=== PATIENT | male | born 1960 | race Caucasian/White ===

== ENCOUNTER 2022-10-30 18:15 | Emergency (ER) | payer OTHER, SELFPAY ==
[2022-10-30 18:37] VITALS: BP 157/84; PULSE 72; RESP 24; TEMP 37.4; BMI 32.5
--- NOTE | 2022-10-30 19:13 | ED_ITS ---
HPI - General Adult General Chief complaint: Back Pain/Injury Stated complaint: RIB PAIN AFTER FALL, HARD TO BREATH Time Seen by Provider: 10/30/22 19:12 History of Present Illness HPI narrative: Yesterday the patient tripped and fell at home, landing onto his left side with the torso striking the ground. he did not hit his head, denied any injury to the neck or back. he also denied any injury to the extremities. He complains of pain along the left rib cage both anteriorly and posteriorly as well as laterally on that left side. He took some motrin around 9am this morning but none since. He said that the pain is worse with mvoement of the left arm and certain movements of the torso. no fever or chills. No abdominal pain or vomiting. He said that it hurts to take a deep breath but he has no shortness of breath. Related Data Home Medications Medication Instructions Recorded Confirmed furosemide 40 mg tablet 40 mg PO DAILY 10/30/22 10/30/22 insulin detemir U-100 100 unit/mL 30 unit subcut DAILY 10/30/22 10/30/22 (3 mL) subcutaneous pen (Levemir FlexPen) pioglitazone 45 mg tablet 45 mg PO DAILY 10/30/22 10/30/22 pravastatin 40 mg tablet 40 mg PO DAILY 10/30/22 10/30/22 Allergies Allergy/AdvReac Type Severity Reaction Status Date / Time No Known Drug Allergies Allergy Verified 10/30/22 18:32 Exam Narrative Exam Narrative: Nurses note and vital signs reviewed and patient is not hypoxic. afebrile General: The patient appears well and in no apparent distress. Patient is resting comfortably on cart. GCS = 15. Skin: Warm, dry, no pallor noted. Head: Normocephalic, atraumatic Neck: Supple, trachea mid-line. Full ROM and no cervical spinal tenderness. Eyes: PERRLA, EOMI Cardiovascular: Regular Rate and Rhythm Respiratory: Patient is in no distress, no accessory muscle use, lungs are clear to auscultation, no wheezing, rales or rhonchi Chest Wall: Diffuse left anterolatral and posterolateral tenderness. No flail chest, contusion, abrasion, or visual signs of trauma. Back: No thoracic or lumbar tenderness to palpation. Musculoskeletal: no sign of long bone fracture, no tenderness, no swelling. Moves all four extremities in all modalities with 5/5 strength. GI: Normal bowel sounds, no tenderness to palpation, no masses appreciated. He has a stoma. No rebound, guarding, or rigidity noted. Neurological: A&O x4, normal equal turbine technician strength, normal finger to nose, normal speech, normal coordination, normal motor, normal sensory. Psychiatric: Cooperative Constitutional Vital Signs - 24 hr 10/30/22 18:37 Temperature 99.4 F Pulse Rate [Monitor] 72 Respiratory Rate 24 Blood Pressure [Right Arm] 157/84 H Course Vital Signs Vital signs: Vital Signs Temperature 99.4 F 10/30/22 18:37 Pulse Rate 72 10/30/22 18:37 Respiratory Rate 24 10/30/22 18:37 Blood Pressure 157/84 H 10/30/22 18:37 Temperature 99.4 F 10/30/22 18:37 Pulse Rate 72 10/30/22 18:37 Respiratory Rate 24 10/30/22 18:37 Blood Pressure 157/84 H 10/30/22 18:37 Medical Decision Making MDM Narrative Medical decision making narrative: patient sent for xrays of the left ribs and chest. he was given robaxin but wanted to take it at home. He took the Toradol we offered him. No rib fractures identified by radiologist. Patient informed of xray results and was discharged home with prescriptions for Robaxin and Relafen. Imaging Data xr ribs and chest: Radiologist's impression: Patient Name: LOBO DENSON MRN: [id number] date: 1960 Sex: M Assigned Patient Location: ER Current Patient Location: ER Accession/Order Number: [id number] Exam Date: 10/30/2022 20:15 Report Date: 10/30/2022 20:53 At the request of: KRIS LOPES Procedure: XR ribs RT min 3V w CXR1V EXAMINATION: XR ribs RT min 3V w CXR1V HISTORY: Fall COMPARISON: None. TECHNIQUE: AP and PA views of the chest along with 5 views of the ribs FINDINGS: The lung parenchyma is free of consolidation or infiltrate. No pneumothorax or pleural effusion. The cardiac, mediastinal and hilar contours are normal. The visualized osseous structures exhibit no gross abnormality. IMPRESSION: No visualized acute abnormalities Electronically authenticated by: JOYCE ANDERSON Date: 10/30/2022 20:53 Discharge Plan Discharge Chief Complaint: Back Pain/Injury Clinical Impression: Contusion of rib on left side Patient Disposition: Home, Self-Care Time of Disposition Decision: 21:08 Prescriptions / Home Meds: No Action Levemir FlexPen 100 unit/mL (3 mL) insulin pen 30 unit SUBCUT DAILY furosemide 40 mg tablet 40 mg PO DAILY pioglitazone 45 mg tablet 45 mg PO DAILY pravastatin 40 mg tablet 40 mg PO DAILY Instructions: Rib Contusion (ED) Stand Alone Forms: Portal Instructions Referrals: Jigar Olsen MD [Primary Care Provider] - 1 week
[2022-10-30] MEDS: KETOROLAC TROMETHAMINE 10 MG TABLET PO (20:06)
--- NOTE | 2022-10-30 20:09 | PC.NURSE ---
patient medicated for pain at this time
[2022-10-30 21:07] VITALS: BP 148/72; PULSE 67; RESP 16; O2SAT 97
[2022-10-30] MEDS: METHOCARBAMOL 500 MG TABLET PO (21:30)
== END 2022-10-30 21:30 | disposition home or self-care (01) ==
PROVIDERS: Emergency Provider Emergency Medicine; PCP Family Medicine
DX: S20.212A Contusion of left front wall of thorax, initial encounter (principal); W01.198A Fall on same level from slipping, tripping and stumbling with subsequent striking against other object, initial encounter; Z79.899 Other long term (current) drug therapy; Z79.4 Long term (current) use of insulin
CPT/HCPCS: 71101; 99283

== ENCOUNTER 2022-11-06 20:24 | Emergency (ER) | payer OTHER, SELFPAY ==
[2022-11-06] VITALS (7 sets, daily range): BP systolic 143–200; BP diastolic 76–109; PULSE 64–73; RESP 12–18; TEMP 37; O2SAT 95–98; BMI 32.6
--- NOTE | 2022-11-06 20:48 | PC.NURSE ---
pt reports bloody nose earlier but no problems related to this HTN. Nay LAWRENCE and no CP, nose bleed selected as a main complaint d/t no appropriate choices for pt complaint re: HTN
--- NOTE | 2022-11-06 20:52 | ECG_ITS ---
[facility] Test Date: 2022-11-06 Pat Name: LOBO DENSON Department: Room: - Gender: Male Transmission Technician: : 1960 Requested By: GALEN POWELL Order Number: [id number] Reading MD: ARIADNA ABREU Measurements Intervals [place] Rate: 66 P: 43 IN: 186 QRS: -30 QRSD: 98 T: 38 QT: 406 QTc: 420 Interpretive Statements 1100 Sinus rhythm 2440 Incomplete right bundle branch block 3114 Cannot rule out anterior myocardial infarction, age undetermined 9150 abnormal ECG No previous ECG available for comparison Electronically Signed On 11-07-2022 7:01:14 EDT by ARIADNA ABREU
--- NOTE | 2022-11-06 20:55 | ED_ITS ---
HPI - General Adult General Chief complaint: Shortness of Breath/Dyspnea Stated complaint: Hypertension Time Seen by Provider: 11/06/22 20:52 Source: patient Mode of arrival: walk-in Limitations: no limitations History of Present Illness HPI narrative: This 61-year-old male with a history of diabetes, hypertension who has a colostomy bag presents for evaluation of elevated blood pressure. The patient states he was at [facility] earlier today and had a nosebleed for approximately 5-10 minutes. 2 of the people that were there also have high blood pressure and he took his blood pressure and it was in the 200/100 range. He denies any chest pain. He does have some left-sided back pain and mild shortness of breath after having a fall while tripping in a hole when he was taking his garbage out a week ago. He denies any dizziness or syncope. He has no headache. He has no focal weakness numbness or tingling. He denies any abdominal pain or back pain. He was formally on blood pressure medication but he states he was sick approximately a year ago and he was taken off of his blood pressure medication. He states he was started on an insulin regimen at that time and still takes Lasix daily. After I ordered a chest x-ray for him he requested to know why I had ordered the chest x-ray. I explained that he complained of a follow week ago with left-sided back pain and mild shortness of breath. He informed me that he did have a chest x-ray week ago. The chest x-ray at that time was an x-ray of the ribs and chest x-ray and reviewed the report with no visualized acute abnormalities. Onset (ago): day(s) (1) Related Data Home Medications Medication Instructions Recorded Confirmed furosemide 40 mg tablet 40 mg PO DAILY 10/30/22 11/06/22 insulin detemir U-100 100 unit/mL 30 unit subcut DAILY 10/30/22 11/06/22 (3 mL) subcutaneous pen (Levemir FlexPen) pioglitazone 45 mg tablet 45 mg PO DAILY 10/30/22 11/06/22 pravastatin 40 mg tablet 40 mg PO DAILY 10/30/22 11/06/22 aspirin 81 mg capsule 81 mg PO DAILY 11/06/22 11/06/22 insulin lispro 100 unit/mL subcut TID 06/22/23 subcutaneous pen (Humalog KwikPen (U-100) Insulin) Allergies Allergy/AdvReac Type Severity Reaction Status Date / Time No Known Drug Allergies Allergy Verified 10/30/22 18:32 Review of Systems ROS Status of ROS 10 or more systems reviewed and unremarkable except as noted in history and below Exam Constitutional Vital Signs - 24 hr 11/06/22 20:31 11/06/22 20:46 11/06/22 21:17 Temperature 98.6 F Pulse Rate [Monitor] 73 73 67 Respiratory Rate 18 14 12 Blood Pressure [Right Arm] 200/109 H 150/78 H 145/81 H Pulse Oximetry 98 98 95 Oxygen Delivery Method Room Air Room Air Room Air 11/06/22 21:29 11/06/22 21:30 11/06/22 21:57 Temperature Pulse Rate [Monitor] 64 Respiratory Rate 14 Blood Pressure [Right Arm] 152/76 H Pulse Oximetry Oxygen Delivery Method Room Air Documenting provider has reviewed patient's vital signs: yes (Manual blood pressure noted to be at 150/78) Common normals: no apparent distress, oriented x3 and no limitations General appearance: cooperative and comfortable Nutritional appearance: obese Orientation/consciousness: Yes awake, Yes oriented to person, Yes oriented to place and Yes oriented to time HENMT Common normals: normocephalic, head/scalp atraumatic and hearing grossly normal bilaterally Head and scalp: normal to inspection Face and sinus: normal facial exam Mouth: oral and palatal mucosa normal Eye Common normals: PERRL, EOMs intact bilaterally and conjunctivae normal General eye: normal appearance of both eyes Pupil: PERRL Neck & C-Spine Common normals: full ROM, no lymphadenopathy and no JVD General: normal visual inspection and trachea midline Respiratory Common normals: normal respiratory effort, no retractions and no use of accessory muscles Effort & inspection: able to speak in complete sentences and symmetric chest movement Auscultation: clear to auscultation bilaterally Cardio Common normals: no JVD, regular rate, regular rhythm, S1 normal heart sound, S2 normal heart sound, no gallops, no clicks, no murmurs and no rub GI Common normals: Normal to inspection, nondistended, normoactive bowel sounds present Extremity Common normals: normal to inspection, full ROM and normal capillary refill General: normal exam except as noted Neuro Common normals: oriented x3, CN's II-XII intact bilaterally, moves all extremities, no focal motor deficits and no sensory deficits noted Sensorium/orientation: awake, alert, oriented to person, oriented to place and oriented to time Psych Common normals: mental status grossly normal, thought process normal, cooperative, affect normal, speech normal and activity/motor behavior normal Course Course Hospital Course: Patient was adamant that he needed blood pressure control and was given 5 mg of oral Norvasc. Blood pressure was monitored and was recorded on the monitor 152/76. Vital Signs Vital signs: Vital Signs Temperature 98.6 F 11/06/22 20:31 Pulse Rate 73 11/06/22 20:31 Respiratory Rate 18 11/06/22 20:31 Blood Pressure 200/109 H 11/06/22 20:31 Pulse Oximetry 98 11/06/22 20:31 Oxygen Delivery Method Room Air 11/06/22 20:31 Temperature 98.6 F 11/06/22 20:31 Pulse Rate 64 11/06/22 21:30 Respiratory Rate 14 11/06/22 21:30 Blood Pressure 152/76 H 11/06/22 21:57 Pulse Oximetry 95 11/06/22 21:17 Oxygen Delivery Method Room Air 11/06/22 21:29 Medical Decision Making MDM Narrative Medical decision making narrative: This 61-year-old male history of diabetes, hypertension and for evaluation of elevated blood pressure. The patient states he was at [facility] and had a nosebleed for 5-10 minutes which spontaneously resolved. Some of the his [facility] friends took his blood pressure and the readings were almost 200/100. He denied any chest pain but did complain of some mild shortness of breath that states that was because he had a fall a week ago. He was seen here after his fall and had x-rays done that were normal. EKG upon arrival was sinus rhythm with an incomplete right bundle-branch block. He had an elevated blood pressure on the monitor but a manual was in the 150s over 70s. He was adamant that he have something for blood pressure control because of the risks monitors that his friends had used and was medicated with 5 mg of oral Norvasc. His blood pressure on the monitor did come down to 152/76 which she was satisfied with. Routine labs including troponin were reviewed and are normal with the exception of a glucose of 196. The patient was concerned about his potassium as well because he takes Lasix but I signed to him that his potassium is normal at 3.6. He requested a prescription for the blood pressure medication. I did explain to him that are medicine colleagues typically do not like us to start patient on new blood pressure medications from the emergency department however in light of his persistence I agreed to give him a week's supply of Norvasc Lab Data Lab results reviewed: Yes I reviewed the patient's lab results (labs are normal with the exception of a glucose at 197) Labs: Lab Results 11/06/22 Range/Units 21:03 WBC 4.5 (4.0-11.0) 10^3/uL RBC 3.89 L (4.70-6.10) 10^6/uL Hgb 11.7 L (14.0-18.0) g/dL Hct 35.1 L (42.0-54.0) % MCV 90.2 (80.0-94.0) fL MCH 30.1 (25.9-34.0) pg MCHC 33.3 (29.9-35.2) g/dL RDW 13.8 (11.0-15.0) % Plt Count 138 L (150-450) 10^3/uL MPV 11.0 (9.5-13.5) fL Neut % (Auto) 61.4 (43.0-75.0) % Lymph % (Auto) 25.2 (20.5-60.0) % [place] % (Auto) 9.9 (1.7-12.0) % Eos % (Auto) 2.4 (0.9-7.0) % Baso % (Auto) 0.4 (0.2-2.0) % Neut # (Auto) 2.8 (1.4-6.5) 10^3/uL Lymph # (Auto) 1.1 L (1.2-3.8) 10^3/uL [place] # (Auto) 0.5 (0.3-0.8) 10^3/uL Eos # (Auto) 0.1 (0.0-0.7) 10^3/uL Baso # (Auto) 0.0 (0.0-0.1) 10^3/uL Abs Immat Gran (auto) 0.03 (0.00-0.03) 10^3/uL Imm/Tot Granulo (auto) 0.7 H (0.0-0.5) % Sodium 138 (136-145) mmol/L Potassium 3.6 (3.5-5.1) mmol/L Chloride 103 (98-107) mmol/L Carbon Dioxide 29.0 (21.0-32.0) mmol/L Anion Gap 9.6 BUN 36.0 H (7.0-18.0) mg/dL Creatinine 1.29 (0.70-1.30) mg/dL Est GFR ( Amer) >60 (>=60) Est GFR (Non-Af Amer) 57 L (>=60) BUN/Creatinine Ratio 27.9 Glucose 197 H (74-106) mg/dL Calcium 8.5 (8.5-10.1) mg/dL Magnesium 2.0 (1.8-2.4) mg/dL Total Bilirubin 0.3 (0.2-1.0) mg/dL AST 15 (15-37) U/L ALT 26 (16-63) U/L Alkaline Phosphatase 92 (46-116) U/L Troponin I High Sens <4.0 L (4.0-76.1) pg/mL Total Protein 7.0 (6.4-8.2) g/dL Albumin 3.5 (3.4-5.0) g/dL Globulin 3.5 g/dL Albumin/Globulin Ratio 1.0 ECG Data Attestation: I personally reviewed and interpreted this ECG as follows: (Sinus rhythm at 66 beats for minute, incomplete right bundle branch block, left axis deviation, no acute ST segment elevation or t wave inversion) Discharge Plan Discharge Chief Complaint: Shortness of Breath/Dyspnea Clinical Impression: Hyperglycemia due to diabetes mellitus, Elevated blood pressure reading Patient Disposition: Home, Self-Care Time of Disposition Decision: 22:17 Condition: Good Prescriptions / Home Meds: No Action Levemir FlexPen 100 unit/mL (3 mL) insulin pen 30 unit SUBCUT DAILY furosemide 40 mg tablet 40 mg PO DAILY pioglitazone 45 mg tablet 45 mg PO DAILY pravastatin 40 mg tablet 40 mg PO DAILY insulin lispro [Humalog KwikPen Insulin] 100 unit/mL insulin pen SUBCUT TID Patient Comments: sliding scale aspirin 81 mg capsule 81 mg PO DAILY Stand Alone Forms: Portal Instructions Referrals: Jigar Olsen MD [Primary Care Provider] - 1 week
--- NOTE | 2022-11-06 21:12 | NUTR.NU ---
called [facility] pharmacy to have med pushed over
[2022-11-06 21:16] LABS: Basophils Percent Auto 0.4 % (0.2-2.0); Eosinophils Absolute Auto 0.1 10^3/uL (0.0-0.7); Eosinophils Percent Auto 2.4 % (0.9-7.0); Hematocrit 35.1 % (42.0-54.0); Hemoglobin 11.7 g/dL (14.0-18.0); Immature Granulocytes Abs Auto 0.03 10^3/uL (0.00-0.03); Immature Granulocytes Pct Auto 0.7 % (0.0-0.5); Lymphocytes Absolute Auto 1.1 10^3/uL (1.2-3.8); Lymphocytes Percent Auto 25.2 % (20.5-60.0); Mean Corpuscular HGB Conc 33.3 g/dL (29.9-35.2); Mean Corpuscular Hemoglobin 30.1 pg (25.9-34.0); Mean Corpuscular Volume 90.2 fL (80.0-94.0); Monocytes Absolute Auto 0.5 10^3/uL (0.3-0.8); Monocytes Percent Auto 9.9 % (1.7-12.0); Neutrophils Absolute Auto 2.8 10^3/uL (1.4-6.5); Neutrophils Percent Auto 61.4 % (43.0-75.0); Platelet Count 138 10^3/uL (150-450); Red Blood Count 3.89 10^6/uL (4.70-6.10); Red Cell Distribution Width 13.8 % (11.0-15.0); White Blood Count 4.5 10^3/uL (4.0-11.0)
[2022-11-06 21:36] LABS: Alanine Aminotransferase 26 U/L (16-63); Albumin Level 3.5 g/dL (3.4-5.0); Alkaline Phosphatase 92 U/L (46-116); Anion Gap 9.6; Aspartate Amino Transferase 15 U/L (15-37); BUN Creatinine Ratio 27.9; Bilirubin Total 0.3 mg/dL (0.2-1.0); Calcium 8.5 mg/dL (8.5-10.1); Chloride 103 mmol/L (98-107); Estimated GFR (African America >60 (>=60); Estimated GFR (Non-African Ame 57 (>=60); Globulin 3.5 g/dL; Glucose 197 mg/dL (74-106); Potassium 3.6 mmol/L (3.5-5.1); Sodium 138 mmol/L (136-145); Troponin I High Sensitivity <4.0 pg/mL (4.0-76.1)
[2022-11-06] MEDS: AMLODIPINE BESYLATE 5 MG TABLET PO (21:37)
--- NOTE | 2022-11-06 22:41 | PC.NURSE ---
d/c instructions complete, pt verbalized understanding. prescription given to pt at d/c and gait steady to exit
== END 2022-11-06 22:41 | disposition home or self-care (01) ==
PROVIDERS: Emergency Provider Emergency Medicine; PCP Family Medicine
DX: I10 Essential (primary) hypertension (principal); E11.65 Type 2 diabetes mellitus with hyperglycemia; Z93.3 Colostomy status; Z79.899 Other long term (current) drug therapy; Z79.4 Long term (current) use of insulin; Z79.82 Long term (current) use of aspirin
CPT/HCPCS: 36415; 80053; 83735; 84484; 85025; 93005; 99284

== ENCOUNTER 2023-01-28 16:48 | Outpatient (OUT) | payer OTHER, SELFPAY ==
[2023-01-28 17:08] LABS: Basophils Percent Auto 0.4 % (0.2-2.0); Eosinophils Absolute Auto 0.1 10^3/uL (0.0-0.7); Eosinophils Percent Auto 2.1 % (0.9-7.0); Hematocrit 36.2 % (42.0-54.0); Immature Granulocytes Abs Auto 0.01 10^3/uL (0.00-0.03); Immature Granulocytes Pct Auto 0.2 % (0.0-0.5); Lymphocytes Absolute Auto 1.5 10^3/uL (1.2-3.8); Lymphocytes Percent Auto 31.8 % (20.5-60.0); Mean Corpuscular HGB Conc 33.1 g/dL (29.9-35.2); Mean Corpuscular Volume 93.5 fL (80.0-94.0); Mean Platelet Volume 11.1 fL (9.5-13.5); Monocytes Absolute Auto 0.4 10^3/uL (0.3-0.8); Monocytes Percent Auto 8.2 % (1.7-12.0); Neutrophils Absolute Auto 2.7 10^3/uL (1.4-6.5); Neutrophils Percent Auto 57.3 % (43.0-75.0); Platelet Count 158 10^3/uL (150-450); Red Blood Count 3.87 10^6/uL (4.70-6.10); Red Cell Distribution Width 13.8 % (11.0-15.0); White Blood Count 4.8 10^3/uL (4.0-11.0)
[2023-01-28 17:21] LABS: Microalbumin Urine Random 3.5 mg/dL (<=30.0)
[2023-01-28 17:22] LABS: Estimated Average Glucose 148 mg/dL; Glycohemoglobin A1C 6.8 % (4.5-6.2)
[2023-01-28 17:39] LABS: Alanine Aminotransferase 13 U/L (16-63); Albumin Level 3.8 g/dL (3.4-5.0); Alkaline Phosphatase 99 U/L (46-116); Anion Gap 11.7; Aspartate Amino Transferase 16 U/L (15-37); BUN Creatinine Ratio 24.6; Bilirubin Direct <0.1 mg/dL (0.0-0.2); Bilirubin Total 0.3 mg/dL (0.2-1.0); Calcium 8.6 mg/dL (8.5-10.1); Carbon Dioxide 28.4 mmol/L (21.0-32.0); Chloride 102 mmol/L (98-107); Chol HDL Ratio 3.8; Cholesterol 167 mg/dL (<=200); Estimated GFR (African America >60 (>=60); Estimated GFR (Non-African Ame 58 (>=60); Globulin 3.7 g/dL; Glucose 126 mg/dL (74-106); HDL Cholesterol 44 mg/dL (40-60); Potassium 4.1 mmol/L (3.5-5.1); Sodium 138 mmol/L (136-145); Thyroid Stimulating Hormone 1.341 uIU/mL (0.358-3.740); Total Protein 7.5 g/dL (6.4-8.2); Triglycerides 295 mg/dL (<=150)
[2023-01-28 17:47] LABS: Prostate Specific Antigen Scrn 0.96 ng/mL (<=4.00)
== END 2023-01-28 16:49 | disposition home or self-care (01) ==
PROVIDERS: PCP Family Medicine; Visit Provider Family Medicine
DX: E11.9 Type 2 diabetes mellitus without complications (principal); I10 Essential (primary) hypertension; Z12.5 Encounter for screening for malignant neoplasm of prostate; Z51.81 Encounter for therapeutic drug level monitoring; E66.9 Obesity, unspecified
CPT/HCPCS: 36415; 80048; 80061; 80076; 82043; 83036; 84443; 85025; G0103

== ENCOUNTER 2023-04-28 16:39 | Outpatient (OUT) | payer OTHER, SELFPAY ==
[2023-04-28 17:00] LABS: Basophils Percent Auto 0.6 % (0.2-2.0); Eosinophils Absolute Auto 0.1 10^3/uL (0.0-0.7); Eosinophils Percent Auto 1.1 % (0.9-7.0); Hematocrit 39.1 % (42.0-54.0); Hemoglobin 12.7 g/dL (14.0-18.0); Immature Granulocytes Abs Auto 0.01 10^3/uL (0.00-0.03); Immature Granulocytes Pct Auto 0.2 % (0.0-0.5); Lymphocytes Absolute Auto 1.8 10^3/uL (1.2-3.8); Lymphocytes Percent Auto 26.7 % (20.5-60.0); Mean Corpuscular HGB Conc 32.5 g/dL (29.9-35.2); Mean Corpuscular Hemoglobin 29.3 pg (25.9-34.0); Mean Corpuscular Volume 90.1 fL (80.0-94.0); Mean Platelet Volume 11.3 fL (9.5-13.5); Monocytes Absolute Auto 0.5 10^3/uL (0.3-0.8); Monocytes Percent Auto 7.8 % (1.7-12.0); Neutrophils Absolute Auto 4.2 10^3/uL (1.4-6.5); Neutrophils Percent Auto 63.6 % (43.0-75.0); Platelet Count 174 10^3/uL (150-450); Red Blood Count 4.34 10^6/uL (4.70-6.10); Red Cell Distribution Width 14.5 % (11.0-15.0); White Blood Count 6.6 10^3/uL (4.0-11.0)
[2023-04-28 17:14] LABS: Estimated Average Glucose 148 mg/dL; Glycohemoglobin A1C 6.8 % (4.5-6.2)
[2023-04-28 17:18] LABS: Alanine Aminotransferase 28 U/L (16-63); Albumin Level 3.9 g/dL (3.4-5.0); Alkaline Phosphatase 103 U/L (46-116); Anion Gap 12.8; Aspartate Amino Transferase 18 U/L (15-37); BUN Creatinine Ratio 20.6; Bilirubin Direct 0.1 mg/dL (0.0-0.2); Bilirubin Total 0.4 mg/dL (0.2-1.0); Calcium 8.6 mg/dL (8.5-10.1); Chloride 105 mmol/L (98-107); Chol HDL Ratio 3.4; Cholesterol 141 mg/dL (<=200); Estimated GFR (African America >60 (>=60); Estimated GFR (Non-African Ame 58 (>=60); Globulin 3.8 g/dL; Glucose 121 mg/dL (74-106); HDL Cholesterol 42 mg/dL (40-60); Potassium 3.8 mmol/L (3.5-5.1); Sodium 143 mmol/L (136-145); Total Protein 7.7 g/dL (6.4-8.2); Triglycerides 156 mg/dL (<=150); VLDL CHOLESTEROL 31.2 mg/dL
[2023-04-28 17:56] LABS: Prostate Specific Antigen Dx 1.09 ng/mL (<=4.00)
== END 2023-04-28 16:40 | disposition home or self-care (01) ==
PROVIDERS: PCP Family Medicine; Visit Provider Family Medicine
DX: E11.65 Type 2 diabetes mellitus with hyperglycemia (principal); Z79.4 Long term (current) use of insulin; I10 Essential (primary) hypertension; E78.5 Hyperlipidemia, unspecified; Z12.5 Encounter for screening for malignant neoplasm of prostate
CPT/HCPCS: 36415; 80048; 80061; 80076; 82043; 83036; 84153; 85025

== ENCOUNTER 2024-02-25 14:37 | Outpatient (OUT) | payer BC, SELFPAY ==
--- OUTSIDE RECORDS SUMMARY | 2024-02-25 14:58 | XMS_ITS | CCD ---
Author Organization [facility] Care Team Providers Care Line Cleaner Name Role Phone RAY DAVIS Attending Unavailable RAY DAVIS Admitting Unavailable JIGAR POWELL Primary Care Unavailable RIZWAN GARAY Referring Unavailable Kiah Gale Unavailable MD Jigar Powell Primary Care Provider MD Edith Og Admit Provider MD Addy Carlisle Other Provider MD Jihan Manuel Attending Provider [phone] ORIN Ugalde Other Provider UnavailORIN Azevedo Other Provider Unavailable MD Jose Guadalupe Andrews Other Provider CLAUDIA Acosta Other Provider MD Gaudencio Park Other Provider MD Mao Fernandez Other Provider MD Shea Pabon Other Provider Hernan MCCABE Attending Unavailable JIGAR MONTENEGRO Referring Unavailab Juan Jose Sarmiento Unavailable Jose Guadalupe Andrews Unavailable MD Jigar Powell Primary Care Provider MD Edith Og Admit Provider [phone] MD Addy Carlisle Other Provider MD Jihan Manuel Attending Provider ORIN Ugalde Other Provider UnavailORIN Azevedo Other Provider Unavailable MD Jose Guadalupe Andrews Other Provider [phone] CLAUDIA Acosta Other Provider MD Gaudencio Park Other Provider [phone] MD Mao Fernandez Other Provider [phone] MD Shea Pabon Other Provider MD Edith Og Attending Provider SHERRY, DR JIGAR Felipe Consulting Unavailable NADERER, DR JIGAR Felipe Attending Unavailable NADERER, DR JIGAR Felipe Admitting Unavailable NADERER, DR JIGAR Felipe Primary Care Unavailable ORESTES, ADDY Consulting Unavailable ORESTES, ADDY Attending Unavailable ORESTESADDY Admitting Unavailable NADERER, DR JIGAR Felipe Primary Care Unavailable NADERER, DR JIGAR Felipe Consulting Unavailable NADERER, DR JIGAR Felipe Attending Unavailable NADERER, DR JIGAR Felipe Admitting Unavailable NADERER, DR JIGAR Felipe Primary Care Unavailable RIZWAN GARAY Attending Unavailable RIZWAN GARAY Admitting Unavailable WANG, DR FRANDY Miranda Consulting Unavailable NADERER, DR JIGAR Felipe Primary Care Unavailable KATKORIZWAN Consulting Unavailable Policaro, Kumar Consulting Unavailable HAY ., DR PONCE Consulting Unavailable HAY ., DR PONCE Attending Unavailable HAY ., DR PONCE Admitting Unavailable NADERER, DR JIGAR Felipe Primary Care Unavailable KATKO, RIZWAN Ingram Consulting Unavailable KATKO, RIZWAN Ingram Attending Unavailable KATKO, RIZWAN D Admitting Unavailable NADERER, DR JIGAR Felipe Primary Care Unavailable JOYCE ANDERSON Consulting Unavailable NADERERuben, DR JIGAR Felipe Attending Unavailable NADERER, DR JIGAR Felipe Admitting Unavailable NADERER, DR JIGAR Felipe Primary Care Unavailable HOY ., DR CISSE Consulting Unavailable MATHIS ., DR SALOMON Christianson Consulting Unavailable ZIEBER, DR CAIT Miranda Consulting Unavailable NADERER, DR JIGAR Fleipe Consulting Unavailable NILL ., DR ESCUDERO Consulting Unavailable ELOISA MORENO Consulting Unavailable NICOLAS DAMON Consulting Unavailable SINGHANIA, MARIA LUISA Consulting Unavailable MAIN, CHINYERE Consulting Unavailable BI, DR DEL TORO Consulting Unavailable BI, DR DEL TORO Attending Unavailable BI, DR DEL TORO Admitting Unavailable NADERERuben, DR JIGAR Felipe Primary Care Unavailable NADERERuben, DR JIGAR Felipe Primary Care Unavailable ALEJA CURTIS Attending Unavailable ALEJA CURTIS Admitting Unavailable SURJIT, DR JOYCE Remy Consulting Unavailable ALEJA CURTIS Consulting Unavailable Nadjacki, MD Kimball Primary Care Provider MD Juan Jose Pat Attending Provider JIGAR POWELL Attending Unavailable Jigar Powell MD Primary Care Provider [phone] Jigar Powell Primary Care Unavailable Juan Jose Pat Attending Unavailable Juan Jose Pat Admitting Unavailable Juan Jose Pat Attending Unavailable Juan Jose Pat Admitting Unavailable Jigar Powell Primary Care Unavailable MD Jigar Powell Primary Care Provider [phone] MD Juan Jose Pat Attending Provider Allergies Allergy Classification Reported Allergen(s) Allergy Type Date of Onset Reaction(s) Facility (1 source) 24554,00 Drug allergy (disorder) 9 [facility] Repository (9 sources) Vancomycin Drug Allergy 3 Other (See Comments) [employer] Work Phone: (1 source) Vancomycin Drug Allergy 3 [facility] Repository Medications Current Medications Medication Drug Class(es) Dates Sig (Normalized) Sig (Original) 0.25 MG, 0.5 MG Dose 3 ML semaglutide 0.68 MG/ML Pen Injector [Ozempic] (1 source) Ozempic (0.25 or 0.5 MG/DOSE) 2 MG/3ML as directed Subcutaneous ONCE A WEEK Active AMBULATORY COMPOUNDED MEDICATION (3 sources) Start: 04-03-2021 AMBULATORY COMPOUNDED MEDICATION 0.1 mL by intracavernosal route as needed (no more than 3x weekly). 2.5 mL 3 04/03/2021 Active amLODIPine 10 mg oral tablet (4 sources) Dihydropyridine Calcium Channel [place] Start: 02-12-2022 take 10 mg by mouth once daily Amlodipine Active 10 MG PO Daily February 12, 2022 12:00am Ascorbic Acid (1 source) Vitamin C Start: 09-22-2023 take 1 g by mouth twice daily Ascorbic Acid (Vitamin C) Active 1 GM PO Twice daily September 22, 2023 12:00am aspirin 81 mg chewable tablet (8 sources) Platelet Aggregation Inhibitor, Nonsteroidal Anti-inflammatory Drug Start: 09-22-2023 take 81 mg by mouth once daily Aspirin Active 81 MG PO Daily September 22, 2023 12:00am take 1 tablet by mouth once patti y Aspirin 81 81 MG 1 tablet Orally Once a day Active Aspirin 81 Activ e atorvastatin 40 mg oral tablet (1 source) HMG-CoA Reductase Inhibitor Start: 09-22-2023 take 40 mg by mouth once daily Atorvastatin Active 40 MG PO Daily September 22, 2023 12:00am chromium picolinate 0.1 mg / cinnamon bark 500 mg oral capsule (3 sources) cinnamon bark-chromium picolin 500-100 mg-mcg capsule cinnamon bark 500 mg oral capsule (1 source) Start: 09-22-2023 take 1000 mg by mouth once daily Cinnamon Bark Active 1000 MG PO Daily September 22, 2023 12:00am cinnamon preparation 500 mg oral tablet (1 source) Non-Standardized Food Allergenic Extract take 2 capsules by mouth twice daily Cinnamon 500 MG 2 CAPSULES Orally TWICE A DAY Active ferrous sulfate 325 mg oral tablet (1 source) take 2 tablets by mouth every twelve hours Ferrous Sulfate 325 (65 Fe) MG 2 TABLETS Orally TWICE A DAY Active Fish Oils (1 source) take 2 capsules by mouth twice daily Fish Oil 1200 MG 2 capsule Orally Twice a day Active furosemide 40 mg oral tablet (11 sources) Loop Diuretic Start: 09-22-2023 take 40 mg by mouth once daily Furosemide Active 40 MG PO Daily September 22, 2023 12:00am Start: 02-12-2022 End: 09-22-2023 take 40 mg by mouth twice daily Furosemide Discontinued 40 MG PO BID@0800,1600 60 30 February 12, 2022 12:00am September 22, 2023 3:19pm take 1 tablet by clarice every twenty-four hours Furosemide 40 mg 1 tablet Orally Once a day Active glimepiride 1 mg oral tablet (7 sources) Sulfonylurea glimepiride (AMA RYL) 1 mg tablet Take by mouth daily. 0 Active Glimepiride Acti ve Insulin Aspart U-100 (Novolog Flexpen U-100 Insulin) 100 unit/mL (3 mL) Insulin Pen (4 sources) Start: 02-12-2022 inject 9 [IU] by subcutaneous injection once at mealtime Insulin Aspart U-100 (Novolog Flexpen U-100 Insulin) 100 unit/mL (3 mL) Insulin Pen Active 1 UNIT SUBCUT 3X/Day with meals and bedtime February 11, 2022 11:00pm Fingerstick Blood Glucose Insulin Units 150-199 mg/dl 2 unit 200-249 mg/dl 3 unit 250-299 mg/dl 5 unit 300-349 mg/dl 7 unit 350-399 mg/dl 8 unit greater than or = 400 mg/dl 9 unit Start: 02-12-2022 inject 9 [IU] by sub cutaneous injection once at mealtime Insulin Aspart U-100 (Novolog Flexpen U-100 Insulin) 100 unit/mL (3 mL) Insulin Pen Active 1 UNIT SUBCUT 3X/Day with meals and bedtime February 12, 2022 12:00am Fingerstick Blood Glucose Insulin Units 150-199 mg/dl 2 unit 200-249 mg/dl 3 unit 250-299 mg/dl 5 unit 300-349 mg/dl 7 unit 350-399 mg/dl 8 unit greater than or = 400 mg/dl 9 unit 3 ml insulin detemir 100 unt/ml pen injector (5 sources) Insulin Analog Levemir FlexTouc h 100 UNIT/ML 30 UNITS Subcutaneous ONCE A DAY Active 3 ml insulin glargine 100 unt/ml pen injector (1 source) Insulin Analog Start : 09-21 Insulin Glargine (Basaglar Kwikpen U-100 Insulin) 100 unit/mL (3 mL) insulin pen Active 30 UNIT SUBCUT Every evening September 22, 2023 12:00am 3 ml insulin lispro 100 unt/ml pen injector (6 sources) Insulin Analog HumaLOG KwikPen 100 UNIT/ML Check Fingerstick Blood Glucose with 3 (THREE) meals and AT BEDTIME, if reading is BETWEEN 150-199 INJECT 2 (TWO) UNITS, if BETWEEN 200-249 INJECT 3 (THREE) UNITS, if BETWEEN 250-299 INJECT 5 (FIVE) UNITS, if BETWEEN 300-349 INJECT 7 (SEVEN) UNITS, if BETWEEN 350-399 INJECT EIGHT UNITS, if greater than or equal to 400 INJECT 9 UNITS Subcutaneous Active Levemir FlexTouch 100 UNIT/ML (1 source) Levemir FlexTouc h 100 UNIT/ML 30 UNITS Subcutaneous ONCE A DAY Active Magnesium (1 source) take 1 tablet by mouth twice daily Magnesium 250 MG 1 tablet with a meal Orally Twice a day Active magnesium oxide 250 mg oral tablet (1 source) Start : 09-21 take 250 mg by mouth once daily Magnesium Oxide Active 250 MG PO Daily September 22, 2023 12:00am methylPREDNISolone 4 mg oral tablet (4 sources) Corticosteroid Start : 01-12 take 4 mg by mouth once daily Multivitamin preparation (1 source) take 1 tablet by mouth once daily Multi Vitamin - 1 tablet Orally Once a day Active [id number]-ga-GY-[id number]-dnk-nc rb#185 (DIABETIC SUPPORT FORMULA) 167-100-83 mcg tablet (3 sources) zy-xu-II-lycopen e -lut-herb#185 (DIABETIC SUPPORT FORMULA) 167-100-83 mcg tablet Jewell 7-Per-Bzz-Fish Oil (Fish Oil) 1,200 (144-216) mg capsule (1 source) Start : 09-21 Jewell 0-Llk-Lzq-Fish Oil (Fish Oil) 1,200 (144-216) mg capsule Active 1 CAP PO .qwkly September 22, 2023 12:00am OZEMPIC 1 mg/dose (4 mg/3 mL) pen injector (1 source) inject 1 mg by subcutaneous injection every week OZEMPIC 1 mg/dose (4 mg/3 mL) pen injector Inject 1 mg under the skin once a week. 0 Active pioglitazone 45 mg oral tablet (14 sources) Peroxisome Proliferator Receptor alpha Agonist, Peroxisome Proliferator Receptor gamma Agonist, Thiazolidinedione Start : 03-06 take 45 mg by mouth once daily Pioglitazone Active 45 MG PO Daily February 05, 2022 12:00am Pioglitazone HCl Active Semaglutide (1 source) Start: 09-22-2023 Semaglutide (O zempic) 1 mg/dose (4 mg/3 mL) pen injector Active MG SUBCUT September 22, 2023 12:00am Super B Complex (1 source) Super B Complex Active turmeric extract 500 mg oral capsule (1 source) take 500 mg by mouth twice daily Turmeric 500 MG as directed Orally TWICE A DAY Active Turmeric Root Extract (1 source) Start: 09-22-2023 take 1000 mg by mouth once daily Turmeric Root Extract Active 1000 MG PO Daily September 22, 2023 12:00am Vitamin B 12 500 MCG (1 source) take 1 tablet by mouth once daily Vitamin B 12 500 MCG 1 tablet Orally Once a day Active Vitamin B Complex (1 source) Start: 09-22-2023 take 1 tablet by mouth once daily Vitamin B Complex Active 1 TAB PO Daily September 22, 2023 12:00am Vitamin C 1000 MG (1 source) take 1 tablet by mouth twice daily Vitamin C 1000 MG 1 tablet Orally TWICE A DAY Active vitamin e 180 mg oral capsule (1 source) Start: 09-22-2023 Vitamin E Mixe d Active UNIT PO .qwkly September 22, 2023 12:00am Vitamin E 45 MG (100 UNIT) (1 source) take 1 capsule by mouth once daily Vitamin E 45 MG (100 UNIT) 1 capsule Orally Once a day Active Completed/Discontinued Medications Medication Drug Class(es) Dates Sig (Normalized) Sig (Original) acetaminophen 325 mg / oxyCODONE hydrochloride 5 mg oral tablet (8 sources) Opioid Agonist Start: 02-05-2022 End: 09-22-2023 take 1 tablet by mouth every six hours Oxycodone-Acetamin ophen Discontinued 1 TAB PO Q6H 20 4 February 12, 2022 September 22, 2023 3:13pm amoxicillin 500 mg / clavulanate 125 mg oral tablet (4 sources) Penicillin-class Antibacterial Start: 02-12-2022 End: 09-22-2023 take 1 tablet by mouth once daily Amoxicillin-Pot Clavulanate (Augmentin) 500-125 mg tablet Discontinued 1 TAB PO Daily February 12, 2022 12:00am September 22, 2023 3:12pm clindamycin 150 mg oral capsule (4 sources) Lincosamide Antibacterial Start: 02-05-2022 End: 02-12-2022 take 300 mg by mouth three times daily Clindamycin Hcl Discontinued 300 MG PO Three times daily February 05, 2022 12:00am February 12, 2022 1:14pm glipiZIDE 10 mg oral tablet (7 sources) Sulfonylurea Start: 02-05-2022 End: 09-22-2023 take 20 mg by mouth twice daily Glipizide Discontinued 20 MG PO Twice daily February 05, 2022 12:00am September 22, 2023 3:21pm Start: 01-25-2021 take 2 tablets by mo [facility] in the morning, then take 2 tablets by mouth at bedtime glipiZIDE (GLUCOTROL) 10 mg tablet Take 2 tablets (20 mg total) by mouth in the morning and 2 tablets (20 mg total) before bedtime. 0 01/25/2021 Active lisinopril 10 mg oral tablet (7 sources) Angiotensin Converting Enzyme Inhibitor Start: 01-25-2021 End: 09-22-2023 take 10 mg by mouth once daily Lisinopril Discontinued 10 MG PO Daily February 05, 2022 12:00am September 22, 2023 3:13pm 24 hr metFORMIN hydrochloride 500 mg extended release oral tablet (8 sources) Biguanide Start: 02-05-2022 End: 09-22-2023 take 1000 mg by mouth twice daily at mealtime Metformin Discontinued 1000 MG PO Twice daily with meals February 05, 2022 12:00am September 22, 2023 3:13pm metFORMIN (GLUCO PHAGE) 500 mg tablet Take by mouth daily. 0 Active metFORMIN HCl Ac tive pravastatin sodium 40 mg oral tablet (13 sources) HMG-CoA Reductase Inhibitor Start: 01-25-2021 End: 09-22-2023 take 40 mg by mouth once daily Pravastatin Discontinued 40 MG PO Daily February 05, 2022 12:00am September 22, 2023 3:13pm triamcinolone acetonide 40 mg/ml injectable suspension (7 sources) Corticosteroid Start: 01-12-2022 Kenalog-40 Dec, 40 mg Problems Active Problems Problem Classification Problem Date Documented Da te Episodic/Chronic Acute and unspecified renal failure (16 sources) Injury of kidney; Translations: [Acute kidney failure, unspecified] Onset: 02-11-2022 02-05-2022 Episodic Chronic kidney disease (5 sources) Chronic kidney disease stage 2; Translations: [Chronic kidney disease, stage 2 (mild)] Onset: 09-12-2023 Chronic Diabetes mellitus with complications (17 sources) Disorder of kidney due to diabetes mellitus; Translations: [Type 2 diabetes mellitus with diabetic nephropathy] Onset: 02-11-2022 Chronic Diabetes mellitus without complication (7 sources) Diabetes mellitus; Translations: [Type 2 diabetes mellitus without complications] Onset: 04-21-2022 02-06-2022 Chronic Disorders of lipid metabolism (6 sources) Hyperlipidemia; Translations: [Hyperlipidemia, unspecified] 02-06-2022 Chronic E Codes: Natural/environment (1 source) Overexertion from prolonged static or awkward postures, initial encounter; Translations: [OVEREXERT PROLNG STAT/AWK PST INIT] Onset: 08-21-2022 Episodic Essential hypertension (17 sources) Hypertensive disorder; Translations: [Essential (primary) hypertension] Onset: 04-21-2022 02-06-2022 Chronic Fluid and electrolyte disorders (7 sources) Metabolic acidosis; Translations: [Acidosis] Onset: 02-11-2022 02-06-2022 Episodic Genitourinary symptoms and ill-defined conditions (6 sources) Bence Small proteinuria; Translations: [Bence-Small proteinuria] Episodic Hyperplasia of prostate (4 sources) Benign prostatic hyperplasia; Translations: [Benign prostatic hyperplasia with lower urinary tract symptoms] Onset: 03-19-2021 07-10-2023 Chronic Hypertension with complications and secondary hypertension (2 sources) Chronic kidney disease due to hypertension; Translations: [Hypertensive chronic kidney disease with stage 1 through stage 4 chronic kidney disease, or unspecified chronic kidney disease] 09-21-2023 Chronic Immunizations and screening for infectious disease (7 sources) Other specified abnormal immunological findings in serum; Translations: [Elevated serum immunoglobulin free light chains] Onset: 07-11-2022 02-12-2022 Episodic Other connective tissue disease (3 sources) Pain in right foot; Translations: [PAIN IN RIGHT FOOT] Onset: 08-19-2022 Episodic Other gastrointestinal disorders (4 sources) Colostomy present; Translations: [Colostomy status] 02-06-2022 Chronic Other gastrointestinal disorders (2 sources) Colostomy status; Translations: [Colostomy status] 02-12-2022 Chronic Other male genital disorders (4 sources) Male erectile dysfunction, unspecified; Translations: [Impotence of organic origin] Onset: 03-19-2021 Resolved: 07-11-2022 07-11-2022 Chronic Skin and subcutaneous tissue infections (14 sources) Abscess of groin; Translations: [Cutaneous abscess of groin] Onset: 01-25-2022 02-06-2022 Episodic Sprains and strains (1 source) Unspecified sprain of right foot, initial encounter; Translations: [UNSPECIFIED SPRAIN RT FOOT INITIAL] Onset: 08-21-2022 Episodic Unclassified (1 source) CONTACT W/AND (SUSP) EXPOS COVID-19; Translations: [CONTACT W/AND (SUSP) EXPOS COVID-19] Onset: 02-11-2022 Past or Other Problems Problem Classification Problem Date Documented Date Episodic/Chronic Allergic reactions (1 source) Allergic contact dermatitis due to plants, except food Onset: 01-12-2022 Resolved: 01-12-2022 Episodic Bacterial infection; unspecified site (1 source) Methicillin susceptible Staphylococcus aureus infection as the cause of diseases classified elsewhere; Translations: [METHICILLIN LENA STAPH INFEC DX ELS] Onset: 02-11-2022 Episodic Biliary tract disease (3 sources) Cholelithiasis AND cholecystitis without obstruction; Translations: [Calculus of gallbladder with chronic cholecystitis without obstruction] Onset: 03-17-2021 03-17-2021 Episodic Inflammation; infection of eye (except that caused by tuberculosis or sexually transmitteddisease) (2 sources) Unspecified conjunctivitis; Translations: [Unspecified blepharitis left eye, upper and lower eyelids] Onset: 04-21-2022 Episodic Neoplasms of unspecified nature or uncertain behavior (7 sources) Monoclonal gammopathy; Translations: [Monoclonal gammopathy of uncertain significance] Onset: 05-30-2022 Resolved: 07-11-2022 Chronic Other aftercare (1 source) Other halfway (current) drug therapy; Translations: [OTH CARE HOME CURRENT DRUG THERAPY] Onset: 04-21-2022 Episodic Other aftercare (1 source) extermination supervisor (current) use of oral hypoglycemic drugs; Translations: [CARE HOME USE ORAL HYPOGLYCEMIC DX] Onset: 04-21-2022 Episodic Other eye disorders (3 sources) Ocular pain, left eye; Translations: [OCULAR PAIN LEFT EYE] Onset: 04-20-2022 Episodic Screening and history of mental health and substance abuse codes (1 source) Personal history of nicotine dependence; Translations: [PERSONAL HISTORY OF NICOTINE DEPEND] Onset: 04-21-2022 Episodic Results Test Name Value Interpretation Reference Range Facility Basic Metabolic PanelOrdered By: Juan Jose Pat on 09-12-2023 Anion gap [Moles/Vol] 12.0 mmol/L 6.0-15.0 [facility] Comment on above: Order Comment: Reaso n for Exam CKD (chronic kidney disease) stage 2, GFR 60-89 ml/min Performed By: #### B ZULEIKA VARGHESE #### [address] Calcium [Mass/Vol] 9.0 mg/dL 8.6-10.3 [facility] Comment on above: Order Comment: Reaso n for Exam CKD (chronic kidney disease) stage 2, GFR 60-89 ml/min Performed By: #### Sascha VARGHESE, PHOS #### [facility] [address] Chloride [Moles/Vol] 104 mmol/L 98-107 [facility] Comment on above: Order Comment: Reaso n for Exam CKD (chronic kidney disease) stage 2, GFR 60-89 ml/min Performed By: #### B HALIMA, PHOS #### [facility] [address] [place] [address] [place] CO2 [Moles/Vol] 26.2 mmol/L 21.0-31.0 [facility] Comment on above: Order Comment: Reaso n for Exam CKD (chronic kidney disease) stage 2, GFR 60-89 ml/min Performed By: #### Sascha VARGHESE, PHOS #### [facility] [address] Creatinine [Mass/Vol] 1.15 mg/dL 0.70-1.30 [facility] Comment on above: Order Comment: Reaso n for Exam CKD (chronic kidney disease) stage 2, GFR 60-89 ml/min Performed By: #### Sascha VARGHESE, PHOS #### [facility] [address] [place] [id number] [facility] Glucose [Mass/Vol] 165 mg/dL 70-100 [facility] Comment on above: Order Comment: Reaso n for Exam CKD (chronic kidney disease) stage 2, GFR 60-89 ml/min Result Comment: Eustace om Glucose Reference Range is dependent on time and content of last meal. Glucose of more than 200 mg/dL in a nonstressed, ambulatory subject supports the diagnosis of Diabetes Mellitus. ADA recommended reference range Performed By: #### B HALIMA, PHOS #### [facility] [address] ADA recommended refe rence rangeRandom Glucose Reference Range is dependent on time and content of last meal. Glucose of more than 200 mg/dL in a nonstressed, ambulatory subject supports the diagnosis of Diabetes Mellitus. Potassium [Moles/Vol] 4.2 mmol/L 3.5-5.1 [facility] Comment on above: Order Comment: Reaso n for Exam CKD (chronic kidney disease) stage 2, GFR 60-89 ml/min Performed By: #### B HALIMA, PHOS #### [facility] [address] Sodium [Moles/Vol] 138 mmol/L 136-145 [facility] Comment on above: Order Comment: Reaso n for Exam CKD (chronic kidney disease) stage 2, GFR 60-89 ml/min Performed By: #### B MP, PHOS #### [facility] [address] Urea nitrogen [Mass/Vol] 27 mg/dL 12-09 [facility] Comment on above: Order Comment: Reaso n for Exam CKD (chronic kidney disease) stage 2, GFR 60-89 ml/min Performed By: #### B HALIMA, PHOS #### [address] Basic Metabolic Panelon 08-17 GFR/1.73 sq M.predicted MDRD (S/P/Bld) [Vol rate/Area] mL/min/{1.73_m2} Normal [facility] Comment on above: Order Comment: Reaso n for Exam CKD (chronic kidney disease) stage 2, GFR 60-89 ml/min Performed By: #### B MP, PHOS #### [address] Creatinine [Mass/volume] in UrineOrdered By: Juan Jose Pat on 09-12-2023 Creatinine (U) [Mass/Vol] 104.0 mg/dL [facility] Comment on above: No reference range e stablished Hemogram CBC Without DiffOrd ered By: Juan Jose Pat on 09-12-2023 Erythrocyte distribution width (RBC) [Ratio] 14.7 % 12.0-14.8 [facility] Comment on above: Order Comment: Reaso n for Exam CKD (chronic kidney disease) stage 2, GFR 60-89 ml/min Performed By: #### C BCNO #### [facility] [address] Hematocrit (Bld) [Volume fraction] 38.7 % 38.8-50.0 [facility] Comment on above: Order Comment: Reaso n for Exam CKD (chronic kidney disease) stage 2, GFR 60-89 ml/min Performed By: #### C BCNO #### [facility] [address] Hemoglobin (Bld) [Mass/Vol] 13.0 g/dL 13.0-17.0 [facility] Comment on above: Order Comment: Reaso n for Exam CKD (chronic kidney disease) stage 2, GFR 60-89 ml/min Performed By: #### C BCNO #### [address] MCH (RBC) [Entitic mass] 30.0 pg 27.5-35.2 [facility] Comment on above: Order Comment: Reaso n for Exam CKD (chronic kidney disease) stage 2, GFR 60-89 ml/min Performed By: #### C BCNO #### [address] MCV (RBC) [Entitic vol] 89.1 fL 83.5-101 F [facility] Comment on above: Order Comment: Reaso n for Exam CKD (chronic kidney disease) stage 2, GFR 60-89 ml/min Performed By: #### C BCNO #### [address] Platelet mean volume (Bld) [Entitic vol] 9.3 fL 6.6-10.1 [facility] Comment on above: Order Comment: Reaso n for Exam CKD (chronic kidney disease) stage 2, GFR 60-89 ml/min Result Comment: PERF ORMED BY: [place] [address] PATHOLOGIST HYDRAULIC CONTROLS TECHNICIAN FELIBERTO GAGNON M.D. Performed By: #### C BCNO #### [address] Platelets (Bld) [#/Vol] 147 10*3/uL 150-450 [facility] Comment on above: Order Comment: Reaso n for Exam CKD (chronic kidney disease) stage 2, GFR 60-89 ml/min Performed By: #### C BCNO #### [facility] [address] RBC (Bld) [#/Vol] 4.35 10*6/uL 3.90-5.60 [facility] Comment on above: Order Comment: Reaso n for Exam CKD (chronic kidney disease) stage 2, GFR 60-89 ml/min Performed By: #### C BCNO #### [facility] [facility] [address] Hemogram CBC Without Diffon 09-12-2023 Mean Corpuscular HGB Conc 33.7 g/dL Normal 32.5-35.6 [facility] Comment on above: Order Comment: Reaso n for Exam CKD (chronic kidney disease) stage 2, GFR 60-89 ml/min Performed By: #### C BCNO #### [facility] [address] WBC (Bld) [#/Vol] 5.8 10*3/uL Normal 4.1-10.5 [facility] Comment on above: Order Comment: Reaso n for Exam CKD (chronic kidney disease) stage 2, GFR 60-89 ml/min Performed By: #### C BCNO #### [facility] [address] [place] [id number] [facility] Leukocytes [#/volume] correc alvin for nucleated erythrocytes in Blood by Automated counOrdered By: Juan Jose Pat on 09-12-2023 WBC corrected for nucl RBC Auto (Bld) [#/Vol] 5.8 10*3/uL 4.1-10.5 [facility] MCHC Auto (RBC) [Mass/Vol]Or dered By: Juan Jose Pat on 09-12-2023 MCHC (RBC) [Mass/Vol] 33.7 g/dL 32.5-35.6 [facility] No Panel InformationOrdered By: Juan Jose Pat on 09-12-2023 Estimated GFR (CKD-EPI) > 60.0 mL/Min [facility] Creatinine Clearance (Chem N/A [facility] Parathyrin.intact [Mass/volu me] in Serum or PlasmaOrdered By: Juan Jose Pat on 09-12-2023 Parathyrin.intact [Mass/Vol] 59.0 pg/mL [facility] Parathyroid Hormone Intacton 09-12-2023 Parathyroid Hormone Intact 59.0 pg/mL Normal [facility] Comment on above: Order Comment: Reaso n for Exam CKD (chronic kidney disease) stage 2, GFR 60-89 ml/min Result Comment: PERF ORMED BY: [place] [address] PATHOLOGIST HYDRAULIC CONTROLS TECHNICIAN FELIBERTO GAGNON M.D. Performed By: #### P TH #### [facility] [address] [place] [address] PhosphorusOrdered By: Juan Jose Pat on 09-12-2023 Phosphate [Mass/Vol] 2.9 mg/dL 2.5-4.5 [facility] Comment on above: Order Comment: Reaso n for Exam CKD (chronic kidney disease) stage 2, GFR 60-89 ml/min Result Comment: PERF ORMED BY: [place] [address] PATHOLOGIST HYDRAULIC CONTROLS TECHNICIAN FELIBERTO GAGNON M.D. Performed By: #### B MP, PHOS #### [facility] [address] [place] [address] Protein Creat Ratio Ur Rando mon 09-12-2023 Creatinine, Urine (Random) 104.0 mg/dL Normal [facility] Comment on above: Order Comment: Reaso n for Exam CKD (chronic kidney disease) stage 2, GFR 60-89 ml/min Result Comment: No r eference range established Performed By: #### P ROCRERAT #### [facility] [address] [place], [place] [id number] [facility] Urine Protein/Creatinine Ratio 163 mg/g{Cre} Normal 0-200 [facility] Comment on above: Order Comment: Reaso n for Exam CKD (chronic kidney disease) stage 2, GFR 60-89 ml/min Result Comment: PERF ORMED BY: [place] [address] PATHOLOGIST HYDRAULIC CONTROLS TECHNICIAN FELIBERTO GAGNON M.D. Performed By: #### P ROCRERAT #### [address] Protein Creat Ratio Ur Rando mOrdered By: Juan Jose Pat on 09-12-2023 Protein (U) [Mass/Vol] 17 mg/dL 0-9 [facility] Comment on above: Order Comment: Reaso n for Exam CKD (chronic kidney disease) stage 2, GFR 60-89 ml/min Performed By: #### P ROCRERAT #### [address] Urine protein/creatinine rat ioOrdered By: Juan Jose Pat on 09-12-2023 Protein/Creatinine (U) [Ratio] 163 mg/g{Cre} 0-200 [facility] Basic Metabolic Panelon 10-1 Anion gap [Moles/Vol] 12.0 mmol/L Normal 6.0-15.0 [facility] Comment on above: Performed By: #### P TH, PHOS, CBCNO, BMP #### [address] Calcium [Mass/Vol] 9.1 mg/dL Normal 8.6-10.3 [facility] Comment on above: Performed By: #### P TH, PHOS, CBCNO, BMP #### [place] [address] [place] Chloride [Moles/Vol] 103 mmol/L Normal 98-107 [facility] Comment on above: Performed By: #### P TH, PHOS, CBCNO, BMP #### [place] [address] [place] CO2 [Moles/Vol] 28.0 mmol/L Normal 21.0-31.0 [facility] Comment on above: Performed By: #### P TH, PHOS, CBCNO, BMP #### [address] [place] [address] [place] Creatinine [Mass/Vol] 1.22 mg/dL Normal 0.70-1.30 [facility] Comment on above: Performed By: #### P TH, GAURANG TO, BMP #### [facility] [address] [place] [address] [place] GFR/1.73 sq M.predicted MDRD (S/P/Bld) [Vol rate/Area] mL/min/{1.73_m2} Normal [facility] Comment on above: Performed By: #### P TH, PHOSGAURANG, BMP #### [address] Glucose [Mass/Vol] 112 mg/dL High 70-100 [facility] Comment on above: Result Comment: [place] Glucose Reference Range is dependent on time and content of last meal. Glucose of more than 200 mg/dL in a nonstressed, ambulatory subject supports the diagnosis of Diabetes Mellitus. ADA recommended reference range Performed By: #### P TH, PHOGAURANG Baum, BMP #### [address] Potassium [Moles/Vol] 4.0 mmol/L Normal 3.5-5.1 [facility] Comment on above: Performed By: #### P TH, PHOGAURANG Baum, BMP #### [place] [address] [place] Sodium [Moles/Vol] 139 mmol/L Normal 136-145 [facility] Comment on above: Performed By: #### P TH, PHOSGAURANG, BMP #### [place] [address] [place] Urea nitrogen [Mass/Vol] 27 mg/dL High 7-25 [facility] Comment on above: Performed By: #### P TH, PHOS CBCNO, BMP #### [place] [address] [place] Calcium [Mass/volume] in Ser um or PlasmaOrdered By: Juan Jose Pat on 03-04-2023 Calcium [Mass/Vol] 9.1 mg/dL 8.6-10.3 [facility] Carbon dioxide, total [Moles /volume] in Serum or PlasmaOrdered By: Juan Jose Pat on 03-04-2023 CO2 [Moles/Vol] 28.0 mmol/L 21.0-31.0 [facility] Chloride [Moles/volume] in S tawny or PlasmaOrdered By: Juan Jose Pat 03-04-2023 Chloride [Moles/Vol] 103 mmol/L 98-107 [facility] Creatinine [Mass/volume] in Serum or PlasmaOrdered By: [facility]ul on 03-04-2023 Creatinine [Mass/Vol] 1.22 mg/dL 0.70-1.30 [facility] Erythrocyte distribution wid th Auto (RBC) [Ratio]Ordered By: [facility] Hospital[facility]in Pat on 03-04-2023 Erythrocyte distribution width (RBC) [Ratio] 14.0 % 12.0-14.8 [facility] Glucose [Mass/volume] in Ser um or PlasmaOrdered By: Juan Jose Pat on 03-04-2023 Glucose [Mass/Vol] 112 mg/dL 70-100 [facility] Comment on above: ADA recommended refe rence rangeRandom Glucose Reference Range is dependent on time and content of last meal. Glucose of more than 200 mg/dL in a nonstressed, ambulatory subject supports the diagnosis of Diabetes Mellitus. Hematocrit Auto (Bld) [Volum e fraction]Ordered By: Juan Jose Pat on 03-04-2023 Hematocrit (Bld) [Volume fraction] 36.8 % 38.8-50.0 [facility] Hemoglobin [Mass/volume] in BloodOrdered By: Juan Jose Pat 03-04-2023 Hemoglobin (Bld) [Mass/Vol] 12.4 g/dL 13.0-17.0 [facility] Hemogram CBC Without Diffon 03-04-2023 Erythrocyte distribution width (RBC) [Ratio] 14.0 % Normal 12.0-14.8 [facility] Comment on above: Performed By: #### P TH, PHOS, CBCNO, BMP #### [address] Hematocrit (Bld) [Volume fraction] 36.8 % Low 38.8-50.0 [facility] Comment on above: Performed By: #### P TH, PHOS, CBCNO, BMP #### [address] Hemoglobin (Bld) [Mass/Vol] 12.4 g/dL Low 13.0-17.0 [facility] Comment on above: Performed By: #### P TH, PHOS, CBCNO, BMP #### [address] MCH (RBC) [Entitic mass] 30.0 pg Normal 27.5-35.2 [facility] Comment on above: Performed By: #### P TH, PHOS, CBCNO, BMP #### [address] MCV (RBC) [Entitic vol] 89.4 fL Normal 83.5-101 [facility] Comment on above: Performed By: #### P TH, PHOS, CBCNO, BMP #### [address] Mean Corpuscular HGB Conc 33.6 g/dL Normal 32.5-35.6 [facility] Comment on above: Performed By: #### P TH, PHOS, CBCNO, BMP #### [address] Platelet mean volume (Bld) [Entitic vol] 9.5 fL Normal 6.6-10.1 [facility] Comment on above: Result Comment: PERF ORMED BY: [place] [address] PATHOLOGIST HYDRAULIC CONTROLS TECHNICIAN FELIBERTO GAGNON M.D. Performed By: #### P TH, PHOS, CBCNO, BMP #### [address] Platelets (Bld) [#/Vol] 140 10*3/uL Low 150-450 [facility] Comment on above: Performed By: #### P TH, PHOS, CBCNO, BMP #### [facility] [address] RBC (Bld) [#/Vol] 4.12 10*6/uL Normal 3.90-5.60 [facility] Comment on above: Performed By: #### P TH, PHOS, CBCNO, BMP #### [facility] [address] WBC (Bld) [#/Vol] 5.1 10*3/uL Normal 4.1-10.5 [facility] Comment on above: Performed By: #### P TH, PHOS, CBCNO, BMP #### [facility] [address] Leukocytes [#/volume] correc alvin for nucleated erythrocytes in Blood by Automated counOrdered By: Juan Jose Pat on 03-04-2023 WBC corrected for nucl RBC Auto (Bld) [#/Vol] 5.1 10*3/uL 4.1-10.5 [facility] MCH Auto (RBC) [Entitic mass ]Ordered By: Juan Jose Pat on 03-04-2023 MCH (RBC) [Entitic mass] 30.0 pg 27.5-35.2 [facility] MCHC Auto (RBC) [Mass/Vol]Or dered By: Juan Jose Pat on 03-04-2023 MCHC (RBC) [Mass/Vol] 33.6 g/dL 32.5-35.6 [facility] MCV Auto (RBC) [Entitic vol] Ordered By: Juan Jose Pat on 03-04-2023 MCV (RBC) [Entitic vol] 89.4 fL 83.5-101 [facility] No Panel InformationOrdered By: Juan Jose Pat on 03-04-2023 Estimated GFR (CKD-EPI) > 60.0 mL/Min [facility] Creatinine Clearance (Chem N/A [facility] Parathyrin.intact [Mass/volu me] in Serum or PlasmaOrdered By: Juan Jose Pat on 03-04-2023 Parathyrin.intact [Mass/Vol] 62.2 pg/mL [facility] Parathyroid Hormone Intacton 03-04-2023 Parathyroid Hormone Intact 62.2 pg/mL Normal 12-88 [facility] Comment on above: Result Comment: PERF ORMED BY: [place] [address] PATHOLOGIST HYDRAULIC CONTROLS TECHNICIAN FELIBERTO GAGNON M.D. Performed By: #### P TH, PHOS, CBCNO, BMP #### [facility] [address] [place], [place] [id number] [facility] Phosphate [Mass/volume] in S tawny or PlasmaOrdered By: Juan Jose Pat on 03-04-2023 Phosphate [Mass/Vol] 3.8 mg/dL 3.7-7.2 [facility] Phosphoruson 03-04-2023 Phosphate [Mass/Vol] 3.8 mg/dL Normal 3.7-7.2 [facility] Comment on above: Result Comment: PERF ORMED BY: [place] [address] PATHOLOGIST HYDRAULIC CONTROLS TECHNICIAN FELIBERTO GAGNON M.D. Performed By: #### P TH, PHOS, CBCNO, BMP #### [facility] [address] [place] [id number] [facility] Platelet mean volume Auto (B ld) [Entitic vol]Ordered By: Juan Jose Pat on 03-04-2023 Platelet mean volume (Bld) [Entitic vol] 9.5 fL 6.6-10.1 [facility] Platelets Auto (Bld) [#/Vol] Ordered By: Juan Jose Pat on 03-04-2023 Platelets (Bld) [#/Vol] 140 10*3/uL 150-450 [facility] Potassium [Moles/volume] in Serum or PlasmaOrdered By: Juan Jose Pat on 03-04-2023 Potassium [Moles/Vol] 4.0 mmol/L 3.5-5.1 [facility] RBC Auto (Bld) [#/Vol]Ordere d By: Juan Jose Pat on 03-04-2023 RBC (Bld) [#/Vol] 4.12 10*6/uL 3.90-5.60 [facility] Serum or plasma anion gap de terminationOrdered By: Juan Jose Pat on 03-04-2023 Anion gap [Moles/Vol] 12.0 mmol/L 6.0-15.0 [facility] Sodium [Moles/volume] in Ser um or PlasmaOrdered By: Juan Jose Pat on 03-04-2023 Sodium [Moles/Vol] 139 mmol/L 136-145 [facility] Urea nitrogen [Mass/volume] in Serum or PlasmaOrdered By: Juan Jose Pat on 03-04-2023 Urea nitrogen [Mass/Vol] 27 mg/dL 7-25 [facility] XR FOOT RT MIN 3 VIEWSon XR FOOT RT MIN 3 VIEWS EXAM: XR FOOT RT MIN 3 VIEWS, XR ANKLE RT MIN 3 VIEWS HISTORY: Pain COMPARISON: None. TECHNIQUE: 3 views of the foot FINDINGS: Subcutaneous soft tissue edema of the lower leg that extends into the forefoot. No visualized fracture, dislocation, subluxation or osseous lesion. Os subfibular air is present. Joint spaces are unremarkable. IMPRESSION: Soft tissue edema with no visualized acute osseous abnormality Electronically authenticated by: JOYCE ANDERSON Date: 2022-08-19 17:43 Normal [facility] IMMUNOFIXATION(YEIMI),PROTEIN ELEC(PE),FREon 06-03-2022 Albumin [Mass/Vol] 3.9 g/dL Normal 2.9-4.4 [facility] Comment on above: Performed By: #### P OCGLUC #### [facility] [address] [address] [address] Francisco Marie Albumin/Globulin [Mass ratio] 1.3 {ratio} Normal 0.7-1.7 [facility] Comment on above: Performed By: #### P OCGLUC #### [facility] [address] [address] [address] Francisco Marie Qamuk-0-Wtzckrrx 0.2 g/dL Normal 0.0-0.4 [facility] Comment on above: Performed By: #### P OCGLUC #### [facility] [address] [address] [address] Francisco Marie Gnndw-8-Hrhapvst 0.7 g/dL Normal 0.4-1.0 [facility] Comment on above: Performed By: #### P OCGLUC #### [facility] [address] [address] [address] Francisco Marie Beta Globulin 1.1 g/dL Normal 0.7-1.3 [facility] Comment on above: Performed By: #### P OCGLUC #### [facility] [address] [address] [address] Francisco Marie [place] Lt Chains,S 37.9 mg/L Critically high 3.3-19.4 [facility] Comment on above: Performed By: #### P OCGLUC #### [facility] [address] [address] [address] Francisco Marie Free Lambda Lt Chains,S 22.4 mg/L Normal 5.7-26.3 [facility] Comment on above: Performed By: #### P OCGLUC #### [facility] [address] [address] [address] Francisco Marie Gamma Globulin 1.1 g/dL Normal 0.4-1.8 [facility] Comment on above: Performed By: #### P OCGLUC #### [facility] [address] [address] [address] Francisco Marie Globulin (S) [Mass/Vol] 3.1 g/dL Normal 2.2-3.9 [facility] Comment on above: Performed By: #### P OCGLUC #### [facility] [address] [address] [address] Francisco Marie Immunofixation Result, Serum Comment Normal [facility] Comment on above: Result Comment: No m onoclonality detected. Performed By: #### P OCGLUC #### [facility] [address] [address] [address] Francisco Marie Immunoglobulin A, Qn, Serum 283 mg/dL Normal 90-386 [facility] Comment on above: Performed By: #### P OCGLUC #### [facility] [address] [address] [address] Francisco Marie Immunoglobulin G, Qn, Serum 1189 mg/dL Normal 603-1613 [facility] Comment on above: Performed By: #### P OCGLUC #### [facility] [address] [address] [address] Francisco Marie Immunoglobulin M, Qn, Serum 42 mg/dL Normal 20-172 [facility] Comment on above: Performed By: #### P OCGLUC #### [facility] [address] [place] [address] Dr. Francisco Marie [place]/Lambda Ratio, S 1.69 Critically high 0.26-1.65 [facility] Comment on above: Performed By: #### P OCGLUC #### [facility] [address] [place] [address] Dr. Francisco Marie M-Shawn Not Observed Normal Not Observed [facility] Comment on above: Performed By: #### P OCGLUC #### [facility] [address] [place] [address] Dr. Francisco Marie PDF . Normal [facility] Comment on above: Performed By: #### P OCGLUC #### [facility] [address] [place] [address] Dr. Francisco Marie Please note: Comment Normal [facility] Comment on above: Result Comment: Prot ein electrophoresis scan will follow via computer, mail, or hostess cashier delivery. Performed By: #### P OCGLUC #### [facility] [address] [place] [address] Dr. Francisco Marie Protein [Mass/Vol] 7.0 g/dL Normal 6.0-8.5 [facility] Comment on above: Performed By: #### P OCGLUC #### [facility] [address] [place] [address] Dr. Francisco Marie XR BONE SURVEYon 06-03-2022 XR BONE SURVEY EXAMINATION: XR BONE SURVEY HISTORY: Monoclonal gammopathy (clinical) COMPARISON: No relevant comparison available. TECHNIQUE: Two lateral projections of the skull. A lateral projection of the C-spine, T-spine and L-spine. Single view of the chest and pelvis. Single view of each humerus, forearm, femur, and tibia-fibula. FINDINGS: SKULL: No lytic lesion, periosteal reaction/thickening, fracture, or dislocation. Single surgical clip projects over the right skull C-SPINE: No lytic lesion, periosteal reaction/thickening, fracture, or dislocation. Mild diffuse spondylosis. Moderate to severe facet osteoarthropathy. T-SPINE: No lytic lesion, periosteal reaction/thickening, fracture, or dislocation. Moderate diffuse spondylosis and facet osteoarthropathy L-SPINE: No lytic lesion, periosteal reaction/thickening, fracture, or dislocation. Mild to moderate spondylosis and facet osteoarthropathy most significant at L5-S1 CHEST: No expansile lesion, lytic lesion, or fracture. PELVIS: No lytic lesion, periosteal reaction/thickening, fracture, or dislocation. R HUMERUS: No lytic lesion, periosteal reaction/thickening, fracture, or dislocation. R FOREARM: No lytic lesion, periosteal reaction/thickening, fracture, or dislocation. L HUMERUS: No lytic lesion, periosteal reaction/thickening, fracture, or dislocation. L FOREARM: No lytic lesion, periosteal reaction/thickening, fracture, or dislocation. R FEMUR: No lytic lesion, periosteal reaction/thickening, fracture, or dislocation. R TIB/FIB: No lytic lesion, periosteal reaction/thickening, fracture, or dislocation. L FEMUR: No lytic lesion, periosteal reaction/thickening, fracture, or dislocation. L TIB/FIB: No lytic lesion, periosteal reaction/thickening, fracture, or dislocation. SOFT TISSUES: No swelling, nodules, visible mass, or radiopaque foreign body. IMPRESSION: Moderate degenerative changes of the spine No lytic lesions to suggest monoclonal gammopathy Electronically authenticated by: JOYCE EDDY Date: 2022-06-03 07:[address] [facility] CBC AUTO DIFFon 05-30-2022 BASO # 0.0 103/ul Normal 0.0-0.1 [facility] Comment on above: Performed By: #### D RUGRPD #### [facility] [address] [place] [address] Dr. Francisco Marie Basophils/100 WBC (Bld) 0.6 % Normal 0.2-2.0 [facility] Comment on above: Performed By: #### D RUGRPD #### [facility] [address] [place] [address] Dr. Francisco Marie EO # 0.1 103/ul Normal 0.0-0.7 [facility] Comment on above: Performed By: #### D RUGRPD #### [facility] [address] [place] [address] Dr. Francisco Marie Eosinophils/100 WBC (Bld) 1.5 % Normal 0.9-7.0 [facility] Comment on above: Performed By: #### D RUGRPD #### [facility] [address] [place] [address] Dr. Francisco Marie Erythrocyte distribution width (RBC) [Ratio] 14.4 % Normal 11.0-15.0 [facility] Comment on above: Performed By: #### D RUGRPD #### [facility] [address] [place] [address] Dr. Francisco Marie Hematocrit (Bld) [Volume fraction] 35.2 % Critically low 42.0-54.0 [facility] Comment on above: Performed By: #### D RUGRPD #### [facility] [address] [place] [address] Dr. Francisco Marie Hemoglobin (Bld) [Mass/Vol] 11.8 g/dL Critically low 14.0-18.0 [facility] Comment on above: Performed By: #### D RUGRPD #### [facility] [address] [place] [address] Dr. Francisco Marie IG # 0.02 10e3/ul Normal 0.00-0.03 [facility] Comment on above: Performed By: #### D RUGRPD #### [facility] [address] [place] [address] Dr. Francisco Marie IG % 0.4 % Normal 0.0-0.5 [facility] Comment on above: Performed By: #### D RUGRPD #### [facility] [address] [place] [address] Dr. Francisco Marie LYMPH # 1.3 103/ul Normal 1.2-3.8 [facility] Comment on above: Performed By: #### D RUGRPD #### [facility] [address] [place] [address] Dr. Francisco Marie Lymphocytes/100 WBC (Bld) 26.6 % Normal 20.5-60.0 [facility] Comment on above: Performed By: #### D RUGRPD #### [facility] [address] [place] [address] Dr. Francisco Marie MANUAL DIFF REQ NO Normal [facility] Comment on above: Performed By: #### D RUGRPD #### [facility] [address] [place] [address] Dr. Francisco Marie MCH (RBC) [Entitic mass] 29.1 pg Normal 25.9-34.0 [facility] Comment on above: Performed By: #### D RUGRPD #### [facility] [address] [place] [address] Dr. Francisco Marie MCHC (RBC) [Mass/Vol] 33.5 g/dL Normal 29.9-35.2 [facility] Comment on above: Performed By: #### D RUGRPD #### [facility] [address] [place] [address] Dr. Francisco Maire MCV (RBC) [Entitic vol] 86.7 fL Normal 80.0-94.0 [facility] Comment on above: Performed By: #### D RUGRPD #### [facility] [address] [place] [address] Dr. Francisco Marie MONO # 0.4 103/ul Normal 0.3-0.8 [facility] Comment on above: Performed By: #### D RUGRPD #### [facility] [address] [place] [address] Dr. Francisco Marie Monocytes/100 WBC (Bld) 7.4 % Normal 1.7-12.0 [facility] Comment on above: Performed By: #### D RUGRPD #### [facility] [address] [place] [address] Dr. Francisco Marie NEUT # 3.0 103/ul Normal 1.4-6.5 [facility] Comment on above: Performed By: #### D RUGRPD #### [facility] [address] [place] [address] Dr. Francisco Marie Neutrophils/100 WBC (Bld) 63.5 % Normal 43.0-75.0 [facility] Comment on above: Performed By: #### D RUGRPD #### [facility] [address] [place] [address] Dr. Francisco Marie Platelet mean volume (Bld) [Entitic vol] 10.0 fL Normal 9.5-13.5 [facility] Comment on above: Performed By: #### D RUGRPD #### [facility] [address] [place] [address] Dr. Francisco Marie PLT 154 103/ul Normal 150-450 [facility] Comment on above: Performed By: #### D RUGRPD #### [facility] [address] [place] [address] Dr. Francisco Marie RBC 4.06 106/ul Critically low 4.70-6.10 [facility] Comment on above: Performed By: #### D RUGRPD #### [facility] [address] [place] [address] Dr. Francisco Marie WBC 4.7 103/ul Normal 4.0-11.0 [facility] Comment on above: Performed By: #### D RUGRPD #### [facility] [address] [place] [address] Dr. Francisco Marie PROF 14(COMP METB)on 023 Albumin [Mass/Vol] 3.8 g/dL Normal 3.4-5.0 [facility] Comment on above: Performed By: #### D RUGRPD #### [facility] [address] [place] [address] Dr. Francisco Marei Albumin/Globulin [Mass ratio] 1.0 {ratio} Normal [facility] Comment on above: Performed By: #### D RUGRPD #### [facility] [address] [place] [address] Dr. Francisco Marie ALP [Catalytic activity/Vol] 115 U/L Normal 46-116 [facility] Comment on above: Performed By: #### D RUGRPD #### [facility] Laboratory [address] [place] [address] Dr. Francisco Marie ALT [Catalytic activity/Vol] 29 U/L Normal 16-63 [facility] Comment on above: Performed By: #### D RUGRPD #### [facility] [address] [place] [address] Dr. Francisco Marie Anion gap [Moles/Vol] 11.7 mmol/L Normal [facility] Comment on above: Performed By: #### D RUGRPD #### [facility] [address] [place] [address] Dr. Francisco Marie AST [Catalytic activity/Vol] 23 U/L Normal 15-37 [facility] Comment on above: Performed By: #### D RUGRPD #### [facility] [address] [place] [address] Dr. Francisco Marie Bilirubin [Mass/Vol] 0.3 mg/dL Normal 0.2-1.0 [facility] Comment on above: Performed By: #### D RUGRPD #### [facility] [address] [place] [address] Dr. Francisco Marie Calcium [Mass/Vol] 8.8 mg/dL Normal 8.5-10.1 [facility] Comment on above: Performed By: #### D RUGRPD #### [facility] [address] [place] [address] Dr. Francisco Marie Chloride [Moles/Vol] 98 mmol/L Normal 98-107 [facility] Comment on above: Performed By: #### D RUGRPD #### [facility] [address] [place] [address] Dr. Francisco Marie CO2 [Moles/Vol] 29.9 mmol/L Normal 21.0-32.0 [facility] Comment on above: Performed By: #### D RUGRPD #### [facility] [address] [place] [address] Dr. Francisco Marie Creatinine [Mass/Vol] 1.22 mg/dL Normal 0.70-1.30 [facility] Comment on above: Performed By: #### D RUGRPD #### [facility] [address] [place] [address] Dr. Francisco Marie EGFR-AF FILIPINO >60 Normal >=60 [facility] Comment on above: Performed By: #### D RUGRPD #### [facility] [address] [address] [address] Francisco Marie EGFR-NON AF FILIPINO >60 Normal >=60 [facility] Comment on above: Performed By: #### D RUGRPD #### [facility] [address] [address] [address] Francisco Marie Globulin (S) [Mass/Vol] 3.7 g/dL Normal [facility] Comment on above: Performed By: #### D RUGRPD #### [facility] [address] [address] [address] Francisco Marie Glucose [Mass/Vol] 270 mg/dL Critically high 74-106 [facility] Comment on above: Performed By: #### D RUGRPD #### [facility] [address] [address] [address] Francisco Marie Potassium [Moles/Vol] 3.6 mmol/L Normal 3.5-5.1 [facility] Comment on above: Performed By: #### D RUGRPD #### [facility] [address] [address] [address] Francisco Marie Protein [Mass/Vol] 7.5 g/dL Normal 6.4-8.2 [facility] Comment on above: Performed By: #### D RUGRPD #### [facility] [address] [address] [address] Francisco Marie Sodium [Moles/Vol] 136 mmol/L Normal 136-145 [facility] Comment on above: Performed By: #### D RUGRPD #### [facility] [address] [address] [address] Francisco Marie Urea nitrogen [Mass/Vol] 23.0 mg/dL Critically high 7.0-18.0 [facility] Comment on above: Performed By: #### D RUGRPD #### [facility] [address] [address] [address] Francisco Marie Urea nitrogen/Creatinine [Mass ratio] 18.9 mg/mg Normal [facility] Comment on above: Performed By: #### D RUGRPD #### [facility] [address] [place] [address] Dr. Francisco Marie IMMUNOFIXATION(YEIMI),PROTEIN ELEC(PE),[facility] 04-23-2022 Albumin [Mass/Vol] 3.8 g/dL Normal 2.9-4.4 [facility] Comment on above: Performed By: #### I FEPEFL #### [facility] [address] [place] [address] Dr. Francisco Marie Albumin/Globulin [Mass ratio] 1.2 {ratio} Normal 0.7-1.7 [facility] Comment on above: Performed By: #### I FEPEFL #### [facility] [address] [place] [address] Dr. Francisco Marie Qrqcm-8-Mybkkcri 0.3 g/dL Normal 0.0-0.4 [facility] Comment on above: Performed By: #### I FEPEFL #### [facility] [address] [place] [address] Dr. Francisco Marie Vpfzc-4-Yofvpfag 0.8 g/dL Normal 0.4-1.0 [facility] Comment on above: Performed By: #### I FEPEFL #### [facility] [address] [place] [address] Dr. Francisco Marie Beta Globulin 1.1 g/dL Normal 0.7-1.3 [facility] Comment on above: Performed By: #### I FEPEFL #### [facility] [address] [place] [address] Dr. Francisco Marie [place] Lt Chains,S 38.6 mg/L Critically high 3.3-19.4 [facility] Comment on above: Performed By: #### I FEPEFL #### [facility] [address] [place] [address] Dr. Francisco Marie Free [place] Lt Chains,S 22.6 mg/L Normal 5.7-26.3 [facility] Comment on above: Performed By: #### I FEPEFL #### [facility] [address] [address] [address] Francisco Marie Gamma Globulin 1.1 g/dL Normal 0.4-1.8 [facility] Comment on above: Performed By: #### I FEPEFL #### [facility] [address] [address] [address] Francisco Marie Globulin (S) [Mass/Vol] 3.3 g/dL Normal 2.2-3.9 [facility] Comment on above: Performed By: #### I FEPEFL #### [facility] [address] [address] [address] Francisco Marie Immunofixation Result, Serum Comment Normal [facility] Comment on above: Result Comment: No m onoclonality detected. Performed By: #### I FEPEFL #### [facility] [address] [place] [address] Dr. Francisco Marie Immunoglobulin A, Qn, Serum 270 mg/dL Normal 90-386 [facility] Comment on above: Performed By: #### I FEPEFL #### [facility] [address] [place] [address] Dr. Francisco Marie Immunoglobulin G, Qn, Serum 1093 mg/dL Normal 603-1613 [facility] Comment on above: Performed By: #### I FEPEFL #### [facility] [address] [place] [address] Dr. Francisco Marie Immunoglobulin M, Qn, Serum 47 mg/dL Normal 20-172 [facility] Comment on above: Performed By: #### I FEPEFL #### [facility] [address] [place] [address] Dr. Francisco Marie [place]/Lambda Ratio, S 1.71 Critically high 0.26-1.65 [facility] Comment on above: Performed By: #### I FEPEFL #### [facility] [address] [place] [address] Dr. Francisco Marie M-Shawn Not Observed Normal Not Observed [facility] Comment on above: Performed By: #### I FEPEFL #### [facility] [address] [place] [address] Dr. Francisco Marie PDF . Normal [facility] Comment on above: Performed By: #### I FEPEFL #### [facility] [address] [place] [address] Dr. Francisco Marie Please note: Comment Normal [facility] Comment on above: Result Comment: Prot ein electrophoresis scan will follow via computer, mail, or hostess cashier delivery. Performed By: #### I FEPEFL #### [facility] [address] [place] [address] Dr. Francisco Marie Protein [Mass/Vol] 7.1 g/dL Normal 6.0-8.5 [facility] Comment on above: Performed By: #### I FEPEFL #### [facility] [address] [place] [address] Dr. Francisco Marie PTH INTACTon 04-23-2022 PTH, Intact 16 pg/mL Normal 15-65 [facility] Comment on above: Performed By: #### D RUGRPD #### [facility] [address] [place] [address] Dr. Francisco Marie HEMOGRAM AND PLATELon 2021 Hematocrit (Bld) [Volume fraction] 33.4 % Critically low 42.0-54.0 [facility] Comment on above: Performed By: #### P OCGLUC #### [facility] [address] [place] [address] Dr. Francisco Marie Hemoglobin (Bld) [Mass/Vol] 11.1 g/dL Critically low 14.0-18.0 [facility] Comment on above: Performed By: #### P OCGLUC #### [facility] [address] [place] [address] Dr. Francisco Marie MCH (RBC) [Entitic mass] 29.1 pg Normal 25.9-34.0 [facility] Comment on above: Performed By: #### P OCGLUC #### [facility] [address] [place] [address] Dr. Francisco Marie MCHC (RBC) [Mass/Vol] 33.2 g/dL Normal 29.9-35.2 [facility] Comment on above: Performed By: #### P OCGLUC #### [facility] [address] [address] [address] Francisco Marie MCV (RBC) [Entitic vol] 87.7 fL Normal 80.0-94.0 [facility] Comment on above: Performed By: #### P OCGLUC #### [facility] [address] [address] [address] Francisco Marie PLT 151 103/ul Normal 150-450 [facility] Comment on above: Performed By: #### P OCGLUC #### [facility] [address] [address] [address] Francisco Marie RBC 3.81 106/ul Critically low 4.70-6.10 [facility] Comment on above: Performed By: #### P OCGLUC #### [facility] [address] [place] [address] Dr. Francisco Marie WBC 5.2 103/ul Normal 4.0-11.0 [facility] Comment on above: Performed By: #### P OCGLUC #### [facility] [address] [place] [address] Dr. Francisco Marie PHOSPHORUSon 04-21-2022 Phosphate [Mass/Vol] 3.8 mg/dL Normal 2.6-4.7 [facility] Comment on above: Performed By: #### P OCGLUC #### [facility] [address] [address] [address] Francisco Marie PROF 14(COMP METB)on 022 Albumin [Mass/Vol] 3.6 g/dL Normal 3.4-5.0 [facility] Comment on above: Performed By: #### P OCGLUC #### [facility] [address] [place] [address] Dr. Francisco Marie Albumin/Globulin [Mass ratio] 0.9 {ratio} Normal [facility] Comment on above: Performed By: #### P OCGLUC #### [facility] [address] [address] [address] Francisco Marie ALP [Catalytic activity/Vol] 123 U/L Critically high 46-116 [facility] Comment on above: Performed By: #### P OCGLUC #### [facility] [address] [address] [address] Francisco Marie ALT [Catalytic activity/Vol] 21 U/L Normal 16-63 [facility] Comment on above: Performed By: #### P OCGLUC #### [facility] [address] [address] [address] Francisco Marie Anion gap [Moles/Vol] 10.2 mmol/L Normal [facility] Comment on above: Performed By: #### P OCGLUC #### [facility] [address] [address] [address] Francisco Marie AST [Catalytic activity/Vol] 14 U/L Critically low 15-37 [facility] Comment on above: Performed By: #### P OCGLUC #### [facility] [address] [address] [address] Francisco Marie Bilirubin [Mass/Vol] 0.2 mg/dL Normal 0.2-1.0 [facility] Comment on above: Performed By: #### P OCGLUC #### [facility] [address] [address] [address] Francisco Marie Calcium [Mass/Vol] 8.5 mg/dL Normal 8.5-10.1 [facility] Comment on above: Performed By: #### P OCGLUC #### [facility] [address] [address] [address] Francisco Marie Chloride [Moles/Vol] 99 mmol/L Normal 98-107 [facility] Comment on above: Performed By: #### P OCGLUC #### [facility] [address] [address] [address] Francisco Marie CO2 [Moles/Vol] 28.3 mmol/L Normal 21.0-32.0 [facility] Comment on above: Performed By: #### P OCGLUC #### [facility] [address] [address] [address] Francisco Marie Creatinine [Mass/Vol] 1.31 mg/dL Critically high 0.70-1.30 [facility] Comment on above: Performed By: #### P OCGLUC #### [facility] [address] [address] [address] Francisco Marie EGFR-AF FILIPINO >60 Normal >=60 [facility] Comment on above: Performed By: #### P OCGLUC #### [facility] [address] [address] [address] Francisco Marie EGFR-NON AF FILIPINO 56 mL/min/1.73m2 Critically low >=60 [facility] Comment on above: Performed By: #### P OCGLUC #### [facility] [address] [address] [address] Francisco Marie Globulin (S) [Mass/Vol] 3.9 g/dL Normal [facility] Comment on above: Performed By: #### P OCGLUC #### [facility] [address] [address] [address] Francisco Marie Glucose [Mass/Vol] 297 mg/dL Critically high 74-106 [facility] Comment on above: Performed By: #### P OCGLUC #### [facility] [address] [address] [address] Francisco Marie Potassium [Moles/Vol] 3.5 mmol/L Normal 3.5-5.1 [facility] Comment on above: Performed By: #### P OCGLUC #### [facility] [address] [address] [address] Francisco Marie Protein [Mass/Vol] 7.5 g/dL Normal 6.4-8.2 [facility] Comment on above: Performed By: #### P OCGLUC #### [facility] [address] [address] [address] Francisco Marie Sodium [Moles/Vol] 134 mmol/L Critically low 136-145 [facility] Comment on above: Performed By: #### P OCGLUC #### [facility] [address] [address] [address] Francisco Marie Urea nitrogen [Mass/Vol] 32.0 mg/dL Critically high 7.0-18.0 [facility] Comment on above: Performed By: #### P OCGLUC #### [facility] [address] [place] [address] Dr. Francisco Marie Urea nitrogen/Creatinine [Mass ratio] 24.4 mg/mg Normal [facility] Comment on above: Performed By: #### P OCGLUC #### [facility] [address] [place] [address] Dr. Francisco Marie URINE T PROTEIN CREAT RATIOo n 04-21-2022 Protein (U) [Mass/Vol] 16.7 mg/dL Critically high <=12.0 [facility] Comment on above: Performed By: #### U RTPCR #### [facility] [address] [place] [address] Dr. Francisco Marie UR PROT CREAT RAT 0.[address] [facility] Comment on above: Performed By: #### U RTPCR #### [facility] [address] [place] [address] Dr. Francisco Marie URINE CREAT 98.68 mg/dL Normal 20.00-300.00 [facility] Comment on above: Performed By: #### U RTPCR #### [facility] [address] [place] [address] Dr. Francisco Marie GLYCOHEMOGLOBIN A1Con 2021 ADA RECOMMENDATION SEE BELOW Normal [facility] Comment on above: Result Comment: ADA RECOMMENDED LIMIT 4.0 - 6.0 ADA THERAPEUTIC TARGET < 7.0 ACTION SUGGESTED > 7.0 Performed By: #### I FEPEFL #### [facility] [address] [place] [address] Dr. Francisco Marie Glucose [Mass/Vol] 229 mg/dL Normal [facility] Comment on above: Performed By: #### I FEPEFL #### [facility] [address] [place] [address] Dr. Francisco Marie HbA1c (Bld) [Mass fraction] 9.6 % Critically high 4.5-6.2 [facility] Comment on above: Performed By: #### I FEPEFL #### [facility] [address] [place] [address] Dr. Francisco Marie RENAL FUNCTION PANELon 03-10 Albumin [Mass/Vol] 3.6 g/dL Normal 3.4-5.0 [facility] Comment on above: Performed By: #### P OCGLUC #### [facility] [address] [address] [address] Francisco Marie Calcium [Mass/Vol] 9.2 mg/dL Normal 8.5-10.1 [facility] Comment on above: Performed By: #### P OCGLUC #### [facility] [address] [address] [address] Francisco Marie Chloride [Moles/Vol] 98 mmol/L Normal 98-107 [facility] Comment on above: Performed By: #### P OCGLUC #### [facility] [address] [address] [address] Francisco Marie CO2 [Moles/Vol] 28.2 mmol/L Normal 21.0-32.0 [facility] Comment on above: Performed By: #### P OCGLUC #### [facility] [address] [address] [address] Francisco Marie Creatinine [Mass/Vol] 1.68 mg/dL Critically high 0.70-1.30 [facility] Comment on above: Performed By: #### P OCGLUC #### [facility] [address] [address] [address] Francisco Marie EGFR-AF FILIPINO 51 mL/min/1.73m2 Critically low >=60 [facility] Comment on above: Performed By: #### P OCGLUC #### [facility] [address] [address] [address] Francisco Marie EGFR-NON AF FILIPINO 42 mL/min/1.73m2 Critically low >=60 [facility] Comment on above: Performed By: #### P OCGLUC #### [facility] [address] [address] [address] Francisco Marie Glucose [Mass/Vol] 257 mg/dL Critically high 74-106 [facility] Comment on above: Performed By: #### P OCGLUC #### [facility] [address] [address] [address] Francisco Marie Phosphate [Mass/Vol] 4.2 mg/dL Normal 2.6-4.7 [facility] Comment on above: Performed By: #### P OCGLUC #### [facility] [address] [address] [address] Francisco Marie Potassium [Moles/Vol] 3.6 mmol/L Normal 3.5-5.1 [facility] Comment on above: Performed By: #### P OCGLUC #### [facility] [address] [address] [address] Francisco Marie Sodium [Moles/Vol] 135 mmol/L Critically low 136-145 [facility] Comment on above: Performed By: #### P OCGLUC #### [facility] [address] [address] [address] Frnacisco Marie Urea nitrogen [Mass/Vol] 51.0 mg/dL Critically high 7.0-18.0 [facility] Comment on above: Performed By: #### P OCGLUC #### [facility] [address] [address] [address] Francisco Marie Albumin [Mass/volume] in Ser um or PlasmaOrdered By: Addy Carlisle on 02-12-2022 Albumin [Mass/Vol] 2.4 g/dL 3.2-5.5 [facility] Creatinine and Glomerular fi ltration rate.predicted panel (S/P/Bld)Ordered By: Addy Carlisle on 02-12-2022 Creatinine [Mass/Vol] 8.30 mg/dL 0.64-1.27 [facility] Comment on above: Delta: 7.02 on 02/11-0607 Estimated glomerular filtrat ion rate (GFR) non- AmericanOrdered By: Addy Carlisle on 02-12-2022 GFR/1.73 sq M.predicted among non-blacks MDRD (S/P/Bld) [Vol rate/Area] 7 mL/Min [facility] Glucose Glucometer (BldC) [M ass/Vol]Ordered By: Jihan Manuel on 02-12-2022 Glucose [Mass/Vol] 171 mg/dL [facility] Comment on above: Random Glucose Refer ence Range is dependent on time and content of last meal. Glucose of more than 200 mg/dL in a nonstressed, ambulatory subject supports the diagnosis of Diabetes Mellitus. No Panel InformationOrdered By: Addy Carlisle on 02-12-2022 Estimated GFR () 8 mL/Min [facility] Comment on above: GFR estimated refere nce range: According to KDOQI guidelines, <60 ml/min/1.73m2 is sufficient to diagnose a patient with chronic kidney disease. Pharmacy Creatinine Clearance (Chem 12.23 [facility] Phosphate [Mass/volume] in S tawny or PlasmaOrdered By: Addy Carlisle on 02-12-2022 Phosphate [Mass/Vol] 6.0 mg/dL 2.5-4.6 [facility] Serum or plasma anion gap de terminationOrdered By: Addy Carilsle on 02-12-2022 Anion gap [Moles/Vol] 13.9 mmol/L 6.0-15.0 [facility] Serum or plasma calcium andrea urement (mass/volume)Ordered By: Addy Carlisle on 02-12-2022 Calcium [Mass/Vol] 8.4 mg/dL 8.2-10.2 [facility] Serum or plasma chloride karine surement (moles/volume)Ordered By: Addy Carlisle on 02-12-2022 Chloride [Moles/Vol] 94 mmol/L 95-114 [facility] Serum or plasma glucose andrea urement (mass/volume)Ordered By: Addy Carlisle on 02-12-2022 Glucose [Mass/Vol] 169 mg/dL 70-100 [facility] Comment on above: ADA recommended refe rence rangeRandom Glucose Reference Range is dependent on time and content of last meal. Glucose of more than 200 mg/dL in a nonstressed, ambulatory subject supports the diagnosis of Diabetes Mellitus. Serum or plasma potassium me asurement (moles/volume)Ordered By: Addy Carlisle on 02-12-2022 Potassium [Moles/Vol] 3.6 mmol/L 3.5-5.1 [facility] Serum or plasma sodium measu rement (moles/volume)Ordered By: Addy Carlisle on 02-12-2022 Sodium [Moles/Vol] 132 mmol/L 136-146 [facility] Serum or plasma total carbon dioxide measurement (moles/volume)Ordered By: Addy Carlisle on 02-12-2022 CO2 [Moles/Vol] 27.7 mmol/L 22.0-30.0 [facility] Serum or plasma urea nitroge n measurement (mass/volume)Ordered By: Addy Carlisle on 02-12-2022 Urea nitrogen [Mass/Vol] 30 mg/dL 9- [facility] No Panel InformationOrdered By: Jihan Manuel on 02-10-2022 Bedside Glucose Comment Glu2: cleaned meter [facility] Basophils Auto (Bld) [#/Vol] Ordered By: Edith Og on 02-09-2022 Basophils (Bld) [#/Vol] 0.1 10*3/uL 0.0-0.2 [facility] Basophils/100 WBC Auto (Bld) Ordered By: Edith Og on 02-09-2022 Basophils/100 WBC (Bld) 1.1 % . F [facility] Blood hemoglobin measurement (mass/volume)Ordered By: Edith Og on 02-09-2022 Hemoglobin (Bld) [Mass/Vol] 9.0 g/dL 13.0-17.0 [facility] Blood leukocytes automated c ount (number/volume)Ordered By: Edith Og on 02-09-2022 WBC (Bld) [#/Vol] 6.2 10*3/uL 4.5-11.0 [facility] Eosinophils Auto (Bld) [#/Vo l]Ordered By: Edith Og on 02-09-2022 Eosinophils (Bld) [#/Vol] 0.2 10*3/uL 0.0-0.45 [facility] Eosinophils/100 WBC Auto (Bl d)Ordered By: Edith Og on 02-09-2022 Eosinophils/100 WBC (Bld) 2.6 % . [facility] Erythrocyte distribution wid th Auto (RBC) [Ratio]Ordered By: Edith Og on 02-09-2022 Erythrocyte distribution width (RBC) [Ratio] 15.8 % 12.0-14.8 [facility] Hematocrit Auto (Bld) [Volum e fraction]Ordered By: Edith Og on 02-09-2022 Hematocrit (Bld) [Volume fraction] 27.4 % 38.8-50.0 [facility] - Hematology and Cell countsOrdered By: Edith Og on 02-09-2022 Nucleated RBC/100 WBC (Bld) [Ratio] 0.0 % 0-0.5 [facility] Lymphocytes Auto (Bld) [#/Vo l]Ordered By: Edith Og on 02-09-2022 Lymphocytes (Bld) [#/Vol] 1.0 10*3/uL 1.00-4.8 [facility] Lymphocytes/100 WBC Auto (Bl d)Ordered By: Edith Og on 02-09-2022 Lymphocytes/100 WBC (Bld) 15.6 % . [facility] MCH Auto (RBC) [Entitic mass ]Ordered By: Edith Og on 02-09-2022 MCH (RBC) [Entitic mass] 26.6 pg 27.5-35.2 [facility] MCHC Auto (RBC) [Mass/Vol]Or dered By: Edith Og on 02-09-2022 MCHC (RBC) [Mass/Vol] 33.0 g/dL 32.5-35.6 [facility] MCV Auto (RBC) [Entitic vol] Ordered By: Edith Og on 02-09-2022 MCV (RBC) [Entitic vol] 80.4 fL 83.5-101 [facility] Monocytes Auto (Bld) [#/Vol] Ordered By: Edith Og on 02-09-2022 Monocytes (Bld) [#/Vol] 0.7 10*3/uL 0.0-0.8 [facility] Monocytes/100 WBC Auto (Bld) Ordered By: Edith Og on 02-09-2022 Monocytes/100 WBC (Bld) 11.0 % . [facility] Neutrophils Auto (Bld) [#/Vo l]Ordered By: Edith Og on 02-09-2022 Neutrophils (Bld) [#/Vol] 4.3 10*3/uL 1.8-7.7 [facility] Neutrophils/100 WBC Auto (Bl d)Ordered By: Edith Og on 02-09-2022 Neutrophils/100 WBC (Bld) 69.7 % . [facility] Platelet mean volume Auto (B ld) [Entitic vol]Ordered By: Edith Og on 02-09-2022 Platelet mean volume (Bld) [Entitic vol] 7.6 fL 6.6-10.1 [facility] Platelets Auto (Bld) [#/Vol] Ordered By: Edith Og on 02-09-2022 Platelets (Bld) [#/Vol] 249 10*3/uL 150-450 [facility] RBC Auto (Bld) [#/Vol]Ordere d By: Edith Og on 02-09-2022 RBC (Bld) [#/Vol] 3.40 10*6/uL 3.90-5.60 [facility] Albumin/Protein.total in 24 hour Urine by ElectrophoresisOrdered By: Addy Carlisle on 02-07-2022 Albumin Elph (24H U) [Mass fraction] 34.3 % . [facility] Creatinine [Mass/volume] in UrineOrdered By: Addy Carlisle on 02-07-2022 Creatinine (U) [Mass/Vol] 91.1 mg/dL [facility] Comment on above: No reference range e stablished Eosinophils detection in uri ne sediment by [place] stainOrdered By: Addy Carlisle on 02-07-2022 Eosinophils [place] stain Ql (Urine sed) 0 % 0-1 [facility] Gamma globulin/Protein.total in 24 hour Urine by ElectrophoresisOrdered By: Addy Carlisle on 02-07-2022 Gamma globulin Elph (24H U) [Mass fraction] 21.0 % . [facility] Immunofixation for UrineOrde red By: Addy Carlisle on 02-07-2022 Interpretation Immunofixation (U) [Interp] See comment . [facility] Comment on above: No monoclonality det ected.Performed at: [facility] - [facility] [id number] Director: Devin Plummer PhD, Phone: [phone] No Panel InformationOrdered By: Addy Carlisle on 02-07-2022 Urine Random Prot Electrophor Note See comment . [facility] Comment on above: Protein electrophore sis scan will follow via computer,mail, or hostess cashier delivery. Protein [Mass/volume] in Uri neOrdered By: Addy Carlisle on 02-07-2022 Protein (U) [Mass/Vol] 216.7 mg/dL Not Estab. [facility] Comment on above: Results confirmed on dilution. Protein.monoclonal/Protein.t otal in 24 hour Urine by ElectrophoresisOrdered By: Addy Carlisle on 02-07-2022 Protein.monoclonal Elph (24H U) [Mass fraction] 4.6 % Not Observed [facility] Urine alpha 1 globulin/total protein by electrophoresisOrdered By: Addy Carlisle on 02-07-2022 Alpha 1 globulin Elph (U) [Mass fraction] 13.9 % . [facility] Urine alpha 2 globulin/total protein ratio by electrophoresisOrdered By: Addy Carlisle on 02-07-2022 Alpha 2 globulin Elph (U) [Mass fraction] 13.5 % . [facility] Urine beta globulin measurem ent by electrophoresis (mass/volume)Ordered By: Addy Carlisle on 02-07-2022 Beta globulin Elph (U) [Mass/Vol] 17.3 % . [facility] Urine culture routineOrdered By: Edith Og on 02-07-2022 Bacteria identified Cx Nom (U) No Growth 2 Days [facility] Urine protein/creatinine rat ioOrdered By: Addy Carlisle on 02-07-2022 Protein/Creatinine (U) [Ratio] 1866 mg/g{Cre} 0-200 [facility] Albumin [Mass/volume] in Ser um or PlasmaOrdered By: Addy Carlisle on 02-06-2022 Albumin [Mass/Vol] 2.2 g/dL 2.9-4.4 [facility] Atypical perinuclear antineu trophil cytoplasmic antibodies measurementOrdered By: Addy Carlisle on 02-06-2022 Neutrophil cytoplasmic Ab.perinuclear.atypical IF (S) [Titer] <1:20 titer Neg:<1:20 [facility] Comment on above: The atypical pANCA p attern has been observed in asignificant percentage of patients with ulcerative colitis,primary sclerosing cholangitis and autoimmune hepatitis.Performed at: - [facility] [id number] Director: Angelo Bateman MD, Phone: [phone] at: [facility] [employer] [id number] Director: Devin Plummer PhD, Phone: [phone] Consultation Noteon 02-07-20 Consultation Note [id number]: 127 Normal [facility] Creatine kinase [Enzymatic a ctivity/volume] in Serum or PlasmaOrdered By: Addy Carlisle on 02-06-2022 CK [Catalytic activity/Vol] 41 U/L [facility] Globulin Calc (S) [Mass/Vol] Ordered By: Edith Og on 02-06-2022 Globulin (S) [Mass/Vol] 3.3 g/dL [facility] Hepatitis B virus surface Ag [Presence] in Serum or Plasma by ImmunoassayOrdered By: Addy Carlisle on 02-06-2022 HBV surface Ag IA Ql Negative Negative [facility] Hepatitis C virus RNA [Units /volume] (viral load) in Serum or Plasma by CARLOS with probOrdered By: Addy Carlisle on 02-06-2022 HCV RNA CARLOS+probe Qn N/A [facility] Hepatitis C virus RNA [log u nits/volume] (viral load) in Serum or Plasma by CARLOS withOrdered By: Addy Carlisle on 02-06-2022 HCV RNA CARLOS+probe [Log units/Vol] N/A [facility] IgA [Mass/volume] in Serum o r PlasmaOrdered By: Addy Hydedir on 02-06-2022 IgA [Mass/Vol] 266 mg/dL 90-386 [facility] IgG [Mass/volume] in Serum o r PlasmaOrdered By: Addy Orestes on 02-06-2022 IgG [Mass/Vol] 996 mg/dL 603-1613 [facility] IgM [Mass/volume] in Serum o r PlasmaOrdered By: Addy Orestes on 02-06-2022 IgM [Mass/Vol] 38 mg/dL 20-172 [facility] Comment on above: Performed at: [facility] [address] [id number] Director: Devin Plummer PhD, Phone: [phone] Immunoglobulin light chains. kappa.free [Mass/volume] in SerumOrdered By: Addy Orestes on 02-06-2022 Immunoglobulin light chains.kappa.free (S) [Mass/Vol] 120.0 mg/L 3.3-19.4 [facility] Immunoglobulin light chains. kappa.free/Immunoglobulin light chains.lambda.free [MassOrdered By: Addy Orestes on 02-06-2022 Immunoglobulin light chains.kappa.free/Immun oglobulin light chains.lambda.free (S) [Mass ratio] 1.78 0.26-1.65 [facility] Comment on above: Performed at: [facility] [address] [id number] Director: Devin Plummer PhD, Phone: [phone] Immunoglobulin light chains. lambda.free [Mass/volume] in Serum or PlasmaOrdered By: Addy Orestes on 02-06-2022 Immunoglobulin light chains.lambda.free [Mass/Vol] 67.4 mg/L 5.7-26.3 [facility] Laboratory - CoagulationOrde red By: Javan Maddox on 02-06-2022 PT Coag (PPP) [Time] 14.3 s 9.0-12.9 [facility] Myeloperoxidase Ab [Units/vo lume] in Serum by ImmunoassayOrdered By: Addy Carlisle on 02-06-2022 Myeloperoxidase Ab IA Qn (S) <0.2 units 0.0-0.9 [facility] No Panel InformationOrdered By: Addy Carlisle on 02-06-2022 Perinuclear ANCA (p-ANCA) Antibody <1:20 titer Neg:<1:20 [facility] Comment on above: The presence of posi tive fluorescence exhibiting P-ANCA orC-ANCA patterns alone is not specific for the diagnosis ofWegener's Granulomatosis (WG) or microscopic polyangiitis.Decisions about treatment should not be based solely onANCA IFA results. The International ANCA Group Consensusrecommends follow up testing of positive sera with both IL-3 and MPO-ANCA enzyme immunoassays. As many as 5% serumsamples are positive only by EIA. Ref. AM J Clin Xalbzh1068;111:507-513. Protein Electrophoresis M-Shawn Not observed g/dL Not Observed [facility] Protein Electrophoresis Note See comment . [facility] Comment on above: Protein electrophore sis scan will follow via computer,mail, or hostess cashier delivery.Performed at: [facility] [address] [id number] Director: Devin Plummer PhD, Phone: [phone] Serum Immunofixation See comment . [facility] Comment on above: No monoclonality det ected. Hepatitis A IgM Antibody Negative Negative [facility] Hepatitis B Core IgM Antibody Negative Negative [facility] Hepatitis C Interpretation See comment . [facility] Comment on above: NegativeNot infected with HCV, unless recent infection issuspected or other evidence exists to indicate HCVinfection.Performed at: [facility] [address] [id number] Director: Devin Plummer PhD, Phone: [phone] Hepatitis C RNA Quantitative N/A [facility] Platelet poor plasma interna tional normalized ratio (INR) by coagulation assay (relatOrdered By: Javan Maddox on 02-06-2022 INR Coag (PPP) [Relative time] 1.3 {INR} [facility] Comment on above: INR Therapeutic Rang e A) Pre- and Peroperative OAT started two weeks before surgery. NOT HIP SURGERY: 1.5 - 2.5 HIP SURGERY: 2 - 3B) Primary and secondary prevention of venous THROMBOSIS: 2 - 3C) Active venous thrombosis, pulmonary embolismand prevention of recurrent venous thrombosis: 2 - 3D) Prevention of arterial thromboembolismincluding patients with mechanical heart valves: 3 - 4.5 Protein [Mass/volume] in Ser um or PlasmaOrdered By: Addy Carlisle on 02-06-2022 Protein [Mass/Vol] 5.2 g/dL 6.0-8.5 [facility] Protein [Mass/volume] in Ser um or PlasmaOrdered By: Edith Og on 02-06-2022 Protein [Mass/Vol] 5.3 g/dL 6.1-7.9 [facility] Proteinase 3 Ab [Units/volum e] in Serum by ImmunoassayOrdered By: Addy Carlisle on 02-06-2022 Proteinase 3 Ab IA Qn (S) <0.2 units 0.0-0.9 [facility] Serum classic neutrophil cyt oplasmic antibody titer by immunofluorescenceOrdered By: Addy Carlisle on 02-06-2022 Neutrophil cytoplasmic Ab.classic IF (S) [Titer] <1:20 titer Neg:<1:20 [facility] Serum globulin measurement ( mass/volume)Ordered By: Addy Carlisle on 02-06-2022 Globulin (S) [Mass/Vol] 3.0 g/dL 2.2-3.9 [facility] Serum homogeneous pattern an tinuclear antibody (KHUSHI) titerOrdered By: Addy Carlisle on 02-06-2022 Homogenous nuclear Ab pattern (S) [Titer] N/A [facility] Serum nuclear antibody titer Ordered By: Addy Carlisle on 02-06-2022 Nuclear Ab (S) [Titer] Negative . [facility] Comment on above: Negative <1:80 Zuly estevez 1:80 Positive >1:80ICAP nomenclature: AC-0For more information about Hep-2 cell patterns useANApatterns.org, the official website for theInternational Consensus on Antinuclear Antibody (KHUSHI)Patterns (ICAP).Performed at: [facility] [employer] [id number] Director: Devin Plummer PhD, Phone: [phone] Serum or plasma alanine frank otransferase measurement without P-5'-P (enzymatic activiOrdered By: Edith Og on 02-06-2022 ALT No additional P-5'-P [Catalytic activity/Vol] 15 U/L 10-60 [facility] Serum or plasma albumin/glob ulin mass ratioOrdered By: Addy Carlisle on 02-06-2022 Albumin/Globulin [Mass ratio] 0.7 {ratio} 0.7-1.7 [facility] Serum or plasma albumin/glob ulin mass ratioOrdered By: Edith Og on 02-06-2022 Albumin/Globulin [Mass ratio] 0.6 {ratio} [facility] Serum or plasma alkaline nisha sphatase measurement (enzymatic activity/volume)Ordered By: Edith Og on 02-06-2022 ALP [Catalytic activity/Vol] 61 U/L 32-92 [facility] Serum or plasma alpha 1 glob ulin measurement by electrophoresis (mass/volume)Ordered By: Addy Carlisle on 02-06-2022 Alpha 1 globulin Elph [Mass/Vol] 0.4 g/dL 0.0-0.4 [facility] Serum or plasma alpha 2 glob ulin measurement by electrophoresis (mass/volume)Ordered By: Addy Carlisle on 02-06-2022 Alpha 2 globulin Elph [Mass/Vol] 0.9 g/dL 0.4-1.0 [facility] Serum or plasma aspartate am inotransferase measurement (enzymatic activity/volume)Ordered By: Edith Og on 02-06-2022 AST [Catalytic activity/Vol] 13 U/L 10-42 [facility] Serum or plasma beta globuli n measurement by electrophoresis (mass/volume)Ordered By: Addy Carlisle on 02-06-2022 Beta globulin Elph [Mass/Vol] 0.8 g/dL 0.7-1.3 [facility] Serum or plasma complement C 3 measurement (mass/volume)Ordered By: Addy Carlisle on 02-06-2022 Complement C3 [Mass/Vol] 138 mg/dL 82-167 [facility] Comment on above: Performed at: [place] [id number] Director: Devin Plummer PhD, Phone: [phone] Serum or plasma complement C 4 measurement (mass/volume)Ordered By: Addy Carlisle on 02-06-2022 Complement C4 [Mass/Vol] 25 mg/dL 12-38 [facility] Serum or plasma gamma globul in measurement by electrophoresis (mass/volume)Ordered By: Addy Carlisle on 02-06-2022 Gamma globulin Elph [Mass/Vol] 0.9 g/dL 0.4-1.8 [facility] Serum or plasma hepatitis C virus antibody signal/cutoff ratio by immunoassay (relatiOrdered By: Addy Carlisle on 02-06-2022 HCV Ab Signal/Cutoff IA [Rel units/Vol] <0.1 s/co ratio 0.0-0.9 [facility] Serum or plasma total biliru bin measurement (mass/volume)Ordered By: Edith Og on 02-06-2022 Bilirubin [Mass/Vol] 0.4 mg/dL 0.3-1.2 [facility] Automated erythrocytes count in urine sediment (number/area)Ordered By: Edith Og on 02-05-2022 RBC Auto (Urine sed) [#/Area] 10-19 [HPF] 0-4 [facility] Automated leukocytes count i n urine sediment (number/area)Ordered By: Edith Og on 02-05-2022 WBC Auto (Urine sed) [#/Area] 10-19 [HPF] 0-4 [facility] Bilirubin Test strip Ql (U)O rdered By: Edith Og on 02-05-2022 Bilirubin Ql (U) Negative Negative [facility] CBC AUTO DIFFon 02-05-2022 BASO # 0.0 103/ul Normal 0.0-0.1 [facility] Comment on above: Performed By: #### P OCGLUC #### [facility] [address] [address] [address] Francisco Marie Basophils/100 WBC (Bld) 0.3 % Normal 0.2-2.0 [facility] Comment on above: Performed By: #### P OCGLUC #### [facility] [address] [address] [address] Francisco Marie EO # 0.1 103/ul Normal 0.0-0.7 [facility] Comment on above: Performed By: #### P OCGLUC #### [facility] [address] [address] [address] Francisco Marei Eosinophils/100 WBC (Bld) 0.6 % Critically low 0.9-7.0 [facility] Comment on above: Performed By: #### P OCGLUC #### [facility] [address] [place] [address] Dr. Francisco Marie Erythrocyte distribution width (RBC) [Ratio] 15.9 % Critically high 11.0-15.0 [facility] Comment on above: Performed By: #### P OCGLUC #### [facility] [address] [place] [address] Dr. Francisco Marie Hematocrit (Bld) [Volume fraction] 30.0 % Critically low 42.0-54.0 [facility] Comment on above: Performed By: #### P OCGLUC #### [facility] [address] [place] [address] Dr. Francisco Marie Hemoglobin (Bld) [Mass/Vol] 9.7 g/dL Critically low 14.0-18.0 [facility] Comment on above: Performed By: #### P OCGLUC #### [facility] [address] [place] [address] Dr. Francisco Marie IG # 0.08 10e3/ul Critically high 0.00-0.03 [facility] Comment on above: Performed By: #### P OCGLUC #### [facility] [address] [place] [address] Dr. Francisco Marie IG % 0.8 % Critically high 0.0-0.5 [facility] Comment on above: Performed By: #### P OCGLUC #### [facility] [address] [place] [address] Dr. Francisco Marie LYMPH # 0.9 103/ul Critically low 1.2-3.8 [facility] Comment on above: Performed By: #### P OCGLUC #### [facility] [address] [place] [address] Dr. Francisco Marie Lymphocytes/100 WBC (Bld) 9.4 % Critically low 20.5-60.0 [facility] Comment on above: Performed By: #### P OCGLUC #### [facility] [address] [place] [address] Dr. Francisco Marie MANUAL DIFF REQ NO Normal [facility] Comment on above: Performed By: #### P OCGLUC #### [facility] [address] [place] [address] Dr. Francisco Marie MCH (RBC) [Entitic mass] 26.5 pg Normal 25.9-34.0 [facility] Comment on above: Performed By: #### P OCGLUC #### [facility] [address] [place] [address] Dr. Francisco Marie MCHC (RBC) [Mass/Vol] 32.3 g/dL Normal 29.9-35.2 [facility] Comment on above: Performed By: #### P OCGLUC #### [facility] [address] [place] [address] Dr. Francisco Marie MCV (RBC) [Entitic vol] 82.0 fL Normal 80.0-94.0 [facility] Comment on above: Performed By: #### P OCGLUC #### [facility] [address] [place] [address] Dr. Francisco Marie MONO # 0.7 103/ul Normal 0.3-0.8 [facility] Comment on above: Performed By: #### P OCGLUC #### [facility] [address] [place] [address] Dr. Francisco Marie Monocytes/100 WBC (Bld) 7.5 % Normal 1.7-12.0 [facility] Comment on above: Performed By: #### P OCGLUC #### [facility] [address] [place] [address] Dr. Francisco Marie NEUT # 7.8 103/ul Critically high 1.4-6.5 [facility] Comment on above: Performed By: #### P OCGLUC #### [facility] [address] [address] [address] Francisco Marie Neutrophils/100 WBC (Bld) 81.4 % Critically high 43.0-75.0 [facility] Comment on above: Performed By: #### P OCGLUC #### [facility] [address] [address] [address] Francisco Marie Platelet mean volume (Bld) [Entitic vol] 9.1 fL Critically low 9.5-13.5 [facility] Comment on above: Performed By: #### P OCGLUC #### [facility] [address] [address] [address] Francisco Marie PLT 226 103/ul Normal 150-450 [facility] Comment on above: Performed By: #### P OCGLUC #### [facility] [address] [address] [address] Francisco Marie RBC 3.66 106/ul Critically low 4.70-6.10 [facility] Comment on above: Performed By: #### P OCGLUC #### [facility] [address] [address] [address] Francisco Marie WBC 9.6 103/ul Normal 4.0-11.0 [facility] Comment on above: Performed By: #### P OCGLUC #### [facility] [address] [address] [address] Francisco Marie Color Auto (U)Ordered By: Marlo Og on 02-05-2022 Color (U) Yellow Yellow [facility] Direct bilirubin measurement Ordered By: Edith Og on 02-05-2022 Bilirubin.direct [Mass/Vol] mg/dL 0.0-0.4 [facility] Ketones Auto test strip (U) [Mass/Vol]Ordered By: Edith Og on 02-05-2022 Ketones (U) [Mass/Vol] Negative Negative [facility] - Chemistry and C hemistry - challengeOrdered By: Edith Og on 02-05-2022 Lipase [Catalytic activity/Vol] 53.0 U/L [facility] Magnesium [Mass/Vol] 1.7 mg/dL 1.6-2.6 [facility] - UrinalysisOrder ed By: Edith Og on 02-05-2022 Hyaline casts LM Ql (Urine sed) None seen [LPF] 0-8 [facility] Nitrite Test strip Ql (U)Ord ered By: Edith Og on 02-05-2022 Nitrite Ql (U) Negative Negative [facility] POINT OF CARE GLUCOSEon 01-17 Glucose [Mass/Vol] 224 mg/dL Critically high 74-106 [facility] Comment on above: Performed By: #### P OCGLUC #### [facility] [address] [place] [address] Dr. Francisco Marie Glucose [Mass/Vol] 221 mg/dL Critically high 74-106 [facility] Comment on above: Performed By: #### P OCGLUC #### [facility] [address] [address] [address] Francisco Marie PROF CHEM 8 (BAS METB)on Anion gap [Moles/Vol] 13.5 mmol/L Normal [facility] Comment on above: Performed By: #### D RUGRPD #### [facility] [address] [place] [address] Dr. Francisco Marie Calcium [Mass/Vol] 7.6 mg/dL Critically low 8.5-10.1 [facility] Comment on above: Performed By: #### D RUGRPD #### [facility] [address] [place] [address] Dr. Francisco Marie Chloride [Moles/Vol] 101 mmol/L Normal 98-107 [facility] Comment on above: Performed By: #### D RUGRPD #### [facility] [address] [address] [address] Francisco Marie CO2 [Moles/Vol] 23.0 mmol/L Normal 21.0-32.0 [facility] Comment on above: Performed By: #### D RUGRPD #### [facility] [address] [address] [address] Francisco Marie Creatinine [Mass/Vol] 7.92 mg/dL Critically high 0.70-1.30 [facility] Comment on above: Performed By: #### D RUGRPD #### [facility] [address] [address] [address] Francisco Marie EGFR-AF FILIPINO 9 mL/min/1.73m2 Critically low >=60 [facility] Comment on above: Performed By: #### D RUGRPD #### [facility] [address] [address] [address] Francisco Marie EGFR-NON AF FILIPINO 7 mL/min/1.73m2 Critically low >=60 [facility] Comment on above: Performed By: #### D RUGRPD #### [facility] [address] [address] [address] Francisco Marie Glucose [Mass/Vol] 226 mg/dL Critically high 74-106 [facility] Comment on above: Performed By: #### D RUGRPD #### [facility] [address] [address] [address] Francisco Marie Potassium [Moles/Vol] 4.5 mmol/L Normal 3.5-5.1 [facility] Comment on above: Performed By: #### D RUGRPD #### [facility] [address] [address] [address] Francisco Marie Sodium [Moles/Vol] 133 mmol/L Critically low 136-145 [facility] Comment on above: Performed By: #### D RUGRPD #### [facility] [address] [address] [address] Francisco Marie Urea nitrogen [Mass/Vol] 39.0 mg/dL Critically high 7.0-18.0 [facility] Comment on above: Performed By: #### D RUGRPD #### [facility] [address] [address] [address] Francisco Marie Urea nitrogen/Creatinine [Mass ratio] 4.9 mg/mg Normal [facility] Comment on above: Performed By: #### D RUGRPD #### [facility] [address] [address] [address] Francisco Marie Protein Auto test strip (U) [Mass/Vol]Ordered By: Edith Og on 02-05-2022 Protein (U) [Mass/Vol] 300 mg/dL Negative [facility] Serum or plasma non-glucuron idated bilirubin measurement (mass/volume)Ordered By: Edith Og on 02-05-2022 Bilirubin.indirect [Mass/Vol] TNP [facility] Comment on above: Test not performed Specific gravity Auto test s trip (U) [Rel density]Ordered By: Edith Og on 02-05-2022 Specific gravity (U) [Rel density] 1.011 1.001-1.030 [facility] Squamous epithelial cells de tection in urine sediment by light microscopyOrdered By: Edith Og on 02-05-2022 Epithelial cells.squamous LM Ql (Urine sed) 1-2 [HPF] 0-2 [facility] Urine bacteria detection by automated methodOrdered By: Edith Og on 02-05-2022 Bacteria Auto Ql (U) None seen None Seen [facility] Urine clarity by refractomet ry automatedOrdered By: Edith Og on 02-05-2022 Clarity Refractometry automated (U) Clear Clear [facility] Urine glucose measurement by automated test strip (mass/volume)Ordered By: Edith Og on 02-05-2022 Glucose Auto test strip (U) [Mass/Vol] 100 mg/dL Normal [facility] Urine hemoglobin detection b y automated test stripOrdered By: Edith Og on 02-05-2022 Hemoglobin Auto test strip Ql (U) 1+ Negative [facility] Urine leukocyte esterase det ection by automated test stripOrdered By: Edith Og on 02-05-2022 Leukocyte esterase Auto test strip Ql (U) 1+ Negative [facility] Urine sediment renal epithel ial cell count by microscopy (number/high power field)Ordered By: Edith Og on 02-05-2022 Epithelial cells.renal LM.HPF (Urine sed) [#/Area] 1-2 [HPF] 0-1 [facility] Urine sodium measurement (mo les/volume)Ordered By: Edith Og on 02-05-2022 Sodium (U) [Moles/Vol] 77 mmol/L [facility] Comment on above: No reference range e stablished Urobilinogen Auto test strip (U) [Mass/Vol]Ordered By: Edith Og on 02-05-2022 Urobilinogen (U) [Mass/Vol] Normal mg/dL Normal [facility] pH Auto test strip (U)Ordere d By: Edith Og on 02-05-2022 pH (U) 7.0 [pH] 5.0-9.0 [facility] CBC AUTO DIFFon 02-04-2022 BASO # 0.0 103/ul Normal 0.0-0.1 [facility] Comment on above: Performed By: #### P OCGLUC #### [facility] [address] [address] [address] Francisco Marie Basophils/100 WBC (Bld) 0.4 % Normal 0.2-2.0 [facility] Comment on above: Performed By: #### P OCGLUC #### [facility] [address] [address] [address] Francisco Marie EO # 0.2 103/ul Normal 0.0-0.7 [facility] Comment on above: Performed By: #### P OCGLUC #### [facility] [address] [address] [address] Francisco Marie Eosinophils/100 WBC (Bld) 1.6 % Normal 0.9-7.0 [facility] Comment on above: Performed By: #### P OCGLUC #### [facility] [address] [address] [address] Francisco Marie Erythrocyte distribution width (RBC) [Ratio] 16.1 % Critically high 11.0-15.0 [facility] Comment on above: Performed By: #### P OCGLUC #### [facility] [address] [place] [address] Dr. Francisco Marie Hematocrit (Bld) [Volume fraction] 29.2 % Critically low 42.0-54.0 [facility] Comment on above: Performed By: #### P OCGLUC #### [facility] [address] [place] [address] Dr. Francisco Marie Hemoglobin (Bld) [Mass/Vol] 9.1 g/dL Critically low 14.0-18.0 [facility] Comment on above: Performed By: #### P OCGLUC #### [facility] [address] [place] [address] Dr. Francisco Marie IG # 0.06 10e3/ul Critically high 0.00-0.03 [facility] Comment on above: Performed By: #### P OCGLUC #### [facility] [address] [place] [address] Dr. Francisco Marie IG % 0.6 % Critically high 0.0-0.5 [facility] Comment on above: Performed By: #### P OCGLUC #### [facility] [address] [place] [address] Dr. Francisco Marie LYMPH # 1.1 103/ul Critically low 1.2-3.8 [facility] [facility] Comment on above: Performed By: #### P OCGLUC #### [facility] [address] [place] [address] Dr. Francisco Marie Lymphocytes/100 WBC (Bld) 11.7 % Critically low 20.5-60.0 [facility] Comment on above: Performed By: #### P OCGLUC #### [facility] [address] [place] [address] Dr. Francisco Marie MANUAL DIFF REQ NO Normal [facility] Comment on above: Performed By: #### P OCGLUC #### [facility] [address] [place] [address] Dr. Francisco Marie MCH (RBC) [Entitic mass] 26.1 pg Normal 25.9-34.0 [facility] Comment on above: Performed By: #### P OCGLUC #### [facility] [address] [place] [address] Dr. Francisco Marie MCHC (RBC) [Mass/Vol] 31.2 g/dL Normal 29.9-35.2 [facility] Comment on above: Performed By: #### P OCGLUC #### [facility] [address] [place] [address] Dr. Francisco Marie MCV (RBC) [Entitic vol] 83.9 fL Normal 80.0-94.0 [facility] Comment on above: Performed By: #### P OCGLUC #### [facility] [address] [place] [address] Dr. Francisco Marie MONO # 0.8 103/ul Normal 0.3-0.8 [facility] Comment on above: Performed By: #### P OCGLUC #### [facility] [address] [place] [address] Dr. Francisco Marie Monocytes/100 WBC (Bld) 8.4 % Normal 1.7-12.0 [facility] Comment on above: Performed By: #### P OCGLUC #### [facility] [address] [place] [address] Dr. Francisco Marie NEUT # 7.3 103/ul Critically high 1.4-6.5 [facility] Comment on above: Performed By: #### P OCGLUC #### [facility] [address] [place] [address] Dr. Francisco Marie Neutrophils/100 WBC (Bld) 77.3 % Critically high 43.0-75.0 [facility] Comment on above: Performed By: #### P OCGLUC #### [facility] [address] [place] [address] Dr. Francisco Marie Platelet mean volume (Bld) [Entitic vol] 9.0 fL Critically low 9.5-13.5 [facility] Comment on above: Performed By: #### P OCGLUC #### [facility] [address] [place] [address] Dr. Francisco Marie PLT 221 103/ul Normal 150-450 [facility] Comment on above: Performed By: #### P OCGLUC #### [facility] [address] [place] [address] Dr. Francisco Marie RBC 3.48 106/ul Critically low 4.70-6.10 [facility] Comment on above: Performed By: #### P OCGLUC #### [facility] [address] [place] [address] Dr. Francisco Marie WBC 9.5 103/ul Normal 4.0-11.0 [facility] Comment on above: Performed By: #### P OCGLUC #### [facility] [address] [place] [address] Dr. Francisco Marie CULTURE WOUNDon 02-04-2022 CULTURE WOUND Isolate 1 Staphylococcus aureus Moderate growth of ORGANISM 1 Staphylococcus aureus ANTIBIOTIC M.I.C RX STATUS Beta-Lactamase Pos POS F Cefoxitin Screen Neg NEG F Benzylpenicillin >=0.5 R F Gentamicin <=0.5 S F Ciprofloxacin <=0.5 S F Levofloxacin <=0.12 S F Moxifloxacin <=0.25 S F Inducible Clindamycin Resistance Neg NEG F Erythromycin >=8 R F Clindamycin >=8 R F Quinupristin/Dalfopristi n <=0.25 S F Linezolid 1 S F Vancomycin 1 S F Tetracycline <=1 S F Rifampicin <=0.5 S F Trimethoprim/Sulfamethox azole <=10 S F Oxacillin 0.[address] [facility] Comment on above: Performed By: #### W OUNDCX #### [facility] [address] [place] [address] Dr. Francisco Marie POINT OF CARE GLUCOSEon 01-17 Glucose [Mass/Vol] 195 mg/dL Critically high -106 [facility] Comment on above: Performed By: #### P OCGLUC #### [facility] [address] [place] [address] Dr. Francisco Marie Glucose [Mass/Vol] 155 mg/dL Critically high -106 [facility] Comment on above: Performed By: #### P OCGLUC #### [facility] [address] [place] [address] Dr. Francisco Marie Glucose [Mass/Vol] 139 mg/dL Critically high -106 [facility] Comment on above: Performed By: #### P OCGLUC #### [facility] [address] [address] [address] Francisco Marie Glucose [Mass/Vol] 119 mg/dL Critically high 74-106 [facility] Comment on above: Performed By: #### I FEPEFL #### [facility] [address] [address] [address] Francisco Marie PROF CHEM 8 (BAS METB)on Anion gap [Moles/Vol] 14.8 mmol/L Normal [facility] Comment on above: Performed By: #### P OCGLUC #### [facility] [address] [address] [address] Francisco Marie Calcium [Mass/Vol] 8.1 mg/dL Critically low 8.5-10.1 [facility] Comment on above: Performed By: #### P OCGLUC #### [facility] [address] [address] [address] Francisco Marie Chloride [Moles/Vol] 105 mmol/L Normal 98-107 [facility] Comment on above: Performed By: #### P OCGLUC #### [facility] [address] [address] [address] Francisco Marie CO2 [Moles/Vol] 21.3 mmol/L Normal 21.0-32.0 [facility] Comment on above: Performed By: #### P OCGLUC #### [facility] [address] [address] [address] Francisco Marie Creatinine [Mass/Vol] 5.43 mg/dL Critically high 0.70-1.30 [facility] Comment on above: Performed By: #### P OCGLUC #### [facility] [address] [address] [address] Francisco Marie EGFR-AF FILIPINO 13 mL/min/1.73m2 Critically low >=60 [facility] Comment on above: Performed By: #### P OCGLUC #### [facility] [address] [address] [address] Francisoc Marie EGFR-NON AF FILIPINO 11 mL/min/1.73m2 Critically low >=60 [facility] Comment on above: Performed By: #### P OCGLUC #### [facility] [address] [address] [address] Francisco Marie Glucose [Mass/Vol] 119 mg/dL Critically high 74-106 [facility] Comment on above: Performed By: #### P OCGLUC #### [facility] [address] [address] [address] Francisco Marie Potassium [Moles/Vol] 5.1 mmol/L Normal 3.5-5.1 [facility] Comment on above: Performed By: #### P OCGLUC #### [facility] [address] [address] [address] Francisco Marie Sodium [Moles/Vol] 136 mmol/L Normal 136-145 [facility] Comment on above: Performed By: #### P OCGLUC #### [facility] [address] [address] [address] Francisco Marie Urea nitrogen [Mass/Vol] 32.0 mg/dL Critically high 7.0-18.0 [facility] Comment on above: Performed By: #### P OCGLUC #### [facility] [address] [address] [address] Francisco Marie Urea nitrogen/Creatinine [Mass ratio] 5.8 mg/mg Normal [facility] Comment on above: Performed By: #### P OCGLUC #### [facility] [address] [address] [address] Francisco Marie US KIDNEYS BLADDERon 022 US KIDNEYS BLADDER EXAMINATION: KIDN EYS BLADDER HISTORY: Acute renal failure syndrome ; decreased urine output, nausea and vomiting COMPARISON: CT abdomen pelvis 08/19/2021 TECHNIQUE: Ultrasound examination was performed of the kidneys and urinary bladder. FINDINGS: RIGHT KIDNEY: No evidence of pelvocaliectasis, mass, or calculi. Normal renal cortical parenchymal echogenicity. Color Doppler demonstrates blood flow within the kidney. Kidney: 13.2 x 5.9 x 5.1 cm LEFT KIDNEY: Contains an 8.8 cm benign-appearing simple cyst. No evidence of pelvocaliectasis, mass, or calculi. Normal renal cortical parenchymal echogenicity. Color Doppler demonstrates blood flow within the kidney. Kidney: 14.5 x 6.2 x 5.4 cm BLADDER: No visible wall thickening, mass, or calculi. Post void residual: Patient refused to void. URETERAL JETS: Attempted, but not seen. IMPRESSION: 1. No acute or suspicious findings to account for patient's symptoms. 2. Large benign-appearing left renal cyst. Electronically authenticated by: CAIT HENRY Date: 2022-02-04 10:06 Normal [facility] CBC AUTO DIFFon 02-03-2022 BASO # 0.0 103/ul Normal 0.0-0.1 [facility] Comment on above: Performed By: #### P OCGLUC #### [facility] [address] [place] [address] Dr. Francisco Marie Basophils/100 WBC (Bld) 0.6 % Normal 0.2-2.0 [facility] Comment on above: Performed By: #### P OCGLUC #### [facility] [address] [place] [address] Dr. Francisco Marie EO # 0.3 103/ul Normal 0.0-0.7 [facility] Comment on above: Performed By: #### P OCGLUC #### [facility] [address] [place] [address] Dr. Francisco Marie Eosinophils/100 WBC (Bld) 3.6 % Normal 0.9-7.0 [facility] Comment on above: Performed By: #### P OCGLUC #### [facility] [address] [place] [address] Dr. Francisco Marie Erythrocyte distribution width (RBC) [Ratio] 15.9 % Critically high 11.0-15.0 [facility] Comment on above: Performed By: #### P OCGLUC #### [facility] [address] [place] [address] Dr. Francisco Marie Hematocrit (Bld) [Volume fraction] 27.6 % Critically low 42.0-54.0 [facility] Comment on above: Performed By: #### P OCGLUC #### [facility] [address] [place] [address] Dr. Francisco Marie Hemoglobin (Bld) [Mass/Vol] 8.7 g/dL Critically low 14.0-18.0 [facility] Comment on above: Performed By: #### P OCGLUC #### [facility] [address] [place] [address] Dr. Francisco Marie IG # 0.05 10e3/ul Critically high 0.00-0.03 [facility] Comment on above: Performed By: #### P OCGLUC #### [facility] [address] [place] [address] Dr. Francisco Marie IG % 0.7 % Critically high 0.0-0.5 [facility] Comment on above: Performed By: #### P OCGLUC #### [facility] [address] [place] [address] Dr. Francisco Marie LYMPH # 1.2 103/ul Normal 1.2-3.8 [facility] Comment on above: Performed By: #### P OCGLUC #### [facility] [address] [place] [address] Dr. Francisco Marie Lymphocytes/100 WBC (Bld) 16.8 % Critically low 20.5-60.0 [facility] Comment on above: Performed By: #### P OCGLUC #### [facility] [address] [place] [address] Dr. Francisco Marie MANUAL DIFF REQ NO Normal [facility] Comment on above: Performed By: #### P OCGLUC #### [facility] [address] [place] [address] Dr. Francisco Marie MCH (RBC) [Entitic mass] 26.4 pg Normal 25.9-34.0 [facility] Comment on above: Performed By: #### P OCGLUC #### [facility] [address] [place] [address] Dr. Francisco Marie MCHC (RBC) [Mass/Vol] 31.5 g/dL Normal 29.9-35.2 [facility] Comment on above: Performed By: #### P OCGLUC #### [facility] [address] [place] [address] Dr. Francisco Marie MCV (RBC) [Entitic vol] 83.9 fL Normal 80.0-94.0 [facility] Comment on above: Performed By: #### P OCGLUC #### [facility] [address] [place] [address] Dr. Francisco Marie MONO # 0.6 103/ul Normal 0.3-0.8 [facility] Comment on above: Performed By: #### P OCGLUC #### [facility] [address] [place] [address] Dr. Francisco Marie Monocytes/100 WBC (Bld) 9.2 % Normal 1.7-12.0 [facility] Comment on above: Performed By: #### P OCGLUC #### [facility] [address] [place] [address] Dr. Francisco Marie NEUT # 4.8 103/ul Normal 1.4-6.5 [facility] Comment on above: Performed By: #### P OCGLUC #### [facility] [address] [place] [address] Dr. Francisco Marie Neutrophils/100 WBC (Bld) 69.1 % Normal 43.0-75.0 [facility] Comment on above: Performed By: #### P OCGLUC #### [facility] [address] [place] [address] Dr. Francisco Marie Platelet mean volume (Bld) [Entitic vol] 9.4 fL Critically low 9.5-13.5 [facility] Comment on above: Performed By: #### P OCGLUC #### [facility] [address] [place] [address] Dr. Francisco Marie PLT 252 103/ul Normal 150-450 [facility] Comment on above: Performed By: #### P OCGLUC #### [facility] [address] [place] [address] Dr. Francisco Marie RBC 3.29 106/ul Critically low 4.70-6.10 [facility] Comment on above: Performed By: #### P OCGLUC #### [facility] [address] [place] [address] Dr. Francisco Marie WBC 6.9 103/ul Normal 4.0-11.0 [facility] Comment on above: Performed By: #### P OCGLUC #### [facility] [address] [address] [address] Francisco Marie POINT OF CARE GLUCOSEon 01-16 Glucose [Mass/Vol] 144 mg/dL Critically high -106 [facility] Comment on above: Performed By: #### P OCGLUC #### [facility] [address] [address] [address] Francisco Marie Glucose [Mass/Vol] 189 mg/dL Critically high -106 [facility] Comment on above: Performed By: #### P OCGLUC #### [facility] [address] [place] [address] Dr. Francisco Marie Glucose [Mass/Vol] 199 mg/dL Critically high -106 [facility] Comment on above: Performed By: #### D RUGRPD #### [facility] [address] [place] [address] Dr. Francisco Marie Glucose [Mass/Vol] 191 mg/dL Critically high -106 [facility] Comment on above: Performed By: #### P OCGLUC #### [facility] [address] [place] [address] Dr. Francisco Marie PROF CHEM 8 (BAS METB)on Anion gap [Moles/Vol] 13.4 mmol/L Normal [facility] Comment on above: Performed By: #### I FEPEFL #### [facility] [address] [place] [address] Dr. Francisco Marie Calcium [Mass/Vol] 8.2 mg/dL Critically low 8.5-10.1 [facility] Comment on above: Performed By: #### I FEPEFL #### [facility] [address] [place] [address] Dr. Francisco Marie Chloride [Moles/Vol] 104 mmol/L Normal 98-107 [facility] Comment on above: Performed By: #### I FEPEFL #### [facility] [address] [address] [address] Francisco Marie CO2 [Moles/Vol] 23.9 mmol/L Normal 21.0-32.0 [facility] Comment on above: Performed By: #### I FEPEFL #### [facility] [address] [place] [address] Dr. Francisco Marie Creatinine [Mass/Vol] 2.98 mg/dL Critically high 0.70-1.30 [facility] Comment on above: Performed By: #### I FEPEFL #### [facility] [address] [place] [address] Dr. Francisco Marie EGFR-AF FILIPINO 26 mL/min/1.73m2 Critically low >=60 [facility] Comment on above: Performed By: #### I FEPEFL #### [facility] [address] [place] [address] Dr. Francisco Marie EGFR-NON AF FILIPINO 22 mL/min/1.73m2 Critically low >=60 [facility] Comment on above: Performed By: #### I FEPEFL #### [facility] [address] [place] [address] Dr. Francisco Marie Glucose [Mass/Vol] 232 mg/dL Critically high 74-106 [facility] Comment on above: Performed By: #### I FEPEFL #### [facility] [address] [place] [address] Dr. Francisco Marie Potassium [Moles/Vol] 4.3 mmol/L Normal 3.5-5.1 [facility] Comment on above: Performed By: #### I FEPEFL #### [facility] [address] [place] [address] Dr. Francisco Marie Sodium [Moles/Vol] 137 mmol/L Normal 136-145 [facility] Comment on above: Performed By: #### I FEPEFL #### [facility] [address] [place] [address] Dr. Francisco Marie Urea nitrogen [Mass/Vol] 23.0 mg/dL Critically high 7.0-18.0 [facility] Comment on above: Performed By: #### I FEPEFL #### [facility] [address] [address] [address] Francisco Marie Urea nitrogen/Creatinine [Mass ratio] 7.7 mg/mg Normal [facility] Comment on above: Performed By: #### I FEPEFL #### [facility] [address] [place] [address] Dr. Francisco Marie CBC AUTO DIFFon 02-02-2022 BASO # 0.0 103/ul Normal 0.0-0.1 [facility] Comment on above: Performed By: #### P OCGLUC #### [facility] [address] [place] [address] Dr. Francisco Marie Basophils/100 WBC (Bld) 0.6 % Normal 0.2-2.0 [facility] Comment on above: Performed By: #### P OCGLUC #### [facility] [address] [place] [address] Dr. Francisco Marie EO # 0.2 103/ul Normal 0.0-0.7 [facility] Comment on above: Performed By: #### P OCGLUC #### [facility] [address] [place] [address] Dr. Francisco Marie Eosinophils/100 WBC (Bld) 4.5 % Normal 0.9-7.0 [facility] Comment on above: Performed By: #### P OCGLUC #### [facility] [address] [place] [address] Dr. Francisco Marie Erythrocyte distribution width (RBC) [Ratio] 15.8 % Critically high 11.0-15.0 [facility] Comment on above: Performed By: #### P OCGLUC #### [facility] [address] [place] [address] Dr. Francisco Marie Hematocrit (Bld) [Volume fraction] 28.6 % Critically low 42.0-54.0 [facility] Comment on above: Performed By: #### P OCGLUC #### [facility] [address] [place] [address] Dr. Francisco Marie Hemoglobin (Bld) [Mass/Vol] 9.1 g/dL Critically low 14.0-18.0 [facility] Comment on above: Performed By: #### P OCGLUC #### [facility] [address] [address] [address] Francisco Marie IG # 0.03 10e3/ul Normal 0.00-0.03 [facility] Comment on above: Performed By: #### P OCGLUC #### [facility] [address] [address] [address] Francisco Marie IG % 0.6 % Critically high 0.0-0.5 [facility] Comment on above: Performed By: #### P OCGLUC #### [facility] [address] [address] [address] Francisco Marie LYMPH # 1.1 103/ul Critically low 1.2-3.8 [facility] Comment on above: Performed By: #### P OCGLUC #### [facility] [address] [place] [address] Dr. Francisco Marie Lymphocytes/100 WBC (Bld) 22.7 % Normal 20.5-60.0 [facility] Comment on above: Performed By: #### P OCGLUC #### [facility] [address] [address] [address] Francisco Marie MANUAL DIFF REQ NO Normal [facility] Comment on above: Performed By: #### P OCGLUC #### [facility] [address] [address] [address] Francisco Marie MCH (RBC) [Entitic mass] 26.5 pg Normal 25.9-34.0 [facility] Comment on above: Performed By: #### P OCGLUC #### [facility] [address] [address] [address] Francisco Marie MCHC (RBC) [Mass/Vol] 31.8 g/dL Normal 29.9-35.2 [facility] Comment on above: Performed By: #### P OCGLUC #### [facility] [address] [place] [address] Dr. Francisco Marie MCV (RBC) [Entitic vol] 83.4 fL Normal 80.0-94.0 [facility] Comment on above: Performed By: #### P OCGLUC #### [facility] [address] [address] [address] Francisco Marie MONO # 0.5 103/ul Normal 0.3-0.8 [facility] Comment on above: Performed By: #### P OCGLUC #### [facility] [address] [address] [address] Francisco Marie Monocytes/100 WBC (Bld) 9.8 % Normal 1.7-12.0 [facility] Comment on above: Performed By: #### P OCGLUC #### [facility] [address] [address] [address] Francisco Marie NEUT # 3.0 103/ul Normal 1.4-6.5 [facility] Comment on above: Performed By: #### P OCGLUC #### [facility] [address] [address] [address] Francisco Marie Neutrophils/100 WBC (Bld) 61.8 % Normal 43.0-75.0 [facility] Comment on above: Performed By: #### P OCGLUC #### [facility] [address] [address] [address] Francisco Marie Platelet mean volume (Bld) [Entitic vol] 9.7 fL Normal 9.5-13.5 [facility] Comment on above: Performed By: #### P OCGLUC #### [facility] [address] [address] [address] Francisco Marie PLT 230 103/ul Normal 150-450 [facility] Comment on above: Performed By: #### P OCGLUC #### [facility] [address] [address] [address] Francisco Marie RBC 3.43 106/ul Critically low 4.70-6.10 [facility] Comment on above: Performed By: #### P OCGLUC #### [facility] [address] [address] [address] Francisco Marie WBC 4.9 103/ul Normal 4.0-11.0 [facility] Comment on above: Performed By: #### P OCGLUC #### [facility] [address] [address] [address] Fracnisco Marie POINT OF CARE GLUCOSEon 01-16 Glucose [Mass/Vol] 164 mg/dL Critically high -106 [facility] Comment on above: Performed By: #### P OCGLUC #### [facility] [address] [address] [address] Francisco Marie Glucose [Mass/Vol] 221 mg/dL Critically high -106 [facility] Comment on above: Performed By: #### I FEPEFL #### [facility] [address] [place] [address] Dr. Francisco Marie Glucose [Mass/Vol] 214 mg/dL Critically high [address] [place] [address] Comment on above: Performed By: #### I FEPEFL #### [facility] [address] [place] [address] Dr. Francisco Marie PROF CHEM 8 (BAS METB)on Anion gap [Moles/Vol] 9.3 mmol/L Normal [facility] Comment on above: Performed By: #### P OCGLUC #### [facility] [address] [place] [address] Dr. Francisco Marie Calcium [Mass/Vol] 8.4 mg/dL Critically low 8.5-10.1 [facility] Comment on above: Performed By: #### P OCGLUC #### [facility] [address] [place] [address] Dr. Francisco Marie Chloride [Moles/Vol] 105 mmol/L Normal 98-107 [facility] Comment on above: Performed By: #### P OCGLUC #### [facility] [address] [place] [address] Dr. Francisco Marie CO2 [Moles/Vol] 26.0 mmol/L Normal 21.0-32.0 [facility] Comment on above: Performed By: #### P OCGLUC #### [facility] [address] [place] [address] Dr. Francisco Marie Creatinine [Mass/Vol] 0.90 mg/dL Normal 0.70-1.30 [facility] Comment on above: Performed By: #### P OCGLUC #### [facility] [address] [address] [address] Francisco Marie EGFR-AF FILIPINO >60 Normal >=60 [facility] Comment on above: Performed By: #### P OCGLUC #### [facility] [address] [address] [address] Francisco Marie EGFR-NON AF FILIPINO >60 Normal >=60 [facility] Comment on above: Performed By: #### P OCGLUC #### [facility] [address] [address] [address] Francisco Marie Glucose [Mass/Vol] 239 mg/dL Critically high 74-106 [facility] Comment on above: Performed By: #### P OCGLUC #### [facility] [address] [address] [address] Francisco Marie Potassium [Moles/Vol] 4.3 mmol/L Normal 3.5-5.1 [facility] Comment on above: Performed By: #### P OCGLUC #### [facility] [address] [address] [address] Francisco Marie Sodium [Moles/Vol] 136 mmol/L Normal 136-145 [facility] Comment on above: Performed By: #### P OCGLUC #### [facility] [address] [address] [address] Francisco Marie Urea nitrogen [Mass/Vol] 8.0 mg/dL Normal 7.0-18.0 [facility] Comment on above: Performed By: #### P OCGLUC #### [facility] [address] [address] [address] Francisco Marie Urea nitrogen/Creatinine [Mass ratio] 8.9 mg/mg Normal [facility] Comment on above: Performed By: #### P OCGLUC #### [facility] [address] [address] [address] Francisco Marie CBC AUTO DIFFon 02-01-2022 BASO # 0.0 103/ul Normal 0.0-0.1 [facility] Comment on above: Performed By: #### P OCGLUC #### [facility] [address] [address] [address] Francisco Marie Basophils/100 WBC (Bld) 0.8 % Normal 0.2-2.0 [facility] Comment on above: Performed By: #### P OCGLUC #### [facility] [address] [place] [address] Dr. Francisco Marie EO # 0.2 103/ul Normal 0.0-0.7 [facility] Comment on above: Performed By: #### P OCGLUC #### [facility] [address] [place] [address] Dr. Francisco Marie Eosinophils/100 WBC (Bld) 3.2 % Normal 0.9-7.0 [facility] Comment on above: Performed By: #### P OCGLUC #### [facility] [address] [place] [address] Dr. Francisco Marie Erythrocyte distribution width (RBC) [Ratio] 15.7 % Critically high 11.0-15.0 [facility] Comment on above: Performed By: #### P OCGLUC #### [facility] [address] [place] [address] Dr. Francisco Marie Hematocrit (Bld) [Volume fraction] 27.5 % Critically low 42.0-54.0 [facility] Comment on above: Performed By: #### P OCGLUC #### [facility] [address] [place] [address] Dr. Francisco Marie Hemoglobin (Bld) [Mass/Vol] 8.8 g/dL Critically low 14.0-18.0 [facility] Comment on above: Performed By: #### P OCGLUC #### [facility] [address] [place] [address] Dr. Francisco Marie IG # 0.05 10e3/ul Critically high 0.00-0.03 [facility] Comment on above: Performed By: #### P OCGLUC #### [facility] [address] [place] [address] Dr. Francisco Marie IG % 0.9 % Critically high 0.0-0.5 [facility] Comment on above: Performed By: #### P OCGLUC #### [facility] [address] [address] [address] Francisco Marie LYMPH # 0.9 103/ul Critically low 1.2-3.8 [facility] Comment on above: Performed By: #### P OCGLUC #### [facility] [address] [address] [address] Francisco Marie Lymphocytes/100 WBC (Bld) 16.9 % Critically low 20.5-60.0 [facility] Comment on above: Performed By: #### P OCGLUC #### [facility] [address] [place] [address] Dr. Francisco Marie MANUAL DIFF REQ NO Normal [facility] Comment on above: Performed By: #### P OCGLUC #### [facility] [address] [place] [address] Dr. Francisco Marie MCH (RBC) [Entitic mass] 26.7 pg Normal 25.9-34.0 [facility] Comment on above: Performed By: #### P OCGLUC #### [facility] [address] [place] [address] Dr. Francisco Marie MCHC (RBC) [Mass/Vol] 32.0 g/dL Normal 29.9-35.2 [facility] Comment on above: Performed By: #### P OCGLUC #### [facility] [address] [place] [address] Dr. Francisco Marie MCV (RBC) [Entitic vol] 83.6 fL Normal 80.0-94.0 [facility] Comment on above: Performed By: #### P OCGLUC #### [facility] [address] [place] [address] Dr. Francisco Marie MONO # 0.6 103/ul Normal 0.3-0.8 [facility] Comment on above: Performed By: #### P OCGLUC #### [facility] [address] [address] [address] Francisco Marie Monocytes/100 WBC (Bld) 11.7 % Normal 1.7-12.0 [facility] Comment on above: Performed By: #### P OCGLUC #### [facility] [address] [address] [address] Francisco Marie NEUT # 3.5 103/ul Normal 1.4-6.5 [facility] Comment on above: Performed By: #### P OCGLUC #### [facility] [address] [address] [address] Francisco Marie Neutrophils/100 WBC (Bld) 66.5 % Normal 43.0-75.0 [facility] Comment on above: Performed By: #### P OCGLUC #### [facility] [address] [place] [address] Dr. Francisco Marie Platelet mean volume (Bld) [Entitic vol] 9.6 fL Normal 9.5-13.5 [facility] Comment on above: Performed By: #### P OCGLUC #### [facility] [address] [place] [address] Dr. Francisco Marie PLT 217 103/ul Normal 150-450 [facility] Comment on above: Performed By: #### P OCGLUC #### [facility] [address] [place] [address] Dr. Francisco Marie RBC 3.29 106/ul Critically low 4.70-6.10 [facility] Comment on above: Performed By: #### P OCGLUC #### [facility] [address] [place] [address] Dr. Francisco Marie WBC 5.3 103/ul Normal 4.0-11.0 [facility] Comment on above: Performed By: #### P OCGLUC #### [facility] [address] [place] [address] Dr. Francisco Marie DRUG SCREEN RAPID (URINE)on 02-01-2022 AMP Negative Normal NEGATIVE [facility] Comment on above: Performed By: #### D RUGRPD #### [facility] [address] [place] [address] Dr. Francisco Marie BAR Negative Normal NEGATIVE [facility] Comment on above: Performed By: #### D RUGRPD #### [facility] [address] [place] [address] Dr. Francisco Marie BUP Negative Normal NEGATIVE [facility] Comment on above: Performed By: #### D RUGRPD #### [facility] [address] [place] [address] Dr. Francisco Marie BZO Negative Normal NEGATIVE [facility] Comment on above: Performed By: #### D RUGRPD #### [facility] [address] [place] [address] Dr. Francisco Marie ENRRIQUE Negative Normal NEGATIVE [facility] Comment on above: Performed By: #### D RUGRPD #### [facility] [address] [place] [address] Dr. Francisco Marie CUT-OFFS SEE BELOW Normal [facility] Comment on above: Result Comment: AMP (Amphetamine): 500ng/mL, BAR (Barbituates): 200 ng/mL, BZO (Benzodiazepines): 150 ng/mL, BUP (Buprenorphine): 10 ng/mL, ENRRIQUE (Cocaine): 150 ng/mL, mAMP (Methamphetamine): 500 ng/mL, MTD (Methadone): 200 ng/mL, OPI (Opiates): 100 ng/mL, OXY (Oxycodone): 100 ng/mL, PCP (Phencyclidine): 25 ng/mL, PPX (Propoxyphene): 300 ng/mL, THC (Cannabinoids): 50 ng/mL, TCA (Trycyclic Antidepressants): 300 ng/mL Performed By: #### D RUGRPD #### [facility] [address] [place] [address] Dr. Francisco Marie DRUG CUT HEADER DRUG CLASS TEST SYST EM CUT-OFF CONCENTRATIONS ARE FOLLOWS: Normal [facility] Comment on above: Performed By: #### D RUGRPD #### [facility] [address] [place] [address] Dr. Francisco Marie mAMP Negative Normal NEGATIVE [facility] Comment on above: Performed By: #### D RUGRPD #### [facility] [address] [place] [address] Dr. Francisco Marie MTD Negative Normal NEGATIVE [facility] Comment on above: Performed By: #### D RUGRPD #### [facility] [address] [address] [address] Francisco Marie OPI Positive Abnormal NEGATIVE [facility] Comment on above: Performed By: #### D RUGRPD #### [facility] [address] [address] [address] Francisco Marie OXY Positive Abnormal NEGATIVE [facility] Comment on above: Performed By: #### D RUGRPD #### [facility] [address] [address] [address] Francisco Marie PCP Negative Normal NEGATIVE [facility] Comment on above: Performed By: #### D RUGRPD #### [facility] [address] [address] [address] Francisco Marie PPX Negative Normal NEGATIVE [facility] Comment on above: Performed By: #### D RUGRPD #### [facility] [address] [address] [address] Francisco Marie TCA Negative Normal NEGATIVE [facility] Comment on above: Performed By: #### D RUGRPD #### [facility] [address] [address] [address] Francisco Marie THC Negative Normal NEGATIVE [facility] Comment on above: Performed By: #### D RUGRPD #### [facility] [address] [address] [address] Francisco Marie POINT OF CARE GLUCOSEon 01-16 Glucose [Mass/Vol] 227 mg/dL Critically high [address] [place] [address] Comment on above: Performed By: #### D RUGRPD #### [facility] [address] [address] [address] Francisco Marie Glucose [Mass/Vol] 157 mg/dL Critically high [address] [place] [address] Comment on above: Performed By: #### P OCGLUC #### [facility] [address] [address] [address] Francisco Marie Glucose [Mass/Vol] 297 mg/dL Critically high [facility]106 [facility] Comment on above: Performed By: #### P OCGLUC #### [facility] [address] [address] [address] Francisco Marie PROF CHEM 8 (BAS METB)on Anion gap [Moles/Vol] 10.1 mmol/L Normal [facility] Comment on above: Performed By: #### I FEPEFL #### [facility] [address] [place] [address] Dr. Francisco Marie Calcium [Mass/Vol] 8.1 mg/dL Critically low 8.5-10.1 [facility] Comment on above: Performed By: #### I FEPEFL #### [facility] [address] [place] [address] Dr. Francisco Marie Chloride [Moles/Vol] 105 mmol/L Normal 98-107 [facility] Comment on above: Performed By: #### I FEPEFL #### [facility] [address] [place] [address] Dr. Francisco Marie CO2 [Moles/Vol] 26.0 mmol/L Normal 21.0-32.0 [facility] Comment on above: Performed By: #### I FEPEFL #### [facility] [address] [place] [address] Dr. Francisco Marie Creatinine [Mass/Vol] 0.95 mg/dL Normal 0.70-1.30 [facility] Comment on above: Performed By: #### I FEPEFL #### [facility] [address] [place] [address] Dr. Francisco Marie EGFR-AF FILIPINO >60 Normal >=60 [facility] Comment on above: Performed By: #### I FEPEFL #### [facility] [address] [place] [address] Dr. rFancisco Marie EGFR-NON AF FILIPINO >60 Normal >=60 [facility] Comment on above: Performed By: #### I FEPEFL #### [facility] [address] [place] [address] Dr. Francisco Marie Glucose [Mass/Vol] 169 mg/dL Critically high 74-106 [facility] Comment on above: Performed By: #### I FEPEFL #### [facility] [address] [address] [address] Francisco Marie Potassium [Moles/Vol] 4.1 mmol/L Normal 3.5-5.1 [facility] Comment on above: Performed By: #### I FEPEFL #### [facility] [address] [address] [address] Francisco Marie Sodium [Moles/Vol] 137 mmol/L Normal 136-145 [facility] Comment on above: Performed By: #### I FEPEFL #### [facility] [address] [address] [address] Francisco Marie Urea nitrogen [Mass/Vol] 10.0 mg/dL Normal 7.0-18.0 [facility] Comment on above: Performed By: #### I FEPEFL #### [facility] [address] [place] [address] Dr. Francisco Marie Urea nitrogen/Creatinine [Mass ratio] 10.5 mg/mg Normal [facility] Comment on above: Performed By: #### I FEPEFL #### [facility] [address] [place] [address] Dr. Francisco Marie VANCOMYCIN TROUGHon 02-02-20 22 VANCOMYCIN TROUGH 9.4 ug/ml Normal 5.0-20.0 [facility] Comment on above: Performed By: #### I FEPEFL #### [facility] [address] [place] [address] Dr. Francisco Marie VANCOMYCIN TROUGH 11.0 ug/ml Normal 5.0-20.0 [facility] Comment on above: Performed By: #### P OCGLUC #### [facility] [address] [place] [address] FEMUR RT WO CONon 022 CT FEMUR RT WO CON EXAMINATION: CT PELV IS WO CON, CT FEMUR RT WO CON HISTORY: Pain right inner thigh abscess COMPARISON: CT pelvis 01/25/2022 TECHNIQUE: Multiple axial views CT pelvis with IV contrast. Coronal and sagittal reformats. Multiple axial views CT right femur without contrast. Coronal and sagittal reformats. Dose reduction techniques were achieved by using automated exposure control and/or adjustment of mA and/or kV according to patient size and/or use of iterative reconstruction technique. FINDINGS: Right medial upper thigh soft tissue packing material within the subcutaneous tissue. Trace sliver of irregular fluid superior to the packing site, measuring 0.9 x 0.8 cm. Diffuse inflammatory subcutaneous stranding/skin thickening extending from the right groin/right upper medial thigh to the right medial knee. No necrotizing dissecting air. Multiple mildly prominent 10-12 mm right inguinal lymph nodes likely reactive or inflammatory etiology. No acute osseous erosion, sclerosis, or cortical destruction. IMPRESSION: Right medial upper thigh soft tissue packing material within the subcutaneous tissue in the region of recently drained abscess. Trace sliver of irregular fluid superior to the packing site, measuring 0.9 x 0.8 cm. Diffuse inflammatory subcutaneous stranding/skin thickening extending from the right groin/right upper medial thigh to the right medial knee. Findings reflect diffuse cellulitis. No necrotizing dissecting air. Electronically authenticated by: NICOLAS DAMON Date: 2022-01-31 00:00 Normal [facility] Covid-19 PCR (CVDTB)on 01-16 SARS-CoV-2 (COVID-19) RNA CARLOS+probe Ql (Unsp spec) Not detected Normal NOT DETECTED [facility] Comment on above: Result Comment: When diagnostic testing is negative, the possibility of a false negative should be considered in the context of a patient's recent exposures and the presence of clinical signs and symptoms consistent with SARS-CoV-2. This test is not yet approved or cleared by the [place] FDA. When there are no FDA-approved or cleared tests available, and other criteria are met, FDA can make tests available under an emergency access mechanism called an Emergency Use Authorization (EUA). The EUA for this test is supported by the [place] of Health and Human Service's declaration that circumstances exist to justify the emergency use of in vitro diagnostics for the detection and/or diagnosis of the virus that causes COVID-19. This EUA will remain in effect for the duration of the COVID-19 declaration justifying emergency of IVDs, unless it is terminated or revoked by the FDA (after which the test may no longer be used). Performed By: #### P OCGLUC #### [facility] [address] [place] [address] Dr. Francisco Marie POINT OF CARE GLUCOSEon - Glucose [Mass/Vol] 289 mg/dL Critically high 74-106 [facility] Comment on above: Performed By: #### D RUGRPD #### [facility] [address] [place] [address] Dr. Francisco Marie Glucose [Mass/Vol] 294 mg/dL Critically high 74-106 [facility] Comment on above: Performed By: #### P OCGLUC #### [facility] [address] [place] [address] Dr. Francisco Marie CBC AUTO DIFFon 01-30-2022 BASO # 0.0 103/ul Normal 0.0-0.1 [facility] Comment on above: Performed By: #### P OCGLUC #### [facility] [address] [place] [address] Dr. Francisco Marie Basophils/100 WBC (Bld) 0.3 % Normal 0.2-2.0 [facility] Comment on above: Performed By: #### P OCGLUC #### [facility] [address] [address] [address] Francisco Marie EO # 0.0 103/ul Normal 0.0-0.7 [facility] Comment on above: Performed By: #### P OCGLUC #### [facility] [address] [place] [address] Dr. Francisco Marie Eosinophils/100 WBC (Bld) 0.4 % Critically low 0.9-7.0 [facility] Comment on above: Performed By: #### P OCGLUC #### [facility] [address] [place] [address] Dr. Francisco Marie Erythrocyte distribution width (RBC) [Ratio] 15.6 % Critically high 11.0-15.0 [facility] Comment on above: Performed By: #### P OCGLUC #### [facility] [address] [place] [address] Dr. Francisco Marie Hematocrit (Bld) [Volume fraction] 31.4 % Critically low 42.0-54.0 [facility] Comment on above: Performed By: #### P OCGLUC #### [facility] [address] [address] [address] Francisco Marie Hemoglobin (Bld) [Mass/Vol] 10.5 g/dL Critically low 14.0-18.0 [facility] Comment on above: Performed By: #### P OCGLUC #### [facility] [address] [address] [address] Francisco Marie IG # 0.08 10e3/ul Critically high 0.00-0.03 [facility] Comment on above: Performed By: #### P OCGLUC #### [facility] [address] [place] [address] Dr. Francisco Marie IG % 0.7 % Critically high 0.0-0.5 [facility] Comment on above: Performed By: #### P OCGLUC #### [facility] [address] [place] [address] Dr. Francisco Marie LYMPH # 1.2 103/ul Normal 1.2-3.8 [facility] Comment on above: Performed By: #### P OCGLUC #### [facility] [address] [place] [address] Dr. Francisco Marie Lymphocytes/100 WBC (Bld) 10.6 % Critically low 20.5-60.0 [facility] Comment on above: Performed By: #### P OCGLUC #### [facility] [address] [place] [address] Dr. Francisco Marie MANUAL DIFF REQ NO Normal [facility] Comment on above: Performed By: #### P OCGLUC #### [facility] [address] [place] [address] Dr. Francisco Marie MCH (RBC) [Entitic mass] 27.5 pg Normal 25.9-34.0 [facility] Comment on above: Performed By: #### P OCGLUC #### [facility] [address] [place] [address] Dr. Francisco Marie MCHC (RBC) [Mass/Vol] 33.4 g/dL Normal 29.9-35.2 [facility] Comment on above: Performed By: #### P OCGLUC #### [facility] [address] [address] [address] Francisco Marie MCV (RBC) [Entitic vol] 82.2 fL Normal 80.0-94.0 [facility] Comment on above: Performed By: #### P OCGLUC #### [facility] [address] [address] [address] Francisco Marie MONO # 1.1 103/ul Critically high 0.3-0.8 [facility] Comment on above: Performed By: #### P OCGLUC #### [facility] [address] [address] [address] Francisco Marie Monocytes/100 WBC (Bld) 10.4 % Normal 1.7-12.0 [facility] Comment on above: Performed By: #### P OCGLUC #### [facility] [address] [place] [address] Dr. Francisco Marie NEUT # 8.5 103/ul Critically high 1.4-6.5 [facility] Comment on above: Performed By: #### P OCGLUC #### [facility] [address] [place] [address] Dr. Francisco Marie Neutrophils/100 WBC (Bld) 77.6 % Critically high 43.0-75.0 [facility] Comment on above: Performed By: #### P OCGLUC #### [facility] [address] [place] [address] Dr. Francisco Marie Platelet mean volume (Bld) [Entitic vol] 9.7 fL Normal 9.5-13.5 [facility] Comment on above: Performed By: #### P OCGLUC #### [facility] [address] [address] [address] Francisco Marie PLT 207 103/ul Normal 150-450 [facility] Comment on above: Performed By: #### P OCGLUC #### [facility] [address] [place] [address] Dr. Francisco Marie RBC 3.82 106/ul Critically low 4.70-6.10 [facility] Comment on above: Performed By: #### P OCGLUC #### [facility] [address] [place] [address] Dr. Francisco Marie WBC 11.0 103/ul Normal 4.0-11.0 [facility] Comment on above: Performed By: #### P OCGLUC #### [facility] [address] [place] [address] Dr. Francisco Marie CRPon 01-30-2022 CRP [Mass/Vol] mg/L Normal <=1.0 [facility] Comment on above: Performed By: #### P OCGLUC #### [facility] [address] [place] [address] Dr. Francisco Marie CULTURE BLOODon 01-30-2022 Microscopic examination of blood, culture Culture Observations: NO GROWTH AT [address] [facility] Comment on above: Performed By: #### I FEPEFL #### [facility] [address] [place] [address] Dr. Francisco Marie Microscopic examination of blood, culture Culture Observations: NO GROWTH AT [address] [facility] Comment on above: Performed By: #### I FEPEFL #### [facility] [address] [place] [address] Dr. Francisco Marie LACTATE/LACTIC ACIDon 2021 Lactate [Moles/Vol] 0.8 mmol/L Normal 0.4-1.9 [facility] Comment on above: Performed By: #### P OCGLUC #### [facility] [address] [place] [address] Dr. Francisco Marie PROF CHEM 8 (BAS METB)on Anion gap [Moles/Vol] 10.1 mmol/L Normal [facility] Comment on above: Performed By: #### P OCGLUC #### [facility] [address] [place] [address] Dr. Francisco Marie Calcium [Mass/Vol] 8.7 mg/dL Normal 8.5-10.1 [facility] Comment on above: Performed By: #### P OCGLUC #### [facility] [address] [place] [address] Dr. Francisco Marie Chloride [Moles/Vol] 95 mmol/L Critically low 98-107 [facility] Comment on above: Performed By: #### P OCGLUC #### [facility] [address] [address] [address] Francisco Marie CO2 [Moles/Vol] 26.3 mmol/L Normal 21.0-32.0 [facility] Comment on above: Performed By: #### P OCGLUC #### [facility] [address] [address] [address] Francisco Marie Creatinine [Mass/Vol] 1.08 mg/dL Normal 0.70-1.30 [facility] Comment on above: Performed By: #### P OCGLUC #### [facility] [address] [address] [address] Francisco Marie EGFR-AF FILIPINO >60 Normal >=60 [facility] Comment on above: Performed By: #### P OCGLUC #### [facility] [address] [address] [address] Francisco Marie EGFR-NON AF FILIPINO >60 Normal >=60 [facility] Comment on above: Performed By: #### P OCGLUC #### [facility] [address] [address] [address] Francisco Marie Glucose [Mass/Vol] 244 mg/dL Critically high 74-106 [facility] Comment on above: Performed By: #### P OCGLUC #### [facility] [address] [address] [address] Francisco Marie Potassium [Moles/Vol] 4.4 mmol/L Normal 3.5-5.1 [facility] Comment on above: Performed By: #### P OCGLUC #### [facility] [address] [address] [address] Francisco Marie Sodium [Moles/Vol] 127 mmol/L Critically low 136-145 [facility] Comment on above: Performed By: #### P OCGLUC #### [facility] [address] [address] [address] Francisco Marie Urea nitrogen [Mass/Vol] 20.0 mg/dL Critically high 7.0-18.0 [facility] Comment on above: Performed By: #### P OCGLUC #### [facility] [address] [place] [address] Dr. Francisco Marie Urea nitrogen/Creatinine [Mass ratio] 18.5 mg/mg Normal [facility] Comment on above: Performed By: #### P OCGLUC #### [facility] [address] [place] [address] Dr. Francisco Marie CBC AUTO DIFFon 01-25-2022 BASO # 0.0 103/ul Normal 0.0-0.1 [facility] Comment on above: Performed By: #### D RUGRPD #### [facility] [address] [place] [address] Dr. Francisco Marie Basophils/100 WBC (Bld) 0.2 % Normal 0.2-2.0 [facility] Comment on above: Performed By: #### D RUGRPD #### [facility] [address] [place] [address] Dr. Francisco Marie EO # 0.0 103/ul Normal 0.0-0.7 [facility] Comment on above: Performed By: #### D RUGRPD #### [facility] [address] [place] [address] Dr. Francisco Marie Eosinophils/100 WBC (Bld) 0.1 % Critically low 0.9-7.0 [facility] Comment on above: Performed By: #### D RUGRPD #### [facility] [address] [place] [address] Dr. Francisco Marie Erythrocyte distribution width (RBC) [Ratio] 16.4 % Critically high 11.0-15.0 [facility] Comment on above: Performed By: #### D RUGRPD #### [facility] [address] [place] [address] Dr. Francisco Marie Hematocrit (Bld) [Volume fraction] 33.6 % Critically low 42.0-54.0 [facility] Comment on above: Performed By: #### D RUGRPD #### [facility] [address] [place] [address] Dr. Francisco Marie Hemoglobin (Bld) [Mass/Vol] 10.9 g/dL Critically low 14.0-18.0 [facility] Comment on above: Performed By: #### D RUGRPD #### [facility] [address] [address] [address] Francisco Marie IG # 0.04 10e3/ul Critically high 0.00-0.03 [facility] Comment on above: Performed By: #### D RUGRPD #### [facility] [address] [place] [address] Dr. Francisco Marie IG % 0.4 % Normal 0.0-0.5 [facility] Comment on above: Performed By: #### D RUGRPD #### [facility] [address] [place] [address] Dr. Francisco Marie LYMPH # 1.3 103/ul Normal 1.2-3.8 [facility] Comment on above: Performed By: #### D RUGRPD #### [facility] [address] [place] [address] Dr. Francisco Marie Lymphocytes/100 WBC (Bld) 12.5 % Critically low 20.5-60.0 [facility] Comment on above: Performed By: #### D RUGRPD #### [facility] [address] [place] [address] Dr. Francisco Marie MANUAL DIFF REQ NO Normal [facility] Comment on above: Performed By: #### D RUGRPD #### [facility] [address] [address] [address] Francisco Marie MCH (RBC) [Entitic mass] 26.7 pg Normal 25.9-34.0 [facility] Comment on above: Performed By: #### D RUGRPD #### [facility] [address] [place] [address] Dr. Francisco Marie MCHC (RBC) [Mass/Vol] 32.4 g/dL Normal 29.9-35.2 [facility] Comment on above: Performed By: #### D RUGRPD #### [facility] [address] [address] [address] Francisco Marie MCV (RBC) [Entitic vol] 82.4 fL Normal 80.0-94.0 [facility] Comment on above: Performed By: #### D RUGRPD #### [facility] [address] [place] [address] Dr. Francisco Marie MONO # 0.9 103/ul Critically high 0.3-0.8 [facility] Comment on above: Performed By: #### D RUGRPD #### [facility] [address] [place] [address] Dr. Francisco Marie Monocytes/100 WBC (Bld) 9.1 % Normal 1.7-12.0 [facility] Comment on above: Performed By: #### D RUGRPD #### [facility] [address] [place] [address] Dr. Francisco Marie NEUT # 7.9 103/ul Critically high 1.4-6.5 [facility] Comment on above: Performed By: #### D RUGRPD #### [facility] [address] [place] [address] Dr. Francisco Marie Neutrophils/100 WBC (Bld) 77.7 % Critically high 43.0-75.0 [facility] Comment on above: Performed By: #### D RUGRPD #### [facility] [address] [place] [address] Dr. Francisco Marie Platelet mean volume (Bld) [Entitic vol] 9.9 fL Normal 9.5-13.5 [facility] Comment on above: Performed By: #### D RUGRPD #### [facility] [address] [place] [address] Dr. Francisco Marie PLT 151 103/ul Normal 150-450 [facility] Comment on above: Performed By: #### D RUGRPD #### [facility] [address] [place] [address] Dr. Francisco Marie RBC 4.08 106/ul Critically low 4.70-6.10 [facility] Comment on above: Performed By: #### D RUGRPD #### [facility] [address] [place], [place] [address] Dr. Francisco Marie WBC 10.2 103/ul Normal 4.0-11.0 [facility] Comment on above: Performed By: #### D LINDARPD #### [facility] [address] [place], [place] [address] PELVIS W CONon 01-25-2022 CT PELVIS W CON CT PELVIS WITH CONTR AST HISTORY: Right proximal thigh swelling. COMPARISON: None. METHOD: Dose reduction techniques were achieved by using automated exposure control and/or adjustment of mA and/or kV according to patient size and/or use of iterative reconstruction technique. FINDINGS: There is a left lower quadrant ostomy. There is no free fluid in the pelvis. There is no evidence of lymphadenopathy in the pelvis. The visualized bowel loops are not thickened and nonobstructed. The bladder is normal-appearing. The prostate is normal in size. There is soft tissue edema seen in the medial right upper thigh extending into the right groin with no evidence of associated abscess. There is associated asymmetric skin thickening. There is no evidence of soft tissue air. There are no acute bony abnormalities. IMPRESSION: Right medial upper thigh soft tissue edema extending into the right groin with no evidence of associated abscess; there is right medial upper thigh skin thickening. Findings suspicious for cellulitis. Electronically authenticated by: KUMAR SOLIS Date: 2022-01-25 20:41 Normal [facility] PROF CHEM 8 (BAS METB)on Anion gap [Moles/Vol] 12.6 mmol/L Normal Th [facility] Comment on above: Performed By: #### D RUGRPD #### [facility] [address] [place], [place] [address] Dr. Francisco Marie Calcium [Mass/Vol] 8.4 mg/dL Critically low 8.5-10.1 [facility] Comment on above: Performed By: #### D LINDARPD #### [facility] [address] [place], [place] [address] Dr. Francisco Marie Chloride [Moles/Vol] 97 mmol/L Critically low 98-107 [facility] Comment on above: Performed By: #### D RUGRPD #### [facility] [address] [address] [address] Francisco Marie CO2 [Moles/Vol] 28.0 mmol/L Normal 21.0-32.0 [facility] Comment on above: Performed By: #### D RUGRPD #### [facility] [address] [address] [address] Francisco Marie Creatinine [Mass/Vol] 1.11 mg/dL Normal 0.70-1.30 [facility] Comment on above: Performed By: #### D RUGRPD #### [facility] [address] [address] [address] Francisco Marie EGFR-AF FILIPINO >60 Normal >=60 [facility] Comment on above: Performed By: #### D RUGRPD #### [facility] [address] [address] [address] Francisco Marie EGFR-NON AF FILIPINO >60 Normal >=60 [facility] Comment on above: Performed By: #### D RUGRPD #### [facility] [address] [address] [address] Francisco Marie Glucose [Mass/Vol] 239 mg/dL Critically high 74-106 [facility] Comment on above: Performed By: #### D RUGRPD #### [facility] [address] [place] [address] Dr. Francisco Marie Potassium [Moles/Vol] 4.6 mmol/L Normal 3.5-5.1 [facility] Comment on above: Performed By: #### D RUGRPD #### [facility] [address] [address] [address] Francisco Marie Sodium [Moles/Vol] 133 mmol/L Critically low 136-145 [facility] Comment on above: Performed By: #### D RUGRPD #### [facility] [address] [address] [address] Francisco Marie Urea nitrogen [Mass/Vol] 22.0 mg/dL Critically high 7.0-18.0 [facility] Comment on above: Performed By: #### D RUGRPD #### [facility] [address] [address] [address] Francisco Marie Urea nitrogen/Creatinine [Mass ratio] 19.8 mg/mg Normal [facility] Comment on above: Performed By: #### D RUGRPD #### [facility] [address] [address] [address] Francisco Marie GLYCOHEMOGLOBIN A1Con 2021 ADA RECOMMENDATION ADA THERAPEUTIC TARG ET 6.0 - 7.0 ACTION SUGGESTED > 7.[address] [facility] Comment on above: Performed By: #### D RUGRPD #### [facility] [address] [address] [address] Francisco Marie Glucose [Mass/Vol] 174 mg/dL Normal [facility] Comment on above: Performed By: #### D RUGRPD #### [facility] [address] [address] [address] Francisco Marie HbA1c (Bld) [Mass fraction] 7.7 % Critically high <=6.0 [facility] Comment on above: Performed By: #### D RUGRPD #### [facility] [address] [address] [address] Francisco Marie BASIC METABOLIC PANELon 08-16 Calcium [Mass/Vol] 8.4 mg/dL Low 8.6-10.3 [facility] Comment on above: Order Comment: No: D o not add to previous draw Performed By: #### 9 9909, 50492, 50056 #### [facility] [address] [place] [address], [facility] Chloride [Moles/Vol] 105 mmol/L Normal 98-107 [facility] Comment on above: Order Comment: No: D o not add to previous draw Performed By: #### 9 9909, 50001, 77051 #### [facility] [address] [place] [address], [place] CO2 [Moles/Vol] 26 mmol/L Normal 21-31 [facility] Comment on above: Order Comment: No: D o not add to previous draw Performed By: #### 9 9909, 24471, 87813 #### [facility] [address] [place] [address], [place] Creatinine [Mass/Vol] 0.92 mg/dL Normal 0.70-1.30 [facility] Comment on above: Order Comment: No: D o not add to previous draw Performed By: #### 9 9909, 44405, 59299 #### [facility] [address] [place] [address], [place] GFR/1.73 sq M.predicted among blacks MDRD (S/P/Bld) [Vol rate/Area] mL/min/{1.73_m2} Normal >60 [facility] Comment on above: Order Comment: No: D o not add to previous draw Performed By: #### 9 9909, 12690, 97822 #### [facility] [address] [place] [address], [place] GFR/1.73 sq M.predicted among non-blacks MDRD (S/P/Bld) [Vol rate/Area] mL/min/{1.73_m2} Normal >60 [facility] Comment on above: Order Comment: No: D o not add to previous draw Performed By: #### 9 99, 37222, 52409 #### [facility] [address] [place] [address], [place] Glucose [Mass/Vol] 194 mg/dL High 70-100 [facility] Comment on above: Order Comment: No: D o not add to previous draw Performed By: #### 9 9909, 50231, 17270 #### [facility] [address] [place] [address], [place] Potassium [Moles/Vol] 3.7 mmol/L Normal 3.5-5.1 [facility] Comment on above: Order Comment: No: D o not add to previous draw Performed By: #### 9 9909, 12301, 55827 #### [facility] [address] [place] [address], [facility] Sodium [Moles/Vol] 138 mmol/L Normal 136-145 [facility] Comment on above: Order Comment: No: D o not add to previous draw Performed By: #### 9 9909, 33506, 35560 #### [facility] [address] [place] [address], [facility] Urea nitrogen [Mass/Vol] 11 mg/dL Normal 7-25 [facility] Comment on above: Order Comment: No: D o not add to previous draw Performed By: #### 9 9909, 70507, 29693 #### [facility] [address] [place] [id number], [facility] CBC COMPLETE BLOOD COUNTon 0 - Erythrocyte distribution width (RBC) [Ratio] 14.8 % Normal 11.5-15.0 [facility] Comment on above: Order Comment: No: D o not add to previous draw Performed By: #### 8 5499 #### [facility] [address] [place] [address], [facility] Hematocrit (Bld) [Volume fraction] 29.0 % Low 39.0-50.0 [facility] Comment on above: Order Comment: No: D o not add to previous draw Performed By: #### 8 5499 #### [facility] [address] [place] [id number], [facility] Hemoglobin (Bld) [Mass/Vol] 10.0 g/dL Low 13.0-17.0 [facility] Comment on above: Order Comment: No: D o not add to previous draw Performed By: #### 8 5789 #### [facility] [address] [place] [address], [facility] MCH (RBC) [Entitic mass] 28.7 pg Normal 27.0-33.0 [facility] Comment on above: Order Comment: No: D o not add to previous draw Performed By: #### 8 3919 #### [facility] [address] [place] [address], [facility] MCHC (RBC) [Mass/Vol] 34.5 g/dL Normal 32.0-35.0 [facility] Comment on above: Order Comment: No: D o not add to previous draw Performed By: #### 8 5499 #### [facility] [address] [place] [id number], [facility] MCV (RBC) [Entitic vol] 83.3 fL Normal 82.0-98.0 T [facility] Comment on above: Order Comment: No: D o not add to previous draw Performed By: #### 8 5499 #### [facility] [address] [place] [address], [facility] Nucleated RBC/100 WBC (Bld) [Ratio] 0 % Normal 0-0 [facility] Comment on above: Order Comment: No: D o not add to previous draw Performed By: #### 8 [id number] #### [facility] [address] [place] [id number], [facility] PLAT CNT 134 10*3/uL Low 150-400 [facility] Comment on above: Order Comment: No: D o not add to previous draw Performed By: #### 8 5499 #### [facility] [address] [place] [id number], [facility] RBC (Bld) [#/Vol] 3.48 10*6/uL Low 4.20-5.70 [facility] Comment on above: Order Comment: No: D o not add to previous draw Performed By: #### 8 5499 #### [facility] [address] [place] [id number], [place] WBC (Bld) [#/Vol] 4.02 10*3/uL Normal 4.00-10.60 [facility] Comment on above: Order Comment: No: D o not add to previous draw Performed By: #### 8 5499 #### [facility] [address] [place] [address], [facility] MAGNESIUM BLOODon 08-29-2021 Magnesium [Mass/Vol] 1.7 mg/dL Low 1.9-2.7 [facility] Comment on above: Order Comment: No: D o not add to previous draw Performed By: #### 9 9909, 62000, 15152 #### [facility] [address] [place] [address], [facility] POC GLUCOSE LABon 08-29-2021 Glucose [Mass/Vol] 272 mg/dL High 70-100 [facility] Comment on above: Performed By: #### 3 1400 #### [facility] [address] [place] [address], [facility] Glucose [Mass/Vol] 173 mg/dL High 70-100 [facility] Comment on above: Performed By: #### 3 1400 #### [facility] [address] [place] [address], [place] Glucose [Mass/Vol] 195 mg/dL High 70-100 [facility] Comment on above: Performed By: #### 4 1000, 03662, 19387 #### [facility] [address] [facility] [place] [address], [place] Glucose [Mass/Vol] 240 mg/dL High 70-100 [facility] Comment on above: Performed By: #### 4 1000, 65146, 18590 #### [facility] [address] [facility] [place] [address], [facility] BASIC METABOLIC PANELon 08-16 Calcium [Mass/Vol] 8.4 mg/dL Low 8.6-10.3 [facility] Comment on above: Order Comment: No: D o not add to previous draw Performed By: #### 4 1000, 68628, 09182 #### [facility] [address] [place] [address], [place] Chloride [Moles/Vol] 106 mmol/L Normal 98-107 [facility] Comment on above: Order Comment: No: D o not add to previous draw Performed By: #### 4 1000, , 10866 #### [facility] [address] [place] [address], [place] CO2 [Moles/Vol] 28 mmol/L Normal 21-31 [facility] Comment on above: Order Comment: No: D o not add to previous draw Performed By: #### 4 1000, , 64996 #### [facility] [address] [place] [address], [place] Creatinine [Mass/Vol] 0.87 mg/dL Normal 0.70-1.30 [facility] Comment on above: Order Comment: No: D o not add to previous draw Performed By: #### 4 1000, , 47733 #### [facility] [address] [place] [address], [place] GFR/1.73 sq M.predicted among blacks MDRD (S/P/Bld) [Vol rate/Area] mL/min/{1.73_m2} Normal >60 [facility] Comment on above: Order Comment: No: D o not add to previous draw Performed By: #### 4 1000, , 32737 #### [facility] [address] [place] [address], [place] GFR/1.73 sq M.predicted among non-blacks MDRD (S/P/Bld) [Vol rate/Area] mL/min/{1.73_m2} Normal >60 [facility] Comment on above: Order Comment: No: D o not add to previous draw Performed By: #### 4 1000, , 58807 #### [facility] [address] [place] [address], [place] Glucose [Mass/Vol] 140 mg/dL High 70-100 [facility] Comment on above: Order Comment: No: D o not add to previous draw Performed By: #### 4 1000, , 13951 #### [facility] [address] [place] [address], [facility] Potassium [Moles/Vol] 3.7 mmol/L Normal 3.5-5.1 [facility] Comment on above: Order Comment: No: D o not add to previous draw Performed By: #### 4 1000, 89219, 46676 #### [facility] [address] [place] [address], [facility] Sodium [Moles/Vol] 139 mmol/L Normal 136-145 [facility] Comment on above: Order Comment: No: D o not add to previous draw Performed By: #### 4 1000, 81761, 85398 #### [facility] [address] [place] [id number], [facility] Urea nitrogen [Mass/Vol] 8 mg/dL Normal 7-25 [facility] Comment on above: Order Comment: No: D o not add to previous draw Performed By: #### 4 1000, 01018, 81145 #### [facility] [address] [place] [id number], [facility] CBC COMPLETE BLOOD COUNTon 0 - Erythrocyte distribution width (RBC) [Ratio] 15.1 % High 11.5-15.0 [facility] Comment on above: Order Comment: No: D o not add to previous draw Performed By: #### 8 9659 #### [facility] [address] [place] [id number], [facility] Hematocrit (Bld) [Volume fraction] 30.6 % Low 39.0-50.0 [facility] Comment on above: Order Comment: No: D o not add to previous draw Performed By: #### 8 1989 #### [facility] [address] [place] [id number], [facility] Hemoglobin (Bld) [Mass/Vol] 10.0 g/dL Low 13.0-17.0 [facility] Comment on above: Order Comment: No: D o not add to previous draw Performed By: #### 8 6829 #### [facility] [address] [place] [address], [facility] IMM PLATELET FRAC 4.3 % Normal 0.8-6.3 [facility] Comment on above: Order Comment: No: D o not add to previous draw Performed By: #### 8 5499 #### [facility] [address] [place] [address], [facility] MCH (RBC) [Entitic mass] 28.5 pg Normal 27.0-33.0 [facility] Comment on above: Order Comment: No: D o not add to previous draw Performed By: #### 8 5499 #### [facility] [address] [facility] MCHC (RBC) [Mass/Vol] 32.7 g/dL Normal 32.0-35.0 [facility] Comment on above: Order Comment: No: D o not add to previous draw Performed By: #### 8 5499 #### [facility] [address] [facility] [place] [address], [facility] MCV (RBC) [Entitic vol] 87.2 fL Normal 82.0-98.0 T [facility] Comment on above: Order Comment: No: D o not add to previous draw Performed By: #### 8 5499 #### [facility] [address] [place] [address], [facility] Nucleated RBC/100 WBC (Bld) [Ratio] 0 % Normal 0-0 [facility] Comment on above: Order Comment: No: D o not add to previous draw Performed By: #### 8 5499 #### [facility] [address] [place] [address], [facility] PLAT CNT 130 10*3/uL Low 150-400 [facility] Comment on above: Order Comment: No: D o not add to previous draw Performed By: #### 8 5499 #### [facility] [address] [place] [address], [facility] RBC (Bld) [#/Vol] 3.51 10*6/uL Low 4.20-5.70 [facility] Comment on above: Order Comment: No: D o not add to previous draw Performed By: #### 8 5499 #### [facility] [address] [place] [address], [place] WBC (Bld) [#/Vol] 4.42 10*3/uL Normal 4.00-10.60 [facility] Comment on above: Order Comment: No: D o not add to previous draw Performed By: #### 8 5499 #### [facility] [address] [place] [address], [facility] MAGNESIUM BLOODon 08-28-2021 Magnesium [Mass/Vol] 1.6 mg/dL Low 1.9-2.7 [facility] Comment on above: Order Comment: No: D o not add to previous draw Performed By: #### 4 1000, 55668, 01313 #### [facility] [address] [place] [address], [facility] PHOSPHORUS BLOODon Phosphate [Mass/Vol] 2.8 mg/dL Normal 2.5-5.0 [facility] Comment on above: Order Comment: No: D o not add to previous draw Performed By: #### 8 5499 #### [facility] [address] [place] [address], [facility] POC GLUCOSE LABon 08-28-2021 Glucose [Mass/Vol] 283 mg/dL High 70-100 [facility] Comment on above: Performed By: #### 8 5499 #### [facility] [address] [place] [address], [place] Glucose [Mass/Vol] 242 mg/dL High 70-100 [facility] Comment on above: Performed By: #### 3 1400 #### [facility] [address] [place] [address], [place] Glucose [Mass/Vol] 198 mg/dL High 70-100 [facility] Comment on above: Performed By: #### 4 1000, 40447, 73957 #### [facility] [address] [place] [address], [place] Glucose [Mass/Vol] 125 mg/dL High 70-100 [facility] Comment on above: Performed By: #### 4 1000, 15562, 06017 #### [facility] [address] [place] [address], [place] Glucose [Mass/Vol] 157 mg/dL High 70-100 [facility] Comment on above: Performed By: #### 8 5499 #### [facility] [address] [place] [address], [place] Glucose [Mass/Vol] 205 mg/dL High 70-100 [facility] Comment on above: Performed By: #### 8 5499 #### [facility] [address] [place] [address], [place] BASIC METABOLIC PANELon 04-1 -2021 Calcium [Mass/Vol] 8.4 mg/dL Low 8.6-10.3 [facility] Comment on above: Order Comment: No: D o not add to previous draw Performed By: #### 3 6901 #### [facility] [address] [place] [address], [place] Chloride [Moles/Vol] 105 mmol/L Normal 98-107 [facility] Comment on above: Order Comment: No: D o not add to previous draw Performed By: #### 3 6901 #### [facility] [address] [place] [address], [place] CO2 [Moles/Vol] 25 mmol/L Normal 21-31 [facility] Comment on above: Order Comment: No: D o not add to previous draw Performed By: #### 3 6901 #### [facility] [address] [place] [address], [place] Creatinine [Mass/Vol] 0.84 mg/dL Normal 0.70-1.30 [facility] Comment on above: Order Comment: No: D o not add to previous draw Performed By: #### 3 6901 #### [facility] [address] [place] [address], [place] GFR/1.73 sq M.predicted among blacks MDRD (S/P/Bld) [Vol rate/Area] mL/min/{1.73_m2} Normal >60 [facility] Comment on above: Order Comment: No: D o not add to previous draw Performed By: #### 3 6901 #### [facility] [address] [place] [address], [place] GFR/1.73 sq M.predicted among non-blacks MDRD (S/P/Bld) [Vol rate/Area] mL/min/{1.73_m2} Normal >60 [facility] Comment on above: Order Comment: No: D o not add to previous draw Performed By: #### 3 6901 #### [facility] [address] [place] [address], [place] Glucose [Mass/Vol] 253 mg/dL High 70-100 [facility] Comment on above: Order Comment: No: D o not add to previous draw Performed By: #### 3 6901 #### [facility] [address] [place] [address], [place] Potassium [Moles/Vol] 4.0 mmol/L Normal 3.5-5.1 [facility] Comment on above: Order Comment: No: D o not add to previous draw Performed By: #### 3 6901 #### [facility] [address] [place] [address], [place] Sodium [Moles/Vol] 136 mmol/L Normal 136-145 [facility] Comment on above: Order Comment: No: D o not add to previous draw Performed By: #### 3 7161 #### [facility] [address] [place] [address], [facility] Urea nitrogen [Mass/Vol] 12 mg/dL Normal 7-25 [facility] Comment on above: Order Comment: No: D o not add to previous draw Performed By: #### 3 6901 #### [facility] [address] [place] [address], [facility] CBC COMPLETE BLOOD COUNTon 0 - Erythrocyte distribution width (RBC) [Ratio] 14.7 % Normal 11.5-15.0 [facility] Comment on above: Order Comment: No: D o not add to previous draw Performed By: #### 8 [id number] #### [facility] [address] [place] [address], [facility] Hematocrit (Bld) [Volume fraction] 31.3 % Low 39.0-50.0 [facility] Comment on above: Order Comment: No: D o not add to previous draw Performed By: #### 8 [id number] #### [facility] [address] [place] [address], [facility] Hemoglobin (Bld) [Mass/Vol] 10.6 g/dL Low 13.0-17.0 [facility] Comment on above: Order Comment: No: D o not add to previous draw Performed By: #### 8 [id number] #### [facility] [address] [place] [address], [facility] IMM PLATELET FRAC 4.3 % Normal 0.8-6.3 [facility] Comment on above: Order Comment: No: D o not add to previous draw Performed By: #### 8 [id number] #### [facility] [address] [place] [id number], [facility] MCH (RBC) [Entitic mass] 28.3 pg Normal 27.0-33.0 [facility] Comment on above: Order Comment: No: D o not add to previous draw Performed By: #### 8 [id number] #### [facility] [address] [place] [address], [facility] MCHC (RBC) [Mass/Vol] 33.9 g/dL Normal 32.0-35.0 [facility] Comment on above: Order Comment: No: D o not add to previous draw Performed By: #### 8 [id number] #### [facility] [address] [place] [id number], [facility] MCV (RBC) [Entitic vol] 83.5 fL Normal 82.0-98.0 T [facility] Comment on above: Order Comment: No: D o not add to previous draw Performed By: #### 8 [id number] #### [facility] [address] [place] [address], [facility] Nucleated RBC/100 WBC (Bld) [Ratio] 0 % Normal 0-0 [facility] Comment on above: Order Comment: No: D o not add to previous draw Performed By: #### 8 [id number] #### [facility] [address] [place] [id number], [facility] PLAT CNT 134 10*3/uL Low 150-400 [facility] Comment on above: Order Comment: No: D o not add to previous draw Performed By: #### 8 [id number] #### [facility] [address] [place] [id number], [facility] RBC (Bld) [#/Vol] 3.75 10*6/uL Low 4.20-5.70 [facility] Comment on above: Order Comment: No: D o not add to previous draw Performed By: #### 8 [id number] #### [facility] [address] [place] [address], [place] WBC (Bld) [#/Vol] 6.44 10*3/uL Normal 4.00-10.60 [facility] Comment on above: Order Comment: No: D o not add to previous draw Performed By: #### 8 [id number] #### [facility] [address] [place] [address], [place] LIVER BATTERYon 08-27-2021 Albumin [Mass/Vol] 3.8 g/dL Normal 3.5-5.7 [facility] Comment on above: Order Comment: No: D o not add to previous draw Performed By: #### 9 9909, 82019, 63839 #### [facility] [address] [place] [address], [place] ALKALINE PHOSPH 230 IU/L High 34-104 [facility] Comment on above: Order Comment: No: D o not add to previous draw Performed By: #### 9 9909, 16752, 60536 #### [facility] [address] [place] [address], [place] ALT [Catalytic activity/Vol] 45 U/L Normal 7-52 [facility] Comment on above: Order Comment: No: D o not add to previous draw Performed By: #### 9 9909, 61170, 07595 #### [facility] [address] [place] [address], [place] AST [Catalytic activity/Vol] 26 U/L Normal 13-39 [facility] Comment on above: Order Comment: No: D o not add to previous draw Performed By: #### 9 9909, 68146, 82034 #### [facility] [address] [place] [address], [place] Bilirubin [Mass/Vol] 0.5 mg/dL Normal 0.3-1.0 [facility] Comment on above: Order Comment: No: D o not add to previous draw Performed By: #### 9 9909, 06987, 75496 #### [facility] [address] [place] [address], [place] Bilirubin.direct [Mass/Vol] 0.1 mg/dL Normal 0.0-0.2 [facility] Comment on above: Order Comment: No: D o not add to previous draw Performed By: #### 9 9909, 26065, 63345 #### [facility] [address] [place] [address], [place] Protein [Mass/Vol] 6.0 g/dL Normal 6.0-8.3 [facility] Comment on above: Order Comment: No: D o not add to previous draw Performed By: #### 9 9909, 69706, 94585 #### [facility] [address] [place] [address], [place] MAGNESIUM BLOODon 08-27-2021 Magnesium [Mass/Vol] 1.8 mg/dL Low 1.9-2.7 [facility] Comment on above: Order Comment: No: D o not add to previous draw Performed By: #### 9 9909, 29905, 16319 #### [facility] [address] [place] [address], [place] PHOSPHORUS BLOODon Phosphate [Mass/Vol] 2.8 mg/dL Normal 2.5-5.0 [facility] Comment on above: Order Comment: No: D o not add to previous draw Performed By: #### 9 9909, 61283, 83134 #### [facility] [address] [place] [address], [place] POC GLUCOSE LABon 08-27-2021 Glucose [Mass/Vol] 210 mg/dL High 70-100 [facility] Comment on above: Performed By: #### 3 1400 #### [facility] [address] [place] [address], [place] Glucose [Mass/Vol] 199 mg/dL High 70-100 [facility] Comment on above: Performed By: #### 4 1000, 86383, 80921 #### [facility] [address] [place] [address], [place] Glucose [Mass/Vol] 226 mg/dL High 70-100 [facility] Comment on above: Performed By: #### 4 1000, , 46524 #### [facility] [address] [place] [address], [place] Glucose [Mass/Vol] 251 mg/dL High 70-100 [facility] Comment on above: Performed By: #### 8 5499 #### [facility] [address] [place] [address], [place] Glucose [Mass/Vol] 286 mg/dL High 70-100 [facility] Comment on above: Performed By: #### 8 5499 #### [facility] [address] [place] [address], [place] BASIC METABOLIC PANELon 04- Calcium [Mass/Vol] 8.8 mg/dL Normal 8.6-10.3 [facility] Comment on above: Order Comment: No: D o not add to previous draw Performed By: #### 8 5499 #### [facility] [address] [place] [address], [place] Chloride [Moles/Vol] 107 mmol/L Normal 98-107 [facility] Comment on above: Order Comment: No: D o not add to previous draw Performed By: #### 8 5499 #### [facility] [address] [place] [address], [place] CO2 [Moles/Vol] 27 mmol/L Normal 21-31 [facility] Comment on above: Order Comment: No: D o not add to previous draw Performed By: #### 8 5499 #### [facility] [address] [place] [address], [place] Creatinine [Mass/Vol] 1.03 mg/dL Normal 0.70-1.30 [facility] Comment on above: Order Comment: No: D o not add to previous draw Performed By: #### 8 5499 #### [facility] [address] [place] [address], [place] GFR/1.73 sq M.predicted among blacks MDRD (S/P/Bld) [Vol rate/Area] mL/min/{1.73_m2} Normal >60 [facility] Comment on above: Order Comment: No: D o not add to previous draw Performed By: #### 8 5499 #### [facility] [address] [place] [address], [place] GFR/1.73 sq M.predicted among non-blacks MDRD (S/P/Bld) [Vol rate/Area] mL/min/{1.73_m2} Normal >60 [facility] Comment on above: Order Comment: No: D o not add to previous draw Performed By: #### 8 5499 #### [facility] [address] [place] [address], [place] Glucose [Mass/Vol] 148 mg/dL High 70-100 [facility] Comment on above: Order Comment: No: D o not add to previous draw Performed By: #### 8 5499 #### [facility] [address] [place] [address], [place] Potassium [Moles/Vol] 3.9 mmol/L Normal 3.5-5.1 [facility] Comment on above: Order Comment: No: D o not add to previous draw Performed By: #### 8 5499 #### [facility] [address] [place] [address], [place] Sodium [Moles/Vol] 140 mmol/L Normal 136-145 [facility] Comment on above: Order Comment: No: D o not add to previous draw Performed By: #### 8 5499 #### [facility] [address] [place] [address], [place] Urea nitrogen [Mass/Vol] 15 mg/dL Normal 7-25 [facility] Comment on above: Order Comment: No: D o not add to previous draw Performed By: #### 8 5499 #### [facility] [address] [place] [address], [place] CBC W/DIFFon 08-26-2021 ABS IMM GRANS 0.0 10*3/uL Normal 0.0-0.2 [facility] Comment on above: Order Comment: Unkno wn Performed By: #### 9 9908, 28316, 54013 #### [facility] [address] [place] [address], [facility] ABS NEUTROPHILS 2.0 10*3/uL Normal 1.6-7.6 [facility] Comment on above: Order Comment: Unkno wn Performed By: #### 9 9908, 57759, 91409 #### [facility] [address] [place] [address], [facility] Basophils (Bld) [#/Vol] 0.0 10*3/uL Normal 0.0-0.2 [facility] Comment on above: Order Comment: Unkno wn Performed By: #### 9 9908, 73457, 67095 #### [facility] [address] [place] [id number], [facility] Basophils/100 WBC (Bld) 1.0 % Normal 0.0-1.0 [facility] Comment on above: Order Comment: Unkno wn Performed By: #### 9 9908, 77414, 47586 #### [facility] [address] [place] [address], [facility] Eosinophils (Bld) [#/Vol] 0.1 10*3/uL Normal 0.0-0.5 [facility] Comment on above: Order Comment: Unkno wn Performed By: #### 9 9908, 43125, 07131 #### [facility] [address] [place] [address], [place] Eosinophils/100 WBC (Bld) 3.4 % Normal 0.0-6.0 [facility] Comment on above: Order Comment: Unkno wn Performed By: #### 9 9908, 02951, 27698 #### [facility] [address] [place] [id number], [place] Erythrocyte distribution width (RBC) [Ratio] 14.6 % Normal 11.5-15.0 [facility] Comment on above: Order Comment: Unkno wn Performed By: #### 9 9908, 06074, 78593 #### [facility] [address] [place] [address], [facility] Hematocrit (Bld) [Volume fraction] 34.7 % Low 39.0-50.0 [facility] Comment on above: Order Comment: Unkno wn Performed By: #### 9 9908, 99024, 97397 #### [facility] [address] [place] [address], [facility] Hemoglobin (Bld) [Mass/Vol] 11.6 g/dL Low 13.0-17.0 [facility] Comment on above: Order Comment: Unkno wn Performed By: #### 9 9908, , 20940 #### [facility] [address] [place] [address], [facility] IMMATURE GRANS 0.2 % Normal 0.0-1.0 [facility] Comment on above: Order Comment: Unkno wn Performed By: #### 9 9908, 48681, 23983 #### [facility] [address] [facility] [place] [address], [facility] Lymphocytes (Bld) [#/Vol] 1.6 10*3/uL Normal 1.2-4.0 [facility] Comment on above: Order Comment: Unkno wn Performed By: #### 9 9908, 86598, 87883 #### [facility] [address] [place] [address], [place] Lymphocytes/100 WBC (Bld) 37.6 % Normal 20.0-45.0 [facility] Comment on above: Order Comment: Unkno wn Performed By: #### 9 9908, 88131, 84895 #### [facility] [address] [place] [address], [facility] MCH (RBC) [Entitic mass] 28.8 pg Normal 27.0-33.0 [facility] Comment on above: Order Comment: Unkno wn Performed By: #### 9 9908, 91316, 02321 #### [facility] [address] [place] [address], [facility] MCHC (RBC) [Mass/Vol] 33.4 g/dL Normal 32.0-35.0 [facility] Comment on above: Order Comment: Unkno wn Performed By: #### 9 9908, , 45203 #### [facility] [address] [place] [address], [facility] MCV (RBC) [Entitic vol] 86.1 fL Normal 82.0-98.0 T he [facility] Comment on above: Order Comment: Unkno wn Performed By: #### 9 9908, 95624, 07928 #### [facility] [address] [facility] [place] [address], [facility] Monocytes (Bld) [#/Vol] 0.4 10*3/uL Normal 0.1-1.0 [facility] Comment on above: Order Comment: Unkno wn Performed By: #### 9 9908, 60479, 69419 #### [facility] [address] [facility] [place] [address], [facility] MONOS 10.3 % Normal 5.0-12.0 [facility] Comment on above: Order Comment: Unkno wn Performed By: #### 9 9908, 56762, 00126 #### [facility] [address] [facility] [place] [address], [facility] Neutrophils/100 WBC (Bld) 47.5 % Normal 40.0-72.0 [facility] Comment on above: Order Comment: Unkno wn Performed By: #### 9 9908, 22948, 50227 #### [facility] [address] [place] [address], [facility] Nucleated RBC/100 WBC (Bld) [Ratio] 0 % Normal 0-0 [facility] Comment on above: Order Comment: Unkno wn Performed By: #### 9 9909, 97805, 11449 #### [facility] [address] [facility] [place] [address], [facility] PLAT CNT 145 10*3/uL Low 150-400 [facility] Comment on above: Order Comment: Unkno wn Performed By: #### 9 9909, 67283, 49812 #### [facility] [address] [place] [address], [facility] RBC (Bld) [#/Vol] 4.03 10*6/uL Low 4.20-5.70 [facility] Comment on above: Order Comment: Unkno wn Performed By: #### 9 9909, 53494, 19202 #### [facility] [address] [place] [address], [facility] WBC (Bld) [#/Vol] 4.17 10*3/uL Normal 4.00-10.60 [facility] Comment on above: Order Comment: Unkno wn Performed By: #### 9 9909, 16801, 14075 #### [facility] [address] [facility] MAGNESIUM BLOODon 08-26-2021 Magnesium [Mass/Vol] 1.8 mg/dL Low 1.9-2.7 [facility] Comment on above: Order Comment: No: D o not add to previous draw Performed By: #### 8 5499 #### [facility] [address] [facility]. [address] Operative Reporton 2 Operative Report MR#: [id number] I [facility] Pt. Name: Lobo Stoner Room #: [id number] Discharge Date: Birthdate: 1960 OPERATIVE REPORT DATE OF SURGERY: 08/26/2021 SURGEON: Ray Davis MD Operative report: Open cholecystectomy, extensive lysis of adhesions 120 minutes Location: [facility] main OR Date: 08/26/2021 Preoperative diagnosis: Gallstone pancreatitis, acute cholecystitis Postoperative diagnosis: Gallstone pancreatitis and acute cholecystitis Operation performed: Open cholecystectomy, extensive lysis of adhesions 120 minutes Surgeon: Ray Davis MD Medical Educator: Brisa Lai MD (resident PGY 5) Estimated blood loss: 850 mL Wound classification: Contaminated Specimens: Gallbladder and gallstones Anesthesia: General anesthesia Local anesthetic: Quarter percent bupivacaine with epinephrine, 10 mL used for subcutaneous infiltration, 15 mL used for subfascial infiltration Indication: This is a 60-year-old man who presented to [facility] as transfer from outside hospital for concern of gallstone acute pancreatitis and acute cholecystitis based on CT imaging. Patient have significant surgical history of bowel perforation repair when he was a child through a right paramedian incision, he had exploratory laparotomy sigmoid colectomy with end colostomy approximately 8 years ago due to perforated diverticulitis. Patient improved in terms of acute pancreatitis. After discussion of operative risks, decision was made to proceed with cholecystectomy today. I agreed to attempt laparoscopy if possible however patient understood that there is a high risk of open surgery. Details of the procedure: The patient was greeted in the preoperative holding area. His right physical and surgical consent was completed. Patient continues to be on ceftriaxone and Flagyl for antibiotic coverage. The patient was brought to the operating suite and placed on the surgical table in a supine position with both arms out. Safety straps and SCDs were applied. General anesthesia was induced without complication. Skin of the abdomen was clipped free of hair. The colostomy was excluded from abdominal surface with large Tegaderm. Skin of the abdomen was prepped with chlorhexidine and allowed for 3 minutes to dry. The abdominal surgical site was squared off with sterile surgical towels. Laparoscopy drape was placed in the usual sterile fashion. Per incision safety timeout was performed. Abdominal entry was attempted at the right upper quadrant subcostal region using 5 mm Optiview technique. After the Optiview cannula penetrated peritoneum the abdomen was insufflated. With the 5 mm 0 degree camera, I assessed intra-abdominal adhesion load, the visual field was pretty much entirely covered with filmy and dense adhesions that could not be safely taken down for additional port placement and thus decision was made immediately to convert to open surgery. A 12 cm subcostal incision was extended along the premade incision, subcutaneous tissue was taken down using monopolar electrocautery. Anterior sheath fascia was opened using monopolar electrocautery. Rectus and lateral abdominal wall muscles were taken down using monopolar electrocautery. The posterior sheath was also scored open using monopolar electrocautery. With the abdominal wall open, we were able to visualize the tip of the right lobe of liver, surrounding the liver were dense adhesions that did not allow visualization of the gallbladder. The adhesions on the liver appears to be from the colon. Following the liver edge, the adhesions were taken down using a mix of sharp dissection with Metzenbaum scissors, and also blunt dissection using hemostat with electrocautery for tissue division. As the surrounding adhesions were mobilized, we were able to visualize wall of the gallbladder at the fundus of the gallbladder. The gallbladder was grasped with a Allis clamp and retracted anteriorly. We proceeded to circumferentially take down further adhesions to expose the infundibulum of the gallbladder. The gallbladder was then mobilized from the gallbladder fossa via top-down approach. The top half of the gallbladder was easily mobilized from the Oscar's plane. As we approached the proximal one third of the gallbladder there were multiple sites of venous bleeding from what appears to be hypertrophied veins from gallbladder due to chronic inflammatory changes. These venous bleeding were controlled using [id number] 3-0 silk sutures. Due to difficulty of the dissection towards infundibulum of the gallbladder, I have decided to open the gallbladder for visualization of the cystic duct meatus. The wall of the gallbladder was opened using monopolar electrocautery, there were significant bleeding from the wall of the gallbladder on the posterior wall that required 2 additional [id number] 3-0 silk suture (more content not included)... Normal [facility] PHOSPHORUS BLOODon 2 Phosphate [Mass/Vol] 3.6 mg/dL Normal 2.5-5.0 [facility] Comment on above: Order Comment: No: D o not add to previous draw Performed By: #### 8 [id number] #### [facility] [address] [facility]. [address] POC GLUCOSE LABon 08-26-2021 Glucose [Mass/Vol] 159 mg/dL High 70-100 [facility] Comment on above: Performed By: #### 3 1400 #### [facility] [address] [facility] [place] [address], [place] Glucose [Mass/Vol] 173 mg/dL High 70-100 [facility] Comment on above: Performed By: #### 8 5499 #### [facility] [address] [place] [address], [place] Glucose [Mass/Vol] 137 mg/dL High 70-100 [facility] Comment on above: Performed By: #### 8 5499 #### [facility] [address] [place] [address], [place] Glucose [Mass/Vol] 189 mg/dL High 70-100 [facility] Comment on above: Performed By: #### 8 5499 #### [facility] [address] [facility], [place] [address], [facility] POC SARS COV2 ANTIGEN NEGATI VEon 08-26-2021 POC SARS COV2 ANTIGEN NEG Negative Normal NEGATIVE [facility] Comment on above: Result Comment: Nega tive results should be treated as presumptive and confirmation with a molecular assay, if necessary, for patient management, may be performed. Negative results do not rule out SARS-CoV-2 infection and not should be used as the sole basis for treatment or patient management decisions, including infection control decisions. Negative results should be considered in the context of a patient's recent exposures, history, and the presence of clinical signs and symptoms consistent with COVID-19. The Clarity COVID-19 Antigen Rapid Test Cassette is a rapid chromatographic immunoassay intended for the qualitative detection of the nucleocapsid protein antigen from SARS-CoV-2 in direct nasopharyngeal swab (L[employer] SU[employer] TECHNICIAN) specimens from individuals who are suspected of COVID-19 by their healthcare provider within the first six days of symptom onset. Testing is limited to laboratories certified under the Clinical Laboratory Improvement Amendments of 1988 (CLIA), 42 U.S.C. ???263a, that meet the requirements to perform moderate complexity, high complexity, or waived tests. This test is authorized for use at the Point of Care (POC), i.e., in patient care settings operating under a CLIA Certificate of Waiver, Certificate of Compliance, or Certificate of Accreditation. Performed By: #### 3 1400 #### [facility] [address] [place] [address], [place] BASIC METABOLIC PANELon 04-1 -2021 Calcium [Mass/Vol] 8.5 mg/dL Low 8.6-10.3 [facility] Comment on above: Order Comment: No: D o not add to previous draw Performed By: #### 9 9909, 82748, 49459 #### [facility] [address] [place] [address], [place] Chloride [Moles/Vol] 107 mmol/L Normal 98-107 [facility] Comment on above: Order Comment: No: D o not add to previous draw Performed By: #### 9 9909, 14611, 01194 #### [facility] [address] [place] [address], [place] CO2 [Moles/Vol] 25 mmol/L Normal 21-31 [facility] Comment on above: Order Comment: No: D o not add to previous draw Performed By: #### 9 9909, 94834, 22212 #### [facility] [address] [place] [address], [place] Creatinine [Mass/Vol] 0.96 mg/dL Normal 0.70-1.30 [facility] Comment on above: Order Comment: No: D o not add to previous draw Performed By: #### 9 9909, 59310, 23660 #### [facility] [address] [place] [address], [place] GFR/1.73 sq M.predicted among blacks MDRD (S/P/Bld) [Vol rate/Area] mL/min/{1.73_m2} Normal >60 [facility] Comment on above: Order Comment: No: D o not add to previous draw Performed By: #### 9 9909, 04389, 26739 #### [facility] [address] [place] [address], [place] GFR/1.73 sq M.predicted among non-blacks MDRD (S/P/Bld) [Vol rate/Area] mL/min/{1.73_m2} Normal >60 [facility] Comment on above: Order Comment: No: D o not add to previous draw Performed By: #### 9 9909, 29953, 24284 #### [facility] [address] [place] [address], [place] Glucose [Mass/Vol] 131 mg/dL High 70-100 [facility] Comment on above: Order Comment: No: D o not add to previous draw Performed By: #### 9 9909, 62899, 03558 #### [facility] [address] [place] [address], [place] Potassium [Moles/Vol] 3.6 mmol/L Normal 3.5-5.1 [facility] Comment on above: Order Comment: No: D o not add to previous draw Performed By: #### 9 99, 49169, 45694 #### [facility] [address] [place] [address], [place] Sodium [Moles/Vol] 139 mmol/L Normal 136-145 [facility] Comment on above: Order Comment: No: D o not add to previous draw Performed By: #### 9 99, 62750, 42546 #### [facility] [address] [place] [address], [place] Urea nitrogen [Mass/Vol] 14 mg/dL Normal 7-25 [facility] Comment on above: Order Comment: No: D o not add to previous draw Performed By: #### 9 9909, 07905, 95696 #### [facility] [address] [place] [address], [place] CBC COMPLETE BLOOD COUNTon 0 - Erythrocyte distribution width (RBC) [Ratio] 14.6 % Normal 11.5-15.0 [facility] Comment on above: Order Comment: Unkno wn Performed By: #### 9 99, 48457, 39448 #### [facility] [address] [place] [address], [facility] Hematocrit (Bld) [Volume fraction] 35.4 % Low 39.0-50.0 [facility] Comment on above: Order Comment: Unkno wn Performed By: #### 9 99, 23919, 08795 #### [facility] [address] [place] [id number], [facility] Hemoglobin (Bld) [Mass/Vol] 11.6 g/dL Low 13.0-17.0 [facility] Comment on above: Order Comment: Unkno wn Performed By: #### 9 9908, 11928, 58736 #### [facility] [address] [place] [address], [facility] MCH (RBC) [Entitic mass] 28.5 pg Normal 27.0-33.0 [facility] Comment on above: Order Comment: Unkno wn Performed By: #### 9 9908, 20557, 59435 #### [facility] [address] [place] [address], [facility] MCHC (RBC) [Mass/Vol] 32.8 g/dL Normal 32.0-35.0 [facility] Comment on above: Order Comment: Unkno wn Performed By: #### 9 9908, 79201, 54576 #### [facility] [address] [place] [address], [facility] MCV (RBC) [Entitic vol] 87.0 fL Normal 82.0-98.0 T faby [facility] Comment on above: Order Comment: Unkno wn Performed By: #### 9 9908, 82752, 33471 #### [facility] [address] [facility] [address], [facility] Nucleated RBC/100 WBC (Bld) [Ratio] 0 % Normal 0-0 [facility] Comment on above: Order Comment: Unkno wn Performed By: #### 9 9908, 81072, 10390 #### [facility] [address] [place] [address], [facility] PLAT CNT 152 10*3/uL Normal 150-400 [facility] Comment on above: Order Comment: Unkno wn Performed By: #### 9 9909, 04003, 78410 #### [facility] [address] [place] [address], [facility] RBC (Bld) [#/Vol] 4.07 10*6/uL Low 4.20-5.70 [facility] Comment on above: Order Comment: Unkno wn Performed By: #### 9 9909, 23443, 14808 #### [facility] [address] [place] [address], [facility] WBC (Bld) [#/Vol] 4.31 10*3/uL Normal 4.00-10.60 [facility] Comment on above: Order Comment: Unkno wn Performed By: #### 9 9909, 79555, 69609 #### [facility] [address] [place] [address], [facility] LIVER BATTERYon 08-25-2021 Albumin [Mass/Vol] 3.8 g/dL Normal 3.5-5.7 [facility] Comment on above: Order Comment: Unkno wn Performed By: #### 9 9909, 04999, 17800 #### [facility] [address] [place] [id number], [facility] ALKALINE PHOSPH 274 IU/L High 34-104 [facility] Comment on above: Order Comment: Unkno wn Performed By: #### 9 9909, 61769, 11178 #### [facility] [address] [place] [id number], [facility] ALT [Catalytic activity/Vol] 66 U/L High 7-52 [facility] Comment on above: Order Comment: Unkno wn Performed By: #### 9 9909, 53990, 01028 #### [facility] [address] [place] [address], [place] AST [Catalytic activity/Vol] 22 U/L Normal 13-39 [facility] Comment on above: Order Comment: Unkno wn Performed By: #### 9 9909, 31591, 96615 #### [facility] [address] [place] [address], [place] Bilirubin [Mass/Vol] 0.4 mg/dL Normal 0.3-1.0 [facility] Comment on above: Order Comment: Unkno wn Performed By: #### 9 9909, 12785, 83802 #### [facility] [address] [place] [address], [place] Bilirubin.direct [Mass/Vol] 0.1 mg/dL Normal 0.0-0.2 [facility] Comment on above: Order Comment: Unkno wn Performed By: #### 9 99, 86114, 49967 #### [facility] [address] [place] [address], [place] Protein [Mass/Vol] 6.3 g/dL Normal 6.0-8.3 [facility] Comment on above: Order Comment: Unkno wn Performed By: #### 9 99, 26100, 72313 #### [facility] [address] [place] [address], [place] MAGNESIUM BLOODon 08-25-2021 Magnesium [Mass/Vol] 2.0 mg/dL Normal 1.9-2.7 [facility] Comment on above: Order Comment: No: D o not add to previous draw Performed By: #### 9 9909, 64915, 65939 #### [facility] [address] [place] [address], [place] POC GLUCOSE LABon 08-25-2021 Glucose [Mass/Vol] 292 mg/dL High 70-100 [facility] Comment on above: Performed By: #### 4 1000, 45207, 98007 #### [facility] [address] [place] [address], [place] Glucose [Mass/Vol] 207 mg/dL High 70-100 [facility] Comment on above: Performed By: #### 4 1000, 35615, 43144 #### [facility] [address] [place] [address], [place] Glucose [Mass/Vol] 144 mg/dL High 70-100 [facility] Comment on above: Performed By: #### 4 1000, 38344, 83163 #### [facility] [address] [place] [address], [place] Glucose [Mass/Vol] 262 mg/dL High 70-100 [facility] Comment on above: Performed By: #### 4 1000, 03944, 98639 #### [facility] [address] [place] [address], [place] BASIC METABOLIC PANELon 04-0 -2021 Calcium [Mass/Vol] 8.7 mg/dL Normal 8.6-10.3 [facility] Comment on above: Order Comment: No: D o not add to previous draw Performed By: #### 9 99, 65015, 45359 #### [facility] [address] [place] [address], [place] Chloride [Moles/Vol] 103 mmol/L Normal 98-107 [facility] Comment on above: Order Comment: No: D o not add to previous draw Performed By: #### 9 99, 99312, 45323 #### [facility] [address] [place] [address], [place] CO2 [Moles/Vol] 24 mmol/L Normal 21-31 [facility] Comment on above: Order Comment: No: D o not add to previous draw Performed By: #### 9 9909, 36219, 09855 #### [facility] [address] [place] [address], [place] Creatinine [Mass/Vol] 0.85 mg/dL Normal 0.70-1.30 [facility] Comment on above: Order Comment: No: D o not add to previous draw Performed By: #### 9 9909, 17655, 66431 #### [facility] [address] [place] [address], [place] GFR/1.73 sq M.predicted among blacks MDRD (S/P/Bld) [Vol rate/Area] mL/min/{1.73_m2} Normal >60 [facility] Comment on above: Order Comment: No: D o not add to previous draw Performed By: #### 9 9909, 35014, 81890 #### [facility] [address] [place] [address], [place] GFR/1.73 sq M.predicted among non-blacks MDRD (S/P/Bld) [Vol rate/Area] mL/min/{1.73_m2} Normal >60 [facility] Comment on above: Order Comment: No: D o not add to previous draw Performed By: #### 9 9909, 83317, 59377 #### [facility] [address] [place] [address], [place] Glucose [Mass/Vol] 187 mg/dL High 70-100 [facility] Comment on above: Order Comment: No: D o not add to previous draw Performed By: #### 9 9909, 74510, 53342 #### [facility] [address] [place] [address], [place] Potassium [Moles/Vol] 3.8 mmol/L Normal 3.5-5.1 [facility] Comment on above: Order Comment: No: D o not add to previous draw Performed By: #### 9 9909, 12435, 06411 #### [facility] [address] [place] [address], [place] Sodium [Moles/Vol] 136 mmol/L Normal 136-145 [facility] Comment on above: Order Comment: No: D o not add to previous draw Performed By: #### 9 9909, 94411, 27124 #### [facility] [address] [place] [address], [facility] Urea nitrogen [Mass/Vol] 15 mg/dL Normal 7-25 [facility] Comment on above: Order Comment: No: D o not add to previous draw Performed By: #### 9 99, 00992, 23039 #### [facility] [address] [place] [address], [facility] CBC COMPLETE BLOOD COUNTon 0 08-24-2021 Erythrocyte distribution width (RBC) [Ratio] 14.6 % Normal 11.5-15.0 [facility] Comment on above: Order Comment: Unkno wn Performed By: #### 9 99, 39026, 68863 #### [facility] [address] [place] [address], [facility] Hematocrit (Bld) [Volume fraction] 35.7 % Low 39.0-50.0 [facility] Comment on above: Order Comment: Unkno wn Performed By: #### 9 9908, 32191, 85053 #### [facility] [address] [place] [address], [facility] Hemoglobin (Bld) [Mass/Vol] 12.0 g/dL Low 13.0-17.0 [facility] Comment on above: Order Comment: Unkno wn Performed By: #### 9 9908, 39915, 17266 #### [facility] [address] [place] [address], [facility] MCH (RBC) [Entitic mass] 28.7 pg Normal 27.0-33.0 [facility] Comment on above: Order Comment: Unkno wn Performed By: #### 9 99, 36027, 14971 #### [facility] [address] [place] [address], [facility] MCHC (RBC) [Mass/Vol] 33.6 g/dL Normal 32.0-35.0 [facility] Comment on above: Order Comment: Unkno wn Performed By: #### 9 99, 93141, 42414 #### [facility] [address] [place] [address], [facility] MCV (RBC) [Entitic vol] 85.4 fL Normal 82.0-98.0 T [facility] Comment on above: Order Comment: Unkno wn Performed By: #### 9 99, 61250, 32766 #### [facility] [address] [facility] [address], [facility] Nucleated RBC/100 WBC (Bld) [Ratio] 0 % Normal 0-0 [facility] Comment on above: Order Comment: Unkno wn Performed By: #### 9 99, 44329, 21596 #### [facility] [address] [place] [address], [facility] PLAT CNT 164 10*3/uL Normal 150-400 [facility] Comment on above: Order Comment: Unkno wn Performed By: #### 9 9908, 45843, 34579 #### [facility] [address] [facility] [place] [address], [facility] RBC (Bld) [#/Vol] 4.18 10*6/uL Low 4.20-5.70 [facility] Comment on above: Order Comment: Unkno wn Performed By: #### 9 9908, 34662, 46695 #### [facility] [address] [place] [address], [facility] WBC (Bld) [#/Vol] 5.20 10*3/uL Normal 4.00-10.60 [facility] Comment on above: Order Comment: Unkno wn Performed By: #### 9 9909, 78525, 13849 #### [facility] [address] [facility]. [address] Endoscopy Reporton 2 Endoscopy Report MR#: [id number] [facility] Pt. Name: Lobo Stoner Surgery Date: 08/23/2021 Room #: [id number] Date of : 1960 PROCEDURE NOTE ATTENDING: Momo Rudd M.D. PROCEDURE: ERCP. ANESTHESIA: General anesthesia. INDICATION: CBD stones. DESCRIPTION OF PROCEDURE: Informed consent was obtained from the patient after explaining the procedure, benefits, risks, and alternatives. The procedure risks including infection, bleeding, perforation, aspiration, oversedation, anesthesia complications. The patient was positioned in left lateral position. Anesthesia medications were given by Anesthesia team in the room, the patient was under general anesthesia. Side-viewing Olympus video duodenoscope was introduced from the patient's oral cavity into the esophagus, then the stomach, then the first and second part of duodenum with no difficulties. Major papilla was identified in the second part of the duodenum. RX-44 sphincterotome loaded by 0.035-inch guidewire was used for biliary cannulation. Contrast was injected and it showed 3 filling defect in the common bile duct consistent with the stones. There was also mild narrowing at the common hepatic duct. Biliary sphincterotomy was done, then injecting below balloon retrieval catheter 12-15 mm was used to sweep the common bile duct and removed the stone. Successful removal of the stone was done completely. Three stones were successfully removed. The right and left hepatic ducts and the common hepatic duct and the common bile duct were swept. Brushing was done for the narrowing of the common hepatic duct for cytology. The scope was then withdrawn out of the patient. The patient tolerated the procedure well with no acute complications. FINDINGS: 1. Successful removal of 3 CBD stones after biliary sphincterotomy and balloon sweep. 2. Mild non-obstructive narrowing in the common hepatic duct, which was brushed for cytology. RECOMMENDATIONS: 1. Follow up brushing results. 2. Follow up LFTs. 3. Proceed with cholecystectomy. Electronically Signed by: Momo Rudd M.D. 08/26/2021 01:17 P Momo Rudd M.D. Date Dict: 08/23/2021/04:12 P/Momo Rudd M.D. Date Trans: 08/24/2021 09:49 A/sapna [id number] cc: Jigar Powell M.D. [address] [place] [address] Normal [facility] LIPASE BLOODon 08-24-2021 LIPASE 183 Units/L High 11-82 [facility] Comment on above: Order Comment: No: D o not add to previous draw Performed By: #### 9 9909, 89886, 48118 #### [facility] [address] [place] [address], [place] LIVER BATTERYon 08-24-2021 Albumin [Mass/Vol] 4.0 g/dL Normal 3.5-5.7 [facility] Comment on above: Order Comment: No: D o not add to previous draw Performed By: #### 9 9909, 59484, 96974 #### [facility] [address] [place] [address], [place] ALKALINE PHOSPH 339 IU/L High 34-104 [facility] Comment on above: Order Comment: No: D o not add to previous draw Performed By: #### 9 9909, 56452, 07174 #### [facility] [address] [place] [address], [place] ALT [Catalytic activity/Vol] 90 U/L High 7-52 [facility] Comment on above: Order Comment: No: D o not add to previous draw Performed By: #### 9 9909, 47019, 06683 #### [facility] [address] [place] [address], [place] AST [Catalytic activity/Vol] 29 U/L Normal 13-39 [facility] Comment on above: Order Comment: No: D o not add to previous draw Performed By: #### 9 9909, 21371, 54647 #### [facility] [address] [place] [address], [place] Bilirubin [Mass/Vol] 0.5 mg/dL Normal 0.3-1.0 [facility] Comment on above: Order Comment: No: D o not add to previous draw Performed By: #### 9 9909, 39905, 85087 #### [facility] [address] [place] [address], [place] Bilirubin.direct [Mass/Vol] 0.1 mg/dL Normal 0.0-0.2 [facility] Comment on above: Order Comment: No: D o not add to previous draw Performed By: #### 9 9909, 20959, 03032 #### [facility] [address] [place] [address], [place] Protein [Mass/Vol] 6.6 g/dL Normal 6.0-8.3 [facility] Comment on above: Order Comment: No: D o not add to previous draw Performed By: #### 9 9909, 47154, 04496 #### [facility] [address] [place] [address], [place] MAGNESIUM BLOODon 08-24-2021 Magnesium [Mass/Vol] 1.8 mg/dL Low 1.9-2.7 [facility] Comment on above: Order Comment: No: D o not add to previous draw Performed By: #### 9 9909, 76967, 81880 #### [facility] [address] [place] [address], [place] PHOSPHORUS BLOODon Phosphate [Mass/Vol] 3.5 mg/dL Normal 2.5-5.0 [facility] Comment on above: Order Comment: No: D o not add to previous draw Performed By: #### 9 9909, 99671, 20940 #### [facility] [address] [place] [address], [place] POC GLUCOSE LABon 08-24-2021 Glucose [Mass/Vol] 170 mg/dL High 70-100 [facility] Comment on above: Performed By: #### 4 1000, 76207, 05161 #### [facility] [address] [place] [address], [place] Glucose [Mass/Vol] 262 mg/dL High 70-100 [facility] Comment on above: Performed By: #### 4 1000, 16007, 22647 #### [facility] [address] [place] [address], [place] Glucose [Mass/Vol] 294 mg/dL High 70-100 [facility] Comment on above: Performed By: #### 8 5499 #### [facility] [address] [place] [address], [place] Glucose [Mass/Vol] 169 mg/dL High 70-100 [facility] Comment on above: Performed By: #### 3 1400 #### [facility] [address] [place] [address], [place] Glucose [Mass/Vol] 178 mg/dL High 70-100 [facility] Comment on above: Performed By: #### 4 1000, 54653, 39264 #### [facility] [address] [place] [address], [place] Glucose [Mass/Vol] 180 mg/dL High 70-100 [facility] Comment on above: Performed By: #### 4 1000, 18532, 20351 #### [facility] [address] [place] [address], [place] Glucose [Mass/Vol] 277 mg/dL High 70-100 [facility] Comment on above: Performed By: #### 3 1400 #### [facility] [address] [place] [address], [place] BASIC METABOLIC PANELon 04-0 -2021 Calcium [Mass/Vol] 9.3 mg/dL Normal 8.6-10.3 [facility] Comment on above: Order Comment: No: D o not add to previous draw Performed By: #### 9 9909, 91116, 22860 #### [facility] [address] [place] [address], [place] Chloride [Moles/Vol] 103 mmol/L Normal 98-107 [facility] Comment on above: Order Comment: No: D o not add to previous draw Performed By: #### 9 9909, 47334, 92130 #### [facility] [address] [place] [address], [place] CO2 [Moles/Vol] 26 mmol/L Normal 21-31 [facility] Comment on above: Order Comment: No: D o not add to previous draw Performed By: #### 9 9909, 19686, 85196 #### [facility] [address] [place] [address], [place] Creatinine [Mass/Vol] 0.88 mg/dL Normal 0.70-1.30 The [facility] Comment on above: Order Comment: No: D o not add to previous draw Performed By: #### 9 9909, 88439, 07449 #### [facility] [address] [place] [address], [place] GFR/1.73 sq M.predicted among blacks MDRD (S/P/Bld) [Vol rate/Area] mL/min/{1.73_m2} Normal >60 [facility] Comment on above: Order Comment: No: D o not add to previous draw Performed By: #### 9 9909, 50252, 73935 #### [facility] [address] [place] [address], [place] GFR/1.73 sq M.predicted among non-blacks MDRD (S/P/Bld) [Vol rate/Area] mL/min/{1.73_m2} Normal >60 [facility] Comment on above: Order Comment: No: D o not add to previous draw Performed By: #### 9 9909, 46433, 96064 #### [facility] [address] [place] [address], [place] Glucose [Mass/Vol] 94 mg/dL Normal 70-100 [facility] Comment on above: Order Comment: No: D o not add to previous draw Performed By: #### 9 9909, 15295, 59565 #### [facility] [address] [place] [address], [facility] Potassium [Moles/Vol] 3.7 mmol/L Normal 3.5-5.1 [facility] Comment on above: Order Comment: No: D o not add to previous draw Performed By: #### 9 9909, 25515, 53967 #### [facility] [address] [place] [address], [facility] Sodium [Moles/Vol] 139 mmol/L Normal 136-145 [facility] Comment on above: Order Comment: No: D o not add to previous draw Performed By: #### 9 9909, 23467, 50539 #### [facility] [address] [place] [id number], [facility] Urea nitrogen [Mass/Vol] 11 mg/dL Normal 7-25 [facility] Comment on above: Order Comment: No: D o not add to previous draw Performed By: #### 9 99, 55842, 80371 #### [facility] [address] [place] [id number], [facility] CBC COMPLETE BLOOD COUNTon 0 - Erythrocyte distribution width (RBC) [Ratio] 14.9 % Normal 11.5-15.0 [facility] Comment on above: Order Comment: Unkno wn Performed By: #### 9 9908, 29165, 25999 #### [facility] [address] [place] [id number], [facility] Hematocrit (Bld) [Volume fraction] 39.3 % Normal 39.0-50.0 [facility] Comment on above: Order Comment: Unkno wn Performed By: #### 9 99, 91440, 65078 #### [facility] [address] [place] [id number], [facility] Hemoglobin (Bld) [Mass/Vol] 12.8 g/dL Low 13.0-17.0 [facility] Comment on above: Order Comment: Unkno wn Performed By: #### 9 9908, 66623, 28270 #### [facility] [address] [place] [address], [facility] MCH (RBC) [Entitic mass] 28.3 pg Normal 27.0-33.0 [facility] Comment on above: Order Comment: Unkno wn Performed By: #### 9 99, 09164, 56390 #### [facility] [address] [place] [id number], [facility] MCHC (RBC) [Mass/Vol] 32.6 g/dL Normal 32.0-35.0 [facility] Comment on above: Order Comment: Unkno wn Performed By: #### 9 99, 19269, 79586 #### [facility] [address] [place] [address], [facility] MCV (RBC) [Entitic vol] 86.9 fL Normal 82.0-98.0 [facility] Comment on above: Order Comment: Unkno wn Performed By: #### 9 99, 99621, 17031 #### [facility] [address] [facility] [place] [address], [facility] Nucleated RBC/100 WBC (Bld) [Ratio] 0 % Normal 0-0 [facility] Comment on above: Order Comment: Unkno wn Performed By: #### 9 99, 92662, 88250 #### [facility] [address] [facility] [place] [address], [facility] PLAT CNT 181 10*3/uL Normal 150-400 [facility] Comment on above: Order Comment: Unkno wn Performed By: #### 9 99, 06885, 27601 #### [facility] [address] [place] [address], [facility] RBC (Bld) [#/Vol] 4.52 10*6/uL Normal 4.20-5.70 [facility] Comment on above: Order Comment: Unkno wn Performed By: #### 9 99, 86821, 13579 #### [id number] [place] [address] WBC (Bld) [#/Vol] 4.80 10*3/uL Normal 4.00-10.60 [facility] Comment on above: Order Comment: Unkno wn Performed By: #### 9 9909, 49129, 38850 #### [facility] [address] [place] [address], [facility] ERCPon 08-23-2021 ERCP [facility] Department of Radiology [address] [place] [address] [id number] == Patient Name: LOBO STONER : 1960 Sex: M Age: Race: White Pt. Location: [id number] Patient Status: I Ordered Date: 08/23/2021 3:15:00 PM Completed Date: 08/23/2021 04:15 PM Requesting Provider: MOMO RUDD Attending Provider: RAY DAVIS Report Copy To: Signs & Symptoms: ERCP History: Comments: ERCP Exam: ERCP == ERCP 08/23/2021 4:15 PM CLINICAL INDICATIONS: ERCP TECH COMMENTS:Dr. Rudd used 5 minutes and 44 seconds of fluoro time for an intra-op ERCP. 112.98 mGy 12 Images IMPRESSION: Fluoroscopic assistance and guidance was provided 13 spot images submitted from the procedure show endoscopy tube in place Guidewire and catheter placed into the common bile duct There was partial opacification of the common bile duct and central intrahepatic ducts There appear to be stones in the common bile duct with balloon sweep performed There was incomplete opacification of the intrahepatic biliary tree and distal common bile duct. Please see the GI procedure note for further details. Electronically signed: Pablo Monreal. Transcribed by: [email or web address], User Resident: Electronically Signed by: PABLO MONREAL @ 08/23/2021 09:25 PM Normal [facility] Comment on above: Order Comment: ERCP LIVER BATTERYon 08-23-2021 Albumin [Mass/Vol] 4.1 g/dL Normal 3.5-5.7 [facility] Comment on above: Order Comment: No: D o not add to previous draw Performed By: #### 9 9909, 41834, 65900 #### [facility] [address] [place] [address], [place] ALKALINE PHOSPH 448 IU/L High 34-104 [facility] Comment on above: Order Comment: No: D o not add to previous draw Performed By: #### 9 9909, 66783, 62321 #### [facility] [address] [place] [address], [place] ALT [Catalytic activity/Vol] 124 U/L High 7-52 [facility] Comment on above: Order Comment: No: D o not add to previous draw Performed By: #### 9 9909, 82670, 83230 #### [facility] [address] [place] [address], [place] AST [Catalytic activity/Vol] 48 U/L High 13-39 [facility] Comment on above: Order Comment: No: D o not add to previous draw Performed By: #### 9 9909, 56975, 64015 #### [facility] [address] [place] [address], [place] Bilirubin [Mass/Vol] 0.6 mg/dL Normal 0.3-1.0 [facility] Comment on above: Order Comment: No: D o not add to previous draw Performed By: #### 9 9909, 87644, 00330 #### [facility] [address] [place] [address], [place] Bilirubin.direct [Mass/Vol] 0.1 mg/dL Normal 0.0-0.2 [facility] Comment on above: Order Comment: No: D o not add to previous draw Performed By: #### 9 9909, 03602, 21219 #### [facility] [address] [place] [address], [place] Protein [Mass/Vol] 6.9 g/dL Normal 6.0-8.3 [facility] Comment on above: Order Comment: No: D o not add to previous draw Performed By: #### 9 9909, 51950, 49770 #### [facility] [address] [place] [address], [place] MAGNESIUM BLOODon 08-23-2021 Magnesium [Mass/Vol] 1.9 mg/dL Normal 1.9-2.7 [facility] Comment on above: Order Comment: No: D o not add to previous draw Performed By: #### 9 9909, 62202, 28693 #### [facility] [address] [place] [address], [place] PHOSPHORUS BLOODon Phosphate [Mass/Vol] 3.8 mg/dL Normal 2.5-5.0 [facility] Comment on above: Order Comment: No: D o not add to previous draw Performed By: #### 9 9909, 03400, 85342 #### [facility] [address] [place] [address], [place] POC GLUCOSE LABon 08-23-2021 Glucose [Mass/Vol] 146 mg/dL High 70-100 [facility] Comment on above: Performed By: #### 4 1000, 71647, 19177 #### [facility] [address] [place] [address], [place] Glucose [Mass/Vol] 138 mg/dL High 70-100 [facility] Comment on above: Performed By: #### 8 5499 #### [facility] [address] [place] [address], [facility] Glucose [Mass/Vol] 92 mg/dL Normal 70-100 [facility] Comment on above: Performed By: #### 8 5499 #### [facility] [address] [facility]. [address] Glucose [Mass/Vol] 218 mg/dL High 70-100 [facility] Comment on above: Performed By: #### 4 1000, 01617, 16139 #### [facility] [address] [facility]. [address] POC SARS COV2 IDon 2 SARS-CoV-2 (COVID-19) RNA CARLOS+probe Ql (Unsp spec) Negative Normal NEGATIVE [facility] Comment on above: Result Comment: ID N OW COVID-19 assay performed on the ID NOW Instrument is a rapid molecular in vitro diagnostic test utilizing an isothermal nucleic acid amplification technology intended for the qualitative detection of nucleic acid from the SARS-CoV-2 virus in direct anterior nasal (nasal), nasopharyngeal or throat swabs from individuals who are suspected of COVID-19 by their healthcare provider within the first seven days of the onset of symptoms. Testing is limited to laboratories certified under the Clinical Laboratory Improvement Amendments of 1988 (CLIA), 42 U.S.C. ???263a,that meet the requirements to perform high, moderate, or waived complexity tests. The ID NOW COVID-19 assay is also authorized for use at the Point of Care (POC), i.e., in patient care settings operating under a CLIA Certificate of Waiver, Certificate of Compliance, or Certificate of Accreditation. Performed By: #### 4 1000, 46847, 39725 #### [facility] [address] BASIC METABOLIC PANELon 04-0 Calcium [Mass/Vol] 8.8 mg/dL Normal 8.6-10.3 [facility] Comment on above: Order Comment: No: D o not add to previous draw Performed By: #### 3 6901 #### [facility] [address] [place] [address], [place] Chloride [Moles/Vol] 104 mmol/L Normal 98-107 [facility] Comment on above: Order Comment: No: D o not add to previous draw Performed By: #### 3 6901 #### [facility] [address] [place] [address], [place] CO2 [Moles/Vol] 27 mmol/L Normal 21-31 [facility] Comment on above: Order Comment: No: D o not add to previous draw Performed By: #### 3 6901 #### [facility] [address] [place] [address], [place] Creatinine [Mass/Vol] 0.81 mg/dL Normal 0.70-1.30 [facility] Comment on above: Order Comment: No: D o not add to previous draw Performed By: #### 3 6901 #### [facility] [address] [place] [address], [place] GFR/1.73 sq M.predicted among blacks MDRD (S/P/Bld) [Vol rate/Area] mL/min/{1.73_m2} Normal >60 [facility] Comment on above: Order Comment: No: D o not add to previous draw Performed By: #### 3 6901 #### [facility] [address] [place] [address], [place] GFR/1.73 sq M.predicted among non-blacks MDRD (S/P/Bld) [Vol rate/Area] mL/min/{1.73_m2} Normal >60 [facility] Comment on above: Order Comment: No: D o not add to previous draw Performed By: #### 3 6901 #### [facility] [address] [place] [address], [place] Glucose [Mass/Vol] 127 mg/dL High 70-100 [facility] Comment on above: Order Comment: No: D o not add to previous draw Performed By: #### 3 6901 #### [facility] [address] [place] [address], [place] Potassium [Moles/Vol] 3.6 mmol/L Normal 3.5-5.1 [facility] Comment on above: Order Comment: No: D o not add to previous draw Performed By: #### 3 6901 #### [facility] [address] [place] [address], [place] Sodium [Moles/Vol] 139 mmol/L Normal 136-145 [facility] Comment on above: Order Comment: No: D o not add to previous draw Performed By: #### 3 6901 #### [facility] [address] [place] [address], [place] Urea nitrogen [Mass/Vol] 10 mg/dL Normal 7-25 [facility] Comment on above: Order Comment: No: D o not add to previous draw Performed By: #### 3 6901 #### [facility] [address] [place] [address], [facility] CBC COMPLETE BLOOD COUNTon 0 - Erythrocyte distribution width (RBC) [Ratio] 14.8 % Normal 11.5-15.0 [facility] Comment on above: Order Comment: Unkno wn Performed By: #### 9 9909, 57374, 10307 #### [facility] [address] [place] [address], [place] Hematocrit (Bld) [Volume fraction] 33.8 % Low 39.0-50.0 [facility] Comment on above: Order Comment: Unkno wn Performed By: #### 9 9909, 72057, 19854 #### [facility] [address] [place] [address], [place] Hemoglobin (Bld) [Mass/Vol] 11.2 g/dL Low 13.0-17.0 [facility] Comment on above: Order Comment: Unkno wn Performed By: #### 9 99, 19825, 10663 #### [facility] [address] [facility]. [address] MCH (RBC) [Entitic mass] 28.8 pg Normal 27.0-33.0 [facility] Comment on above: Order Comment: Unkno wn Performed By: #### 9 99, 57893, 05253 #### [facility] [address] [facility] [address] [facility]. [address] MCHC (RBC) [Mass/Vol] 33.1 g/dL Normal 32.0-35.0 [facility] Comment on above: Order Comment: Unkno wn Performed By: #### 9 99, 99183, 66772 #### [facility] [address] [facility] [address] [facility]. [address] MCV (RBC) [Entitic vol] 86.9 fL Normal 82.0-98.0 T [facility] Comment on above: Order Comment: Unkno wn Performed By: #### 9 99, 95512, 72028 #### [facility] [address] [facility]. [address] Nucleated RBC/100 WBC (Bld) [Ratio] 0 % Normal 0-0 [facility] Comment on above: Order Comment: Unkno wn Performed By: #### 9 99, 72656, 99699 #### [facility] [address] [place] [address], [facility] PLAT CNT 139 10*3/uL Low 150-400 [facility] Comment on above: Order Comment: Unkno wn Performed By: #### 9 99, 33726, 27335 #### [facility] [address] [place] [address], [facility] RBC (Bld) [#/Vol] 3.89 10*6/uL Low 4.20-5.70 [facility] Comment on above: Order Comment: Unkno wn Performed By: #### 9 09, 91663, 67437 #### [facility] [address] [place] [address], [facility] WBC (Bld) [#/Vol] 4.42 10*3/uL Normal 4.00-10.60 [facility] Comment on above: Order Comment: Unkno wn Performed By: #### 9 9909, 23216, 19328 #### [facility] [address] [place] [address], [facility] LIPASE BLOODon 08-22-2021 LIPASE 232 Units/L High 11-82 [facility] Comment on above: Order Comment: No: D o not add to previous draw Performed By: #### 3 6901 #### [facility] [address] [place] [address], [facility] LIVER BATTERYon 08-22-2021 Albumin [Mass/Vol] 3.7 g/dL Normal 3.5-5.7 [facility] Comment on above: Order Comment: Unkno wn Performed By: #### 3 6901 #### [facility] [address] [place] [address], [facility] ALKALINE PHOSPH 288 IU/L High 34-104 [facility] Comment on above: Order Comment: Unkno wn Performed By: #### 3 6901 #### [facility] [address] [place] [address], [facility] ALT [Catalytic activity/Vol] 133 U/L High 7-52 [facility] Comment on above: Order Comment: Unkno wn Performed By: #### 3 6901 #### [facility] [address] [place] [address], [facility] AST [Catalytic activity/Vol] 43 U/L High 13-39 [facility] Comment on above: Order Comment: Unkno wn Performed By: #### 3 6901 #### [facility] [address] [place] [address], [facility] Bilirubin [Mass/Vol] 0.6 mg/dL Normal 0.3-1.0 [facility] Comment on above: Order Comment: Unkno wn Performed By: #### 3 6901 #### [facility] [address] Bilirubin.direct [Mass/Vol] 0.1 mg/dL Normal 0.0-0.2 [facility] Comment on above: Order Comment: Unkno wn Performed By: #### 3 6901 #### [facility] [address] Protein [Mass/Vol] 6.2 g/dL Normal 6.0-8.3 [facility] Comment on above: Order Comment: Unkno wn Performed By: #### 3 6901 #### [facility] [address] MAGNESIUM BLOODon 08-22-2021 Magnesium [Mass/Vol] 1.7 mg/dL Low 1.9-2.7 [facility] Comment on above: Order Comment: No: D o not add to previous draw Performed By: #### 3 6901 #### [address] MRCP W WO CONTRASTon 022 MRCP W WO CONTRAST [facility] Department of Radiology [address] [place] [id number] == Patient Name: LOBO STONER : 1960 Sex: M Age: Race: White Pt. Location: [id number] Patient Status: I Ordered Date: 08/20/2021 3:00:00 PM Completed Date: 08/22/2021 09:43 AM Requesting Provider: JALEESA JUSTICE Attending Provider: RAY DAVIS Report Copy To: Signs & Symptoms: Abnormal Labs History: See Comments Comments: Gallstones Exam: MRCP W WO CONTRAST == Addendum Begins Midline ventral hernia redemonstrated from prior CT. Electronically signed: Nicolas Benson. Addendum Ends MRCP W WO CONTRAST 08/22/2021 9:43 AM SIGNS AND SYMPTOMS: Abnormal Labs TECHNOLOGIST COMMENTS: c/o abdomen pain abnormal labs QUESTION FOR THE RADIOLOGIST: Gallstones PROTOCOL: MRCP: The following pulse sequences were utilized: axial and coronal T2 weighted SSFSE, axial T1 weighted 3D in and opposed phase, axial diffusion weighted, axial T2 weighted fat-saturated FSE, pre and dynamic post contrast axial T1 weighted fat saturated 3D GRE, radial MRCP, and respiratory triggered thin slice 3D MRCP. MIP and 3D reconstructed images were generated on an independent workstation and reviewed to further define anatomy and possible pathology. CONTRAST: Contrast: CLARISCAN .5mmol, 20 milliliter, Intravenous COMPARISON: CT abdomen and pelvis August 19, 2021. FINDINGS: MRCP images show decreased signal in the dependent portion of the gallbladder consistent with calculi. 2 foci of decreased signal are noted in the lumen of the common bile duct consistent with calculi. Focal narrowing is appreciated in the distal portion of the common hepatic duct. The intrahepatic biliary radicles show normal caliber. No focal lesion noted in the liver. The adrenals, pancreas and right kidney appear unremarkable. A cyst is noted extending from the upper pole of the left kidney measuring 8.2 cm in diameter. 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 IMPRESSION: * Cholelithiasis and choledocholithiasis. * Focal narrowing of the distal common hepatic duct may be secondary to adjacent cavernous transformation of the portal vein. * Left upper pole renal cyst. Electronically signed: Nicolas Benson. Transcribed by: [email or web address], User Resident: Electronically Signed by: NICOLAS BENSON @ 08/23/2021 10:09 AM Normal [facility] Comment on above: Order Comment: [place] PHOSPHORUS BLOODon 2 Phosphate [Mass/Vol] 3.0 mg/dL Normal 2.5-5.0 [facility] Comment on above: Order Comment: No: D o not add to previous draw Performed By: #### 3 6901 #### [facility] [address] [place] [address], [place] POC GLUCOSE LABon 08-22-2021 Glucose [Mass/Vol] 174 mg/dL High 70-100 [facility] Comment on above: Performed By: #### 8 5499 #### [facility] [address] [place] [address], [place] Glucose [Mass/Vol] 150 mg/dL High 70-100 [facility] Comment on above: Performed By: #### 8 5499 #### [facility] [address] [place] [address], [place] Glucose [Mass/Vol] 129 mg/dL High 70-100 [facility] Comment on above: Performed By: #### 4 1000, 19077, 81334 #### [facility] [address] [place] [address], [place] Glucose [Mass/Vol] 155 mg/dL High 70-100 [facility] Comment on above: Performed By: #### 8 5499 #### [facility] [address] [place] [address], [place] POC SARS COV2 ANTIGEN NEGATI VEon 08-22-2021 POC SARS COV2 ANTIGEN NEG Negative Normal NEGATIVE [facility] Comment on above: Result Comment: Nega tive results should be treated as presumptive and confirmation with a molecular assay, if necessary, for patient management, may be performed. Negative results do not rule out SARS-CoV-2 infection and not should be used as the sole basis for treatment or patient management decisions, including infection control decisions. Negative results should be considered in the context of a patient's recent exposures, history, and the presence of clinical signs and symptoms consistent with COVID-19. The Clarity COVID-19 Antigen Rapid Test Cassette is a rapid chromatographic immunoassay intended for the qualitative detection of the nucleocapsid protein antigen from SARS-CoV-2 in direct nasopharyngeal swab (LIFE SUPPORT TECHNICIAN) specimens from individuals who are suspected of COVID-19 by their healthcare provider within the first six days of symptom onset. Testing is limited to laboratories certified under the Clinical Laboratory Improvement Amendments of 1988 (CLIA), 42 U.S.C. ???263a, that meet the requirements to perform moderate complexity, high complexity, or waived tests. This test is authorized for use at the Point of Care (POC), i.e., in patient care settings operating under a CLIA Certificate of Waiver, Certificate of Compliance, or Certificate of Accreditation. Performed By: #### 8 5499 #### [facility] [address] BASIC METABOLIC PANELon 04-0 Calcium [Mass/Vol] 9.1 mg/dL Normal 8.6-10.3 [facility] Comment on above: Order Comment: Unkno wn Performed By: #### 9 9909, 73358, 44335 #### [facility] [address] [place] [address], [facility] Chloride [Moles/Vol] 102 mmol/L Normal 98-107 [facility] Comment on above: Order Comment: Unkno wn Performed By: #### 9 9909, 13043, 58741 #### [facility] [address] [place] [address], [facility] CO2 [Moles/Vol] 31 mmol/L Normal 21-31 [facility] Comment on above: Order Comment: Unkno wn Performed By: #### 9 9909, 99089, 88797 #### [facility] [address] [place] [address], [facility] Creatinine [Mass/Vol] 0.96 mg/dL Normal 0.70-1.30 [facility] Comment on above: Order Comment: Unkno wn Performed By: #### 9 9908, 93545, 10583 #### [facility] [address] [place] [address], [place] GFR/1.73 sq M.predicted among blacks MDRD (S/P/Bld) [Vol rate/Area] mL/min/{1.73_m2} Normal >60 [facility] Comment on above: Order Comment: Unkno wn Performed By: #### 9 99, 21992, 94980 #### [facility] [address] [place] [address], [place] GFR/1.73 sq M.predicted among non-blacks MDRD (S/P/Bld) [Vol rate/Area] mL/min/{1.73_m2} Normal >60 [facility] Comment on above: Order Comment: Unkno wn Performed By: #### 9 9908, 42125, 40145 #### [facility] [address] [place] [address], [place] Glucose [Mass/Vol] 138 mg/dL High 70-100 [facility] Comment on above: Order Comment: Unkno wn Performed By: #### 9 9908, 12237, 66381 #### [facility] [address] [place] [address], [place] Potassium [Moles/Vol] 3.8 mmol/L Normal 3.5-5.1 [facility] Comment on above: Order Comment: Unkno wn Performed By: #### 9 9908, 97608, 85545 #### [facility] [address] [place] [address], [place] Sodium [Moles/Vol] 138 mmol/L Normal 136-145 [facility] Comment on above: Order Comment: Unkno wn Performed By: #### 9 9908, 77051, 97764 #### [facility] [address] [place] [address], [place] Urea nitrogen [Mass/Vol] 11 mg/dL Normal 7-25 [facility] Comment on above: Order Comment: Unkno wn Performed By: #### 9 9909, 10618, 74083 #### [facility] [address] [place] [address], [facility] CBC COMPLETE BLOOD COUNTon 0 08-21-2021 Erythrocyte distribution width (RBC) [Ratio] 15.2 % High 11.5-15.0 [facility] Comment on above: Order Comment: No: D o not add to previous draw Performed By: #### 8 5499 #### [facility] [address] [place] [address], [facility] Hematocrit (Bld) [Volume fraction] 36.1 % Low 39.0-50.0 [facility] Comment on above: Order Comment: No: D o not add to previous draw Performed By: #### 8 5499 #### [facility] [address] [place] [address], [facility] Hemoglobin (Bld) [Mass/Vol] 11.8 g/dL Low 13.0-17.0 [facility] Comment on above: Order Comment: No: D o not add to previous draw Performed By: #### 8 5499 #### [facility] [address] [place] [address], [facility] MCH (RBC) [Entitic mass] 28.6 pg Normal 27.0-33.0 [facility] Comment on above: Order Comment: No: D o not add to previous draw Performed By: #### 8 5499 #### [facility] [address] [place] [address], [place] MCHC (RBC) [Mass/Vol] 32.7 g/dL Normal 32.0-35.0 [facility] Comment on above: Order Comment: No: D o not add to previous draw Performed By: #### 8 5499 #### [facility] [address] [place] [address], [place] MCV (RBC) [Entitic vol] 87.4 fL Normal 82.0-98.0 [facility] Comment on above: Order Comment: No: D o not add to previous draw Performed By: #### 8 5499 #### [facility] [address] [place] [address], [facility] Nucleated RBC/100 WBC (Bld) [Ratio] 0 % Normal 0-0 [facility] Comment on above: Order Comment: No: D o not add to previous draw Performed By: #### 8 5499 #### [facility] [address] [place] [address], [facility] PLAT CNT 143 10*3/uL Low 150-400 [facility] Comment on above: Order Comment: No: D o not add to previous draw Performed By: #### 8 5499 #### [facility] [address] [place] [address], [facility] RBC (Bld) [#/Vol] 4.13 10*6/uL Low 4.20-5.70 [facility] Comment on above: Order Comment: No: D o not add to previous draw Performed By: #### 8 5499 #### [facility] [address] [place] [address], [facility] WBC (Bld) [#/Vol] 5.38 10*3/uL Normal 4.00-10.60 [facility] Comment on above: Order Comment: No: D o not add to previous draw Performed By: #### 8 5499 #### [facility] [address] [place] [address], [facility] LIPASE BLOODon 08-21-2021 LIPASE 356 Units/L High 11-82 [facility] Comment on above: Performed By: #### 3 6901 #### [facility] [address] [place] [address], [facility] LIVER BATTERYon 08-21-2021 Albumin [Mass/Vol] 3.8 g/dL Normal 3.5-5.7 [facility] Comment on above: Order Comment: Unkno wn Performed By: #### 9 99, 61716, 99407 #### [facility] [address] [place] [address], [place] ALKALINE PHOSPH 337 IU/L High 34-104 [facility] Comment on above: Order Comment: Unkno wn Performed By: #### 9 99, 49821, 00202 #### [facility] [address] [place] [address], [place] ALT [Catalytic activity/Vol] 180 U/L High 7-52 [facility] Comment on above: Order Comment: Unkno wn Performed By: #### 9 99, 59276, 69994 #### [facility] [address] [place] [address], [place] AST [Catalytic activity/Vol] 85 U/L High 13-39 [facility] Comment on above: Order Comment: Unkno wn Performed By: #### 9 99, 74529, 98345 #### [facility] [address] [place] [address], [place] Bilirubin [Mass/Vol] 0.8 mg/dL Normal 0.3-1.0 [facility] Comment on above: Order Comment: Unkno wn Performed By: #### 9 9908, 55505, 22668 #### [facility] [address] [place] [address], [place] Bilirubin.direct [Mass/Vol] 0.2 mg/dL Normal 0.0-0.2 [facility] Comment on above: Order Comment: Unkno wn Performed By: #### 9 99, 40895, 32169 #### [facility] [address] [place] [address], [place] Protein [Mass/Vol] 6.2 g/dL Normal 6.0-8.3 [facility] Comment on above: Order Comment: Unkno wn Performed By: #### 9 99, 11351, 58242 #### [facility] [address] [place] [address], [place] MAGNESIUM BLOODon 08-21-2021 Magnesium [Mass/Vol] 1.7 mg/dL Low 1.9-2.7 [facility] Comment on above: Order Comment: Luis Armandoo wn Performed By: #### 9 9909, 68203, 73336 #### [facility] [address] [place] [address], [place] PHOSPHORUS BLOODon 2 Phosphate [Mass/Vol] 3.3 mg/dL Normal 2.5-5.0 [facility] Comment on above: Order Comment: Luis Armandoo wn Performed By: #### 9 9909, 18789, 02676 #### [facility] [address] [place] [address], [place] POC GLUCOSE LABon 08-21-2021 Glucose [Mass/Vol] 130 mg/dL High 70-100 [facility] Comment on above: Performed By: #### 8 5499 #### [facility] [address] [place] [address], [place] Glucose [Mass/Vol] 201 mg/dL High 70-100 [facility] Comment on above: Performed By: #### 8 5499 #### [facility] [address] [place] [address], [place] Glucose [Mass/Vol] 136 mg/dL High 70-100 [facility] Comment on above: Performed By: #### 4 1000, 48149, 22833 #### [facility] [address] [place] [address], [place] Glucose [Mass/Vol] 146 mg/dL High 70-100 [facility] Comment on above: Performed By: #### 3 1400 #### [facility] [address] [place] [address], [place] PROTHROMBIN TIMEon 2 INR Coag (PPP) [Relative time] 1.13 {INR} Normal 0.91-1.16 [facility] Comment on above: Order Comment: No: D o not add to previous draw Result Comment: ACCC P RECOMMENDED INR FOR WARFARIN THERAPY ------- CONDITION INR PROPHYLAXIS OF VENOUS THROMBOSIS 2-3 (HIGH-RISK SURGERY) TREATMENT OF VENOUS THROMBOSIS 2-3 TREATMENT OF PULMONARY EMBOLISM 2-3 PREVENTION OF SYSTEMIC EMBOLISM: 2-3 ACUTE MYOCARDIAL INFARCTION TISSUE HEART VALVES VALVULAR HEART DISEASE ATRIAL FIBRILLATION RECURRENT SYSTEMIC EMBOLISM MECHANICAL HEART VALVE 2.5-3.5 FROM: ORAL ANTICOAGULANTS. MECHANISM OF ACTION, CLINICAL EFFECTIVENESS, AND OPTIMAL THERAPEUTIC RANGE. CHEST 1995;108:231S-246S. Performed By: #### 8 5499 #### [facility] [address] [place] [address], [facility] PT Coag (PPP) [Time] 14.5 s Normal 12.3-14.8 [facility] Comment on above: Order Comment: No: D o not add to previous draw Result Comment: ALL RESULTS MUST BE INTERPRETED WITH RESPECT TO BLOOD DRAWING ARTIFACT OR DILUTION ERROR OF ANTICOAGULANT AT THE TIME OF SAMPLING. Performed By: #### 8 5499 #### [facility] [address] [place] [id number], [facility] BASIC METABOLIC PANELon 04-0 Calcium [Mass/Vol] 9.2 mg/dL Normal 8.6-10.3 [facility] Comment on above: Order Comment: No: D o not add to previous draw Performed By: #### 9 9909, 15140, 72594 #### [facility] [address] [place] [address], [place] Chloride [Moles/Vol] 102 mmol/L Normal 98-107 [facility] Comment on above: Order Comment: No: D o not add to previous draw Performed By: #### 9 9909, 67510, 34645 #### [facility] [address] [place] [address], [place] CO2 [Moles/Vol] 27 mmol/L Normal 21-31 [facility] Comment on above: Order Comment: No: D o not add to previous draw Performed By: #### 9 9909, 50093, 83192 #### [facility] [address] [place] [address], [place] Creatinine [Mass/Vol] 1.06 mg/dL Normal 0.70-1.30 [facility] Comment on above: Order Comment: No: D o not add to previous draw Performed By: #### 9 9909, 22166, 49330 #### [facility] [address] [place] [address], [place] GFR/1.73 sq M.predicted among blacks MDRD (S/P/Bld) [Vol rate/Area] mL/min/{1.73_m2} Normal >60 [facility] Comment on above: Order Comment: No: D o not add to previous draw Performed By: #### 9 9909, 80149, 93346 #### [facility] [address] [place] [address], [place] GFR/1.73 sq M.predicted among non-blacks MDRD (S/P/Bld) [Vol rate/Area] mL/min/{1.73_m2} Normal >60 [facility] Comment on above: Order Comment: No: D o not add to previous draw Performed By: #### 9 9909, 99452, 07953 #### [facility] [address] [place] [address], [place] Glucose [Mass/Vol] 173 mg/dL High 70-100 [facility] Comment on above: Order Comment: No: D o not add to previous draw Performed By: #### 9 99, 60162, 44078 #### [facility] [address] [facility] [place] Potassium [Moles/Vol] 3.9 mmol/L Normal 3.5-5.1 [facility] Comment on above: Order Comment: No: D o not add to previous draw Performed By: #### 9 99, 17281, 82712 #### [facility] [address] [facility] [address]. [address] Sodium [Moles/Vol] 138 mmol/L Normal 136-145 [facility] Comment on above: Order Comment: No: D o not add to previous draw Performed By: #### 9 99, 97798, 06988 #### [facility] [address] [facility]. [address] Urea nitrogen [Mass/Vol] 16 mg/dL Normal 7-25 [facility] Comment on above: Order Comment: No: D o not add to previous draw Performed By: #### 9 9908, 03776, 47468 #### [facility] [address] [place] [address], [facility] CBC W/DIFFon 08-20-2021 ABS IMM GRANS 0.1 10*3/uL Normal 0.0-0.2 [facility] Comment on above: Performed By: #### 9 9908, 62924, 30007 #### [facility] [address] [place] [address], [facility] ABS NEUTROPHILS 4.6 10*3/uL Normal 1.6-7.6 [facility] Comment on above: Performed By: #### 9 99, 56001, 56256 #### [facility] [address] [facility] [place] [address], [facility] Basophils (Bld) [#/Vol] 0.0 10*3/uL Normal 0.0-0.2 [facility] Comment on above: Performed By: #### 9 99, 53656, 25169 #### [facility] [address] [place] [address], [facility] Basophils/100 WBC (Bld) 0.3 % Normal 0.0-1.0 [facility] Comment on above: Performed By: #### 9 99, 98258, 63816 #### [facility] [address] [place] [address], [place] Eosinophils (Bld) [#/Vol] 0.1 10*3/uL Normal 0.0-0.5 [facility] Comment on above: Performed By: #### 9 99, 10638, 22647 #### [facility] [address] [place] [id number], [facility] Eosinophils/100 WBC (Bld) 0.8 % Normal 0.0-6.0 [facility] Comment on above: Performed By: #### 9 9908, 77994, 86811 #### [facility] [address] [place] [address], [facility] Erythrocyte distribution width (RBC) [Ratio] 15.7 % High 11.5-15.0 [facility] Comment on above: Performed By: #### 9 9908, 36405, 63912 #### [facility] [address] [place] [id number], [facility] Hematocrit (Bld) [Volume fraction] 35.9 % Low 39.0-50.0 [facility] Comment on above: Performed By: #### 9 9908, 57907, 87981 #### [facility] [address] [place] [id number], [facility] Hemoglobin (Bld) [Mass/Vol] 11.9 g/dL Low 13.0-17.0 [facility] Comment on above: Performed By: #### 9 99, 27755, 21374 #### [facility] [address] IMMATURE GRANS 0.8 % Normal 0.0-1.0 [facility] Comment on above: Performed By: #### 9 9908, 59710, 36782 #### [facility] [address] Lymphocytes (Bld) [#/Vol] 1.1 10*3/uL Low 1.2-4.0 [facility] Comment on above: Performed By: #### 9 9908, 48127, 81253 #### [facility] [address] Lymphocytes/100 WBC (Bld) 18.0 % Low 20.0-45.0 [facility] Comment on above: Performed By: #### 9 9908, 15146, 69643 #### [facility] [address] MCH (RBC) [Entitic mass] 28.3 pg Normal 27.0-33.0 [facility] Comment on above: Performed By: #### 9 9908, 25197, 95586 #### [facility] [address] MCHC (RBC) [Mass/Vol] 33.1 g/dL Normal 32.0-35.0 [facility] Comment on above: Performed By: #### 9 9908, 59406, 70825 #### [facility] [address] MCV (RBC) [Entitic vol] 85.3 fL Normal 82.0-98.0 T [facility] Comment on above: Performed By: #### 9 9908, 06350, 79820 #### [facility] [address] Monocytes (Bld) [#/Vol] 0.5 10*3/uL Normal 0.1-1.0 [facility] Comment on above: Performed By: #### 9 99, 12651, 25678 #### [facility] [address] [facility] [place] [address], [facility] MONOS 7.9 % Normal 5.0-12.0 [facility] Comment on above: Performed By: #### 9 99, 76643, 14190 #### [facility] [address] [place] [address], [facility] Neutrophils/100 WBC (Bld) 72.2 % High 40.0-72.0 [facility] Comment on above: Performed By: #### 9 99, 76387, 23749 #### [facility] [address] [facility] [place] [address], [facility] Nucleated RBC/100 WBC (Bld) [Ratio] 0 % Normal 0-0 [facility] Comment on above: Performed By: #### 9 9908, 52400, 26092 #### [facility] [address] [facility] [place] [address], [facility] PLAT CNT 130 10*3/uL Low 150-400 [facility] Comment on above: Performed By: #### 9 9908, 43039, 63073 #### [facility] [address] [facility] [place] [address], [facility] RBC (Bld) [#/Vol] 4.21 10*6/uL Normal 4.20-5.70 [facility] Comment on above: Performed By: #### 9 9908, 21416, 34526 #### [facility] [address] [facility] [address] [place] [id number], [place] WBC (Bld) [#/Vol] 6.34 10*3/uL Normal 4.00-10.60 [facility] Comment on above: Performed By: #### 9 9908, 68077, 86434 #### [facility] [address] [place] [address], [facility] HEPATITIS B SURFACE ANTIGEN QUALon 08-20-2021 HEP B SURF AG QUAL Non-Reactive Normal NONREACTIVE [facility] Comment on above: Order Comment: Yes: Add to Previous draw if able Performed By: #### 3 1400 #### [facility] [address] [place] [address], [facility] LACTATE WITH REFLEXon 2021 Lactate [Moles/Vol] 0.7 mmol/L Normal .5-2.2 [facility] Comment on above: Order Comment: No: D o not add to previous draw Performed By: #### 3 6901 #### [facility] [address] [place] [address], [facility] LIPASE BLOODon 08-20-2021 LIPASE 1484 Units/L High 11-82 [facility] Comment on above: Order Comment: No: D o not add to previous draw Performed By: #### 9 9909, 59882, 08712 #### [facility] [address] [place] [address], [facility] LIPID PROFILEon 08-20-2021 Cholesterol [Mass/Vol] 136 mg/dL Normal 120-200 Th e [facility] Comment on above: Result Comment: CHOL ESTEROL REFERENCE RANGE: 20 YEARS AND OLDER CARDIOVASCULAR RISK Less than 200 mg/dl Low Risk 200 to 239 mg/dl Borderline Risk 240 mg/dl and greater High Risk Performed By: #### 9 9909, 38890, 46333 #### [facility] [address] [place] [address], [facility] Cholesterol in HDL [Mass/Vol] 50 mg/dL Normal 23-92 [facility] Comment on above: Result Comment: Slig ht variation in normal range could be due to gender and/or age. HDL CHOLESTEROL REFERENCE RANGE: 20 years and older Cardiovascular Risk > or =60 mg/dL Desirable 40 TO 59 mg/dL Low Risk <40 mg/dL High Risk Performed By: #### 9 9909, 08679, 21383 #### [facility] [address] [place] [address], [facility] Cholesterol in LDL [Mass/Vol] 71 mg/dL Normal 0-130 [facility] Comment on above: Result Comment: LDL IS A CALCULATION LDL IS ONLY VALID IF THE TRIG IS LESS THAN 400. Performed By: #### 9 9909, 91438, 27213 #### [facility] [address] [place] [address], [facility] Cholesterol.total/Jyotsna sterol in HDL [Mass ratio] 2.7 {ratio} Normal .0-4.5 [facility] Comment on above: Performed By: #### 9 9909, 58301, 68475 #### [facility] [address] [place] [address], [facility] NON-HDL CHOLESTEROL 86 mg/dL Normal [facility] Comment on above: Performed By: #### 9 9909, 34330, 73626 #### [facility] [address] [place] [address], [facility] Triglyceride [Mass/Vol] 73 mg/dL Normal 40-149 T he [facility] Comment on above: Result Comment: TRIG LYCERIDE REFERENCE RANGE: 20 YEARS AND OLDER CARDIOVASCULAR RISK LESS THAN 150 mg/dl LOW RISK 150 TO 199 mg/dl BORDERLINE RISK 200 mg/dl AND GREATER HIGH RISK Performed By: #### 9 99, 97640, 43099 #### [facility] [address] [place] [address], [facility] VLDL CHOL 15 mg/dL Normal 0-40 [facility] Comment on above: Performed By: #### 9 99, 73722, 43202 #### [facility] [address] [place] [address], [facility] LIVER BATTERYon 08-20-2021 Albumin [Mass/Vol] 3.9 g/dL Normal 3.5-5.7 [facility] Comment on above: Order Comment: No: D o not add to previous draw Performed By: #### 9 9909, 05721, 67987 #### [facility] [address] [place] [address], [place] ALKALINE PHOSPH 415 IU/L High 34-104 [facility] Comment on above: Order Comment: No: D o not add to previous draw Performed By: #### 9 9909, 11580, 10917 #### [facility] [address] [place] [address], [place] ALT [Catalytic activity/Vol] 271 U/L High 7-52 [facility] Comment on above: Order Comment: No: D o not add to previous draw Performed By: #### 9 9909, 94886, 77026 #### [facility] [address] [place] [address], [place] AST [Catalytic activity/Vol] 188 U/L High 13-39 [facility] Comment on above: Order Comment: No: D o not add to previous draw Performed By: #### 9 99, 14654, 87294 #### [facility] [address] [place] [address], [place] Bilirubin [Mass/Vol] 1.0 mg/dL Normal 0.3-1.0 [facility] Comment on above: Order Comment: No: D o not add to previous draw Performed By: #### 9 99, 32329, 16251 #### [facility] [address] [place] [address], [place] Bilirubin.direct [Mass/Vol] 0.2 mg/dL Normal 0.0-0.2 [facility] Comment on above: Order Comment: No: D o not add to previous draw Performed By: #### 9 99, 35275, 43141 #### [facility] [address] [place] [address], [place] Protein [Mass/Vol] 6.5 g/dL Normal 6.0-8.3 [facility] Comment on above: Order Comment: No: D o not add to previous draw Performed By: #### 9 [id number], [id number], [id number] #### [facility] [address] [place] [address], [place] MAGNESIUM BLOODon 04-05-2022 Magnesium [Mass/Vol] 1.7 mg/dL Low 1.9-2.7 [facility] Comment on above: Order Comment: No: D o not add to previous draw Performed By: #### 9 [id number], [id number], [id number] #### [facility] [address] [place] [address], [place] PHOSPHORUS BLOODon 2 Phosphate [Mass/Vol] 3.2 mg/dL Normal 2.5-5.0 [facility] Comment on above: Order Comment: No: D o not add to previous draw Performed By: #### 9 [id number], [id number], [id number] #### [facility] [address] [place] [address], [place] POC GLUCOSE LABon 08-20-2021 Glucose [Mass/Vol] 164 mg/dL High 70-100 [facility] Comment on above: Performed By: #### 4 1000, 11177, [id number] #### [facility] [address] [place] [address], [place] Glucose [Mass/Vol] 167 mg/dL High 70-100 [facility] Comment on above: Performed By: #### 3 1400 #### [facility] [address] [place] [address], [facility] Vital Signs Date Time Vital Sign Value Performing Clinician Facility 09-22-2023 15: Body height 182.88 cm MD Jigar Powell Work Phone: [facility] 09-22-2023 15: Body mass index (BMI) [Ratio] 32.5 kg/m2 MD Jigar Powell Work Phone: [facility] 09-22-2023 15: Body temperature 97 [degF] MD Jigar Powell Work Phone: [facility] 09-22-2023 15: Body weight 109 kg MD Jigar Powell Work Phone: [facility] 09-22-2023 15:07-0400 Diastolic blood pressure 70 mm[Hg] MD Jigar Powell Work Phone: [facility] 09-22-2023 15:07-0400 Heart rate 86 /min MD Jigar Powell Work Phone: [facility] 09-22-2023 15:07-0400 Respiratory rate 18 /min MD Jigar Powell Work Phone: [facility] 09-22-2023 15:07-0400 SaO2% (BldA) [Mass fraction] 96 % MD Jigar Powell Work Phone: [facility] 09-22-2023 15:07-0400 Systolic blood pressure 117 mm[Hg] MD Jigar Powell Work Phone: [facility] 07-14-2023 15:10-0500 Body height 175.3 cm Bruce Molina MD Work Phone: [facility] 07-14-2023 15:10-0500 Body mass index (BMI) [Ratio] 36.48 kg/m2 Bruce Molina MD Work Phone: [facility] 07-14-2023 15:10-0500 Body weight 112.04 kg Bruce Molina MD Work Phone: [facility] 07-14-2023 15:10-0500 Diastolic blood pressure 84 mm[Hg] Bruce Molina MD Work Phone: [facility] 07-14-2023 15:10-0500 Heart rate 79 /min Bruce Molina MD Work Phone: [facility] 07-14-2023 15:10-0500 Systolic blood pressure 136 mm[Hg] Bruce Molina MD Work Phone: [facility] 03-05-2023 14:00-0400 Body height 182.88 cm Juan Jose Pat Other [facility] 03-05-2023 14:00-0400 Body mass index (BMI) [Ratio] 34.44 kg/m2 Juan Jose Pat Other [facility] 03-05-2023 14:00-0400 Body temperature 97.1 [degF] Juan Jose aPt Other [facility] Other 03-05-2023 14:00-0400 Body weight 115.21 kg Juan Jose Pat Other [facility] Other 03-05-2023 14:00-0400 Diastolic blood pressure 74 mm[Hg] Juan Jose Pat Other [facility] Other 03-05-2023 14:00-0400 Respiratory rate 18 /min Juan Jose Pat Other [facility] Other 03-05-2023 14:00-0400 SaO2% (BldA) [Mass fraction] 94 % Juan Jose Pat Other [facility] Other 03-05-2023 14:00-0400 Systolic blood pressure 137 mm[Hg] Juan Jose Pat Other [facility] Other 08-28-2022 14:40-0400 Body height 182.88 cm Juan Jose Pat Other [facility] Other 08-28-2022 14:40-0400 Body mass index (BMI) [Ratio] 34.04 kg/m2 Juan Jose Pat Other [facility] Other 08-28-2022 14:40-0400 Body temperature 97.6 [degF] Juan Jose Pat Other [facility] Other 08-28-2022 14:40-0400 Body weight 113.85 kg Juan Jose Pat Other [facility] Other 08-28-2022 14:40-0400 Diastolic blood pressure 77 mm[Hg] Juan Jose Pat Other [facility] Other 08-28-2022 14:40-0400 Respiratory rate 18 /min Juan Jose Pat Other [facility] Other 08-28-2022 14:40-0400 SaO2% (BldA) [Mass fraction] 96 % Juan Jose Pat Other [facility] Other 08-28-2022 14:40-0400 Systolic blood pressure 135 mm[Hg] Juan Jose Pat Other [facility] Other 04-24-2022 13:40-0500 Body height 182.88 cm Juan Jose Pat Other [facility] Other 04-24-2022 13:40-0500 Body mass index (BMI) [Ratio] 31.73 kg/m2 Juan Jose Pat Other [facility] Other 04-24-2022 13:40-0500 Body temperature 98.4 [degF] Juan Jose Pat Other [facility] Other 04-24-2022 13:40-0500 Body weight 106.14 kg Juan Jose Pat Other [facility] Other 04-24-2022 13:40-0500 Diastolic blood pressure 74 mm[Hg] Juan Jose Pat Other [facility] Other 04-24-2022 13:40-0500 Respiratory rate 18 /min Juan Jose Pat Other [facility] Other 04-24-2022 13:40-0500 SaO2% (BldA) [Mass fraction] 96 % Juan Jose Pat Other [facility] Other 04-24-2022 13:40-0500 Systolic blood pressure 129 mm[Hg] Juan Jose Pat Other [facility] Other 03-18-2022 11:00-0400 Body height 182.88 cm Jose Guadalupe Andrews Other [facility] Other 03-18-2022 11:00-0400 Body mass index (BMI) [Ratio] 29.43 kg/m2 Jose Guadalupe Andrews Other [facility] Other 03-18-2022 11:00-0400 Body temperature 97.5 [degF] Jose Guadalupe Andrews Other [facility] Other 03-18-2022 11:00-0400 Body weight 98.43 kg Jose Guadalupe Andrews Other [facility] Other 03-18-2022 11:00-0400 SaO2% (BldA) [Mass fraction] 96 % Jose Guadalupe Andrews Other [facility] Other 03-13-2022 14:00-0400 Body height 182.88 cm Juan Jose Pat Other [facility] Other 03-13-2022 14:00-0400 Body mass index (BMI) [Ratio] 30.49 kg/m2 Juan Jose Pat Other [facility] Other 03-13-2022 14:00-0400 Body temperature 96.3 [degF] Juan Jose Pat Other [facility] Other 03-13-2022 14:00-0400 Body weight 101.97 kg Juan Jose Pat Other [facility] Other 03-13-2022 14:00-0400 Diastolic blood pressure 69 mm[Hg] Juan Jose Pat Other [facility] Other 03-13-2022 14:00-0400 Respiratory rate 18 /min Juan Jose Pat Other [facility] Other 03-13-2022 14:00-0400 SaO2% (BldA) [Mass fraction] 97 % Juan Jose Pat Other [facility] Other 03-13-2022 14:00-0400 Systolic blood pressure 135 mm[Hg] Juan Jose Pat Other [facility] Other 02-12-2022 13:50-0400 Body temperature 98.2 [degF] MD Jigar Powell Work Phone: [facility] 02-12-2022 13:50-0400 Diastolic blood pressure 75 mm[Hg] MD Jigar Powell Work Phone: [facility] 02-12-2022 13:50-0400 Heart rate 71 /min MD Jigar Powell Work Phone: [facility] 02-12-2022 13:50-0400 Respiratory rate 16 /min MD Jigar Powell Work Phone: [facility] 02-12-2022 13:50-0400 SaO2% (BldA) [Mass fraction] 93 % MD Jigar Powell Work Phone: [facility] 02-12-2022 13:50-0400 Systolic blood pressure 156 mm[Hg] MD Jigar Powell Work Phone: [facility] 02-12-2022 05:36-0400 Body weight 109.2 kg MD Jigar Powell Work Phone: [facility] 02-11-2022 15:46-0400 Body height 182.88 cm MD Jigar Powell Work Phone: [facility] 02-10-2022 15:50-0400 Inhaled oxygen flow rate 3 L/min MD Jigar Powell Work Phone: [facility] 01-12-2022 13:35-0400 Body height 182.88 cm Gale Dupont Other [facility] Other 01-12-2022 13:35-0400 Body mass index (BMI) [Ratio] 32.09 kg/m2 Gale Dupont Other [facility] Other 01-12-2022 13:35-0400 Body temperature 98.9 [degF] Gale Dupont Other [facility] Other 01-12-2022 13:35-0400 Body weight 107.32 kg Gale Dupont Other [facility] Other 01-12-2022 13:35-0400 Diastolic blood pressure 71 mm[Hg] Gale Dupont Other [facility] Other 01-12-2022 13:35-0400 SaO2% (BldA) [Mass fraction] 97 % Gale Dupont Other [facility] Other 01-12-2022 13:35-0400 Systolic blood pressure 133 mm[Hg] Gale Dupont Other [facility] Other Encounters Encounter Date Encounter Type Care Provider Facility Start: 09-22-2023 End: 09-22-2023 ambulatory MD Jigar Powell Work Phone: [facility] Work Phone: Start: 09-22-2023 End: 09-22-2023 Patient encounter procedure MD Jigar Powell Work Phone: [facility] Work Phone: Start: 09-12-2023 End: 09-12-2023 ambulatory Jigar Powell Facility:[facility] Start: 09-12-2023 End: 09-12-2023 Patient encounter procedure MD Jigar Powell Work Phone: [facility] [place] Work Phone: Start: 07-14-2023 End: 07-14-2023 Office outpatient visit 15 minutes Bruce Molina MD Work Phone: [facility] Comment on above: Erectile dysfunction , unspecified erectile dysfunction type (Primary Dx) Start: 07-10-2023 Telephone encounter Ruben Rose CMA [facility] Start: 04-28-2023 End: 04-28-2023 ambulatory JIGAR POWELL Not Available Start: 03-05-2023 End: 03-05-2023 ambulatory Juan Jose Pat Other [facility] Other Start: 03-05-2023 Office outpatient vi sit 15 minutes Juan Jose Pat [facility] Start: 03-04-2023 End: 03-04-2023 ambulatory Juan Jose Pat Facility:[facility] Start: 03-04-2023 End: 03-04-2023 ambulatory MD Jigar Powell Work Phone: [facility] Work Phone: Start: 03-04-2023 End: 03-04-2023 Patient encounter procedure MD Jigar Powell Work Phone: [facility] [place] Work Phone: Start: 08-28-2022 End: 08-28-2022 ambulatory Juan Jose Pat Other [facility] Other Start: 08-28-2022 Office outpatient vi sit 15 minutes Juan Jose Pat [facility] Start: 08-19-2022 End: 08-19-2022 ambulatory RIZWAN GARAY Facility:[facility] Start: 05-30-2022 End: 05-31-[address] JIGAR POWELL Facility:[facility] Start: 04-24-2022 End: 04-24-2022 ambulatory Juan Jose Pat Other [facility] Other Start: 04-24-2022 Office outpatient vi sit 15 minutes Juan Jose Pat [facility] Start: 04-21-2022 End: 04-22-[address] JUAN JOSE PAT Facility:[facility] Start: 04-20-2022 End: 04-20-[address] KRIS OLPES . Facility:[facility] Start: 04-03-2022 End: 04-04-[address] JIGAR POWELL Facility:[facility] Start: 04-02-2022 End: 04-02-2022 ambulatory MD Jigar Powell Work Phone: [facility] Work Phone: Start: 04-02-2022 End: 04-02-2022 Discharged Recurring MD Jigar Powell Work Phone: [facility]-Infusion Therapy - O/P Start: 03-20-2022 End: 03-20-2022 ambulatory Jose Guadalupe Andrews Other [facility] Other Start: 03-20-2022 Telephone encounter Jose Guadalupe Andrews [facility] Start: 03-18-2022 End: 03-18-2022 ambulatory Jose Guadalupe Andrews Other [facility] Other Start: 03-18-2022 Office outpatient vi sit 15 minutes Jose Guadalupe Andrews [facility] Start: 03-13-2022 End: 03-13-2022 ambulatory Juan Jose Rodriguezsaul Other [facility] Other Start: 03-13-2022 Office outpatient vi sit 25 minutes Gusmarin Bi [facility] Start: 03-10-2022 End: 03-11-2022 ambulatory ADDY CARLISLE Facility:[facility] Start: 02-05-2022 End: 02-12-2022 Evaluation and management of inpatient MD Jigar Powell Work Phone: [facility] Start: 02-05-2022 ambulatory Hernan MCCABE Facility:[facility] Start: 01-31-2022 End: 02-01-2022 ambulatory Hernan MCCABE Facility:[id number] Start: 01-31-2022 End: 02-05-2022 Evaluation and management of inpatient DR JIGAR POWELL Facility:[facility] Start: 01-25-2022 End: 01-25-2022 ambulatory RIZWAN GARAY Facility:[facility] Start: 01-12-2022 End: 01-12-2022 ambulatory Gale Dupont Other [facility] Other Start: 01-12-2022 Office outpatient ne w 20 minutes Gale Dupont [facility] Start: 09-02-2021 End: 09-03-[address] JIGAR POWELL Facility:[facility] Start: 08-20-2021 End: 08-29-2021 Evaluation and management of inpatient RAY DAVIS Facility:[facility] Procedures Date Procedure Procedure Detail Performing Clinician Start: 02-10-2022 Plain chest X-ray MD Dayday Powell Work Phone: Start: 02-10-2022 Catheterization MD Jigar Powell Work Phone: Start: 02-06-2022 Plain chest X-ray MD Dayday Powell Work Phone: Start: 02-05-2022 Plain X-ray abdomen MD Jigar Powell Work Phone: Urine culture MD Jigar miranda Work Phone: Plan of Treatment Date Care Activity Detail Author Start: 07-14-2024 Adult BMI Screening Adult BMI Screen ing [facility] Start: 07-14-2024 Tobacco Screening Tobacco Screening [facility] Start: 07-12-2024 End: 07-12-2024 Patient encounter procedure 07/12/2024 3:15 PM EST Office Visit [facility] [address] [place] [address] [phone] Bruce Molina MD [address] [place] [address] [id number] [facility] Start: 07-14-2023 End: 07-14-2023 Patient encounter procedure 07/14/2023 3:15 PM EST Office Visit [facility] [address] [place] [phone] Bruce Molina MD [address] [place] [id number] [facility] Start: 07-11-2023 Adult BMI Screening Adult BMI Screen ing [facility] Start: 07-09-2023 Tobacco Screening Tobacco Screening [facility] Start: 01-16-2023 COVID-19 Vaccine () COVID-19 Vaccine () [facility] Start: 01-16-2023 Influenza vaccination Influenza Vacc ine [facility] Start: 02-12-2022 [facility] Start: 02-11-2022 Administration of prophylactic treatment [facility] Start: 02-11-2022 Referral to desktop technician [facility] Start: 02-10-2022 Referral to vascular surgeon [facility] Start: 02-05-2022 Referral to storm door maker [facility] Start: 02-05-2022 [facility] Start: 02-05-2022 Hospital admission [facility] Start: 02-05-2022 Drainage of Right Up per Leg Subcutaneous Tissue and Fascia, Open Approach Drainage of Right Upper Leg Subcutaneous Tissue and Fascia, Open Approach [facility] Start: 02-05-2022 Insertion of Infusio n Device into Superior Vena Cava, Percutaneous Approach Insertion of Infusion Device into Superior Vena Cava, Percutaneous Approach [facility] Start: 02-05-2022 Insertion of Infusio n Device into Upper Vein, Percutaneous Approach Insertion of Infusion Device into Upper Vein, Percutaneous Approach [facility] Start: 02-05-2022 Insertion of Tunnele d Vascular Access Device into Chest Subcutaneous Tissue and Fascia, Percutaneous Approach Insertion of Tunneled Vascular Access Device into Chest Subcutaneous Tissue and Fascia, Percutaneous Approach [facility] Start: 02-05-2022 Performance of Urina ry Filtration, Intermittent, Less than 6 Hours Per Day Performance of Urinary Filtration, Intermittent, Less than 6 Hours Per Day [facility] Start: 2012 Administration of varicella zoster vaccine Zoster (Shingles) Vaccine (1 of 2) [facility] Start: 1981 DTaP,Tdap and Td Vac cines (1 - Tdap) DTaP,Tdap and Td Vaccines (1 - Tdap) [facility] Start: 1980 Adult BMI Follow Up Plan Adult BMI Follow Up Plan [facility] Start: 1974 Depression Screening Depression Scre franci [facility] Patient Education How to Care fo r a Central Line Catheter Dialysis Catheter Dialysis Catheter (DC) [facility] Work Phone: Patient referral [facility] Work Phone: End: 07-10-2024 Prostatic specific antigen, diagnostic Prostatic specific antigen, diagnostic Lab Routine Benign prostatic hyperplasia with lower urinary tract symptoms, symptom details unspecified 1 Occurrences starting 07/10/2023 until 07/10/2024 [facility] Work Phone: Comment on above: 1 Occurrences starti ng 07/10/2023 until 07/10/2024 Payers Date Payer Category Payer Unknown [id number] 2023 Self-pay 2022 Unknown [id number] 2022 Unknown [employer] [id number] 2022-Present [phone] [address] [place] [address] [id number] 1960 Unknown [id number] 1960 Unknown [id number] 1962 Unknown [id number] 1962 Unknown [id number] 1962 Unknown [id number] 1962 Unknown [id number] [id number] 1962 Unknown [id number] [id number] 1962 Unknown [id number] [id number] 1962 Unknown [id number] [id number] 1962 Unknown [id number] [id number] 1962 Unknown [id number] [id number] 1962 Unknown [id number] [id number] 1959 Unknown [id number] 1959 Unknown [id number] 1959 Unknown [id number] Unknown [id number] Unknown [id number] Unknown [id number] Social History Date Type Detail Facility Start: 07-09-2022 End: 07-14-2023 Sex Assigned At [facility] Other Start: 02-06-2022 End: 09-22-2023 Tobacco smoking status NHIS Ex-smoker (finding) [facility] Start: 1960 Sex Assigned At Male [facility] History of tobacco use Current smoker [facility] Start: 07-09-2022 Tobacco use and exposure Smokeless tobacco non-user [facility] Start: 07-09-2022 End: 07-14-2023 History of Social function [facility] Childcare Unknown [facility] Start: 1960 Sex Assigned At Not on file [facility] Start: 02-16-2021 Gender identity Identifies as male gender (finding) [facility] Start: 02-16-2021 Sexual orientation Heterosexual (finding) [facility] Medical Equipment Procedure Code Equipment Code Equipment Origin al Text Equipment Identifier Dates Insertion, catheter, dialysis, tunneled, with imaging guidance Double-lumen haemodialysis catheter, implantable +[id number] FDA Start: 02-10-2022 Pen Needle, Diab etic (Bd Ultra-Fine Mini Pen Needle) 31 gauge x 3/16 needle Start: 02-12-2022 Pen Needle, Diab etic (Bd Ultra-Fine Mini Pen Needle) 31 gauge x 3/16 needle Start: 02-12-2022 Pen Needle, Diab etic (Bd Ultra-Fine Mini Pen Needle) 31 gauge x 3/16 needle Start: 02-12-2022 Pen Needle, Diab etic (Bd Ultra-Fine Mini Pen Needle) 31 gauge x 3/16 needle Start: 02-12-2022 End: 09-22-2023 Goals Date Patient Goal Desired Activity /State Functional Status Date Assessment Result Facility 02-12-2022 Functional status Patient at Baseline [facility] Work Phone: Mental Status Date Assessment Result Facility 02-12-2022 Cognitive function Cognitive Sta tus Patient at Baseline [facility] Work Phone: Clinical Notes 08-30-2021 to 07-14-2023 Bruce Molina MD - 07/14/2023 3:15 PM ESTTelephone Encounter - Christine Green LPN - 07/10/2023 4:57 PM ESTTelephone Encounter - Christine Green LPN - 07/10/2023 4:57 PM EST Note Date & Type Note Facility 07-14-2023 History of Presen t illness Narrative Images from the original note were not included. [address] [place] [phone] Patient: Lobo Stoner Date of : 1960 Encounter Date: 07/14/2023 History of Present Illness: The patient is a 62 y.o. male, an established patient, and is here for followup. He has diabetes and ED. He has been using 10-30-1 TriMix. He currently is using 0.3 cc but with decreasing effectiveness. Summary of old records: Urinalysis today: No results for input(s): EXTPOCURCO , EXTPOCURCH , EXTPOCAPP , EXTPOCURBS , EXTPOCURBIL , EXTPOCUKET , EXTPOCUSPG , EXTPOCUHGB , EXTPOCUPRO , EXTPOCUURO , EXTPOCULEU , EXTPOCUNIT , EXTPOCUWBC , EXTPOCUBLD , EXTPOCURBC , EXTPOCUCRY , EXTPOCUBAC , EXTPOCUTREP , EXTPOCUPH in the last 72 hours. Last BUN and creatinine: No results found for: BUN No results found for: CREATININE Last PSA: Lab Results Component Value Date PSA 1.04 07/11/2023 PSA 0.74 03/19/2021 No results found for: PROSTATICSP Additional Lab/Culture results: None Imaging Reviewed during this Office Visit: None (Results were independently reviewed by physician and radiology report verified) Past Medical, Family, and Social History Update: The following portions of the patient's history were reviewed and updated as appropriate: allergies, current medications, past family history, past medical history, past social history, past surgical history and problem list. Past Medical History: Diagnosis Date ADD (attention deficit disorder) Cerebral vascular disease Chronic depression Diabetes mellitus (CMS-HCC) Diverticulitis Hypertension Osteoarthritis Past Surgical History: Procedure Laterality Date COLECTOMY COLOSTOMY HERNIA REPAIR ventral hernia History reviewed. No pertinent family history. Current Outpatient Medications Medication Sig Dispense Refill AMBULATORY COMPOUNDED MEDICATION 0.1 mL by intracavernosal route as needed (no more than 3x weekly). 2.5 mL 3 cinnamon bark-chromium picolin 500-100 mg-mcg capsule glimepiride (AMARYL) 1 mg tablet Take by mouth daily. glipiZIDE (GLUCOTROL) 10 mg tablet Take 2 tablets (20 mg total) by mouth in the morning and 2 tablets (20 mg total) before bedtime. lisinopriL (PRINIVIL,ZESTRIL) 10 mg tablet Take 1 tablet (10 mg total) by mouth in the morning. metFORMIN (GLUCOPHAGE) 500 mg tablet Take by mouth daily. [id number]#185 (DIABETIC SUPPORT FORMULA) 167-100-83 mcg tablet OZEMPIC 1 mg/dose (4 mg/3 mL) pen injector Inject 1 mg under the skin once a week. pioglitazone (ACTOS) 45 mg tablet Take 1 tablet (45 mg total) by mouth in the morning. pravastatin (PRAVACHOL) 40 mg tablet Take 1 tablet (40 mg total) by mouth nightly. No current facility-administered medications for this visit. (All medications reviewed and updated by provider since last office visit or hospitalization) Allergies: Vancomycin Tobacco History: Social History Tobacco Use Smoking Status Former Smokeless Tobacco Never (If patient a smoker, smoking cessation counseling offered) Social History: Social History Substance and Sexual Activity Alcohol Use None Review of Systems: General: Negative for chills and fever. Cardiovascular: Negative for chest pain and shortness of breath. Gastrointestinal: Negative for constipation, diarrhea, nausea, and vomitting. Physical Exam: BP 136/84 Pulse 79 Ht 175.3 cm (5' 9 ) Wt 112 kg (247 lb) BMI 36.48 kg/m Assessment and Plan: Akshat was seen today for follow-up. 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 Options discussed including vacuum erection device, penile injection therapy and penile prosthesis. Plan for penile injection therapy. I arranged for a visit with her PA for further education and teaching in the office 04/03/21: Will start patient on a tri mix at 0.1 cc with titration-- is going to give the injection--he has a copy of the information packet and consent form--he will call me if he reaches 0.5 cc without adequate erection. Can see Dr. Molina in [employer] location for annual appts due to distance from his home. 07/09/22: Doing well with TriMix 0.2 cc's. 07/14/23: decreasing effectiveness with 0.3 cc. Recommended increasing to 0.4 cc and if not effective using 0.5 cc. If that fails he will contact the office for potential change in formulary. Also discussed IPP if all else fails. Follow-up: Bruce Molina MD This note was created with the assistance of a speech recognition program. While intending to generate a timely document that accurately reflects the content of the visit, no guarantee can be provided that every grammatical or spelling mistake has been or will be identified or corrected. Thank you for your understanding. documented in this encounter [facility] [employer] 07-10-2023 Miscellaneous Notes Formattin g of this note might be different from the original. Called Pt. To remind him to get his PSA drawn for his appointment with MD Chrissy on Thursday. Pt stated he would get it done tomorrow. documented in this encounter [facility] 07-10-2023 Telephone encount er Note Called Pt. To remind him to get his PSA drawn for his appointment with MD Chrissy on Thursday. Pt stated he would get it done tomorrow. [facility] 07-10-2023 Miscellaneous Notes Formattin g of this note might be different from the original. order documented in this encounter [facility] 07-10-2023 Telephone encount er Note order [facility] 03-05-2023 Evaluation note Encounter Date Diagnosis Assessment Notes Feb, Hypertension (ICD-10 - I10) Blood pressure is well controlled on furosemide 40 mg that he cut to once a day as he can go to bathroom on time when he is working. He used to be on lisinopril that is currently on hold. He was advised to start at least low-dose 5 mg daily however he is reluctant. He would like to discuss with his PCP. We will recheck spot urine for protein creatinine, will emphasize need for lisinopril if he has albuminuria. Patient was advised to restart at least low-dose of lisinopril regardless of albuminuria however he is not willing to change medications. Feb, CKD (chronic kidney disease) stage 2, GFR 60-89 ml/min (ICD-10 - N18.2) He has mild CKD stage II s/p DUONG related to ATN in the setting of right groin abscess and antibiotics including vancomycin. He did require dialysis for 4 to 5 weeks before renal function did recover. Dialysis was stopped on March 03, 2022 and currently has stable creatinine. He was advised that we will going to recheck renal panel in 6 months and if it is stable, he can follow-up with his PCP Feb, Diabetic nephropathy (ICD-10 - E11.21) He has diabetic nephropathy with mild proteinuria. Patient is not willing to switch furosemide to lisinopril as he feels comfortable with no edema. He still off metformin and he was advised that it can be restarted if needed for diabetes control. Feb, Bence Small proteinuria (ICD-10 - R80.3) Patient was found to have M band with urine immunofixation however free light chains K/L was not significantly elevated at 1.7. Hemoglobin did improve with oral iron and B12. Patient was evaluated by Dr. Pabon and plan to follow-up as outpatient with option of bone marrow biopsy if needed [facility] 04-13-2023 Evaluation note* Encounter Date Diagnosis Assessment Notes Treatment Notes Treatment Clinical Notes Aug, DUONG (acute kidney injury) (ICD-10 - N17.9) Patient had DUONG related to ATN in the setting of right groin abscess and antibiotics including vancomycin. He did require dialysis for 4 to 5 weeks before renal function did recover. Dialysis was stopped on March 03, 2022. Patient has no symptoms. No edema on furosemide. Blood pressure is well controlled. No acidosis or hyperkalemia. Tunneled hemodialysis catheter was removed last visit. Monitor renal function every 4 to 6 months.. Aug, Hypertension (ICD-10 - I10) Blood pressure is well controlled on furosemide 40 mg that he cut to once a day as he can go to bathroom on time when he is working. He used to be on lisinopril that is currently on hold. He was advised to start at least low-dose 5 mg daily however he is reluctant. He would like to discuss with his PCP. We will continue monitor blood pressure and renal panel in 6 months. He has mild proteifnuria Aug, Diabetic nephropathy (ICD-10 - E11.21) He has diabetic nephropathy with mild proteinuria. Patient is not willing to switch furosemide to lisinopril as he feels comfortable with no edema. He still off metformin and he was advised that it can be restarted if needed for diabetes control. Aug, Bence Small proteinuria (ICD-10 - R80.3) Patient was found to have M band with urine immunofixation however free light chains K/L was not significantly elevated at 1.7. Patient was evaluated by Dr. Pabon and plan to follow-up as outpatient with option of bone marrow biopsy if needed [facility] 12-08-2022 Evaluation note* Encounter Date Diagnosis Assessment Notes Treatment Notes Treatment Clinical Notes Apr, DUONG (acute kidney injury) (ICD-10 - N17.9) Patient had DUONG related to ATN in the setting of right groin abscess and antibiotics including vancomycin. He did require dialysis for 4 to 5 weeks before renal function did recover. Dialysis was stopped on March 03, 2022. Patient has no symptoms. No edema on furosemide. Blood pressure is well controlled. No acidosis or hyperkalemia. Tunneled hemodialysis catheter was removed last visit. Monitor renal function every 4 to 6 months.. Apr, Hypertension (ICD-10 - I10) Blood pressure is well controlled on furosemide 40 mg twice a day with no edema. He used to be on lisinopril that is currently on hold. I offered him to restart lisinopril however he is reluctant to start lisinopril and he likes furosemide because of improvement of edema. We will continue monitor blood pressure and renal panel in 4 months. Probably we can add lisinopril low-dose 5 mg daily mainly for diabetic nephropathy. Apr, Diabetic nephropathy (ICD-10 - E11.21) Patient has a history of diabetes with possible diabetic nephropathy with mild proteinuria. Patient is not willing to switch furosemide to lisinopril as he feels comfortable with no edema. Will consider adding low-dose lisinopril if renal function continues to improve low blood pressure more than 130s. He still off metformin and he was advised that it can be restarted if needed for diabetes control. Apr, Bence Small proteinuria (ICD-10 - R80.3) Patient was found to have M band with urine immunofixation however free light chains K/L was not significantly elevated at 1.7. Patient was evaluated by Dr. Pabon and plan to follow-up as outpatient with option of bone marrow biopsy if needed [facility] 11-01-2022 Evaluation note* Encounter Date Diagnosis Assessment Notes Treatment Notes Treatment Clinical Notes Mar, Acute kidney injury (DUONG) with acute tubular necrosis (ATN) (ICD-10 - N17.0) Mar, Other Acute kidney in jury resolved The patient's catheter was anesthetized with a ring block of 1% lidocaine anesthesia although up to including the cuff. The cuff was then delivered with blunt dissection and freed up completely and the entire catheter was removed without difficulty. A dressing was applied. He tolerated this well. This patient can follow-up on an as-needed basis. He has mild residual chronic renal insufficiency that does not require access creation at this time. [facility] 10-27-2022 Evaluation note* Encounter Date Diagnosis Assessment Notes Treatment Notes Treatment Clinical Notes Feb, DUONG (acute kidney injury) (ICD-10 - N17.9) Patient had DUONG related to ATN in the setting of right groin abscess and antibiotics including vancomycin. He did require dialysis for 4 to 5 weeks before renal function did recover. Dialysis was stopped on March 03, 2022. Patient has no symptoms. No edema on furosemide. Blood pressure is well controlled. No acidosis or hyperkalemia. Will refer the patient back to vascular surgery to remove the Wade catheter. Recheck renal panel in 6 weeks. Feb, Hypertension (ICD-10 - I10) Blood pressure is well controlled on furosemide 40 mg twice a day with no edema. He used to be on lisinopril that is currently on hold. I offered him to restart lisinopril however he is reluctant to start him at this point. We will wait until renal function improves. Feb, Diabetic nephropathy (ICD-10 - E11.21) Patient has a history of diabetes with possible diabetic nephropathy. We will recheck spot urine for protein and creatinine. Willing for starting JL inhibitor or angiotensin receptor asia if he has proteinuria. Patient was advised that he can go back on metformin since renal function has improved. Feb, Bence Small proteinuria (ICD-10 - R80.3) Patient was found to have M band with urine immunofixation however free light chains K/L was not significantly elevated at 1.7. Patient was evaluated by Dr. Pabon and plan to follow-up as outpatient with option of pulmonary biopsy if renal function does not improve. Will repeat free light chains, serum and urine immunofixation and will refer back to Dr. Pabon if needed. [facility] 09-28-2022 Discharge summary Author Jihan Manuel [facility] February 12, 2022 1:21pm Note Date/Time February 12, 2022 1:21pm [facility] [address] [place] [address] Discharge Summary Signed Patient: Lobo Stoner MR#: [id number] : 1960 Acct:[id number] Age/Sex: 61 / M Adm Date: 2 Loc: Room: [address] [place] [address]: Jihan Manuel MD Copies to: MD Jihan Ayon MD~ Providers Date of Discharge: 02/12/22 Discharging Provider: Jihan Manuel Primary Care Provider: Jigar Powell Consults: 02/05/22 16:36 Consult to Nephrology Routine 02/05/22 16:37 Consult to Occupational Therapy Routine Consult to Physical Therapy Routine 02/05/22 17:47 Consult to Dietitian Routine 02/06/22 09:06 Consult to Pulmonology Routine 02/06/22 13:51 Consult to General Surgery Routine 02/10/22 07:59 Consult to Vascular Surgery Routine 02/11/22 15:37 Consult to Hematology Routine Discharge Diagnosis (1) Groin abscess: (2) DUONG (acute kidney injury): Final Diagnosis Final Discharge Diagnosis: As above Summary Hospital Course Hospital course: Patient is a 61-year-old male with past medical history of diabetes mellitus type 2, hypertension who was transferred from outside facility due to acute kidney injury. Patient initially presented at [facility] with right groin abscess and was started on broad-spectrum IV antibiotic. He was found to have acute kidney injury and transferred to [facility] for further management. He was seen by nephrology service with impression of sepsis induced ATN/vancomycin induced nephrotoxicity. Temporary dialysis catheter was placed and started on hemodialysis. Unfortunately so far no signs of renal recovery and patient will be continued hemodialysis with outpatient follow-up with nephrology. He was also seen by general surgery and underwent I&D of right medial thigh abscess with no purulent material noted. He was continued on wound care with packing with improvement in symptoms. Wound culture as per the outside facility was growing MSSA and he was continued on IV ceftriaxone during hospital stay. Recommend to hold lisinopril, metformin, statin and glipizide on discharge until seen by nephrology. Started on Lasix and amlodipine. We will add sliding scale coverage. Oncology/hematology has been consulted regarding monoclonal spike on UA. Patient underwent tunneled dialysis catheter placement and arrangement has been made for outpatient dialysis. He will be discharged home with outpatient nephrology follow-up. Condition Condition at Discharge: Stable Status at Discharge Functional status at discharge: independent ambulation Time Spent with Patient Time spent providing/coordinating discharge services (# min): 36 Surgeries and Procedures Operation Date: 02/10/22 15:05 Actual Procedures p IR Catheter Dialysis Insertion(Right) - Mao Fernandez MD Diagnostic Studies Completed and Pending Studies Labs on day of discharge: 02/12/22 06:21: POC Glucose 171 02/12/22 06:04: PHA Creatinine Clear 12.23, Sodium 132 L, Potassium 3.6, Chloride 94 L, Carbon Dioxide 27.7, Anion Gap 13.9, BUN 30 H, Creatinine 8.30 H D, Est GFR ( Amer) 8, Est GFR (Non-Af Amer) 7, Glucose 169 H, Calcium 8.4, Phosphorus 6.0 H, Albumin 2.4 L 02/11/22 20:44: POC Glucose 230 02/11/22 16:17: POC Glucose 224 02/07/22 14:20: Ur Random Albumin 34.3, U Random Total Protein 216.7, U Smbzc-3-Ynnnxhzz (%) 13.9, U Random k-0-Utmisfvj % 13.5, U Random b-Globulin % 17.3, U Random Gamma Glob % 21.0, U Random M-Shawn (%) 4.6 H, Urine Random PEP Note , Urine Immunofixation Exam Physical Exam Vital Signs: Temp Pulse Resp BP Pulse Ox O2 Del Method O2 Flow Rate 98.3 F 72 18 150/75 H 96 Room Air 3 02/12/22 09:25 02/12/22 13:00 02/12/22 09:25 02/12/22 13:00 02/12/22 09:25 02/12/22 09:25 02/10/22 15:50 Const Orientation: alert, awake and oriented x3 Neck Neck: no meningeal signs Resp Effort & Inspection: normal respiratory effort and able to speak in complete sentences Auscultation: no rales, no rhonchi and no wheezes Cardio Rate: regular rate Rhythm: regular rhythm Heart Sounds: S1 normal and S2 normal GI Palpation: soft, not firm, no guarding and nontender Skin Other: Packing in place at the right medial thigh area of I&D without significant drainage or surrounding erythema Neuro General: patient alert, patient awake, patient oriented x3, moves all extremities and no focal motor deficits Discharge Plan Discharge Plan Patient Disposition: Home Diet: Renal Additional Instructions: dressing change daily:right inner thigh/groin site- flush with vashe and allow vashe to remain in wound for 1 min,. then flush with normal saline, fill wound with 1/4 inch packing gauze coated with silvasorb gel, top with abd pad ( just packed with 7 feet of packing gauze) Instructions: How to Care for a Central Line Catheter, Dialysis Catheter, Dialysis Catheter (DC) Prescriptions: New furosemide 40 mg Tablet 40 mg PO BID@0800,1600 30 Days Qty: 60 0RF amlodipine 10 mg Tablet 10 mg PO DAILY 30 Days Qty: 30 0RF insulin aspart U-100 [Novolog Flexpen U-100 Insulin] 100 unit/mL (3 mL) Insulin Pen 1 unit subcut TID.WM.HS Qty: 15 0RF Rx Instructions: Fingerstick Blood Glucose Insulin Units 150-199 mg/dl 2 unit 200-249 mg/dl 3 unit 250-299 mg/dl 5 unit 300-349 mg/dl 7 unit 350-399 mg/dl 8 unit greater than or = 400 mg/dl 9 unit amoxicillin-pot clavulanate [Augmentin] 500-125 mg tablet 1 tab PO DAILY Qty: 5 0RF Continued pioglitazone 45 mg tablet 45 mg PO DAILY Label Comments: TAKE 1 TABLET BY MOUTH DAILY oxycodone-acetaminophen 5-325 mg tablet 1 tab PO Q6H PRN (Reason: Pain) 4 Days Qty: 20 0RF Label Comments: TAKE 1 TABLET BY MOUTH EVERY 6 HOURS NEEDED Held pravastatin 40 mg tablet 40 mg PO DAILY Hold Instructions: until seen by storm door maker Label Comments: TAKE 1 TABLET BY MOUTH AT BEDTIME glipizide 10 mg tablet 20 mg PO BID Hold Instructions: until seen by storm door maker Label Comments: TAKE 2 TABLETS BY MOUTH TWICE DAILY lisinopril 10 mg tablet 10 mg PO DAILY Hold Instructions: until seen by storm door maker Label Comments: TAKE 1 TABLET BY MOUTH DAILY metformin 500 mg tablet extended release 24 hr 1,000 mg PO BID.WITH.MEALS Hold Instructions: until seen by storm door maker Label Comments: TAKE 2 TABLETS BY MOUTH TWICE DAILY Discontinued clindamycin HCl 150 mg capsule 300 mg PO TID Label Comments: TAKE 2 CAPSULES BY MOUTH THREE TIMES DAILY FOR 7 DAYS Follow Up: [facility] [Outside] Mao Fernandez MD [Active Staff] - (FU PRN ONLY) Documented By: Jihan Manuel MD 02/12/22 1316 Signed By: <Electronically signed by Jihan Manuel MD> 02/12/22 1321 [facility] Work Phone: 1(706) 255-114209-28-2022 Progress note Author Mao Fernandez [facility] February 12, 2022 12:57pm Note Date/Time February 12, 2022 12:47pm [facility] [address] [place] [address] Vascular Surgery Progress Note Signed Patient: Lobo Stoner MR#: [id number] : 1960 Acct:[id number] Age/Sex: 61 / M Adm Date: 2 Loc: Room: [address] [place] [address] Type: ADM IN Attending Dr: Jihan Manuel MD Copies to: ~ Date of Service: 02/12/2022 Subjective Subjective Interval history: Patient is resting comfortably in his bed this morning finishing up his breakfast. He had right IJ tunneled catheter placed 2 days ago. His catheter is functioning well with hemodialysis treatment. In speaking with the patient, he tells me he is not likely to need long-term hemodialysis in the future. He is not interested in undergoing any vein mapping for planning of long-term hemodialysis access. Subjective: no new complaints Exam Physical Exam Vital Signs: Temp Pulse Resp BP Pulse Ox O2 Del Method O2 Flow Rate 98.3 F 69 18 151/73 H 96 Room Air 3 02/12/22 09:25 02/12/22 12:30 02/12/22 09:25 02/12/22 12:30 02/12/22 09:25 02/12/22 09:25 02/10/22 15:50 Narrative: 61-year-old male, acute distress. He is sitting up in his bed this morning eating his breakfast. No shortness of breath with conversation. Right IJ tunneled catheter in place with clean, dry dressing intact. No active oozing. No hematoma. No pain with palpation to the region. Const General: cooperative, comfortable and no acute distress Objective Labs CBC & Chem 7: 02/09/22 06:40 02/12/22 06:04 Other Labs: Laboratory Results - last 24 hr 02/06/22 02/07/22 02/11/22 10:52 14:20 16:17 PHA Creatinine Clear Sodium Potassium Chloride Carbon Dioxide Anion Gap BUN Creatinine Est GFR ( Amer) Est GFR (Non-Af Amer) Glucose POC Glucose 224 Calcium Phosphorus Albumin Ur Random Albumin 34.3 U Random Total Protein 216.7 U Utbpi-1-Hcoqhbrw (%) 13.9 U Random a-6-Ocbsncon % 13.5 U Random b-Globulin % 17.3 U Random Gamma Glob % 21.0 U Random M-Shawn (%) 4.6 H Urine Random PEP Note Urine Immunofixation KHUSHI Screen Negative 02/11/22 02/12/22 02/12/22 20:44 06:04 06:21 PHA Creatinine Clear 12.23 Sodium 132 L Potassium 3.6 Chloride 94 L Carbon Dioxide 27.7 Anion Gap 13.9 BUN 30 H Creatinine 8.30 H D Est GFR ( Amer) 8 Est GFR (Non-Af Amer) 7 Glucose 169 H POC Glucose 230 171 Calcium 8.4 Phosphorus 6.0 H Albumin 2.4 L Ur Random Albumin U Random Total Protein U Eqrlp-5-Ychkmnqx (%) U Random h-5-Qpjdklbu % U Random b-Globulin % U Random Gamma Glob % U Random M-Shawn (%) Urine Random PEP Note Urine Immunofixation KHUSHI Screen Microbiology Microbiology: Microbiology - Results from entire visit 02/05/22 17:39 Urine - Clean-Voided Midstream Urine Culture - Final No Growth 2 Days A&P - Vascular Assessment/Plan (1) DUONG (acute kidney injury): This patient's right IJ tunneled hemodialysis catheter is functioning well during treatment for him. I did speak with the inpatient dialysis nurse who tells me that storm door maker, Dr. Carlisle said there is no need for vein mapping forMrJoleen Stoner as he will be a short-term hemodialysis patient. We will follow-up with this patient in our clinic when he is in need for hemodialysis catheter removal or if any issues present prior to that. He knows to call our office with any concerns or questions. Code(s): N17.9 - Acute kidney failure, unspecified Status: Acute Documented By: Robyn Acosta APRN 02/12/22 1 241 Signed By: <Electronically signed by APPLE Acosta> 02/12/22 1247 <Electronically signed by Mao Fernandez MD> 02/12/22 1257 [facility] Work Phone: 1(994) 811-262109-28-2022 Progress note Author Addy Carlisle [facility] February 12, 2022 10:19am Note Date/Time February 12, 2022 10:19am [facility] [address] [place] [address] Nephrology Progress Note Signed Patient: Lobo Stoner MR#: [id number] : 1960 Acct:[id number] Age/Sex: 61 / M Adm Date: 2 Loc: Room: [address] [place] [address] Type: ADM IN Attending Dr: Jihan Manuel MD Copies to: ~ Date of Service: 02/12/2022 Subjective Subjective Narrative: Mr. Stoner is a 61 years old male with medical history of diabetes mellitus hypertension and dyslipidemia is transferred from [facility] for DUONG. Hewas initially admitted on January 31 due to right groin abscess at [facility].? Patient failed outpatient clindamycin therapy.? Emergency room did incision and drainage.? He was started on vancomycin and Zosyn.? Wound culture showed MSSA.? Antibiotics were switched to Rocephin.? Blood cultures remain negative.? General surgery evaluated the patient recommended conservative management.? Patient hospital course was complicated by DUONG. On admission on January 31 patient's creatinine was 0.95, on creatinine went up to 2.9, then to 5.4 and today to 7.9.? During the hospitalization he also got Toradol.? Lisinopril was stopped.? As mentioned above vancomycin Zosyn was switched to Rocephin therapy.?Kidney ultrasound was done which showed no hydronephrosis. Patient reported that he was seen by the telemetry nephrology. Due to his worsening renal function it was recommended to transfer to [facility] for possible dialysis. Nephrology is consulted for DUONG and metabolic acidosis management. Interval history Patient was seen and examined at bedside during dialysis. He reported to have anausea this morning. Denies any chest pain, palpation cough shortness of breathor abdominal pain. Exam Physical Exam Vital Signs: Temp Pulse Resp BP Pulse Ox O2 Del Method O2 Flow Rate 98.3 F 85 16 154/74 H 95 Room Air 3 02/12/22 05:00 02/12/22 05:00 02/12/22 05:00 02/12/22 05:00 02/12/22 05:00 02/12/22 05:00 02/10/22 15:50 Narrative: General: Appears comfortable and not in distress Heart: S1-S2, no rub Lung: Bilateral air entry, no wheezing or crackles Abdomen: Soft, positive bowel sounds Extremities: No edema, no cyanosis Head: Atraumatic, normocephalic Ear: No gross hearing Deficit or external ear redness Eyes: No pallor or redness Neck: No JVD or visible mass Skin: No rashes or bruises [employer] OFFICER: Awake,Alert, following simple command Musculoskeletal: No joint swelling or limitation of movement Psychiatric: Cooperative, normal mood and affect Objective Intake and Output I&O: Intake & Output 02/09/22 02/10/22 02/11/22 02/12/22 23:59 23:59 23:59 23:59 Intake Total 1690 / 1690 1430 / 1530 2080 / 2380 850 / 850 Output Total 1715 / 1715 2821 / 2821 2250 / 2450 600 / 600 Balance -25 / -25 -1391 / -1291 -170 / -70 250 / 250 Weight 108.1 kg 106.1 kg 108.9 kg 109.2 kg Meds and Allergies Meds: Active Medications Acetaminophen (Acetaminophen 325 Mg Tablet) 650 mg PO Q4H PRN PRN Reason: Pain Scale 1 - 5 Stop: 02/05/23 16:35 Last Admin: 02/12/22 09:46 Dose: 650 mg Albuterol (Albuterol Neb 2.5 Mg/3 Ml Vial.Neb) 2.5 mg INHALATION Q2H PRN PRN Reason: Shortness Of Breath Stop: 02/05/23 16:41 Amlodipine Besylate (Amlodipine 10 Mg Tablet) 10 mg PO DAILY LETICIA Stop: 02/12/23 08:59 Dextrose (Dextrose 50% In Water 25 Gm/50 Ml Syringe) 0 gm IV-PUSH PRN PRN PRN Reason: Hypoglycemia Stop: 02/05/23 16:35 Docusate Sodium (Docusate 100 Mg Capsule) 200 mg PO BID PRN PRN Reason: Constipation Stop: 02/05/23 16:35 Furosemide (Furosemide 40 Mg Tablet) 40 mg PO BID@0800,1600 LETICIA Stop: 02/08/23 15:59 Last Admin: 02/12/22 09:58 Dose: Not Given Glucose (Dextrose 40% Gel 15 Gm Tube) 0 gm PO PRN PRN PRN Reason: Hypoglycemia Stop: 02/05/23 16:35 Heparin Sodium (Porcine) (Heparin 5,000 Unit/Ml Vial) 5,000 unit SUBCUT Q12HR [facility] Stop: 02/05/23 20:59 Last Admin: 02/12/22 09:59 Dose: Not Given Heparin Sodium (Porcine) (Heparin 10,000 Unit/10 Ml Vial) 2,000 unit IV PRN PRN PRN Reason: Dialysis Stop: 02/06/23 09:01 Last Admin: 02/12/22 09:48 Dose: 2,000 unit Heparin Sodium (Porcine) (Heparin 10,000 Unit/10 Ml Vial) 1,000 unit IV PRN PRN PRN Reason: Dialysis Stop: 02/06/23 09:01 Last Admin: 02/12/22 09:48 Dose: 1,000 unit Heparin Sodium (Porcine) (Heparin-Lock 500 Unit/5 Ml Syringe) 500 unit IV-PUSH QSHIFT [facility] Stop: 02/10/23 21:59 Last Admin: 02/12/22 05:02 Dose: Not Given Heparin Sodium (Porcine) (Heparin 10,000 Unit/10 Ml Vial) 4,500 unit IV PRN PRN PRN Reason: Dialysis Stop: 02/06/23 09:01 Hydralazine HCl (Hydralazine 20 Mg/Ml Vial) 10 mg IV-PUSH Q4H PRN PRN Reason: if SBP > 185 Stop: 02/05/23 16:35 Ceftriaxone Sodium (Rocephin) 1 gm in 50 mls @ 100 mls/hr IV Q24H [facility]ICIA Stop: 02/14/22 17:29 Last Infusion: 02/12/22 01:00 Dose: Infused Sodium Chloride (0.9% Sodium Chloride 1,000 Ml) 1,000 mls @ 0 mls/hr MISCELLANE.Q0M PRN PRN Reason: Dialysis Stop: 02/06/23 09:01 Last Infusion: 02/12/22 09:49 Dose: 999 mls/hr Insulin Aspart (Insulin Aspart 300 Units/3 Ml Insuln.Pen) 0 units SUBCUT TID.[facility]; Protocol Stop: 02/05/23 16:59 Last Admin: 02/12/22 09:58 Dose: Not Given Insulin Glargine (Insulin Glargine 300 Units/3 Ml Insuln.Pen) 5 units SUBCUT DAILY [facility] Stop: 02/11/23 13:09 Last Admin: 02/12/22 09:59 Dose: Not Given Omeprazole (Omeprazole 20 Mg Capsule.Dr) 20 mg PO DAILY [facility] Stop: 02/09/23 08:59 Last Admin: 02/11/22 10:47 Dose: Not Given Ondansetron HCl (Ondansetron Odt 4 Mg Tab.Rapdis) 4 mg SUBLINGUAL Q6HR PRN PRN Reason: Nausea And Vomiting Stop: 02/11/23 22:55 Last Admin: 02/12/22 06:03 Dose: 4 mg Oxycodone/Acetaminophen (Oxycodone/Acetaminophen 5-325 Mg Tablet) 1 tab PO Q6H PRN PRN Reason: Pain Last Admin: 02/12/22 06:03 Dose: 1 tab Polyethylene Glycol (Polyethylene Glycol 3350 17 Gm Powd.Pack) 17 gm PO DAILY [facility] Stop: 02/06/23 08:59 Last Admin: 02/11/22 08:06 Dose: Not Given Prochlorperazine Edisylate (Prochlorperazine Edisylate 10 Mg/2 Ml Vial) 5 mg IV- PUSH Q4H PRN PRN Reason: Nausea And Vomiting Stop: 02/06/23 10:23 Last Admin: 02/11/22 12:26 Dose: 5 mg Sodium Chloride (Sodium Chloride 0.9 % 10 Ml Vial.Pf) 10 ml INJECTION PRN PRN PRN Reason: Dilution Stop: 02/05/23 17:19 Last Admin: 02/07/22 14:09 Dose: 10 ml Sodium Chloride (Sodium Chloride 0.9 % 10 Ml Syringe) 10 ml IV-PUSH PRN PRN PRN Reason: Flush Stop: 02/05/23 17:19 Last Admin: 02/11/22 12:27 Dose: 10 ml Sodium Chloride (Sodium Chloride 0.9 % 10 Ml Syringe) 0 ml IV-PUSH PRN PRN PRN Reason: Flush Stop: 02/06/23 09:01 Last Admin: 02/12/22 09:47 Dose: 40 ml Sodium Chloride (Sodium Chloride 0.9 % 10 Ml Syringe) 0 ml IV-PUSH QSHIFT [facility] Stop: 02/10/23 21:59 Last Admin: 02/12/22 05:02 Dose: Not Given Allergies No Known Allergies Allergy (Verified 02/05/22 16:45) Results Labs CBC & Chem 7: 02/09/22 06:40 02/12/22 06:04 Labs: 02/12/22 06:04 BUN 30 H Creatinine 8.30 H D Phosphorus 6.0 H Albumin 2.4 L Radiology Impressions Impressions - last 24 hours: Any impression(s) listed above is documentation that was entered by the reading physician into a diagnostic report(s) for Lobo Stoner. I have reviewed the report(s) and am incorporating any findings in the treatment plan of this patient where applicable. A&P - Nephrology Assessment/Plan (1) DUONG (acute kidney injury): Assessment/Problem Details: He has DUONG likely multifactorial including sepsis induced ATN, vancomycin induced nephrotoxicity or Zosyn induced AIN with superimposed autoregulation of EGFR due to the lisinopril. He has a mildly elevated free light chain ratio likely due to the DUONG but unremarkable SPEP and serum immunofixation. He has negative lupus ANCA and hepatitis serologies. He has no evidence of obstructiveuropathy. His renal function fails to improve despite aggressive IV fluid resuscitation and stopping antibiotic and lisinopril. (2) Metabolic acidosis: Assessment/Problem Details: He has anion gap metabolic acidosis likely due to the DUONG. (3) Hypertension: Assessment/Problem Details: His blood pressure is high. He was taking lisinopril at home which is currentlyon hold. (4) Diabetes: Assessment/Problem Details: He is a aws-vtqkned-ipyhojwoa type 2 diabetes mellitus and was taking pioglitazone, metformin and glipizide at home (5) Hyperlipidemia: Assessment/Problem Details: He was taking pravastatin at home currently on hold Plan * Hemodialysis today as ordered. He has no sign of renal recovery yet. * Continue Lasix 40 mg p.o. twice daily * Continue amlodipine. * Continue to hold home dose of the lisinopril, metformin and pravastatin. * He has monoclonal M spike on UA. Serum and urine immunofixation is negative. We will consult hematology. Likely has MGUS. * Continue DM management as per the primary hospitalist team. The goal blood sugars between 100 to 150 mg/dL. * Check renal function daily and monitor input output Documented By: Addy Carlisle MD 02/12/22 1017 Signed By: <Electronically signed by Addy Carlisle MD> 02/12/[address] [facility] Work Phone: [phone]) 727-548409-27-2022 Progress note Author Addy Carlisle [facility] February 11, 2022 3:38pm Note Date/Time February 11, 2022 3:35pm [facility] [address] [place] [address] Nephrology Progress Note Signed Patient: Lobo Stoner MR#: [id number] : 1960 Acct:[id number] Age/Sex: 61 / M Adm Date: 2 Loc: Room: [address] [place] [address] Type: ADM IN Attending Dr: Jihan Manuel MD Copies to: ~ Date of Service: 02/11/2022 Subjective Subjective Narrative: Mr. Stoner is a 61 years old male with medical history of diabetes mellitus hypertension and dyslipidemia is transferred from [facility] for DUONG. Hewas initially admitted on January 31 due to right groin abscess at [facility].? Patient failed outpatient clindamycin therapy.? Emergency room did incision and drainage.? He was started on vancomycin and Zosyn.? Wound culture showed MSSA.? Antibiotics were switched to Rocephin.? Blood cultures remain negative.? General surgery evaluated the patient recommended conservative management.? Patient hospital course was complicated by DUONG. On admission on January 31 patient's creatinine was 0.95, on creatinine went up to 2.9, then to 5.4 and today to 7.9.? During the hospitalization he also got Toradol.? Lisinopril was stopped.? As mentioned above vancomycin Zosyn was switched to Rocephin therapy.?Kidney ultrasound was done which showed no hydronephrosis. Patient reported that he was seen by the telemetry nephrology. Due to his worsening renal function it was recommended to transfer to [facility] for possible dialysis. Nephrology is consulted for DUONG and metabolic acidosis management. Interval history Patient was seen and examined at bedside. He had hemodialysis and catheter placement by vascular surgery yesterday. Denies any chest pain palpation cough nausea vomiting or shortness of breath. Exam Physical Exam Vital Signs: Temp Pulse Resp BP Pulse Ox O2 Del Method O2 Flow Rate 98.3 F 85 18 168/92 H 92 L Room Air 3 02/11/22 08:00 02/11/22 08:00 02/11/22 08:00 02/11/22 08:00 02/11/22 08:00 02/11/22 08:00 02/10/22 15:50 Narrative: General: Appears comfortable and not in distress Heart: S1-S2, no rub Lung: Bilateral air entry, no wheezing or crackles Abdomen: Soft, positive bowel sounds Extremities: No edema, no cyanosis Head: Atraumatic, normocephalic Ear: No gross hearing Deficit or external ear redness Eyes: No pallor or redness Neck: No JVD or visible mass Skin: No rashes or bruises [employer]: Awake,Alert, following simple command Musculoskeletal: No joint swelling or limitation of movement Psychiatric: Cooperative, normal mood and affect Objective Intake and Output I&O: Intake & Output 02/08/22 02/09/22 02/10/22 02/11/22 23:59 23:59 23:59 23:59 Intake Total 1550 / 1950 1690 / 1690 1380 / 1480 840 / 840 Output Total 2602 / 2917 1715 / 1715 2821 / 2821 850 / 850 Balance -1052 / -967 -25 / -25 -1441 / -1341 -10 / -10 Weight 113.6 kg 108.1 kg 106.1 kg 108.9 kg Meds and Allergies Meds: Active Medications Acetaminophen (Acetaminophen 325 Mg Tablet) 650 mg PO Q4H PRN PRN Reason: Pain Scale 1 - 5 Stop: 02/05/23 16:35 Albuterol (Albuterol Neb 2.5 Mg/3 Ml Vial.Neb) 2.5 mg INHALATION Q2H PRN PRN Reason: Shortness Of Breath Stop: 02/05/23 16:41 Amlodipine Besylate (Amlodipine 10 Mg Tablet) 10 mg PO DAILY [facility] Stop: 02/12/23 08:59 Dextrose (Dextrose 50% In Water 25 Gm/50 Ml Syringe) 0 gm IV-PUSH PRN PRN PRN Reason: Hypoglycemia Stop: 02/05/23 16:35 Docusate Sodium (Docusate 100 Mg Capsule) 200 mg PO BID PRN PRN Reason: Constipation Stop: 02/05/23 16:35 Furosemide (Furosemide 40 Mg Tablet) 40 mg PO BID@0800,1600 LETICIA Stop: 02/08/23 15:59 Last Admin: 02/11/22 07:57 Dose: 40 mg Glucose (Dextrose 40% Gel 15 Gm Tube) 0 gm PO PRN PRN PRN Reason: Hypoglycemia Stop: 02/05/23 16:35 Heparin Sodium (Porcine) (Heparin 5,000 Unit/Ml Vial) 5,000 unit SUBCUT Q12HR LETICIA Stop: 02/05/23 20:59 Last Admin: 02/11/22 10:46 Dose: Not Given Heparin Sodium (Porcine) (Heparin 10,000 Unit/10 Ml Vial) 3,300 unit IV PRN PRN PRN Reason: Dialysis Stop: 02/06/23 09:01 Last Admin: 02/10/22 10:58 Dose: 3,300 unit Heparin Sodium (Porcine) (Heparin 10,000 Unit/10 Ml Vial) 2,000 unit IV PRN PRN PRN Reason: Dialysis Stop: 02/06/23 09:01 Last Admin: 02/08/22 11:36 Dose: 2,000 unit Heparin Sodium (Porcine) (Heparin 10,000 Unit/10 Ml Vial) 1,000 unit IV PRN PRN PRN Reason: Dialysis Stop: 02/06/23 09:01 Last Admin: 02/08/22 11:36 Dose: 1,000 unit Heparin Sodium (Porcine) (Heparin-Lock 500 Unit/5 Ml Syringe) 500 unit IV-PUSH QSHIFT [facility] Stop: 02/10/23 21:59 Last Admin: 02/11/22 13:22 Dose: Not Given Hydralazine HCl (Hydralazine 20 Mg/Ml Vial) 10 mg IV-PUSH Q4H PRN PRN Reason: if SBP > 185 Stop: 02/05/23 16:35 Ceftriaxone Sodium (Rocephin) 1 gm in 50 mls @ 100 mls/hr IV Q24H [facility] Stop: 02/14/22 17:29 Last Admin: 02/10/22 16:56 Dose: 100 mls/hr Sodium Chloride (0.9% Sodium Chloride 1,000 Ml) 1,000 mls @ 0 mls/hr MISCELLANE.Q0M PRN PRN Reason: Dialysis Stop: 02/06/23 09:01 Last Admin: 02/10/22 15:27 Dose: 100 mls/hr Insulin Aspart (Insulin Aspart 300 Units/3 Ml Insuln.Pen) 0 units SUBCUT TID.[facility]; Protocol Stop: 02/05/23 16:59 Last Admin: 02/11/22 11:52 Dose: 3 units Insulin Glargine (Insulin Glargine 300 Units/3 Ml Insuln.Pen) 5 units SUBCUT DAILY [facility] Stop: 02/11/23 13:09 Omeprazole (Omeprazole 20 Mg Capsule.Dr) 20 mg PO DAILY [facility] Stop: 02/09/23 08:59 Last Admin: 02/11/22 10:47 Dose: Not Given Oxycodone/Acetaminophen (Oxycodone/Acetaminophen 5-325 Mg Tablet) 1 tab PO Q6H PRN PRN Reason: Pain Last Admin: 02/11/22 13:22 Dose: 1 tab Polyethylene Glycol (Polyethylene Glycol 3350 17 Gm Powd.Pack) 17 gm PO DAILY [facility] Stop: 02/06/23 08:59 Last Admin: 02/11/22 08:06 Dose: Not Given Prochlorperazine Edisylate (Prochlorperazine Edisylate 10 Mg/2 Ml Vial) 5 mg IV- PUSH Q4H PRN PRN Reason: Nausea And Vomiting Stop: 02/06/23 10:23 Last Admin: 02/11/22 12:26 Dose: 5 mg Sodium Chloride (Sodium Chloride 0.9 % 10 Ml Vial.Pf) 10 ml INJECTION PRN PRN PRN Reason: Dilution Stop: 02/05/23 17:19 Last Admin: 02/07/22 14:09 Dose: 10 ml Sodium Chloride (Sodium Chloride 0.9 % 10 Ml Syringe) 10 ml IV-PUSH PRN PRN PRN Reason: Flush Stop: 02/05/23 17:19 Last Admin: 02/11/22 12:27 Dose: 10 ml Sodium Chloride (Sodium Chloride 0.9 % 10 Ml Syringe) 0 ml IV-PUSH PRN PRN PRN Reason: Flush Stop: 02/06/23 09:01 Last Admin: 02/10/22 10:58 Dose: 30 ml Sodium Chloride (Sodium Chloride 0.9 % 10 Ml Syringe) 0 ml IV-PUSH QSHIFT [facility]ICIA Stop: 02/10/23 21:59 Last Admin: 02/11/22 13:22 Dose: 10 ml Allergies No Known Allergies Allergy (Verified 02/05/22 16:45) Results Labs CBC & Chem 7: 02/09/22 06:40 02/11/22 06:07 Labs: 02/11/22 06:07 BUN 23 Creatinine 7.02 H D Radiology Impressions Impressions - last 24 hours: Impressions Chest X-Ray 02/10/22 15:58 IMPRESSION: NEW RIGHT-SIDED DIALYSIS CATHETER WITH ITS TIP AT THE SVC/RIGHT ATRIAL JUNCTION.NO PNEUMOTHORAX. Impression dictated by: Jarad Luna Jr., D.O.02/10/2022 4:23 PM Dictation Location: [place] [address] Any impression(s) listed above is documentation that was entered by the reading physician into a diagnostic report(s) for Lobo Stoner. I have reviewed the report(s) and am incorporating any findings in the treatment plan of this patient where applicable. A&P - Nephrology Assessment/Plan (1) DUONG (acute kidney injury): Assessment/Problem Details: He has DUONG likely multifactorial including sepsis induced ATN, vancomycin induced nephrotoxicity or Zosyn induced AIN with superimposed autoregulation of EGFR due to the lisinopril. He has a mildly elevated free light chain ratio likely due to the DUONG but unremarkable SPEP and serum immunofixation. He has negative lupus ANCA and hepatitis serologies. He has no evidence of obstructiveuropathy. His renal function fails to improve despite aggressive IV fluid resuscitation and stopping antibiotic and lisinopril. (2) Metabolic acidosis: Assessment/Problem Details: He has anion gap metabolic acidosis likely due to the DUONG. (3) Hypertension: Assessment/Problem Details: His blood pressure is high. He was taking lisinopril at home which is currentlyon hold. (4) Diabetes: Assessment/Problem Details: He is a prg-zapgzbk-ivczgazsv type 2 diabetes mellitus and was taking pioglitazone, metformin and glipizide at home (5) Hyperlipidemia: Assessment/Problem Details: He was taking pravastatin at home currently on hold Plan * No need for hemodialysis today. Next dialysis will be tomorrow. * Continue Lasix 40 mg p.o. twice daily * Continue amlodipine. * Continue to hold home dose of the lisinopril, metformin and pravastatin. * He has monoclonal M spike on UA. Serum and urine immunofixation is negative. We will consult hematology. Likely has MGUS. * Continue DM management as per the primary hospitalist team. The goal blood sugars between 100 to 150 mg/dL. * Check renal function daily and monitor input output Documented By: Addy Carlisle MD 02/11/22 1533 Signed By: <Electronically signed by Addy Carlisle MD> 02/11/22 1534 [facility] Work Phone: [phone]) [phone] Progress note Author Jihan Manuel [facility] February 11, 2022 1:08pm Note Date/Time February 11, 2022 1:08pm [facility] [address] [place] [address] Hospitalist Progress Note Signed Patient: Lobo Stoner MR#: [id number] : 1960 Acct:[id number] Age/Sex: 61 / M Adm Date: 2 Loc: Room: [address] [place] [address] Type: ADM IN Attending Dr: Jihan Manuel MD Copies to: ~ Date of Service: 02/11/2022 Subjective Subjective Narrative: Patient examined at bedside and currently appears comfortable. He mentioned having headache last night which he gets at home as well and has been told to have degenerative changes in his cervical spine. Denies photophobia or neck stiffness. Exam Physical Exam Vital Signs: Temp Pulse Resp BP Pulse Ox O2 Del Method O2 Flow Rate 98.3 F 85 18 168/92 H 92 L Room Air 3 02/11/22 08:00 02/11/22 08:00 02/11/22 08:00 02/11/22 08:00 02/11/22 08:00 02/11/22 08:00 02/10/22 15:50 Const Orientation: alert, awake and oriented x3 Neck Neck: no meningeal signs Resp Effort & Inspection: normal respiratory effort and able to speak in complete sentences Auscultation: no rales, no rhonchi and no wheezes Cardio Rate: regular rate Rhythm: regular rhythm Heart Sounds: S1 normal and S2 normal GI Palpation: soft, not firm, no guarding and nontender Skin Other: Packing in place at the right medial thigh area of I&D without significant drainage or surrounding erythema Neuro General: patient alert, patient awake, patient oriented x3, moves all extremities and no focal motor deficits Objective Lab Results CBC & Chem 7: 02/09/22 06:40 02/11/22 06:07 Meds Allergies and Active Meds Allergies No Known Allergies Allergy (Verified 02/05/22 16:45) Active Meds: Active Medications Generic Name Dose Route Start Last Admin Trade Name Alessioq PRN Reason Stop Dose Admin Acetaminophen 650 mg 02/05/22 16:36 Acetaminophen 325 Mg Tablet PO 02/05/23 16:35 Q4H PRN Pain Scale 1 - 5 Albuterol 2.5 mg 02/05/22 16:42 Albuterol Neb 2.5 Mg/3 Ml Vial.Neb INHALATION 02/05/23 16:41 Q2H PRN Shortness Of Breath Amlodipine Besylate 5 mg 02/05/22 17:15 02/11/22 08:06 Amlodipine 5 Mg Tablet PO 02/05/23 17:14 5 mg DAILY LETICIA Administration Dextrose 0 gm 02/05/22 16:36 Dextrose 50% In Water 25 Gm/50 Ml Syringe IV-PUSH 02/05/23 16:35 PRN PRN Hypoglycemia Docusate Sodium 200 mg 02/05/22 16:36 Docusate 100 Mg Capsule PO 02/05/23 16:35 BID PRN Constipation Furosemide 40 mg 02/08/22 16:00 02/11/22 07:57 Furosemide 40 Mg Tablet PO 02/08/23 15:59 40 mg BID@0800,1600 LETICIA Administration Glucose 0 gm 02/05/22 16:36 Dextrose 40% Gel 15 Gm Tube PO 02/05/23 16:35 PRN PRN Hypoglycemia Heparin Sodium (Porcine) 5,000 unit 02/05/22 21:00 02/11/22 10:46 Heparin 5,000 Unit/Ml Vial SUBCUT 02/05/23 20:59 Not Given Q12HR LETICIA Heparin Sodium (Porcine) 3,300 unit 02/06/22 09:02 02/10/22 10:58 Heparin 10,000 Unit/10 Ml Vial IV 02/06/23 09:01 3,300 unit PRN PRN Administration Dialysis Heparin Sodium (Porcine) 2,000 unit 02/06/22 09:02 02/08/22 11:36 Heparin 10,000 Unit/10 Ml Vial IV 02/06/23 09:01 2,000 unit PRN PRN Administration Dialysis Heparin Sodium (Porcine) 1,000 unit 02/06/22 09:02 02/08/22 11:36 Heparin 10,000 Unit/10 Ml Vial IV 02/06/23 09:01 1,000 unit PRN PRN Administration Dialysis Heparin Sodium (Porcine) 500 unit 02/10/22 22:00 02/11/22 06:22 Heparin-Lock 500 Unit/5 Ml Syringe IV-PUSH 02/10/23 21:59 Not Given QSHIFT LETICIA Hydralazine HCl 10 mg 02/05/22 16:36 Hydralazine 20 Mg/Ml Vial IV-PUSH 02/05/23 16:35 Q4H PRN if SBP > 185 Ceftriaxone Sodium 1 gm in 50 mls @ 100 mls/hr 02/05/22 17:00 02/10/22 16:56 Rocephin IV 100 mls/hr Q24H LETICIA Administration Sodium Chloride 1,000 mls @ 0 mls/hr 02/06/22 09:02 02/10/22 15:27 0.9% Sodium Chloride 1,000 Ml MISCELLANE 02/06/23 09:01 100 mls/hr .Q0M PRN Administration Dialysis As Directed Insulin Aspart 0 units 02/05/22 17:00 02/11/22 11:52 Insulin Aspart 300 Units/3 Ml Insuln.Pen SUBCUT 02/05/23 16:59 3 units TID.WM.HS LETICIA Administration Protocol Omeprazole 20 mg 02/09/22 09:00 02/11/22 10:47 Omeprazole 20 Mg Capsule.Dr PO 02/09/23 08:59 Not Given DAILY [facility] Oxycodone/Acetaminophen 1 tab 02/05/22 17:03 02/11/22 06:04 Oxycodone/Acetaminophen 5-325 Mg Tablet PO 1 tab Q6H PRN Administration Pain Polyethylene Glycol 17 gm 02/06/22 09:00 02/11/22 08:06 Polyethylene Glycol 3350 17 Gm Powd.Pack PO 02/06/23 08:59 Not Given DAILY [facility] Prochlorperazine Edisylate 5 mg 02/06/22 10:24 02/11/22 12:26 Prochlorperazine Edisylate 10 Mg/2 Ml Vial IV-PUSH 02/06/23 10:23 5 mg Q4H PRN Administration Nausea And Vomiting Sodium Chloride 10 ml 02/05/22 17:20 02/07/22 14:09 Sodium Chloride 0.9 % 10 Ml Vial.Pf INJECTION 02/05/23 17:19 10 ml PRN PRN Administration Dilution Sodium Chloride 10 ml 02/05/22 17:20 02/11/22 12:27 Sodium Chloride 0.9 % 10 Ml Syringe IV-PUSH 02/05/23 17:19 10 ml PRN PRN Administration Flush Sodium Chloride 0 ml 02/06/22 09:02 02/10/22 10:58 Sodium Chloride 0.9 % 10 Ml Syringe IV-PUSH 02/06/23 09:01 30 ml PRN PRN Administration Flush Sodium Chloride 0 ml 02/10/22 22:00 02/11/22 06:04 Sodium Chloride 0.9 % 10 Ml Syringe IV-PUSH 02/10/23 21:59 10 ml QSHIFT LETICIA Administration A&P - Hospitalist Assessment/Plan (1) DUONG (acute kidney injury): Plan 1. Oliguric acute kidney injury, suspect ATN, urine lites FeNa > 1 Ultrasound at [facility] did not reveal any hydronephrosis, DC Wade catheter Continue to avoid nephrotoxic medications, he got vancomycin/Zosyn and Toradol while at [facility]. Also he was on lisinopril at home Consulted nephrology and continues to require hemodialysis. He underwent tunneled dialysis catheter placement. Patient did mention having some urine output. 2. Right groin abscess, status post incision and drainage while in the emergency room at [facility], at that time CT scan was done which showed recently drained abscess with diffuse inflammatory subcutaneous stranding skin thickeningfrom the right groin to right upper medial thigh and right medial knee findings are flat diffuse cellulitis, no necrotizing dissecting here Cultures revealed MSSA, blood cultures remained negative Consulted general surgeon, status post repeated incision and drainage and packing bilaterally by Dr. Arriola on February 07. As per the OR note no purulent drainage was noted. Patient currently on IV ceftriaxone with plan to transition to oral antibiotic on discharge 3. Hypertension, blood pressure has been on the higher side. Currently on amlodipine, Lasix with lisinopril on hold. Will increase dose of amlodipine andcontinue IV hydralazine for accelerated hypertension 4. Diabetes mellitus type 2, oral hypoglycemic agents on hold. Continue sliding scale coverage and will add low-dose basal insulin for better diabetic control 5. DVT prophylaxis Heparin 6. Abdominal pain/nausea/vomiting, resolved. Continue PT/OT. Discharge planning depending upon his renal function and nephrology recommendation. Documented By: Jihan Manuel MD 02/11/22 1303 Signed By: <Electronically signed by Jihan Manuel MD> 02/11/22 1308 [facility] Work Phone: [phone]) [phone] Progress note Author Jihan Manuel [facility] February 10, 2022 5:23pm Note Date/Time February 10, 2022 5:23pm [facility] [address] [place] [address] Hospitalist Progress Note Signed Patient: Lobo Stoner MR#: [id number] : 1960 Acct:[id number] Age/Sex: 61 / M Adm Date: 2 Loc: Room: [address] [place] [address] Type: ADM IN Attending Dr: Jihan Manuel MD Copies to: ~ Date of Service: 02/10/2022 Subjective Subjective Narrative: Patient examined while getting hemodialysis and currently denies any complaint. He remains afebrile. Exam Physical Exam Vital Signs: Temp Pulse Resp BP Pulse Ox O2 Del Method O2 Flow Rate 98.6 F 93 H 23 166/83 H 100 Nasal Cannula 3 02/10/22 08:00 02/10/22 15:50 02/10/22 15:50 02/10/22 15:50 02/10/22 15:50 02/10/22 15:50 02/10/22 15:50 Const Orientation: alert, awake and oriented x3 Resp Effort & Inspection: normal respiratory effort and able to speak in complete sentences Auscultation: no rales, no rhonchi and no wheezes Cardio Rate: regular rate Rhythm: regular rhythm Heart Sounds: S1 normal and S2 normal GI Palpation: soft, not firm, no guarding and nontender Skin Other: Packing in place at the right medial thigh area of I&D without significant drainage or surrounding erythema Neuro General: patient alert, patient awake, patient oriented x3, moves all extremities and no focal motor deficits Objective Lab Results CBC & Chem 7: 02/09/22 06:40 02/10/22 06:06 Meds Allergies and Active Meds Allergies No Known Allergies Allergy (Verified 02/05/22 16:45) Active Meds: Active Medications Generic Name Dose Route Start Last Admin Trade Name Freq PRN Reason Stop Dose Admin Acetaminophen 650 mg 02/05/22 16:36 Acetaminophen 325 Mg Tablet PO 02/05/23 16:35 Q4H PRN Pain Scale 1 - 5 Albuterol 2.5 mg 02/05/22 16:42 Albuterol Neb 2.5 Mg/3 Ml Vial.Neb INHALATION 02/05/23 16:41 Q2H PRN Shortness Of Breath Amlodipine Besylate 5 mg 02/05/22 17:15 02/10/22 08:06 Amlodipine 5 Mg Tablet PO 02/05/23 17:14 5 mg DAILY LETICIA Administration Dextrose 0 gm 02/05/22 16:36 Dextrose 50% In Water 25 Gm/50 Ml Syringe IV-PUSH 02/05/23 16:35 PRN PRN Hypoglycemia Docusate Sodium 200 mg 02/05/22 16:36 Docusate 100 Mg Capsule PO 02/05/23 16:35 BID PRN Constipation Furosemide 40 mg 02/08/22 16:00 02/10/22 16:56 Furosemide 40 Mg Tablet PO 02/08/23 15:59 40 mg BID@0800,1600 LETICIA Administration Glucose 0 gm 02/05/22 16:36 Dextrose 40% Gel 15 Gm Tube PO 02/05/23 16:35 PRN PRN Hypoglycemia Heparin Sodium (Porcine) 5,000 unit 02/05/22 21:00 02/10/22 08:06 Heparin 5,000 Unit/Ml Vial SUBCUT 02/05/23 20:59 5,000 unit Q12HR LETICIA Administration Heparin Sodium (Porcine) 3,300 unit 02/06/22 09:02 02/10/22 10:58 Heparin 10,000 Unit/10 Ml Vial IV 02/06/23 09:01 3,300 unit PRN PRN Administration Dialysis Heparin Sodium (Porcine) 2,000 unit 02/06/22 09:02 02/08/22 11:36 Heparin 10,000 Unit/10 Ml Vial IV 02/06/23 09:01 2,000 unit PRN PRN Administration Dialysis Heparin Sodium (Porcine) 1,000 unit 02/06/22 09:02 02/08/22 11:36 Heparin 10,000 Unit/10 Ml Vial IV 02/06/23 09:01 1,000 unit PRN PRN Administration Dialysis Heparin Sodium (Porcine) 500 unit 02/10/22 22:00 Heparin-Lock 500 Unit/5 Ml Syringe IV-PUSH 02/10/23 21:59 QSHIFT [facility] Hydralazine HCl 10 mg 02/05/22 16:36 Hydralazine 20 Mg/Ml Vial IV-PUSH 02/05/23 16:35 Q4H PRN if SBP > 185 Ceftriaxone Sodium 1 gm in 50 mls @ 100 mls/hr 02/05/22 17:00 02/10/22 16:56 Rocephin IV 100 mls/hr Q24H LETICIA Administration Sodium Chloride 1,000 mls @ 0 mls/hr 02/06/22 09:02 02/10/22 15:27 0.9% Sodium Chloride 1,000 Ml MISCELLANE 02/06/23 09:01 100 mls/hr .Q0M PRN Administration Dialysis As Directed Insulin Aspart 0 units 02/05/22 17:00 02/10/22 16:57 Insulin Aspart 300 Units/3 Ml Insuln.Pen SUBCUT 02/05/23 16:59 Not Given TID.WM.[facility] Protocol Omeprazole 20 mg 02/09/22 09:00 02/10/22 08:06 Omeprazole 20 Mg Capsule. PO 02/09/23 08:59 20 mg DAILY LETICIA Administration Oxycodone/Acetaminophen 1 tab 02/05/22 17:03 02/10/22 14:40 Oxycodone/Acetaminophen 5-325 Mg Tablet PO 1 tab Q6H PRN Administration Pain Polyethylene Glycol 17 gm 02/06/22 09:00 02/10/22 08:06 Polyethylene Glycol 3350 17 Gm Powd.Pack PO 02/06/23 08:59 17 gm DAILY LETICIA Administration Prochlorperazine Edisylate 5 mg 02/06/22 10:24 02/10/22 09:27 Prochlorperazine Edisylate 10 Mg/2 Ml Vial IV-PUSH 02/06/23 10:23 5 mg Q4H PRN Administration Nausea And Vomiting Sodium Chloride 10 ml 02/05/22 17:20 02/07/22 14:09 Sodium Chloride 0.9 % 10 Ml Vial.Pf INJECTION 02/05/23 17:19 10 ml PRN PRN Administration Dilution Sodium Chloride 10 ml 02/05/22 17:20 02/10/22 10:58 Sodium Chloride 0.9 % 10 Ml Syringe IV-PUSH 02/05/23 17:19 10 ml PRN PRN Administration Flush Sodium Chloride 0 ml 02/06/22 09:02 02/10/22 10:58 Sodium Chloride 0.9 % 10 Ml Syringe IV-PUSH 02/06/23 09:01 30 ml PRN PRN Administration Flush Sodium Chloride 0 ml 02/10/22 22:00 Sodium Chloride 0.9 % 10 Ml Syringe IV-PUSH 02/10/23 21:59 QSHIFT [facility] A&P - Hospitalist Assessment/Plan (1) DUONG (acute kidney injury): Plan 1. Oliguric acute kidney injury, suspect ATN, urine lites FeNa > 1 Ultrasound at [facility] did not reveal any hydronephrosis, DC Wade catheter Continue to avoid nephrotoxic medications, he got vancomycin/Zosyn and Toradol while at [facility]. Also he was on lisinopril at home Consulted nephrology and continues to require hemodialysis. He underwent tunneled dialysis catheter placement earlier today. 2. Right groin abscess, status post incision and drainage while in the emergency room at [facility], at that time CT scan was done which showed recently drained abscess with diffuse inflammatory subcutaneous stranding skin thickeningfrom the right groin to right upper medial thigh and right medial knee findings are flat diffuse cellulitis, no necrotizing dissecting here Cultures revealed MSSA, blood cultures remained negative Consulted general surgeon, status post repeated incision and drainage and packing bilaterally by Dr. Arriola on February 07. As per the OR note no purulent drainage was noted. Patient currently on IV ceftriaxone 3. Hypertension, blood pressure better controlled, could be due to underlying kidney dysfunction, started hydralazine and Norvasc, continue to hold lisinopril 4. Diabetes mellitus type 2, added sliding scale, glucose well controlled 5. DVT prophylaxis Heparin 6. Abdominal pain/nausea/vomiting, could be due to uremia. X-ray of the abdomen without acute findings. Liver enzymes and grading enzymes normal Documented By: Jihan Manuel MD 02/10/221717 Signed By: <Electronically signed by Jihan Manuel MD> 02/10/22 67[address] [facility] Work Phone: [phone]) [phone] [facility] Progress note Author Addy Carlisle [facility] February 10, 2022 12:55pm Note Date/Time February 10, 2022 11:24am [facility] [address] [place] [address] Nephrology Progress Note Signed Patient: Lobo Stoner MR#: [id number] : 1960 Acct:[id number] Age/Sex: 61 / M Adm Date: 2 Loc: Room: [address] [place] [address] Type: ADM IN Attending Dr: Jihan Manuel MD Copies to: ~ Date of Service: 02/10/2022 Subjective Subjective Narrative: Mr. Stoner is a 61 years old male with medical history of diabetes mellitus hypertension and dyslipidemia is transferred from [facility] for DUONG. Hewas initially admitted on January 31 due to right groin abscess at [facility].? Patient failed outpatient clindamycin therapy.? Emergency room did incision and drainage.? He was started on vancomycin and Zosyn.? Wound culture showed MSSA.? Antibiotics were switched to Rocephin.? Blood cultures remain negative.? General surgery evaluated the patient recommended conservative management.? Patient hospital course was complicated by DUONG. On admission on January 31 patient's creatinine was 0.95, on creatinine went up to 2.9, then to 5.4 and today to 7.9.? During the hospitalization he also got Toradol.? Lisinopril was stopped.? As mentioned above vancomycin Zosyn was switched to Rocephin therapy.? Kidney ultrasound was done which showed no hydronephrosis. Patient reported that he was seen by the telemetry nephrology. Due to his worsening renal function it was [facility]. Nephrology is consulted for DUONG and metabolic acidosis management. Interval history Patient was seen and examined at bedside during hemodialysis.. Denies any chestpain palpation cough nausea vomiting or shortness of breath. Exam Physical Exam Vital Signs: Temp Pulse Resp BP Pulse Ox O2 Del Method 98.6 F 80 16 154/85 H 94 L Room Air 02/10/22 08:00 02/10/22 11:11 02/10/22 09:15 02/10/22 11:11 02/10/22 08:00 02/10/22 08:00 Narrative: General: Appears comfortable and not in distress Heart: S1-S2, no rub Lung: Bilateral air entry, no wheezing or crackles Abdomen: Soft, positive bowel sounds Extremities: No edema, no cyanosis Head: Atraumatic, normocephalic Ear: No gross hearing Deficit or external ear redness Eyes: No pallor or redness Neck: No JVD or visible mass Skin: No rashes or bruises [employer]: Awake,Alert, following simple command Musculoskeletal: No joint swelling or limitation of movement Psychiatric: Cooperative, normal mood and affect Objective Intake and Output I&O: Intake & Output 02/07/22 02/08/22 02/09/22 02/10/22 23:59 23:59 23:59 23:59 Intake Total 1550 / 1550 1550 / 1950 1640 / 1640 1180 / 1180 Output Total 2843 / 2843 2602 / 2917 1715 / 1715 400 / 400 Balance -1293 / -1293 -1052 / -967 -75 / -75 780 / 780 Weight 116.3 kg 113.6 kg 108.1 kg 106.1 kg Meds and Allergies Meds: Active Medications Acetaminophen (Acetaminophen 325 Mg Tablet) 650 mg PO Q4H PRN PRN Reason: Pain Scale 1 - 5 Stop: 02/05/23 16:35 Albuterol (Albuterol Neb 2.5 Mg/3 Ml Vial.Neb) 2.5 mg INHALATION Q2H PRN PRN Reason: Shortness Of Breath Stop: 02/05/23 16:41 Amlodipine Besylate (Amlodipine 5 Mg Tablet) 5 mg PO DAILY LETICIA Stop: 02/05/23 17:14 Last Admin: 02/10/22 08:06 Dose: 5 mg Dextrose (Dextrose 50% In Water 25 Gm/50 Ml Syringe) 0 gm IV-PUSH PRN PRN PRN Reason: Hypoglycemia Stop: 02/05/23 16:35 Docusate Sodium (Docusate 100 Mg Capsule) 200 mg PO BID PRN PRN Reason: Constipation Stop: 02/05/23 16:35 Furosemide (Furosemide 40 Mg Tablet) 40 mg PO BID@0800,1600 [facility] Stop: 02/08/23 15:59 Last Admin: 02/10/22 08:06 Dose: 40 mg Glucose (Dextrose 40% Gel 15 Gm Tube) 0 gm PO PRN PRN PRN Reason: Hypoglycemia Stop: 02/05/23 16:35 Heparin Sodium (Porcine) (Heparin 5,000 Unit/Ml Vial) 5,000 unit SUBCUT Q12HR LETICIA Stop: 02/05/23 20:59 Last Admin: 02/10/22 08:06 Dose: 5,000 unit Heparin Sodium (Porcine) (Heparin 10,000 Unit/10 Ml Vial) 3,300 unit IV PRN PRN PRN Reason: Dialysis Stop: 02/06/23 09:01 Last Admin: 02/10/22 10:58 Dose: 3,300 unit Heparin Sodium (Porcine) (Heparin 10,000 Unit/10 Ml Vial) 2,000 unit IV PRN PRN PRN Reason: Dialysis Stop: 02/06/23 09:01 Last Admin: 02/08/22 11:36 Dose: 2,000 unit Heparin Sodium (Porcine) (Heparin 10,000 Unit/10 Ml Vial) 1,000 unit IV PRN PRN PRN Reason: Dialysis Stop: 02/06/23 09:01 Last Admin: 02/08/22 11:36 Dose: 1,000 unit Hydralazine HCl (Hydralazine 20 Mg/Ml Vial) 10 mg IV-PUSH Q4H PRN PRN Reason: if SBP > 185 Stop: 02/05/23 16:35 Ceftriaxone Sodium (Rocephin) 1 gm in 50 mls @ 100 mls/hr IV Q24H LETICIA Last Admin: 02/09/22 16:54 Dose: 100 mls/hr Sodium Chloride (0.9% Sodium Chloride 1,000 Ml) 1,000 mls @ 0 mls/hr MISCELLANE.Q0M PRN PRN Reason: Dialysis Stop: 02/06/23 09:01 Last Infusion: 02/10/22 10:59 Dose: Infused Insulin Aspart (Insulin Aspart 300 Units/3 Ml Insuln.Pen) 0 units SUBCUT TID.WM.[facility]; Protocol Stop: 02/05/23 16:59 Last Admin: 02/10/22 08:06 Dose: 1 units Omeprazole (Omeprazole 20 Mg Capsule.Dr) 20 mg PO DAILY [facility] Stop: 02/09/23 08:59 Last Admin: 02/10/22 08:06 Dose: 20 mg Oxycodone/Acetaminophen (Oxycodone/Acetaminophen 5-325 Mg Tablet) 1 tab PO Q6H PRN PRN Reason: Pain Last Admin: 02/10/22 04:23 Dose: 1 tab Polyethylene Glycol (Polyethylene Glycol 3350 17 Gm Powd.Pack) 17 gm PO DAILY [facility] Stop: 02/06/23 08:59 Last Admin: 02/10/22 08:06 Dose: 17 gm Prochlorperazine Edisylate (Prochlorperazine Edisylate 10 Mg/2 Ml Vial) 5 mg IV- PUSH Q4H PRN PRN Reason: Nausea And Vomiting Stop: 02/06/23 10:23 Last Admin: 02/10/22 09:27 Dose: 5 mg Sodium Chloride (Sodium Chloride 0.9 % 10 Ml Vial.Pf) 10 ml INJECTION PRN PRN PRN Reason: Dilution Stop: 02/05/23 17:19 Last Admin: 02/07/22 14:09 Dose: 10 ml Sodium Chloride (Sodium Chloride 0.9 % 10 Ml Syringe) 10 ml IV-PUSH PRN PRN PRN Reason: Flush Stop: 02/05/23 17:19 Last Admin: 02/10/22 10:58 Dose: 10 ml Sodium Chloride (Sodium Chloride 0.9 % 10 Ml Syringe) 0 ml IV-PUSH PRN PRN PRN Reason: Flush Stop: 02/06/23 09:01 Last Admin: 02/10/22 10:58 Dose: 30 ml Allergies No Known Allergies Allergy (Verified 02/05/22 16:45) Results Labs CBC & Chem 7: 02/09/22 06:40 02/10/22 06:06 Labs: 02/10/22 06:06 BUN 32 H Creatinine 9.54 H D Radiology Impressions Impressions - last 24 hours: Any impression(s) listed above is documentation that was entered by the reading physician into a diagnostic report(s) for Lobo Stoner. I have reviewed the report(s) and am incorporating any findings in the treatment plan of this patient where applicable. A&P - Nephrology Assessment/Plan (1) DUONG (acute kidney injury): Assessment/Problem Details: He has DUONG likely multifactorial including sepsis induced ATN, vancomycin induced nephrotoxicity or Zosyn induced AIN with superimposed autoregulation of EGFR due to the lisinopril. He has a mildly elevated free light chain ratio likely due to the DUONG but unremarkable SPEP and serum immunofixation. He has negative lupus ANCA and hepatitis serologies. He has no evidence of obstructiveuropathy. His renal function fails to improve despite aggressive IV fluid resuscitation and stopping antibiotic and lisinopril. (2) Metabolic acidosis: Assessment/Problem Details: He has anion gap metabolic acidosis likely due to the DUONG. (3) Hypertension: Assessment/Problem Details: His blood pressure is high. He was taking lisinopril at home which is currentlyon hold. (4) Diabetes: Assessment/Problem Details: He is a [id number] type 2 diabetes mellitus and was taking pioglitazone, metformin and glipizide at home (5) Hyperlipidemia: Assessment/Problem Details: He was taking pravastatin at home currently on hold Plan * Hemodialysis today as ordered. He has no sign of renal recovery yet. * Will consult vascular surgery for HD tunnel catheter placement. * Continue Lasix 40 mg p.o. twice daily * Continue amlodipine. * Continue to hold home dose of the lisinopril, metformin and pravastatin. * Will follow UPEP and urine immunofixation * Continue DM management as per the primary hospitalist team. The goal blood sugars between 100 to 150 mg/dL. * Check renal function daily and monitor input output Documented By: Addy Carlisle MD 02/10/22 1123 Signed By: <Electronically signed by Addy Carlisle MD> 02/10/22 1[address] [facility] Work Phone: [phone]) 108-187609-25-2022 Progress note Author Edith Og [facility] February 09, 2022 1:44pm Note Date/Time February 09, 2022 1:44pm [facility] [address] [place] [address] Hospitalist Progress Note Signed Patient: Lobo Stoner MR#: [id number] : 1960 Acct:[id number] Age/Sex: 61 / M Adm Date: 2 Loc: Room: [address] [place] [address] Type: ADM IN Attending Dr: Edith Og MD Copies to: ~ Date of Service: 02/09/2022 Subjective Subjective Narrative: Patient has been seen and examined. Nausea slightly better, denies abdominal pain. Tolerating p.o. intake but stillappetite is quite poor. Denies any chest pain or shortness of breath any palpitations any dizziness Right groin area packed with surrounding induration Physical exam: General -awake, alert, oriented ?3, not in acute distress Cardiovascular -S1 with S2, no murmurs, no rubs, no gallops Pulmonary - clear to auscultation bilaterally Gastrointestinal - abdomen is soft, distended, upper tenderness noted but no rigidity no rebound, colostomy bag noted with brown stools Extremities -no edema Neurological -no focal neurological dysfunction noted Right groin area, status post incision and drainage with packing by Dr. Arriola on February 07 Right IJ dialysis catheter noted Exam Physical Exam Vital Signs: Temp Pulse Resp BP Pulse Ox O2 Del Method 37.1 C 80 16 148/82 H 94 L Room Air 02/09/22 08:00 02/09/22 11:56 02/09/22 11:56 02/09/22 11:56 02/09/22 11:56 02/09/22 11:56 Objective Lab Results CBC & Chem 7: 02/09/22 06:40 02/09/22 06:40 Meds Allergies and Active Meds Allergies No Known Allergies Allergy (Verified 02/05/22 16:45) Active Meds: Active Medications Generic Name Dose Route Start Last Admin Trade Name Sourav PRN Reason Stop Dose Admin Acetaminophen 650 mg 02/05/22 16:36 Acetaminophen 325 Mg Tablet PO 02/05/23 16:35 Q4H PRN Pain Scale 1 - 5 Albuterol 2.5 mg 02/05/22 16:42 Albuterol Neb 2.5 Mg/3 Ml Vial.Neb INHALATION 02/05/23 16:41 Q2H PRN Shortness Of Breath Amlodipine Besylate 5 mg 02/05/22 17:15 02/09/22 09:19 Amlodipine 5 Mg Tablet PO 02/05/23 17:14 5 mg DAILY LETICIA Administration Dextrose 0 gm 02/05/22 16:36 Dextrose 50% In Water 25 Gm/50 Ml Syringe IV-PUSH 02/05/23 16:35 PRN PRN Hypoglycemia Docusate Sodium 200 mg 02/05/22 16:36 Docusate 100 Mg Capsule PO 02/05/23 16:35 BID PRN Constipation Furosemide 40 mg 02/08/22 16:00 02/09/22 09:19 Furosemide 40 Mg Tablet PO 02/08/23 15:59 40 mg BID@0800,1600 LETICIA Administration Glucose 0 gm 02/05/22 16:36 Dextrose 40% Gel 15 Gm Tube PO 02/05/23 16:35 PRN PRN Hypoglycemia Heparin Sodium (Porcine) 5,000 unit 02/05/22 21:00 02/09/22 09:19 Heparin 5,000 Unit/Ml Vial SUBCUT 02/05/23 20:59 5,000 unit Q12HR LETICIA Administration Heparin Sodium (Porcine) 3,300 unit 02/06/22 09:02 02/08/22 11:35 Heparin 10,000 Unit/10 Ml Vial IV 02/06/23 09:01 2,200 unit PRN PRN Administration Dialysis Heparin Sodium (Porcine) 2,000 unit 02/06/22 09:02 02/08/22 11:36 Heparin 10,000 Unit/10 Ml Vial IV 02/06/23 09:01 2,000 unit PRN PRN Administration Dialysis Heparin Sodium (Porcine) 1,000 unit 02/06/22 09:02 02/08/22 11:36 Heparin 10,000 Unit/10 Ml Vial IV 02/06/23 09:01 1,000 unit PRN PRN Administration Dialysis Hydralazine HCl 10 mg 02/05/22 16:36 Hydralazine 20 Mg/Ml Vial IV-PUSH 02/05/23 16:35 Q4H PRN if SBP > 185 Ceftriaxone Sodium 1 gm in 50 mls @ 100 mls/hr 02/05/22 17:00 02/08/22 16:47 Rocephin IV 100 mls/hr Q24H LETICIA Administration Sodium Chloride 1,000 mls @ 0 mls/hr 02/06/22 09:02 02/08/22 11:36 0.9% Sodium Chloride 1,000 Ml MISCELLANE 02/06/23 09:01 999 mls/hr .Q0M PRN Administration Dialysis As Directed Insulin Aspart 0 units 02/05/22 17:00 02/09/22 12:55 Insulin Aspart 300 Units/3 Ml Insuln.Pen SUBCUT 02/05/23 16:59 2 units TID.WM.HS LETICIA Administration Protocol Omeprazole 20 mg 02/09/22 09:00 02/09/22 09:19 Omeprazole 20 Mg Capsule. PO 02/09/23 08:59 20 mg DAILY LETICIA Administration Oxycodone/Acetaminophen 1 tab 02/05/22 17:03 02/09/22 01:56 Oxycodone/Acetaminophen 5-325 Mg Tablet PO 1 tab Q6H PRN Administration Pain Polyethylene Glycol 17 gm 02/06/22 09:00 02/09/22 09:19 Polyethylene Glycol 3350 17 Gm Powd.Pack PO 02/06/23 08:59 Not Given DAILY LETICIA Prochlorperazine Edisylate 5 mg 02/06/22 10:24 02/09/22 06:48 Prochlorperazine Edisylate 10 Mg/2 Ml Vial IV-PUSH 02/06/23 10:23 5 mg Q4H PRN Administration Nausea And Vomiting Sodium Chloride 10 ml 02/05/22 17:20 02/07/22 14:09 Sodium Chloride 0.9 % 10 Ml Vial.Pf INJECTION 02/05/23 17:19 10 ml PRN PRN Administration Dilution Sodium Chloride 10 ml 02/05/22 17:20 02/06/22 22:15 Sodium Chloride 0.9 % 10 Ml Syringe IV-PUSH 02/05/23 17:19 10 ml PRN PRN Administration Flush Sodium Chloride 0 ml 02/06/22 09:02 02/08/22 11:36 Sodium Chloride 0.9 % 10 Ml Syringe IV-PUSH 02/06/23 09:01 40 ml PRN PRN Administration Flush A&P - Hospitalist Assessment/Plan (1) DUONG (acute kidney injury): Plan 1. Oliguric acute kidney injury, suspect ATN, urine lites FeNa > 1 Ultrasound at [facility] did not reveal any hydronephrosis, DC Wade catheter Continue to avoid nephrotoxic medications, he got vancomycin/Zosyn and Toradol while at [facility]. Also he was on lisinopril at home Consulted nephrology, underwent dialysis x2 cycles 2. Right groin abscess, status post incision and drainage while in the emergency room at [facility], at that time CT scan was done which showed recently drained abscess with diffuse inflammatory subcutaneous stranding skin thickeningfrom the right groin to right upper medial thigh and right medial knee findings are flat diffuse cellulitis, no necrotizing dissecting here On physical exam no signs of necrotizing fasciitis Cultures revealed MSSA, blood cultures remained negative Consulted general surgeon, status post repeated incision and drainage and packing bilaterally by Dr. Arriola on February 07 3. Hypertension, blood pressure better controlled, could be due to underlying kidney dysfunction, started hydralazine and Norvasc, continue to hold lisinopril 4. Diabetes mellitus type 2, added sliding scale, glucose well controlled 5. DVT prophylaxis Heparin 6. Abdominal pain/nausea/vomiting, could be due to uremia. X-ray of the abdomen without acute findings. Liver enzymes and grading enzymes normal Documented By: Edith Og MD 02/09/221342 Signed By: <Electronically signed by Edith Og MD> 02/09/22 1344 [facility] Work Phone: [phone]) 217-333509-25-2022 Progress note Author Edith Og [facility] February 09, 2022 1:43pm Note Date/Time February 08, 2022 10:25am [facility] [address] [place] [address] Hospitalist Progress Note Signed Patient: Lobo Stoner MR#: [id number] : 1960 Acct:[id number] Age/Sex: 61 / M Adm Date: 2 Loc: 3T Room: [address] [place] [address] Type: ADM IN Attending Dr: Edith Og MD Copies to: ~ Date of Service: 02/08/2022 Subjective Subjective Narrative: Patient has been seen and examined. Underwent dialysis today. Nausea improving. Denies any other complaints. Physical exam: General -awake, alert, oriented ?3, not in acute distress Cardiovascular -S1 with S2, no murmurs, no rubs, no gallops Pulmonary - clear to auscultation bilaterally Gastrointestinal - abdomen is soft, distended, upper tenderness noted but no rigidity no rebound, colostomy bag noted with brown stools Extremities -no edema Neurological -no focal neurological dysfunction noted Right groin area, status post incision and drainage with packing by Dr. Arriola on February 07 Exam Physical Exam Vital Signs: Temp Pulse Resp BP Pulse Ox O2 Del Method 37.3 C H 94 H 16 160/88 H 95 Room Air 02/08/22 09:37 02/08/22 09:37 02/08/22 09:37 02/08/22 09:37 02/08/22 09:37 02/08/22 09:37 Objective Lab Results CBC & Chem 7: 02/09/22 06:40 02/09/22 06:40 Microbiology Results Microbiology 02/05/22 17:39 Urine - Clean-Voided Midstream Urine Culture - Final No Growth 2 Days Meds Allergies and Active Meds Allergies No Known Allergies Allergy (Verified 02/05/22 16:45) Active Meds: Active Medications Generic Name Dose Route Start Last Admin Trade Name Freq PRN Reason Stop Dose Admin Acetaminophen 650 mg 02/05/22 16:36 Acetaminophen 325 Mg Tablet PO 02/05/23 16:35 Q4H PRN Pain Scale 1 - 5 Albuterol 2.5 mg 02/05/22 16:42 Albuterol Neb 2.5 Mg/3 Ml Vial.Neb INHALATION 02/05/23 16:41 Q2H PRN Shortness Of Breath Amlodipine Besylate 5 mg 02/05/22 17:15 02/07/22 14:09 Amlodipine 5 Mg Tablet PO 02/05/23 17:14 5 mg DAILY LETICIA Administration Dextrose 0 gm 02/05/22 16:36 Dextrose 50% In Water 25 Gm/50 Ml Syringe IV-PUSH 02/05/23 16:35 PRN PRN Hypoglycemia Docusate Sodium 200 mg 02/05/22 16:36 Docusate 100 Mg Capsule PO 02/05/23 16:35 BID PRN Constipation Furosemide 40 mg 02/08/22 16:00 Furosemide 40 Mg Tablet PO 02/08/23 15:59 BID@0800,1600 LETICIA Glucose 0 gm 02/05/22 16:36 Dextrose 40% Gel 15 Gm Tube PO 02/05/23 16:35 PRN PRN Hypoglycemia Heparin Sodium (Porcine) 5,000 unit 02/05/22 21:00 02/07/22 21:30 Heparin 5,000 Unit/Ml Vial SUBCUT 02/05/23 20:59 5,000 unit Q12HR LETICIA Administration Heparin Sodium (Porcine) 3,300 unit 02/06/22 09:02 02/07/22 09:56 Heparin 10,000 Unit/10 Ml Vial IV 02/06/23 09:01 2,200 unit PRN PRN Administration Dialysis Heparin Sodium (Porcine) 2,000 unit 02/06/22 09:02 02/07/22 09:57 Heparin 10,000 Unit/10 Ml Vial IV 02/06/23 09:01 2,000 unit PRN PRN Administration Dialysis Heparin Sodium (Porcine) 1,000 unit 02/06/22 09:02 02/07/22 09:57 Heparin 10,000 Unit/10 Ml Vial IV 02/06/23 09:01 1,000 unit PRN PRN Administration Dialysis Hydralazine HCl 10 mg 02/05/22 16:36 Hydralazine 20 Mg/Ml Vial IV-PUSH 02/05/23 16:35 Q4H PRN if SBP > 185 Ceftriaxone Sodium 1 gm in 50 mls @ 100 mls/hr 02/05/22 17:00 02/07/22 17:19 Rocephin IV 100 mls/hr Q24H LETICIA Administration Sodium Chloride 1,000 mls @ 0 mls/hr 02/06/22 09:02 02/07/22 14:20 0.9% Sodium Chloride 1,000 Ml MISCELLANE 02/06/23 09:01 0 mls/hr .Q0M PRN Infusion Dialysis As Directed Insulin Aspart 0 units 02/05/22 17:00 02/08/22 08:43 Insulin Aspart 300 Units/3 Ml Insuln.Pen SUBCUT 02/05/23 16:59 Not Given TID.WM.HS [facility] Protocol Oxycodone/Acetaminophen 1 tab 02/05/22 17:03 02/08/22 05:02 Oxycodone/Acetaminophen 5-325 Mg Tablet PO 1 tab Q6H PRN Administration Pain Polyethylene Glycol 17 gm 02/06/22 09:00 02/07/22 14:10 Polyethylene Glycol 3350 17 Gm Powd.Pack PO 02/06/23 08:59 Not Given DAILY LETICIA Prochlorperazine Edisylate 5 mg 02/06/22 10:24 02/08/22 03:41 Prochlorperazine Edisylate 10 Mg/2 Ml Vial IV-PUSH 02/06/23 10:23 5 mg Q4H PRN Administration Nausea And Vomiting Sodium Chloride 10 ml 02/05/22 17:20 02/07/22 14:09 Sodium Chloride 0.9 % 10 Ml Vial.Pf INJECTION 02/05/23 17:19 10 ml PRN PRN Administration Dilution Sodium Chloride 10 ml 02/05/22 17:20 02/06/22 22:15 Sodium Chloride 0.9 % 10 Ml Syringe IV-PUSH 02/05/23 17:19 10 ml PRN PRN Administration Flush Sodium Chloride 0 ml 02/06/22 09:02 02/08/22 03:42 Sodium Chloride 0.9 % 10 Ml Syringe IV-PUSH 02/06/23 09:01 10 ml PRN PRN Administration Flush A&P - Hospitalist Assessment/Plan (1) DUONG (acute kidney injury): Plan 1. Oliguric acute kidney injury, suspect ATN, urine lites FeNa > 1 Ultrasound at [facility] did not reveal any hydronephrosis, he has Wade catheter with clear urine, draining 200 cc overnight Continue to avoid nephrotoxic medications, he got vancomycin/Zosyn and Toradol while at [facility]. Also he was on lisinopril at home Consulted nephrology, undergoing dialysis 2. Right groin abscess, status post incision and drainage while in the emergency room at [facility], at that time CT scan was done which showed recently drained abscess with diffuse inflammatory subcutaneous stranding skin thickeningfrom the right groin to right upper medial thigh and right medial knee findings are flat diffuse cellulitis, no necrotizing dissecting here On physical exam no signs of necrotizing fasciitis Cultures revealed MSSA, blood cultures remained negative Consulted general surgeon, status post repeated incision and drainage and packing bilaterally by Dr. Arriola on February 07 3. Hypertension, blood pressure better controlled, could be due to underlying kidney dysfunction, started hydralazine and Norvasc, continue to hold lisinopril 4. Diabetes mellitus type 2, added sliding scale, glucose well controlled 5. DVT prophylaxis Heparin 6. Abdominal pain/nausea/vomiting, could be due to uremia. X-ray of the abdomen without acute findings. Liver enzymes and grading enzymes normal Documented By: Edith Og MD 02/08/22 1023 Signed By: <Electronically signed by Edith Og MD> 02/09/22 1343 [facility] Work Phone: [phone] 507-688109-25-2022 Progress note Author Addy Carlisle [facility] February 09, 2022 11:54am Note Date/Time February 09, 2022 11:51am [facility] [address] [place] [address] Nephrology Progress Note Signed Patient: Lobo Stoner MR#: [id number] : 1960 Acct:[id number] Age/Sex: 61 / M Adm Date: 2 Loc: Room: [address] [place] [address] Type: ADM IN Attending Dr: Edith Og MD Copies to: ~ Date of Service: 02/09/2022 Subjective Subjective Narrative: Mr. Stoner is a 61 years old male with medical history of diabetes mellitus hypertension and dyslipidemia is transferred from [facility] for DUONG. Hewas initially admitted on January 31 due to right groin abscess at [facility].? Patient failed outpatient clindamycin therapy.? Emergency room did incision and drainage.? He was started on vancomycin and Zosyn.? Wound culture showed MSSA.? Antibiotics were switched to Rocephin.? Blood cultures remain negative.? General surgery evaluated the patient recommended conservative management.? Patient hospital course was complicated by DUONG. On admission on January 31 patient's creatinine was 0.95, on creatinine went up to 2.9, then to 5.4 and today to 7.9.? During the hospitalization he also got Toradol.? Lisinopril was stopped.? As mentioned above vancomycin Zosyn was switched to Rocephin therapy.? Kidney ultrasound was done which showed no hydronephrosis. Patient reported that he was seen by the telemetry nephrology. Due to his worsening renal function it was recommended to transfer to [facility] for possible dialysis. Nephrology is consulted for DUONG and metabolic acidosis management. Interval history Patient was seen examined at bedside. Denies any chest pain palpation cough nausea vomiting or shortness of breath. He requested that his Wade catheter can be removed. Exam Physical Exam Vital Signs: Temp Pulse Resp BP Pulse Ox O2 Del Method 98.7 F 87 16 145/78 H 92 L Room Air 02/09/22 08:00 02/09/22 08:00 02/09/22 08:00 02/09/22 08:00 02/09/22 08:00 02/09/22 08:00 Narrative: General: Appears comfortable and not in distress Heart: S1-S2, no rub Lung: Bilateral air entry, no wheezing or crackles Abdomen: Soft, positive bowel sounds Extremities: No edema, no cyanosis Head: Atraumatic, normocephalic Ear: No gross hearing Deficit or external ear redness Eyes: No pallor or redness Neck: No JVD or visible mass Skin: No rashes or bruises [employer] OFFICER: Awake,Alert, following simple command Musculoskeletal: No joint swelling or limitation of movement Psychiatric: Cooperative, normal mood and affect Objective Intake and Output I&O: Intake & Output 02/06/22 02/07/22 02/08/22 02/09/22 23:59 23:59 23:59 23:59 Intake Total 1950 / 1950 1550 / 1550 1100 / 1500 820 / 820 Output Total 701 / 701 2843 / 2843 2602 / 2917 915 / 915 Balance 1249 / 1249 -1293 / -1293 -1502 / -1417 -95 / -95 Weight 114.6 kg 116.3 kg 113.6 kg 108.1 kg Meds and Allergies Meds: Active Medications Acetaminophen (Acetaminophen 325 Mg Tablet) 650 mg PO Q4H PRN PRN Reason: Pain Scale 1 - 5 Stop: 02/05/23 16:35 Albuterol (Albuterol Neb 2.5 Mg/3 Ml Vial.Neb) 2.5 mg INHALATION Q2H PRN PRN Reason: Shortness Of Breath Stop: 02/05/23 16:41 Amlodipine Besylate (Amlodipine 5 Mg Tablet) 5 mg PO DAILY LETICIA Stop: 02/05/23 17:14 Last Admin: 02/09/22 09:19 Dose: 5 mg Dextrose (Dextrose 50% In Water 25 Gm/50 Ml Syringe) 0 gm IV-PUSH PRN PRN PRN Reason: Hypoglycemia Stop: 02/05/23 16:35 Docusate Sodium (Docusate 100 Mg Capsule) 200 mg PO BID PRN PRN Reason: Constipation Stop: 02/05/23 16:35 Furosemide (Furosemide 40 Mg Tablet) 40 mg PO BID@0800,1600 LETICIA Stop: 02/08/23 15:59 Last Admin: 02/09/22 09:19 Dose: 40 mg Glucose (Dextrose 40% Gel 15 Gm Tube) 0 gm PO PRN PRN PRN Reason: Hypoglycemia Stop: 02/05/23 16:35 Heparin Sodium (Porcine) (Heparin 5,000 Unit/Ml Vial) 5,000 unit SUBCUT Q12HR LETICIA Stop: 02/05/23 20:59 Last Admin: 02/09/22 09:19 Dose: 5,000 unit Heparin Sodium (Porcine) (Heparin 10,000 Unit/10 Ml Vial) 3,300 unit IV PRN PRN PRN Reason: Dialysis Stop: 02/06/23 09:01 Last Admin: 02/08/22 11:35 Dose: 2,200 unit Heparin Sodium (Porcine) (Heparin 10,000 Unit/10 Ml Vial) 2,000 unit IV PRN PRN PRN Reason: Dialysis Stop: 02/06/23 09:01 Last Admin: 02/08/22 11:36 Dose: 2,000 unit Heparin Sodium (Porcine) (Heparin 10,000 Unit/10 Ml Vial) 1,000 unit IV PRN PRN PRN Reason: Dialysis Stop: 02/06/23 09:01 Last Admin: 02/08/22 11:36 Dose: 1,000 unit Hydralazine HCl (Hydralazine 20 Mg/Ml Vial) 10 mg IV-PUSH Q4H PRN PRN Reason: if SBP > 185 Stop: 02/05/23 16:35 Ceftriaxone Sodium (Rocephin) 1 gm in 50 mls @ 100 mls/hr IV Q24H [facility] Last Admin: 02/08/22 16:47 Dose: 100 mls/hr Sodium Chloride (0.9% Sodium Chloride 1,000 Ml) 1,000 mls @ 0 mls/hr MISCELLANE.Q0M PRN PRN Reason: Dialysis Stop: 02/06/23 09:01 Last Admin: 02/08/22 11:36 Dose: 999 mls/hr Insulin Aspart (Insulin Aspart 300 Units/3 Ml Insuln.Pen) 0 units SUBCUT TID.WM.HS [facility]; Protocol Stop: 02/05/23 16:59 Last Admin: 02/09/22 09:19 Dose: Not Given Omeprazole (Omeprazole 20 Mg Capsule.Dr) 20 mg PO DAILY [facility] Stop: 02/09/23 08:59 Last Admin: 02/09/22 09:19 Dose: 20 mg Oxycodone/Acetaminophen (Oxycodone/Acetaminophen 5-325 Mg Tablet) 1 tab PO Q6H PRN PRN Reason: Pain Last Admin: 02/09/22 01:56 Dose: 1 tab Polyethylene Glycol (Polyethylene Glycol 3350 17 Gm Powd.Pack) 17 gm PO DAILY [facility] Stop: 02/06/23 08:59 Last Admin: 02/09/22 09:19 Dose: Not Given Prochlorperazine Edisylate (Prochlorperazine Edisylate 10 Mg/2 Ml Vial) 5 mg IV- PUSH Q4H PRN PRN Reason: Nausea And Vomiting Stop: 02/06/23 10:23 Last Admin: 02/09/22 06:48 Dose: 5 mg Sodium Chloride (Sodium Chloride 0.9 % 10 Ml Vial.Pf) 10 ml INJECTION PRN PRN PRN Reason: Dilution Stop: 02/05/23 17:19 Last Admin: 02/07/22 14:09 Dose: 10 ml Sodium Chloride (Sodium Chloride 0.9 % 10 Ml Syringe) 10 ml IV-PUSH PRN PRN PRN Reason: Flush Stop: 02/05/23 17:19 Last Admin: 02/06/22 22:15 Dose: 10 ml Sodium Chloride (Sodium Chloride 0.9 % 10 Ml Syringe) 0 ml IV-PUSH PRN PRN PRN Reason: Flush Stop: 02/06/23 09:01 Last Admin: 02/08/22 11:36 Dose: 40 ml Allergies No Known Allergies Allergy (Verified 02/05/22 16:45) Results Labs CBC & Chem 7: 02/09/22 06:40 02/09/22 06:40 Labs: 02/09/22 06:40 BUN 24 H Creatinine 7.46 H Radiology Impressions Impressions - last 24 hours: Any impression(s) listed above is documentation that was entered by the reading physician into a diagnostic report(s) for Lobo Stoner. I have reviewed the report(s) and am incorporating any findings in the treatment plan of this patient where applicable. A&P - Nephrology Assessment/Plan (1) DUONG (acute kidney injury): Assessment/Problem Details: He has DUONG likely multifactorial including sepsis induced ATN, vancomycin induced nephrotoxicity or Zosyn induced AIN with superimposed autoregulation of EGFR due to the lisinopril. He has a mildly elevated free light chain ratio likely due to the DUONG but unremarkable SPEP and serum immunofixation. He has negative lupus ANCA and hepatitis serologies. He has no evidence of obstructiveuropathy. His renal function fails to improve despite aggressive IV fluid resuscitation and stopping antibiotic and lisinopril. (2) Metabolic acidosis: Assessment/Problem Details: He has anion gap metabolic acidosis likely due to the DUONG. (3) Hypertension: Assessment/Problem Details: His blood pressure is high. He was taking lisinopril at home which is currentlyon hold. (4) Diabetes: Assessment/Problem Details: He is a ubj-xoopnco-ikolwbuuf type 2 diabetes mellitus and was taking pioglitazone, metformin and glipizide at home (5) Hyperlipidemia: Assessment/Problem Details: He was taking pravastatin at home currently on hold Plan * No need for dialysis today. Next dialysis will be tomorrow. * Continue Lasix 40 mg p.o. twice daily * Continue amlodipine. * Continue to hold home dose of the lisinopril, metformin and pravastatin. * Will follow UPEP and urine immunofixation * Continue DM management as per the primary hospitalist team. The goal blood sugars between 100 to 150 mg/dL. * Check renal function daily and monitor input output Documented By: Addy Carlisle MD 02/09/22 1151 Signed By: <Electronically signed by Addy Carlisle MD> 02/09/22 1153 [facility] Work Phone: [phone] 342-263909-24-2022 Progress note Author Addy Carlisle [facility] February 08, 2022 11:11am Note Date/Time February 08, 2022 11:11am [facility] [address] [place] [address] Nephrology Progress Note Signed Patient: Lobo Stoner MR#: [id number] : 1960 Acct:[id number] Age/Sex: 61 / M Adm Date: 2 Loc: Room: [address] [place] [address] Type: ADM IN Attending Dr: Edith Og MD Copies to: ~ Date of Service: 02/08/2022 Subjective Subjective Narrative: Mr. Stoner is a 61 years old male with medical history of diabetes mellitus hypertension and dyslipidemia is transferred from [facility] for DUONG. Hewas initially admitted on January 31 due to right groin abscess at [facility].? Patient failed outpatient clindamycin therapy.? Emergency room did incision and drainage.? He was started on vancomycin and Zosyn.? Wound culture showed MSSA.? Antibiotics were switched to Rocephin.? Blood cultures remain negative.? General surgery evaluated the patient recommended conservative management.? Patient hospital course was complicated by DUONG. On admission on January 31 patient's creatinine was 0.95, on creatinine went up to 2.9, then to 5.4 and today to 7.9.? During the hospitalization he also got Toradol.? Lisinopril was stopped.? As mentioned above vancomycin Zosyn was switched to Rocephin therapy.? Kidney ultrasound was done which showed no hydronephrosis. Patient reported that he was seen by the telemetry nephrology. Due to his worsening renal function it was recommended to transfer to [facility] for possible dialysis. Nephrology is consulted for DUONG and metabolic acidosis management. Interval history Patient was seen examined at bedside during hemodialysis. He reported that he is feeling better and reported that he was able to tolerate his breakfast this morning. Denies any chest pain palpation cough nausea vomiting or shortness of breath. He underwent the I&D of right thigh abscess. Exam Physical Exam Vital Signs: Temp Pulse Resp BP Pulse Ox O2 Del Method 99.1 F H 81 16 150/84 H 95 Room Air 02/08/22 09:37 02/08/22 10:33 02/08/22 09:37 02/08/22 10:33 02/08/22 09:37 02/08/22 09:37 Narrative: General: Appears comfortable and not in distress Heart: S1-S2, no rub Lung: Bilateral air entry, no wheezing or crackles Abdomen: Soft, positive bowel sounds Extremities: No edema, no cyanosis Head: Atraumatic, normocephalic Ear: No gross hearing Deficit or external ear redness Eyes: No pallor or redness Neck: No JVD or visible mass Skin: No rashes or bruises [employer] OFFICER: Awake,Alert, following simple command Musculoskeletal: No joint swelling or limitation of movement Psychiatric: Cooperative, normal mood and affect Objective Intake and Output I&O: Intake & Output 02/05/22 02/06/22 02/07/22 02/08/22 23:59 23:59 23:59 23:59 Intake Total 250 / 250 1950 / 1950 1500 / 1500 100 / 100 Output Total 350 / 350 701 / 701 2843 / 2843 100 / 100 Balance -100 / -100 1249 / 1249 -1343 / -1343 0 / 0 Weight 114.4 kg 114.6 kg 116.3 kg 113.6 kg Meds and Allergies Meds: Active Medications Acetaminophen (Acetaminophen 325 Mg Tablet) 650 mg PO Q4H PRN PRN Reason: Pain Scale 1 - 5 Stop: 02/05/23 16:35 Albuterol (Albuterol Neb 2.5 Mg/3 Ml Vial.Neb) 2.5 mg INHALATION Q2H PRN PRN Reason: Shortness Of Breath Stop: 02/05/23 16:41 Amlodipine Besylate (Amlodipine 5 Mg Tablet) 5 mg PO DAILY LETICIA Stop: 02/05/23 17:14 Last Admin: 02/07/22 14:09 Dose: 5 mg Dextrose (Dextrose 50% In Water 25 Gm/50 Ml Syringe) 0 gm IV-PUSH PRN PRN PRN Reason: Hypoglycemia Stop: 02/05/23 16:35 Docusate Sodium (Docusate 100 Mg Capsule) 200 mg PO BID PRN PRN Reason: Constipation Stop: 02/05/23 16:35 Furosemide (Furosemide 40 Mg Tablet) 40 mg PO BID@0800,1600 [facility] Stop: 02/08/23 15:59 Glucose (Dextrose 40% Gel 15 Gm Tube) 0 gm PO PRN PRN PRN Reason: Hypoglycemia Stop: 02/05/23 16:35 Heparin Sodium (Porcine) (Heparin 5,000 Unit/Ml Vial) 5,000 unit SUBCUT Q12HR LETICIA Stop: 02/05/23 20:59 Last Admin: 02/07/22 21:30 Dose: 5,000 unit Heparin Sodium (Porcine) (Heparin 10,000 Unit/10 Ml Vial) 3,300 unit IV PRN PRN PRN Reason: Dialysis Stop: 02/06/23 09:01 Last Admin: 02/07/22 09:56 Dose: 2,200 unit Heparin Sodium (Porcine) (Heparin 10,000 Unit/10 Ml Vial) 2,000 unit IV PRN PRN PRN Reason: Dialysis Stop: 02/06/23 09:01 Last Admin: 02/07/22 09:57 Dose: 2,000 unit Heparin Sodium (Porcine) (Heparin 10,000 Unit/10 Ml Vial) 1,000 unit IV PRN PRN PRN Reason: Dialysis Stop: 02/06/23 09:01 Last Admin: 02/07/22 09:57 Dose: 1,000 unit Hydralazine HCl (Hydralazine 20 Mg/Ml Vial) 10 mg IV-PUSH Q4H PRN PRN Reason: if SBP > 185 Stop: 02/05/23 16:35 Ceftriaxone Sodium (Rocephin) 1 gm in 50 mls @ 100 mls/hr IV Q24H [facility] Last Admin: 02/07/22 17:19 Dose: 100 mls/hr Sodium Chloride (0.9% Sodium Chloride 1,000 Ml) 1,000 mls @ 0 mls/hr MISCELLANE.Q0M PRN PRN Reason: Dialysis Stop: 02/06/23 09:01 Last Infusion: 02/07/22 14:20 Dose: 0 mls/hr Insulin Aspart (Insulin Aspart 300 Units/3 Ml Insuln.Pen) 0 units SUBCUT TID.WM.HS [facility]; Protocol Stop: 02/05/23 16:59 Last Admin: 02/08/22 08:43 Dose: Not Given Omeprazole (Omeprazole 20 Mg Capsule.Dr) 20 mg PO DAILY LETICIA Stop: 02/09/23 08:59 Oxycodone/Acetaminophen (Oxycodone/Acetaminophen 5-325 Mg Tablet) 1 tab PO Q6H PRN PRN Reason: Pain Last Admin: 02/08/22 05:02 Dose: 1 tab Polyethylene Glycol (Polyethylene Glycol 3350 17 Gm Powd.Pack) 17 gm PO DAILY LETICIA Stop: 02/06/23 08:59 Last Admin: 02/07/22 14:10 Dose: Not Given Prochlorperazine Edisylate (Prochlorperazine Edisylate 10 Mg/2 Ml Vial) 5 mg IV- PUSH Q4H PRN PRN Reason: Nausea And Vomiting Stop: 02/06/23 10:23 Last Admin: 02/08/22 03:41 Dose: 5 mg Sodium Chloride (Sodium Chloride 0.9 % 10 Ml Vial.Pf) 10 ml INJECTION PRN PRN PRN Reason: Dilution Stop: 02/05/23 17:19 Last Admin: 02/07/22 14:09 Dose: 10 ml Sodium Chloride (Sodium Chloride 0.9 % 10 Ml Syringe) 10 ml IV-PUSH PRN PRN PRN Reason: Flush Stop: 02/05/23 17:19 Last Admin: 02/06/22 22:15 Dose: 10 ml Sodium Chloride (Sodium Chloride 0.9 % 10 Ml Syringe) 0 ml IV-PUSH PRN PRN PRN Reason: Flush Stop: 02/06/23 09:01 Last Admin: 02/08/22 03:42 Dose: 10 ml Allergies No Known Allergies Allergy (Verified 02/05/22 16:45) Results Labs CBC & Chem 7: 02/08/22 06:12 02/08/22 06:12 Labs: 02/08/22 06:12 BUN 24 H Creatinine 7.90 H D Radiology Impressions Impressions - last 24 hours: Any impression(s) listed above is documentation that was entered by the reading physician into a diagnostic report(s) for Lobo Stoner. I have reviewed the report(s) and am incorporating any findings in the treatment plan of this patient where applicable. A&P - Nephrology Assessment/Plan (1) DUONG (acute kidney injury): Assessment/Problem Details: He has DUONG likely multifactorial including sepsis induced ATN, vancomycin induced nephrotoxicity or Zosyn induced AIN with superimposed autoregulation of EGFR due to the lisinopril. He has a mildly elevated free light chain ratio likely due to the DUONG but unremarkable SPEP and serum immunofixation. He has negative lupus ANCA and hepatitis serologies. He has no evidence of obstructiveuropathy. His renal function fails to improve despite aggressive IV fluid resuscitation and stopping antibiotic and lisinopril. (2) Metabolic acidosis: Assessment/Problem Details: He has anion gap metabolic acidosis likely due to the DUONG. (3) Hypertension: Assessment/Problem Details: His blood pressure is high. He was taking lisinopril at home which is currentlyon hold. (4) Diabetes: Assessment/Problem Details: He is a bhz-uqamish-yuwcrftpj type 2 diabetes mellitus and was taking pioglitazone, metformin and glipizide at home (5) Hyperlipidemia: Assessment/Problem Details: He was taking pravastatin at home currently on hold Plan * Hemodialysis today as ordered. Patient has no sign of renal recovery yet. * Start Lasix 40 mg p.o. twice daily * Continue amlodipine. * Continue to hold home dose of the lisinopril, metformin and pravastatin. * Will follow UPEP and urine immunofixation * Continue DM management as per the primary hospitalist team. The goal blood sugars between 100 to 150 mg/dL. * Check renal function daily and monitor input output Documented By: Addy Carlisle MD 02/08/22 1106 Signed By: <Electronically signed by Addy Carlisle MD> 02/08/22 1111 [facility] Work Phone: [phone] 139-596509-24-2022 Progress note Author Jose Arriola [facility] February 08, 2022 8:39am Note Date/Time February 07, 2022 8:49am [facility] [address] [place] [address] General Surgery Progress Note Signed with Addenda Patient: Lobo Stoner MR#: [id number] : 1960 Acct:[id number] Age/Sex: 61 / M Adm Date: 2 Loc: Room: [address] [place] [address] Type: ADM IN Attending Dr: Edith Og MD Copies to: ~ ADDENDUM1 Continue medical management and wound packing. The patient can be discharged home when cleared by medicine and followed up with his primary care physician for the wound issues. Addendum Documented By: Jose Arriola DO 02/08/22838 Addendum Signed By: <Electronically signed by Jose Arriola DO> 02/08/22838 Date of Service: 02/07/2022 Subjective Subjective Patient reports: no new complaints HPI: Patient is resting comfortably. He states his pain in the right upper thigh is decreased except if it is touched. Allergies & Medications Medications and Allergies Allergies No Known Allergies Allergy (Verified 02/05/22 16:45) Home Medications clindamycin HCl 150 mg capsule 300 mg PO TID 02/05/22 [History Confirmed 02/05/22] glipizide 10 mg tablet 20 mg PO BID 02/05/22 [History Confirmed 02/05/22] lisinopril 10 mg tablet 10 mg PO DAILY 02/05/22 [History Confirmed 02/05/22] metformin 500 mg tablet,extended release 24 hr 1,000 mg PO BID.WITH.MEALS 02/05/22 [History Confirmed 02/05/22] oxycodone-acetaminophen 5 mg-325 mg tablet 1 tab PO Q6H PRN Pain 02/05/22 [History Confirmed 02/05/22] pioglitazone 45 mg tablet 45 mg PO DAILY 02/05/22 [History Confirmed 02/05/22] pravastatin 40 mg tablet 40 mg PO DAILY 02/05/22 [History Confirmed 02/05/22] Active Medications Acetaminophen (Acetaminophen 325 Mg Tablet) 650 mg PO Q4H PRN PRN Reason: Pain Scale 1 - 5 Stop: 02/05/23 16:35 Albuterol (Albuterol Neb 2.5 Mg/3 Ml Vial.Neb) 2.5 mg INHALATION Q2H PRN PRN Reason: Shortness Of Breath Stop: 02/05/23 16:41 Amlodipine Besylate (Amlodipine 5 Mg Tablet) 5 mg PO DAILY LETICIA Stop: 02/05/23 17:14 Last Admin: 02/06/22 08:16 Dose: 5 mg Dextrose (Dextrose 50% In Water 25 Gm/50 Ml Syringe) 0 gm IV-PUSH PRN PRN PRN Reason: Hypoglycemia Stop: 02/05/23 16:35 Docusate Sodium (Docusate 100 Mg Capsule) 200 mg PO BID PRN PRN Reason: Constipation Stop: 02/05/23 16:35 Glucose (Dextrose 40% Gel 15 Gm Tube) 0 gm PO PRN PRN PRN Reason: Hypoglycemia Stop: 02/05/23 16:35 Heparin Sodium (Porcine) (Heparin 5,000 Unit/Ml Vial) 5,000 unit SUBCUT Q12HR [facility] Stop: 02/05/23 20:59 Last Admin: 02/06/22 22:15 Dose: 5,000 unit Heparin Sodium (Porcine) (Heparin 10,000 Unit/10 Ml Vial) 3,300 unit IV PRN PRN PRN Reason: Dialysis Stop: 02/06/23 09:01 Last Admin: 02/06/22 15:06 Dose: 3,300 unit Heparin Sodium (Porcine) (Heparin 10,000 Unit/10 Ml Vial) 2,000 unit IV PRN PRN PRN Reason: Dialysis Stop: 02/06/23 09:01 Last Admin: 02/06/22 15:06 Dose: 2,000 unit Heparin Sodium (Porcine) (Heparin 10,000 Unit/10 Ml Vial) 1,000 unit IV PRN PRN PRN Reason: Dialysis Stop: 02/06/23 09:01 Last Admin: 02/06/22 15:07 Dose: 1,000 unit Hydralazine HCl (Hydralazine 20 Mg/Ml Vial) 10 mg IV-PUSH Q4H PRN PRN Reason: if SBP > 185 Stop: 02/05/23 16:35 Ceftriaxone Sodium (Rocephin) 1 gm in 50 mls @ 100 mls/hr IV Q24H [facility] Last Admin: 02/06/22 17:34 Dose: 100 mls/hr Sodium Chloride (0.9% Sodium Chloride 1,000 Ml) 1,000 mls @ 0 mls/hr MISCELLANE.Q0M PRN PRN Reason: Dialysis Stop: 02/06/23 09:01 Last Infusion: 02/06/22 15:08 Dose: Infused Insulin Aspart (Insulin Aspart 300 Units/3 Ml Insuln.Pen) 0 units SUBCUT TID.WM.HS [facility]; Protocol Stop: 02/05/23 16:59 Last Admin: 02/07/22 07:47 Dose: Not Given Oxycodone/Acetaminophen (Oxycodone/Acetaminophen 5-325 Mg Tablet) 1 tab PO Q6H PRN PRN Reason: Pain Last Admin: 02/06/22 11:07 Dose: 1 tab Pantoprazole Sodium (Pantoprazole 40 Mg Vial) 40 mg IV-PUSH DAILY LETICIA Stop: 02/05/23 17:24 Last Admin: 02/06/22 08:15 Dose: 40 mg Polyethylene Glycol (Polyethylene Glycol 3350 17 Gm Powd.Pack) 17 gm PO DAILY [facility] Stop: 02/06/23 08:59 Last Admin: 02/06/22 08:16 Dose: Not Given Prochlorperazine Edisylate (Prochlorperazine Edisylate 10 Mg/2 Ml Vial) 5 mg IV- PUSH Q4H PRN PRN Reason: Nausea And Vomiting Stop: 02/06/23 10:23 Last Admin: 02/06/22 22:15 Dose: 5 mg Sodium Chloride (Sodium Chloride 0.9 % 10 Ml Vial.Pf) 10 ml INJECTION PRN PRN PRN Reason: Dilution Stop: 02/05/23 17:19 Last Admin: 02/06/22 08:16 Dose: 10 ml Sodium Chloride (Sodium Chloride 0.9 % 10 Ml Syringe) 10 ml IV-PUSH PRN PRN PRN Reason: Flush Stop: 02/05/23 17:19 Last Admin: 02/06/22 22:15 Dose: 10 ml Sodium Chloride (Sodium Chloride 0.9 % 10 Ml Syringe) 0 ml IV-PUSH PRN PRN PRN Reason: Flush Stop: 02/06/23 09:01 Last Admin: 02/06/22 17:35 Dose: 10 ml Exam Physical Exam Vital Signs: Temp Pulse Resp BP Pulse Ox O2 Del Method 98.8 F 93 H 20 161/73 H 92 L Nasal Cannula 02/07/22 05:05 02/07/22 05:05 02/07/22 05:05 02/07/22 05:05 02/07/22 05:05 02/07/22 05:05 Const General: cooperative and no acute distress Orientation: alert, awake and oriented x3 Extrem Other: Right upper medial thigh surgically created I&D wound has no purulent drainage. However more medial towards the scrotum is a secondary collection that does tunnel to the primary lesion however it appears to have retained fluid under theskin. Objective Intake & Output 24 hour I&O: Intake & Output 02/06/22 02/07/22 02/07/22 23:59 07:59 15:59 Intake Total 300 / 1900 200 / 200 Output Total 601 / 701 0 / 0 Balance -301 / 1199 200 / 200 Weight 116.3 kg Labs CBC & Chem 7: 02/07/22 05:56 02/07/22 05:56 Laboratory Results - Last 48 hrs. 02/07/22 06:31: POC Glucose 76 02/07/22 05:56: PHA Creatinine Clear 11.02, Sodium 134 L, Potassium 3.7, Chloride 96, Carbon Dioxide 25.4, Anion Gap 16.3 H, BUN 30 H, Creatinine 9.50 H D, Est GFR ( Amer) 7, Est GFR (Non-Af Amer) 6, Glucose 70, Calcium 7.7 L 02/07/22 05:56: Corrected WBC 7.6, Uncorrected WBC Count 7.6, RBC 3.56 L, Hgb 9.5 L, Hct 28.6 L, MCV 80.3 L, MCH 26.8 L, MCHC 33.4, RDW 16.3 H, Plt Count 221,MPV 7.7, Neut % (Auto) 75.7, Lymph % (Auto) 11.9, [place] % (Auto) 11.2, Eos % (Auto) 0.9, Baso % (Auto) 0.3, Neut # (Auto) 5.8, Lymph # (Auto) 0.9 L, [place] # (Auto) 0.9 H, Eos # (Auto) 0.1, Baso # (Auto) 0.0, Nucleated RBC % (auto) 0.0 02/07/22 02:30: Ur Random Creatinine 91.1, U Random Total Protein 170 H, Protein/Creatinin Ratio 1866 H 02/07/22 02:30: Urine Eosinophils 0 02/06/22 20:34: POC Glucose 103 02/06/22 17:06: POC Glucose 100 02/06/22 11:22: POC Glucose 142 02/06/22 10:52: Complement C3 138, Complement C4 25 02/06/22 09:43: PT 14.3 H, INR 1.3 02/06/22 09:43: Total Creatine Kinase 41 02/06/22 09:43: Hepatitis A IgM Ab Negative, Hep Bs Antigen Negative, Hep B CoreIgM Ab Negative, Hepatitis C Ab (EIA) <0.1, Hepatitis C Interp 02/06/22 06:50: POC Glucose 129 02/06/22 05:51: PHA Creatinine Clear 9.61, Sodium 134 L, Potassium 4.2, [id number], Carbon Dioxide 21.8 L, Anion Gap 16.4 H, BUN 41 H, Creatinine 10.82 H D, Est GFR ( Amer) 6, Est GFR (Non-Af Amer) 5, Glucose 127 H, Calcium 7.4 L,Total Bilirubin 0.4, AST 13, ALT 15, Alkaline Phosphatase 61, Total Protein 5.3 L, Albumin 2.0 L, Globulin 3.3, Albumin/Globulin Ratio 0.6 02/06/22 05:51: Corrected WBC 9.5, Uncorrected WBC Count 9.5, RBC 3.64 L, Hgb 9.8 L, Hct 29.3 L, MCV 80.5 L, MCH 26.8 L, MCHC 33.3, RDW 16.5 H, Plt Count 232,MPV 7.7, Neut % (Auto) 78.2, Lymph % (Auto) 11.2, [place] % (Auto) 10.0, Eos % (Auto) 0.3, Baso % (Auto) 0.3, Neut # (Auto) 7.4, Lymph # (Auto) 1.1, [place] # (Auto) 1.0 H, Eos # (Auto) 0.0, Baso # (Auto) 0.0, Nucleated RBC % (auto) 0.0 02/05/22 20:25: POC Glucose 168, POC Glucose Comment Glu2: cleaned meter 02/05/22 17:39: Ur Random Sodium 77 02/05/22 17:39: Ur Random Creatinine 63.9 02/05/22 17:39: Urine Color Yellow, Urine Appearance Clear, Urine pH 7.0, Ur Specific [place] 1.011, Urine Protein 300 H, Urine Glucose (UA) 100 H, Urine Ketones Negative, Urine Occult Blood 1+ H, Urine Nitrite Negative, Urine Bilirubin Negative, Urine Urobilinogen Normal, Ur Leukocyte Esterase 1+ H, UrineRBC 10-19 H, Urine WBC 10- 19 H, Ur Squamous Epith Cells 1-2, Ur Renal EpithelialCell 1-2 H, Urine Bacteria None seen, Hyaline Casts None seen 02/05/22 17:01: POC Glucose 203 02/05/22 16:52: Total Bilirubin 0.4, Direct Bilirubin < 0.1, Indirect Bilirubin TNP, AST 19, ALT 15, Alkaline Phosphatase 67, Total Protein 5.9 L, Albumin 2.1 L, Globulin 3.8, Albumin/Globulin Ratio 0.6, Lipase 53.0 H 02/05/22 16:52: PHA Creatinine Clear 11.45, Sodium 132 L, Potassium 4.4, Chloride 97, Carbon Dioxide 23.1, Anion Gap 16.3 H, BUN 38 H, Creatinine 9.07 H,Est GFR ( Amer) 7, Est GFR (Non-Af Amer) 6, Glucose 188 H, Calcium 7.7 L,Magnesium 1.7 Microbiology Microbiology 02/05/22 17:39 Urine - Clean-Voided Midstream Urine Culture - Preliminary No Growth 1 Day A&P - General Surgery Assessment/Plan (1) Groin abscess: Plan: The main abscess is adequately drained and packed with no purulent drainage. The medial aspect of it tunnels towards the scrotum and that appears to have some fluid collection underneath the skin. Although I was able to get a cotton tip curette into the area it was quite painful. I feel that he would better be served by doing an I&D of this area as well. He is in agreement. The plan willbe under local anesthesia to make a small incision over this area and provide drainage. Code(s): L02.214 - Cutaneous abscess of groin Status: Acute Documented By: Jose Arriola DO 02/07/22 08 46 Signed By: <Electronically signed by Jose Arriola DO> 02/07/22 0849 [facility] Work Phone: [phone] 492-751309-23-2022 Progress note Author Edith Og [facility] February 07, 2022 4:39pm Note Date/Time February 07, 2022 10:58am [facility] [address] [place] [address] Hospitalist Progress Note Signed Patient: Lobo Stoner MR#: [id number] : 1960 Acct:[id number] Age/Sex: 61 / M Adm Date: 2 Loc: 3T Room: [address] [place] [address] Type: ADM IN Attending Dr: Edith Og MD Copies to: ~ Date of Service: 02/07/2022 Subjective Subjective Narrative: Patient underwent dialysis. Still complains of nausea but no abdominal pain. No vomiting. Physical exam: General -awake, alert, oriented ?3, not in acute distress Cardiovascular -S1 with S2, no murmurs, no rubs, no gallops Pulmonary - clear to auscultation bilaterally Gastrointestinal - abdomen is soft, distended, upper tenderness noted but no rigidity no rebound, colostomy bag noted with brown stools Extremities -no edema Neurological -no focal neurological dysfunction noted Right groin area, status post incision and drainage with packing by Dr. Arriola on February 07 Exam Physical Exam Vital Signs: Temp Pulse Resp BP Pulse Ox O2 Del Method 37.1 C 80 20 151/80 H 92 L Nasal Cannula 02/07/22 05:05 02/07/22 10:30 02/07/22 05:05 02/07/22 10:30 02/07/22 05:05 02/07/22 05:05 Objective Lab Results CBC & Chem 7: 02/07/22 05:56 02/07/22 05:56 Microbiology Results Microbiology 02/05/22 17:39 Urine - Clean-Voided Midstream Urine Culture - Final No Growth 2 Days Meds Allergies and Active Meds Allergies No Known Allergies Allergy (Verified 02/05/22 16:45) Active Meds: Active Medications Generic Name Dose Route Start Last Admin Trade Name Freq PRN Reason Stop Dose Admin Acetaminophen 650 mg 02/05/22 16:36 Acetaminophen 325 Mg Tablet PO 02/05/23 16:35 Q4H PRN Pain Scale 1 - 5 Albuterol 2.5 mg 02/05/22 16:42 Albuterol Neb 2.5 Mg/3 Ml Vial.Neb INHALATION 02/05/23 16:41 Q2H PRN Shortness Of Breath Amlodipine Besylate 5 mg 02/05/22 17:15 02/06/22 08:16 Amlodipine 5 Mg Tablet PO 02/05/23 17:14 5 mg DAILY LETICIA Administration Dextrose 0 gm 02/05/22 16:36 Dextrose 50% In Water 25 Gm/50 Ml Syringe IV-PUSH 02/05/23 16:35 PRN PRN Hypoglycemia Docusate Sodium 200 mg 02/05/22 16:36 Docusate 100 Mg Capsule PO 02/05/23 16:35 BID PRN Constipation Glucose 0 gm 02/05/22 16:36 Dextrose 40% Gel 15 Gm Tube PO 02/05/23 16:35 PRN PRN Hypoglycemia Heparin Sodium (Porcine) 5,000 unit 02/05/22 21:00 02/06/22 22:15 Heparin 5,000 Unit/Ml Vial SUBCUT 02/05/23 20:59 5,000 unit Q12HR LETICIA Administration Heparin Sodium (Porcine) 3,300 unit 02/06/22 09:02 02/07/22 09:56 Heparin 10,000 Unit/10 Ml Vial IV 02/06/23 09:01 2,200 unit PRN PRN Administration Dialysis Heparin Sodium (Porcine) 2,000 unit 02/06/22 09:02 02/07/22 09:57 Heparin 10,000 Unit/10 Ml Vial IV 02/06/23 09:01 2,000 unit PRN PRN Administration Dialysis Heparin Sodium (Porcine) 1,000 unit 02/06/22 09:02 02/07/22 09:57 Heparin 10,000 Unit/10 Ml Vial IV 02/06/23 09:01 1,000 unit PRN PRN Administration Dialysis Hydralazine HCl 10 mg 02/05/22 16:36 Hydralazine 20 Mg/Ml Vial IV-PUSH 02/05/23 16:35 Q4H PRN if SBP > 185 Ceftriaxone Sodium 1 gm in 50 mls @ 100 mls/hr 02/05/22 17:00 02/06/22 17:34 Rocephin IV 100 mls/hr Q24H LETICIA Administration Sodium Chloride 1,000 mls @ 0 mls/hr 02/06/22 09:02 02/07/22 09:58 0.9% Sodium Chloride 1,000 Ml MISCELLANE 02/06/23 09:01 999 mls/hr .Q0M PRN Administration Dialysis As Directed Insulin Aspart 0 units 02/05/22 17:00 02/07/22 07:47 Insulin Aspart 300 Units/3 Ml Insuln.Pen SUBCUT 09/21/23 16:59 Not Given TID.WM.HS LETICIA Protocol Oxycodone/Acetaminophen 1 tab 02/05/22 17:03 02/06/22 11:07 Oxycodone/Acetaminophen 5-325 Mg Tablet PO 1 tab Q6H PRN Administration Pain Pantoprazole Sodium 40 mg 02/05/22 17:25 02/06/22 08:15 Pantoprazole 40 Mg Vial IV-PUSH 02/05/23 17:24 40 mg DAILY LETICIA Administration Polyethylene Glycol 17 gm 02/06/22 09:00 02/06/22 08:16 Polyethylene Glycol 3350 17 Gm Powd.Pack PO 02/06/23 08:59 Not Given DAILY LETICIA Prochlorperazine Edisylate 5 mg 02/06/22 10:24 02/07/22 09:55 Prochlorperazine Edisylate 10 Mg/2 Ml Vial IV-PUSH 02/06/23 10:23 5 mg Q4H PRN Administration Nausea And Vomiting Sodium Chloride 10 ml 02/05/22 17:20 02/06/22 08:16 Sodium Chloride 0.9 % 10 Ml Vial.Pf INJECTION 02/05/23 17:19 10 ml PRN PRN Administration Dilution Sodium Chloride 10 ml 02/05/22 17:20 02/06/22 22:15 Sodium Chloride 0.9 % 10 Ml Syringe IV-PUSH 02/05/23 17:19 10 ml PRN PRN Administration Flush Sodium Chloride 0 ml 02/06/22 09:02 02/07/22 09:58 Sodium Chloride 0.9 % 10 Ml Syringe IV-PUSH 02/06/23 09:01 40 ml PRN PRN Administration Flush A&P - Hospitalist Assessment/Plan (1) DUONG (acute kidney injury): Plan 1. Acute kidney injury, suspect ATN, urine lites FeNa > 1 Ultrasound at [facility] did not reveal any hydronephrosis, he has Wade catheter with clear urine, draining 601 cc overnight Continue to avoid nephrotoxic medications, he got vancomycin/Zosyn and Toradol while at [facility]. Also he was on lisinopril at home Consulted nephrology, plan for dialysis 2. Right groin abscess, status post incision and drainage while in the emergency room, at that time CT scan was done which showed recently drained abscess with diffuse inflammatory subcutaneous stranding skin thickening from the right groin to right upper medial thigh and right medial knee findings are flat diffuse cellulitis, no necrotizing dissecting here On physical exam no signs of necrotizing fasciitis Cultures revealed MSSA, blood cultures remained negative Consult general surgeon, status post repeated incision and drainage and packing bilaterally Skubitz on February 07 3. Hypertension, blood pressure better controlled, could be due to underlying kidney dysfunction, start hydralazine and Norvasc, continue to hold lisinopril 4. Diabetes mellitus type 2, added sliding scale, glucose well controlled 5. DVT prophylaxis Heparin 6. Abdominal pain/nausea/vomiting, could be due to uremia. X-ray of the abdomen without acute findings. Liver enzymes and grading enzymes normal Documented By: Edith Og MD 02/07/22 1052 Signed By: <Electronically signed by Edith Og MD> 02/07/22 1638 [facility] Work Phone: 1([phone] 227-913009-23-2022 Progress note Author Addy Carlisle [facility] February 07, 2022 11:20am Note Date/Time February 07, 2022 11:20am [facility] [address] [place] [address] Nephrology Progress Note Signed Patient: Lobo Stoner MR#: [id number] : 1960 Acct:[id number] Age/Sex: 61 / M Adm Date: 2 Loc: Room: [address] [place] [address] Type: ADM IN Attending Dr: Edith Og MD Copies to: ~ Date of Service: 02/07/2022 Subjective Subjective Narrative: Mr. Stoner is a 61 years old male with medical history of diabetes mellitus hypertension and dyslipidemia is transferred from [facility] for DUONG. Hewas initially admitted on January 31 due to right groin abscess at [facility].? Patient failed outpatient clindamycin therapy.? Emergency room did incision and drainage.? He was started on vancomycin and Zosyn.? Wound culture showed MSSA.? Antibiotics were switched to Rocephin.? Blood cultures remain negative.? General surgery evaluated the patient recommended conservative management.? Patient hospital course was complicated by DUONG. On admission on January 31 patient's creatinine was 0.95, on creatinine went up to 2.9, then to 5.4 and today to 7.9.? During the hospitalization he also got Toradol.? Lisinopril was stopped.? As mentioned above vancomycin Zosyn was switched to Rocephin therapy.? Kidney ultrasound was done which showed no hydronephrosis. Patient reported that he was seen by the telemetry nephrology. Due to his worsening renal function it was recommended to transfer to [facility] for possible dialysis. Nephrology is consulted for DUONG and metabolic acidosis management. Interval history Patient was seen examined at bedside during hemodialysis. He reported that he is feeling better than yesterday denies any chest pain palpation cough nausea vomiting or shortness of breath. He was seen by general surgery plan to do I&D this afternoon. Exam Physical Exam Vital Signs: Temp Pulse Resp BP Pulse Ox O2 Del Method 98.8 F 80 20 147/82 H 92 L Nasal Cannula 02/07/22 05:05 02/07/22 11:03 02/07/22 05:05 02/07/22 11:03 02/07/22 05:05 02/07/22 05:05 Narrative: General: Appears comfortable and not in distress Heart: S1-S2, no rub Lung: Bilateral air entry, no wheezing or crackles Abdomen: Soft, positive bowel sounds Extremities: No edema, no cyanosis Head: Atraumatic, normocephalic Ear: No gross hearing Deficit or external ear redness Eyes: No pallor or redness Neck: No JVD or visible mass Skin: No rashes or bruises [employer]: Awake,Alert, following simple command Musculoskeletal: No joint swelling or limitation of movement Psychiatric: Cooperative, normal mood and affect Objective Intake and Output I&O: Intake & Output 02/04/22 02/05/22 02/06/22 02/07/22 23:59 23:59 23:59 23:59 Intake Total 250 / 250 1900 / 1900 200 / 200 Output Total 350 / 350 701 / 701 0 / 0 Balance -100 / -100 1199 / 1199 200 / 200 Weight 114.4 kg 114.6 kg 116.3 kg Meds and Allergies Meds: Active Medications Acetaminophen (Acetaminophen 325 Mg Tablet) 650 mg PO Q4H PRN PRN Reason: Pain Scale 1 - 5 Stop: 02/05/23 16:35 Albuterol (Albuterol Neb 2.5 Mg/3 Ml Vial.Neb) 2.5 mg INHALATION Q2H PRN PRN Reason: Shortness Of Breath Stop: 02/05/23 16:41 Amlodipine Besylate (Amlodipine 5 Mg Tablet) 5 mg PO DAILY LETICIA Stop: 02/05/23 17:14 Last Admin: 02/06/22 08:16 Dose: 5 mg Dextrose (Dextrose 50% In Water 25 Gm/50 Ml Syringe) 0 gm IV-PUSH PRN PRN PRN Reason: Hypoglycemia Stop: 02/05/23 16:35 Docusate Sodium (Docusate 100 Mg Capsule) 200 mg PO BID PRN PRN Reason: Constipation Stop: 02/05/23 16:35 Glucose (Dextrose 40% Gel 15 Gm Tube) 0 gm PO PRN PRN PRN Reason: Hypoglycemia Stop: 02/05/23 16:35 Heparin Sodium (Porcine) (Heparin 5,000 Unit/Ml Vial) 5,000 unit SUBCUT Q12HR LETICIA Stop: 02/05/23 20:59 Last Admin: 02/06/22 22:15 Dose: 5,000 unit Heparin Sodium (Porcine) (Heparin 10,000 Unit/10 Ml Vial) 3,300 unit IV PRN PRN PRN Reason: Dialysis Stop: 02/06/23 09:01 Last Admin: 02/07/22 09:56 Dose: 2,200 unit Heparin Sodium (Porcine) (Heparin 10,000 Unit/10 Ml Vial) 2,000 unit IV PRN PRN PRN Reason: Dialysis Stop: 02/06/23 09:01 Last Admin: 02/07/22 09:57 Dose: 2,000 unit Heparin Sodium (Porcine) (Heparin 10,000 Unit/10 Ml Vial) 1,000 unit IV PRN PRN PRN Reason: Dialysis Stop: 02/06/23 09:01 Last Admin: 02/07/22 09:57 Dose: 1,000 unit Hydralazine HCl (Hydralazine 20 Mg/Ml Vial) 10 mg IV-PUSH Q4H PRN PRN Reason: if SBP > 185 Stop: 02/05/23 16:35 Ceftriaxone Sodium (Rocephin) 1 gm in 50 mls @ 100 mls/hr IV Q24H LETICIA Last Admin: 02/06/22 17:34 Dose: 100 mls/hr Sodium Chloride (0.9% Sodium Chloride 1,000 Ml) 1,000 mls @ 0 mls/hr MISCELLANE.Q0M PRN PRN Reason: Dialysis Stop: 02/06/23 09:01 Last Admin: 02/07/22 09:58 Dose: 999 mls/hr Insulin Aspart (Insulin Aspart 300 Units/3 Ml Insuln.Pen) 0 units SUBCUT TID.WM.HS [facility]; Protocol Stop: 02/05/23 16:59 Last Admin: 02/07/22 07:47 Dose: Not Given Oxycodone/Acetaminophen (Oxycodone/Acetaminophen 5-325 Mg Tablet) 1 tab PO Q6H PRN PRN Reason: Pain Last Admin: 02/06/22 11:07 Dose: 1 tab Pantoprazole Sodium (Pantoprazole 40 Mg Vial) 40 mg IV-PUSH DAILY LETICIA Stop: 02/05/23 17:24 Last Admin: 02/06/22 08:15 Dose: 40 mg Polyethylene Glycol (Polyethylene Glycol 3350 17 Gm Powd.Pack) 17 gm PO DAILY [facility] Stop: 02/06/23 08:59 Last Admin: 02/06/22 08:16 Dose: Not Given Prochlorperazine Edisylate (Prochlorperazine Edisylate 10 Mg/2 Ml Vial) 5 mg IV- PUSH Q4H PRN PRN Reason: Nausea And Vomiting Stop: 02/06/23 10:23 Last Admin: 02/07/22 09:55 Dose: 5 mg Sodium Chloride (Sodium Chloride 0.9 % 10 Ml Vial.Pf) 10 ml INJECTION PRN PRN PRN Reason: Dilution Stop: 02/05/23 17:19 Last Admin: 02/06/22 08:16 Dose: 10 ml Sodium Chloride (Sodium Chloride 0.9 % 10 Ml Syringe) 10 ml IV-PUSH PRN PRN PRN Reason: Flush Stop: 02/05/23 17:19 Last Admin: 02/06/22 22:15 Dose: 10 ml Sodium Chloride (Sodium Chloride 0.9 % 10 Ml Syringe) 0 ml IV-PUSH PRN PRN PRN Reason: Flush Stop: 02/06/23 09:01 Last Admin: 02/07/22 09:58 Dose: 40 ml Allergies No Known Allergies Allergy (Verified 02/05/22 16:45) Results Labs CBC & Chem 7: 02/07/22 05:56 02/07/22 05:56 Labs: 02/07/22 02/07/22 02:30 05:56 BUN 30 H Creatinine 9.50 H D Protein/Creatinin Ratio 1866 H Radiology Impressions Impressions - last 24 hours: Impressions Chest X-Ray 02/06/22 12:24 IMPRESSION: Status post placement of a right IJ line with the tip in the midsuperior vena cava. No pneumothorax. Findings suggest vascular congestion with crowding of lung markings which may bein part due to low lung volumes. Impression dictated by: Frandy Soto M.D.02/06/2022 1:19 PM Dictation Location: [place] [address] Any impression(s) listed above is documentation that was entered by the reading physician into a diagnostic report(s) for Lobo Stoner. I have reviewed the report(s) and am incorporating any findings in the treatment plan of this patient where applicable. A&P - Nephrology Assessment/Plan (1) DUONG (acute kidney injury): Assessment/Problem Details: He has DUONG likely multifactorial including sepsis induced ATN, vancomycin induced nephrotoxicity or Zosyn induced AIN with superimposed autoregulation of EGFR due to the lisinopril. Other possibilities are postinfectious glomerulonephritis or paraproteinemia. He has no evidence of obstructive uropathy. His renal function fails to improve despite aggressive IV fluid resuscitation and stopping antibiotic and lisinopril. Patient currently reported to have uremic symptoms. (2) Metabolic acidosis: Assessment/Problem Details: He has anion gap metabolic acidosis likely due to the DUONG. (3) Hypertension: Assessment/Problem Details: His blood pressure is high. He was taking lisinopril at home which is currentlyon hold. (4) Diabetes: Assessment/Problem Details: He is a sur-dcoxttb-haqyznamr type 2 diabetes mellitus and was taking pioglitazone, metformin and glipizide at home (5) Hyperlipidemia: Assessment/Problem Details: He was taking pravastatin at home currently on hold Plan * Hemodialysis today as ordered. Patient has no sign of renal recovery yet. * Continue amlodipine. * Continue to hold home dose of the lisinopril, metformin and pravastatin. * Will follo3 serum free light chain ratio, SPEP, UPEP, serum and urine immunofixation,KHUSHI and ANCA. * Continue DM management as per the primary hospitalist team. The goal blood sugars between 100 to 150 mg/dL. * Check renal function daily and monitor input output Documented By: Addy Carlisle MD 02/07/22 1117 Signed By: <Electronically signed by Addy Carlisel MD> 02/07/22 1120 [facility] Work Phone: 1([phone]) 505-908009-22-2022 Consult note Author Addy Carlisle [facility] February 06, 2022 6:34pm Note Date/Time February 06, 2022 10:04am [facility] [address] [place] [address] Nephrology Consult Note Signed with Addenda Patient: Lobo Stoner MR#: [id number] : 1960 Acct:[id number] Age/Sex: 61 / M Adm Date: 2 Loc: Room: [address] [place] [address] Type: ADM IN Attending Dr: Edith Og MD Copies to: MD Jigar Mcdermott MD Ruta Semaskiene, MD~ ADDENDUM1 Hemodialysis catheter placement by Dr. Maddox. He was initiated on dialysis andtolerated the procedure well. No issues were reported by bedside HD RN Addendum Documented By: Addy Carlisle MD 02/06/221832 Addendum Signed By: <Electronically signed by Addy Carlisle MD> 02/06/22 1834 Providers Consult Date: 02/06/22 Requesting Provider: Edith Og MD Primary Care Provider: Jigar Powell MD [facility] Reason for Consult: DUONG and Acidosis History of Present Illness: Mr. Stoner is a 61 years old male with medical history of diabetes mellitus hypertension and dyslipidemia is transferred from [facility] for DUONG. Hewas initially admitted on January 31 due to right groin abscess at [facility].? Patient failed outpatient clindamycin therapy.? Emergency room did incision and drainage.? He was started on vancomycin and Zosyn.? Wound culture showed MSSA.? Antibiotics were switched to Rocephin.? Blood cultures remain negative.? General surgery evaluated the patient recommended conservative management.? Patient hospital course was complicated by DUONG. On admission on January 31 patient's creatinine was 0.95, on creatinine went up to 2.9, then to 5.4 and today to 7.9.? During the hospitalization he also got Toradol.? Lisinopril was stopped.? As mentioned above vancomycin Zosyn was switched to Rocephin therapy.? Kidney ultrasound was done which showed no hydronephrosis. Patient reported that he was seen by the telemetry nephrology. Due to his worsening renal function it was recommended to transfer to [facility] for possible dialysis. Nephrology consult for DUONG and metabolic acidosis management. Patient was seen and examined at the bedside reported to have nausea vomiting and poor appetite. Review of Systems Review of Systems All other systems reviewed & are negative unless noted below or in HPI Review of systems: Cardiovascular: denies any chest pain, palpitation Pulmonary: denies any cough, hemoptysis Gastrointestinal: Complains of nausea and vomiting but denies diarrhea or rectalbleeding. Neurological :denies any headache, numbness, weakness Endocrine: denies any polyuria, polydipsia Dermatological: denies any itching or rash PMFSH Vaccinated for COVID-19?: Yes Medical History (Updated 02/06/22 @ 15:46 by Jose Arriola DO) Colostomy in place pt states he has had it since 2005 Diabetes Diverticulitis Hyperlipidemia Hypertension Surgical History Bowel perforation History of colon resection Hx of cholecystectomy Small bowel obstruction due to postoperative adhesions Family History Mother Stroke Social History Smoking Status: Former smoker Tobacco Type: cigarettes Substance Use Type: None Meds Medications & Allergies Allergies No Known Allergies Allergy (Verified 02/05/22 16:45) Home Medications clindamycin HCl 150 mg capsule 300 mg PO TID 02/05/22 [History Confirmed 02/05/22] glipizide 10 mg tablet 20 mg PO BID 02/05/22 [History Confirmed 02/05/22] lisinopril 10 mg tablet 10 mg PO DAILY 02/05/22 [History Confirmed 02/05/22] metformin 500 mg tablet,extended release 24 hr 1,000 mg PO BID.WITH.MEALS 02/05/22 [History Confirmed 02/05/22] oxycodone-acetaminophen 5 mg-325 mg tablet 1 tab PO Q6H PRN Pain 02/05/22 [History Confirmed 02/05/22] pioglitazone 45 mg tablet 45 mg PO DAILY 02/05/22 [History Confirmed 02/05/22] pravastatin 40 mg tablet 40 mg PO DAILY 02/05/22 [History Confirmed 02/05/22] Active Medications: Active Medications Acetaminophen (Acetaminophen 325 Mg Tablet) 650 mg PO Q4H PRN PRN Reason: Pain Scale 1 - 5 Stop: 02/05/23 16:35 Albuterol (Albuterol Neb 2.5 Mg/3 Ml Vial.Neb) 2.5 mg INHALATION Q2H PRN PRN Reason: Shortness Of Breath Stop: 02/05/23 16:41 Amlodipine Besylate (Amlodipine 5 Mg Tablet) 5 mg PO DAILY LETICIA Stop: 02/05/23 17:14 Last Admin: 02/06/22 08:16 Dose: 5 mg Dextrose (Dextrose 50% In Water 25 Gm/50 Ml Syringe) 0 gm IV-PUSH PRN PRN PRN Reason: Hypoglycemia Stop: 02/05/23 16:35 Docusate Sodium (Docusate 100 Mg Capsule) 200 mg PO BID PRN PRN Reason: Constipation Stop: 02/05/23 16:35 Glucose (Dextrose 40% Gel 15 Gm Tube) 0 gm PO PRN PRN PRN Reason: Hypoglycemia Stop: 02/05/23 16:35 Heparin Sodium (Porcine) (Heparin 5,000 Unit/Ml Vial) 5,000 unit SUBCUT Q12HR LETICIA Stop: 02/05/23 20:59 Last Admin: 02/06/22 08:16 Dose: 5,000 unit Heparin Sodium (Porcine) (Heparin 10,000 Unit/10 Ml Vial) 3,300 unit IV PRN PRN PRN Reason: Dialysis Stop: 02/06/23 09:01 Heparin Sodium (Porcine) (Heparin 10,000 Unit/10 Ml Vial) 2,000 unit IV PRN PRN PRN Reason: Dialysis Stop: 02/06/23 09:01 Heparin Sodium (Porcine) (Heparin 10,000 Unit/10 Ml Vial) 1,000 unit IV PRN PRN PRN Reason: Dialysis Stop: 02/06/23 09:01 Hydralazine HCl (Hydralazine 20 Mg/Ml Vial) 10 mg IV-PUSH Q4H PRN PRN Reason: if SBP > 185 Stop: 02/05/23 16:35 Ceftriaxone Sodium (Rocephin) 1 gm in 50 mls @ 100 mls/hr IV Q24H [facility] Last Admin: 02/05/22 17:35 Dose: 100 mls/hr Sodium Chloride (0.9% Sodium Chloride 1,000 Ml) 1,000 mls @ 0 mls/hr MISCELLANE.Q0M PRN PRN Reason: Dialysis Stop: 02/06/23 09:01 Insulin Aspart (Insulin Aspart 300 Units/3 Ml Insuln.Pen) 0 units SUBCUT TID.WM.HS [facility]; Protocol Stop: 02/05/23 16:59 Last Admin: 02/06/22 08:16 Dose: Not Given Oxycodone/Acetaminophen (Oxycodone/Acetaminophen 5-325 Mg Tablet) 1 tab PO Q6H PRN PRN Reason: Pain Pantoprazole Sodium (Pantoprazole 40 Mg Vial) 40 mg IV-PUSH DAILY LETICIA Stop: 02/05/23 17:24 Last Admin: 02/06/22 08:15 Dose: 40 mg Polyethylene Glycol (Polyethylene Glycol 3350 17 Gm Powd.Pack) 17 gm PO DAILY LETICIA Stop: 02/06/23 08:59 Last Admin: 02/06/22 08:16 Dose: Not Given Sodium Chloride (Sodium Chloride 0.9 % 10 Ml Vial.Pf) 10 ml INJECTION PRN PRN PRN Reason: Dilution Stop: 02/05/23 17:19 Last Admin: 02/06/22 08:16 Dose: 10 ml Sodium Chloride (Sodium Chloride 0.9 % 10 Ml Syringe) 10 ml IV-PUSH PRN PRN PRN Reason: Flush Stop: 02/05/23 17:19 Last Admin: 02/05/22 21:02 Dose: 10 ml Sodium Chloride (Sodium Chloride 0.9 % 10 Ml Syringe) 0 ml IV-PUSH PRN PRN PRN Reason: Flush Stop: 02/06/23 09:01 Exam Physical Exam Vital Signs: Temp Pulse Resp BP Pulse Ox O2 Del Method 98.9 F 63 16 145/75 H 93 L Room Air 02/06/22 04:00 02/06/22 04:00 02/06/22 04:00 02/06/22 04:00 02/06/22 04:00 02/06/22 04:00 Narrative: General: Appears comfortable and not in distress Heart: S1-S2, no rub Lung: Bilateral air entry, no wheezing or crackles Abdomen: Soft, positive bowel sounds Extremities: No edema, no cyanosis Head: Atraumatic, normocephalic Ear: No gross hearing Deficit or external ear redness Eyes: No pallor or redness Neck: No JVD or visible mass Skin: No rashes or bruises [employer]ICER: Awake,Alert, following simple command Musculoskeletal: No joint swelling or limitation of movement Psychiatric: Cooperative, normal mood and affect Results Labs CBC & Chem 7: 02/06/22 05:51 02/06/22 05:51 Labs: 02/05/22 02/05/22 02/05/22 16:52 16:52 17:39 BUN 38 H Creatinine 9.07 H Albumin 2.1 L Urine Color Yellow Urine Appearance Clear Urine pH 7.0 Ur Specific [place] 1.011 Urine Protein 300 H Urine Glucose (UA) 100 H Urine Ketones Negative Urine Occult Blood 1+ H Urine Nitrite Negative Ur Leukocyte Esterase 1+ H Urine RBC 10-19 H Urine WBC 10-19 H Urine Bacteria None seen 02/06/22 05:51 BUN 41 H Creatinine 10.82 H D Albumin 2.0 L Urine Color Urine Appearance Urine pH Ur Specific [place] Urine Protein Urine Glucose (UA) Urine Ketones Urine Occult Blood Urine Nitrite Ur Leukocyte Esterase Urine RBC Urine WBC Urine Bacteria Radiology Impressions Impressions - last 24 hours: Impressions Abdomen X-Ray 02/05/22 17:20 IMPRESSION: LEFT LOWER QUADRANT COLOSTOMY. NONSPECIFIC BOWEL GAS PATTERN WITH BORDERLINE CALIBER SMALL BOWEL LOOPS. MILD LEFT BASILAR PLEURAL-PARENCHYMAL CHANGE. Impression dictated by: Marily Terry M.D.02/05/2022 7:52 PM Dictation Location: [place] [address] Any impression(s) listed above is documentation that was entered by the reading physician into a diagnostic report(s) for Lobo Stoner. I have reviewed the report(s) and am incorporating any findings in the treatment plan of this patient where applicable. A&P - Nephrology Assessment/Plan (1) DUONG (acute kidney injury): Assessment/Problem Details: He has DUONG likely multifactorial including sepsis induced ATN, vancomycin induced nephrotoxicity or Zosyn induced AIN with superimposed autoregulation of EGFR due to the lisinopril. Other possibilities are postinfectious glomerulonephritis or paraproteinemia. He has no evidence of obstructive uropathy. His renal function fails to improve despite aggressive IV fluid resuscitation and stopping antibiotic and lisinopril. Patient currently reported to have uremic symptoms. (2) Metabolic acidosis: Assessment/Problem Details: He has anion gap metabolic acidosis likely due to the DUONG. (3) Hypertension: Assessment/Problem Details: His blood pressure is high. He was taking lisinopril at home which is currentlyon hold. (4) Diabetes: Assessment/Problem Details: He is a [id number] type 2 diabetes mellitus and was taking pioglitazone, metformin and glipizide at home (5) Hyperlipidemia: Assessment/Problem Details: He was taking pravastatin at home currently on hold Plan * I discussed with the patient to initiate hemodialysis due to the uremic symptoms and metabolic acidosis. He consented for it. Case was discussed with Dr. Maddox and he will place the hemodialysis catheter. * Patient appears to be euvolemic or mildly hypervolemic. Stop IV normal saline. * Continue amlodipine. I would recommend to avoid aggressive adjustment of the antihypertensive medication due to the risk of hypotension. * Continue to hold home dose of the lisinopril, metformin and pravastatin. * Will check serum free light chain ratio, SPEP, UPEP, serum and urine immunofixation, C3-C4, urine eosinophils, KHUSHI and ANCA. * Continue DM management as per the primary hospitalist team. The goal blood sugars between 100 to 150 mg/dL. * Check renal function daily and monitor input output * Thanks for your consult. We will continue to follow with you. Please feel free to call us with any question. Documented By: Addy Carlisle MD 02/06/22 0904 Signed By: <Electronically signed by Addy Carlisle MD> 02/06/22 2726 [facility] Work Phone: 1(108) 107-254409-22-2022 Consult note Author Jose Arriola [facility] February 06, 2022 3:49pm Note Date/Time February 06, 2022 3:49pm [facility] [address] [place] [address] General Surgery Consult Note Signed Patient: Lobo Stoner MR#: [id number] : 1960 Acct:[id number] Age/Sex: 61 / M Adm Date: 2 Loc: Room: [address] [place] [address] Type: ADM IN Attending Dr: Edith Og MD Copies to: DO Jigar Tovar MD Ruta Semaskiene, MD~ History of Present Illness Date of consult: 02/06/2022 Requesting/Attending Provider: Edith Og MD History of present illness: This is a 61-year-old male who contracted poison jasmyn approximately 3 weeks ago. As a result he started to develop a right upper thigh abscess. He went to the [facility] emergency room where he was placed on oral antibiotics. A week later the abscess continued to worsen and he went back to [facility] emergency room where they performed an I&D in the emergency room and admitted him for antibiotics. The antibiotics interfered with his kidney function and he was transferred to [facility] where he is currently receivinghemodialysis as a result of the kidney injury. At this time he is resting comfortably. He states the right upper thigh abscess is no longer painful, and he denies any pain radiating to other parts of his leg. Review of Systems Musculoskeletal Musculoskeletal: Reports as per HPI Comments: Right inner thigh abscess PMFSH Attestation Statement: The following information was validated with the patient. 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 Diabetes Diverticulitis Hyperlipidemia Hypertension Surgical History Bowel perforation History of colon resection Hx of cholecystectomy Small bowel obstruction due to postoperative adhesions Family History Mother Stroke Social History Smoking Status: Former smoker Tobacco Type: cigarettes Substance Use Type: None Allergies & Medications Medications and Allergies Allergies No Known Allergies Allergy (Verified 02/05/22 16:45) Home Medications clindamycin HCl 150 mg capsule 300 mg PO TID 02/05/22 [History Confirmed 02/05/22] glipizide 10 mg tablet 20 mg PO BID 02/05/22 [History Confirmed 02/05/22] lisinopril 10 mg tablet 10 mg PO DAILY 02/05/22 [History Confirmed 02/05/22] metformin 500 mg tablet,extended release 24 hr 1,000 mg PO BID.WITH.MEALS 02/05/22 [History Confirmed 02/05/22] oxycodone-acetaminophen 5 mg-325 mg tablet 1 tab PO Q6H PRN Pain 02/05/22 [History Confirmed 02/05/22] pioglitazone 45 mg tablet 45 mg PO DAILY 02/05/22 [History Confirmed 02/05/22] pravastatin 40 mg tablet 40 mg PO DAILY 02/05/22 [History Confirmed 02/05/22] Active Medications Acetaminophen (Acetaminophen 325 Mg Tablet) 650 mg PO Q4H PRN PRN Reason: Pain Scale 1 - 5 Stop: 02/05/23 16:35 Albuterol (Albuterol Neb 2.5 Mg/3 Ml Vial.Neb) 2.5 mg INHALATION Q2H PRN PRN Reason: Shortness Of Breath Stop: 02/05/23 16:41 Amlodipine Besylate (Amlodipine 5 Mg Tablet) 5 mg PO DAILY [facility] Stop: 02/05/23 17:14 Last Admin: 02/06/22 08:16 Dose: 5 mg Dextrose (Dextrose 50% In Water 25 Gm/50 Ml Syringe) 0 gm IV-PUSH PRN PRN PRN Reason: Hypoglycemia Stop: 02/05/23 16:35 Docusate Sodium (Docusate 100 Mg Capsule) 200 mg PO BID PRN PRN Reason: Constipation Stop: 02/05/23 16:35 Glucose (Dextrose 40% Gel 15 Gm Tube) 0 gm PO PRN PRN PRN Reason: Hypoglycemia Stop: 02/05/23 16:35 Heparin Sodium (Porcine) (Heparin 5,000 Unit/Ml Vial) 5,000 unit SUBCUT Q12HR LETICIA Stop: 02/05/23 20:59 Last Admin: 02/06/22 08:16 Dose: 5,000 unit Heparin Sodium (Porcine) (Heparin 10,000 Unit/10 Ml Vial) 3,300 unit IV PRN PRN PRN Reason: Dialysis Stop: 02/06/23 09:01 Last Admin: 02/06/22 15:06 Dose: 3,300 unit Heparin Sodium (Porcine) (Heparin 10,000 Unit/10 Ml Vial) 2,000 unit IV PRN PRN PRN Reason: Dialysis Stop: 02/06/23 09:01 Last Admin: 02/06/22 15:06 Dose: 2,000 unit Heparin Sodium (Porcine) (Heparin 10,000 Unit/10 Ml Vial) 1,000 unit IV PRN PRN PRN Reason: Dialysis Stop: 02/06/23 09:01 Last Admin: 02/06/22 15:07 Dose: 1,000 unit Hydralazine HCl (Hydralazine 20 Mg/Ml Vial) 10 mg IV-PUSH Q4H PRN PRN Reason: if SBP > 185 Stop: 02/05/23 16:35 Ceftriaxone Sodium (Rocephin) 1 gm in 50 mls @ 100 mls/hr IV Q24H LETICIA Last Admin: 02/05/22 17:35 Dose: 100 mls/hr Sodium Chloride (0.9% Sodium Chloride 1,000 Ml) 1,000 mls @ 0 mls/hr MISCELLANE.Q0M PRN PRN Reason: Dialysis Stop: 02/06/23 09:01 Last Infusion: 02/06/22 15:08 Dose: Infused Insulin Aspart (Insulin Aspart 300 Units/3 Ml Insuln.Pen) 0 units SUBCUT TID.[facility]; Protocol Stop: 02/05/23 16:59 Last Admin: 02/06/22 12:13 Dose: Not Given Oxycodone/Acetaminophen (Oxycodone/Acetaminophen 5-325 Mg Tablet) 1 tab PO Q6H PRN PRN Reason: Pain Last Admin: 02/06/22 11:07 Dose: 1 tab Pantoprazole Sodium (Pantoprazole 40 Mg Vial) 40 mg IV-PUSH DAILY [facility] Stop: 02/05/23 17:24 Last Admin: 02/06/22 08:15 Dose: 40 mg Polyethylene Glycol (Polyethylene Glycol 3350 17 Gm Powd.Pack) 17 gm PO DAILY [facility] Stop: 02/06/23 08:59 Last Admin: 02/06/22 08:16 Dose: Not Given Prochlorperazine Edisylate (Prochlorperazine Edisylate 10 Mg/2 Ml Vial) 5 mg IV- PUSH Q4H PRN PRN Reason: Nausea And Vomiting Stop: 02/06/23 10:23 Last Admin: 02/06/22 14:20 Dose: 5 mg Sodium Chloride (Sodium Chloride 0.9 % 10 Ml Vial.Pf) 10 ml INJECTION PRN PRN PRN Reason: Dilution Stop: 02/05/23 17:19 Last Admin: 02/06/22 08:16 Dose: 10 ml Sodium Chloride (Sodium Chloride 0.9 % 10 Ml Syringe) 10 ml IV-PUSH PRN PRN PRN Reason: Flush Stop: 02/05/23 17:19 Last Admin: 02/05/22 21:02 Dose: 10 ml Sodium Chloride (Sodium Chloride 0.9 % 10 Ml Syringe) 0 ml IV-PUSH PRN PRN PRN Reason: Flush Stop: 02/06/23 09:01 Last Admin: 02/06/22 15:06 Dose: 40 ml Exam Physical Exam Vital Signs: Temp Pulse Resp BP Pulse Ox O2 Del Method 98.2 F 82 16 142/78 H 94 L Room Air 02/06/22 13:30 02/06/22 14:30 02/06/22 13:30 02/06/22 14:30 02/06/22 13:30 02/06/22 13:30 Const General: cooperative and comfortable Nutritional Appearance: average body habitus Orientation: alert, awake and oriented x3 HEENT Head: normal to inspection Mouth: oral mucosae normal Eyes Sclera: sclerae normal Pupils: PERRL Neck Neck: normal visual inspection Chest Chest palpation & inspection: normal inspection of the chest Resp Effort & Inspection: normal respiratory effort and able to speak in complete sentences Auscultation: clear to auscultation bilaterally Cardio Rate: regular rate Rhythm: regular rhythm GI Inspection: normal to inspection and non-distended Palpation: soft, not firm, no guarding and not rigid Percussion: normal to percussion Auscultation: normal bowel sounds Musc Other: Upper medial right thigh with surgical opening and wound packing. Surrounding area of darkened tissue with no evidence of necrotic tissue Neuro General: patient alert, patient awake and patient oriented x3 Results Intake and Output 24 hour I&O: Intake & Output 02/05/22 02/06/22 02/06/22 23:59 07:59 15:59 Intake Total 200 / 200 1100 / 1600 500 / 1600 Output Total 350 / 350 100 / 100 Balance -150 / -150 1000 / 1500 500 / 1500 Weight 114.4 kg 114.6 kg Labs CBC & Chem 7: 02/06/22 05:51 02/06/22 05:51 Laboratory Results - last 72 hr 02/06/22 11:22: POC Glucose 142 02/06/22 09:43: PT 14.3 H, INR 1.3 02/06/22 09:43: Total Creatine Kinase 41 02/06/22 06:50: POC Glucose 129 02/06/22 05:51: PHA Creatinine Clear 9.61, Sodium 134 L, Potassium 4.2, [id number], Carbon Dioxide 21.8 L, Anion Gap 16.4 H, BUN 41 H, Creatinine 10.82 H D, Est GFR ( Amer) 6, Est GFR (Non-Af Amer) 5, Glucose 127 H, Calcium 7.4 L,Total Bilirubin 0.4, AST 13, ALT 15, Alkaline Phosphatase 61, Total Protein 5.3 L, Albumin 2.0 L, Globulin 3.3, Albumin/Globulin Ratio 0.6 02/06/22 05:51: Corrected WBC 9.5, Uncorrected WBC Count 9.5, RBC 3.64 L, Hgb 9.8 L, Hct 29.3 L, MCV 80.5 L, MCH 26.8 L, MCHC 33.3, RDW 16.5 H, Plt Count 232,MPV 7.7, Neut % (Auto) 78.2, Lymph % (Auto) 11.2, [place] % (Auto) 10.0, Eos % (Auto) 0.3, Baso % (Auto) 0.3, Neut # (Auto) 7.4, Lymph # (Auto) 1.1, [place] # (Auto) 1.0 H, Eos # (Auto) 0.0, Baso # (Auto) 0.0, Nucleated RBC % (auto) 0.0 02/05/22 20:25: POC Glucose 168, POC Glucose Comment Glu2: cleaned meter 02/05/22 17:39: Ur Random Sodium 77 02/05/22 17:39: Ur Random Creatinine 63.9 02/05/22 17:39: Urine Color Yellow, Urine Appearance Clear, Urine pH 7.0, Ur Specific [place] 1.011, Urine Protein 300 H, Urine Glucose (UA) 100 H, Urine Ketones Negative, Urine Occult Blood 1+ H, Urine Nitrite Negative, Urine Bilirubin Negative, Urine Urobilinogen Normal, Ur Leukocyte Esterase 1+ H, Urine RBC 10-19 H, Urine WBC 10-19 H, Ur Squamous Epith Cells 1-2, Ur Renal Epithelial Cell 1-2 H, Urine Bacteria None seen, Hyaline Casts None seen 02/05/22 17:01: POC Glucose 203 02/05/22 16:52: Total Bilirubin 0.4, Direct Bilirubin < 0.1, Indirect Bilirubin TNP, AST 19, ALT 15, Alkaline Phosphatase 67, Total Protein 5.9 L, Albumin 2.1 L, Globulin 3.8, Albumin/Globulin Ratio 0.6, Lipase 53.0 H 02/05/22 16:52: PHA Creatinine Clear 11.45, Sodium 132 L, Potassium 4.4, Chloride 97, Carbon Dioxide 23.1, Anion Gap 16.3 H, BUN 38 H, Creatinine 9.07 H,Est GFR ( Amer) 7, Est GFR (Non-Af Amer) 6, Glucose 188 H, Calcium 7.7 L,Magnesium 1.7 Microbiology Microbiology - Results from entire visit 02/05/22 17:39 Urine - Clean-Voided Midstream Urine Culture - Preliminary No Growth 1 Day A&P - General Surgery (1) DUONG (acute kidney injury): Code(s): N17.9 - Acute kidney failure, unspecified Status: Acute (2) Groin abscess: Plan: This is a 61-year-old male who was admitted for acute kidney injury following antibiotic treatment of a right upper medial thigh abscess. The abscess has been opened and drained in the emergency room prior to his arrival at [facility]. At this time the abscess is packed and the does not appear to be any purulent drainage. It does not appear to require any additional surgical intervention at this time. I will however recheck the area tomorrow. Code(s): L02.214 - Cutaneous abscess of groin Status: Acute (3) Diabetes: Code(s): E11.9 - Type 2 diabetes mellitus without complications Status: Acute (4) Colostomy in place: Code(s): Z93.3 - Colostomy status Status: Acute Documented By: Jose Arriola DO 02/06/22 15 42 Signed By: <Electronically signed by Jose Arriola DO> 02/06/22 8213 [facility] Work Phone: 1(833) 557-921409-22-2022 Consult note Author Javan Maddox [facility] February 06, 2022 1:05pm Note Date/Time February 06, 2022 1:05pm [facility] [address] [place] [address] Pulmonology Consult Note Signed Patient: Lobo Stoner MR#: [id number] : 1960 Acct:[id number] Age/Sex: 61 / M Adm Date: 2 Loc: Room: [address] [place] [address] Type: ADM IN Attending Dr: Edith Og MD Copies to: MD Jigar Fiore MD Ruta Semaskiene, MD~ HPI Date/Time of Consultation: Date of Service: 02/06/2022 Time of Service: 12:59 Consulting Provider: Javan Maddox Requesting Provider: Edith Og History of Present Illness History of present illness: Mr. Stoner is a 61 year old male with a history of diabetes, hypertension, diverticulitis status post colostomy in place and cholecystectomy, who presentedto [facility] with right groin abscess requiring drainage and antibiotic therapy, patient was noted to develop progressive kidney injury for which she was transferred here for further evaluation. Patient was seen by nephrology who recommended immediate initiation of hemodialysis and asked me to place a hemodialysis catheter. His abscess cultures were growing staph, he has been treated with ceftriaxone but initially was on multiple antibiotics including vancomycin and Zosyn. Review of Systems Review of Systems Review of systems: System review as mentioned above otherwise unremarkable [facility] Vaccinated for COVID-19?: Yes Medical History (Updated 02/06/22 @ 13:05 by Javan Maddox MD) Colostomy in place pt states he has had it since 2005 Diabetes Diverticulitis Hyperlipidemia Hypertension Surgical History Hx of cholecystectomy Family History Mother Stroke Social History Smoking Status: Former smoker Tobacco Type: cigarettes Substance Use Type: None Meds Medications and Allergies Allergies No Known Allergies Allergy (Verified 02/05/22 16:45) Home Medications clindamycin HCl 150 mg capsule 300 mg PO TID 02/05/22 [History Confirmed 02/05/22] glipizide 10 mg tablet 20 mg PO BID 02/05/22 [History Confirmed 02/05/22] lisinopril 10 mg tablet 10 mg PO DAILY 02/05/22 [History Confirmed 02/05/22] metformin 500 mg tablet,extended release 24 hr 1,000 mg PO BID.WITH.MEALS 02/05/22 [History Confirmed 02/05/22] oxycodone-acetaminophen 5 mg-325 mg tablet 1 tab PO Q6H PRN Pain 02/05/22 [History Confirmed 02/05/22] pioglitazone 45 mg tablet 45 mg PO DAILY 02/05/22 [History Confirmed 02/05/22] pravastatin 40 mg tablet 40 mg PO DAILY 02/05/22 [History Confirmed 02/05/22] Exam Physical Exam Vital Signs: Temp Pulse Resp BP Pulse Ox O2 Del Method 99.2 F H 91 H 16 162/75 H 93 L Room Air 02/06/22 08:00 02/06/22 08:00 02/06/22 08:00 02/06/22 08:00 02/06/22 08:00 02/06/22 08:00 Narrative: General: Patient is alert awake responds appropriately in no distress Eyes: Pupils equal round reactive to light HEENT: Normocephalic, atraumatic, oral mucosa moist Neck: Supple no lymphadenopathy or thyromegaly Cardiovascular: S1, S2, normal sounds, no murmurs or gallops noted, regular rhythm Lungs: Adequate air entry bilaterally, clear to auscultation Extremities: No significant peripheral edema, peripheral pulses adequate, erythema and swelling in the upper inner thigh with hyperpigmented surface at the site of known drained abscess no significant tenderness Neurologic: Alert, awake, orientedx3, no focal weakness or speech abnormality Results Intake and Output I&O - Last 24 Hours: Intake & Output 02/05/22 02/06/22 02/06/22 23:59 07:59 15:59 Intake Total 200 / 200 1100 / 1100 Output Total 350 / 350 100 / 100 Balance -150 / -150 1000 / 1000 Weight 114.4 kg 114.6 kg Labs CBC & Chem 7: 02/06/22 05:51 02/06/22 05:51 Microbiology Micro: 02/05/22 17:39 Urine Culture - Preliminary Urine - Clean-Voided Midstream No Growth 1 Day Assessment/Plan (1) DUONG (acute kidney injury): (2) Groin abscess: (3) Diabetes: (4) Colostomy in place: Plan I placed a right IJ hemodialysis catheter to initiate hemodialysis support. Patient tolerated procedure very well, further recommendations for hemodialysis per nephrology. Awaiting chest x-ray to verify Documented By: Javan Maddox MD 02/06/22 1259 Signed By: <Electronically signed by Javan Maddox MD> 02/06/22 1305 [facility] Work Phone: 1(180) 498-640609-22-2022 [facility] History and physical note Author Edith Og [facility] February 06, 2022 10:25am Note Date/Time February 06, 2022 10:24am [facility] [address] [place] [address] Hospitalist H&P Signed Patient: Lobo Stoner MR#: [id number] : 1960 Acct:[id number] Age/Sex: 61 / M Adm Date: 2 Loc: Room: [address] [place] [address] Type: ADM IN Attending Dr: Edith Og MD Copies to: MD Edith Ayon MD~ HPI DATE OF EXAMINATION: 02/06/22 CHIEF COMPLAINT: Acute kidney injury HISTORY OF PRESENT ILLNESS: Patient has been seen and examined today. Feeling the same but complains of more nausea and still complains of abdominal discomfort in the upper abdomen Physical exam: General -awake, alert, oriented ?3, not in acute distress Cardiovascular -S1 with S2, no murmurs, no rubs, no gallops Pulmonary - clear to auscultation bilaterally Gastrointestinal - abdomen is soft, distended, upper tenderness noted but no rigidity no rebound, colostomy bag noted with brown stools Extremities -no edema Neurological -no focal neurological dysfunction noted Right groin area, incision wound noted with packing, with some drainage, with violaceous surrounding discoloration and induration, no significant extension toperineal area, no fluctuation. 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 he has had it since 2005 Diabetes Diverticulitis Hyperlipidemia Hypertension Surgical History Hx of cholecystectomy Family History Mother Stroke Social History Smoking Status: Former smoker Tobacco Type: cigarettes Substance Use Type: None Meds Medications and Allergies Allergies No Known Allergies Allergy (Verified 02/05/22 16:45) Home Medications clindamycin HCl 150 mg capsule 300 mg PO TID 02/05/22 [History Confirmed 02/05/22] glipizide 10 mg tablet 20 mg PO BID 02/05/22 [History Confirmed 02/05/22] lisinopril 10 mg tablet 10 mg PO DAILY 02/05/22 [History Confirmed 02/05/22] metformin 500 mg tablet,extended release 24 hr 1,000 mg PO BID.WITH.MEALS 02/05/22 [History Confirmed 02/05/22] oxycodone-acetaminophen 5 mg-325 mg tablet 1 tab PO Q6H PRN Pain 02/05/22 [History Confirmed 02/05/22] pioglitazone 45 mg tablet 45 mg PO DAILY 02/05/22 [History Confirmed 02/05/22] pravastatin 40 mg tablet 40 mg PO DAILY 02/05/22 [History Confirmed 02/05/22] Exam Physical Exam Vital Signs: Temp Pulse Resp BP Pulse Ox O2 Del Method 37.2 C 63 16 145/75 H 93 L Room Air 02/06/22 04:00 02/06/22 04:00 02/06/22 04:00 02/06/22 04:00 02/06/22 04:00 02/06/22 04:00 Narrative: General -patient is awake alert oriented ?3, does not appear to be in distress HEENT -dry oropharyngeal mucosa without any ulcers or exudates Cardiovascular -S1 plus S2, with regular rate, without any murmurs, gallops, rubs Pulmonary -clear to auscultation bilaterally Gastrointestinal -abdomen is soft, nondistended, slightly tender in the right upper quadrant epigastric area r, bowel sounds positive, no rigidity, no rebound Genitourinary -no flank tenderness Musculoskeletal -no back tenderness, no significant joint swelling, full range of motion Right groin incision site was noted with packing, induration around, no significant drainage, no extension to perineal area Neurological -no focal Skin -no significant ulcers, no rash noted Extremities - no edema in bilateral lower extremities noted Psychiatry - appropriate affect Laboratory work up, imaging studies reviewed Previous records in the computer system reviewed Results Lab Results Labs: Laboratory Last Values Corrected WBC 9.5 X10E3/uL (4.1-10.5) 02/06/22 05:51 Uncorrected WBC Count 9.5 x10E3/uL (4.5-11.0) 02/06/22 05:51 RBC 3.64 x10E6/uL (3.90-5.60) L 02/06/22 05:51 Hgb 9.8 g/dL (13.0-17.0) L 02/06/22 05:51 Hct 29.3 % (38.8-50.0) L 02/06/22 05:51 MCV 80.5 fl (83.5-101) L 02/06/22 05:51 MCH 26.8 pg (27.5-35.2) L 02/06/22 05:51 MCHC 33.3 g/dL (32.5-35.6) 02/06/22 05:51 RDW 16.5 % (12.0-14.8) H 02/06/22 05:51 Plt Count 232 x10E3/uL (150-450) 02/06/22 05:51 MPV 7.7 fl (6.6-10.1) 02/06/22 05:51 Neut % (Auto) 78.2 % (.) 02/06/22 05:51 Lymph % (Auto) 11.2 % (.) 02/06/22 05:51 [place] % (Auto) 10.0 % (.) 02/06/22 05:51 Eos % (Auto) 0.3 % (.) 02/06/22 05:51 Baso % (Auto) 0.3 % (.) 02/06/22 05:51 Neut # (Auto) 7.4 x10E3/uL (1.8-7.7) 02/06/22 05:51 Lymph # (Auto) 1.1 x10E3/uL (1.00-4.8) 02/06/22 05:51 [place] # (Auto) 1.0 x10E3/uL (0.0-0.8) H 02/06/22 05:51 Eos # (Auto) 0.0 x10E3/uL (0.0-0.45) 02/06/22 05:51 Baso # (Auto) 0.0 x10E3/uL (0.0-0.2) 02/06/22 05:51 Nucleated RBC % (auto) 0.0 % (0-0.5) 02/06/22 05:51 PT 14.3 Seconds (9.0-12.9) H 02/06/22 09:43 INR 1.3 02/06/22 09:43 PHA Creatinine Clear 9.61 02/06/22 05:51 Sodium 134 mmol/L (136-146) L 02/06/22 05:51 Potassium 4.2 mmol/L (3.5-5.1) 02/06/22 05:51 Chloride 100 mmol/L (95-114) 02/06/22 05:51 Carbon Dioxide 21.8 mmol/L (22.0-30.0) L 02/06/22 05:51 Anion Gap 16.4 mEq/L (6.0-15.0) H 02/06/22 05:51 BUN 41 mg/dL (9-23) H 02/06/22 05:51 Creatinine 10.82 mg/dL (0.64-1.27) H D 02/06/22 05:51 Est GFR ( Amer) 6 mL/Min 02/06/22 05:51 Est GFR (Non-Af Amer) 5 mL/Min 02/06/22 05:51 Glucose 127 mg/dL (70-100) H 02/06/22 05:51 POC Glucose 129 mg/dl 02/06/22 06:50 POC Glucose Comment Glu2: cleaned meter 02/05/22 20:25 Calcium 7.4 mg/dL (8.2-10.2) L 02/06/22 05:51 Magnesium 1.7 mg/dL (1.6-2.6) 02/05/22 16:52 Total Bilirubin 0.4 mg/dL (0.3-1.2) 02/06/22 05:51 Direct Bilirubin < 0.1 mg/dL (0.0-0.4) 02/05/22 16:52 Indirect Bilirubin TNP 02/05/22 16:52 AST 13 U/L (10-42) 02/06/22 05:51 ALT 15 U/L (10-60) 02/06/22 05:51 Alkaline Phosphatase 61 U/L (32-92) 02/06/22 05:51 Total Protein 5.3 gm/dL (6.1-7.9) L 02/06/22 05:51 Albumin 2.0 gm/dL (3.2-5.5) L 02/06/22 05:51 Globulin 3.3 gm/dL 02/06/22 05:51 Albumin/Globulin Ratio 0.6 02/06/22 05:51 Lipase 53.0 U/L (22-51) H 02/05/22 16:52 Urine Color Yellow (Yellow) 02/05/22 17:39 Urine Appearance Clear (Clear) 02/05/22 17:39 Urine pH 7.0 (5.0-9.0) 02/05/22 17:39 Ur Specific [place] 1.011 (1.001-1.030) 02/05/22 17:39 Urine Protein 300 mg/dL (Negative) H 02/05/22 17:39 Urine Glucose (UA) 100 mg/dL (Normal) H 02/05/22 17:39 Urine Ketones Negative (Negative) 02/05/22 17:39 Urine Occult Blood 1+ (Negative) H 02/05/22 17:39 Urine Nitrite Negative (Negative) 02/05/22 17:39 Urine Bilirubin Negative (Negative) 02/05/22 17:39 Urine Urobilinogen Normal mg/dL (Normal) 02/05/22 17:39 Ur Leukocyte Esterase 1+ (Negative) H 02/05/22 17:39 Urine RBC 10-19 /HPF (0-4) H 02/05/22 17:39 Urine WBC 10-19 /HPF (0-4) H 02/05/22 17:39 Ur Squamous Epith Cells 1-2 /HPF (0-2) 02/05/22 17:39 Ur Renal Epithelial Cell 1-2 /HPF (0-1) H 02/05/22 17:39 Urine Bacteria None seen (None Seen) 02/05/22 17:39 Hyaline Casts None seen /LPF (0-8) 02/05/22 17:39 Ur Random Creatinine 63.9 mg/dl 02/05/22 17:39 Ur Random Sodium 77 mmol/L 02/05/22 17:39 A&P - Hospitalist Assessment/Plan (1) DUONG (acute kidney injury): Plan 1. Acute kidney injury, suspect ATN, urine lites FeNa > 1 Ultrasound at [facility] did not reveal any hydronephrosis, he has Wade catheter with clear urine, draining 450 cc overnight Continue to avoid nephrotoxic medications, he got vancomycin/Zosyn and Toradol while at [facility]. Also he was on lisinopril at home Consulted nephrology, plan for dialysis 2. Right groin abscess, status post incision and drainage while in the emergency room, at that time CT scan was done which showed recently drained abscess with diffuse inflammatory subcutaneous stranding skin thickening from the right groin to right upper medial thigh and right medial knee findings are flat diffuse cellulitis, no necrotizing dissecting here On physical exam no signs of necrotizing fasciitis Cultures revealed MSSA, blood cultures remained negative Consult edwound care, for now continue with antibiotics with MRSA 3. Hypertension, blood pressure at the higher range could be due to underlying kidney dysfunction, start hydralazine and Norvasc, continue to hold lisinopril 4. Diabetes mellitus type 2, added sliding scale, glucose well controlled 5. DVT prophylaxis Heparin 6. Abdominal pain/nausea/vomiting, could be due to uremia. X-ray of the abdomen without acute findings. Liver enzymes and grading enzymes normal Documented By: Edith Og MD 02/06/22 1020 Signed By: <Electronically signed by Edith Og MD> 02/06/22 1027 [facility] Work Phone: 1(830) 875-269409-21-2022 History and physical note Author Edith Og [facility] February 05, 2022 5:20pm Note Date/Time February 05, 2022 5:08pm [facility] [address] [place] [address] Hospitalist H&P Signed Patient: Lobo Stoner MR#: [id number] : 1960 Acct:[id number] Age/Sex: 61 / M Adm Date: 2 Loc: Room: 4N1249-4 Type: ADM IN Attending Dr: Edith Og MD Copies to: MD Edith Ayon MD~ HPI DATE OF EXAMINATION: 02/05/22 CHIEF COMPLAINT: Acute kidney injury HISTORY OF PRESENT ILLNESS: 61 years old male with history of hypertension and diabetes presented on January 31 due to right groin abscess to [facility]. Patient failed outpatient clindamycin therapy. Emergency room did incision and drainage. He was started on vancomycin and Zosyn. Wound culture showed MSSA. Antibiotics were switched to Rocephin. Blood cultures remain negative. General surgery evaluated the patient recommended conservative management. However his kidney function got worse, creatinine went up to 7.9, and he was transferred here for further evaluation On admission on January 31 patient's creatinine was 0.95, on creatinine went up to 2.9, then to 5.4 and today to 7.9. During the hospitalization he also got Toradol. Lisinopril was stopped. As mentioned above vancomycin Zosyn was switched to Rocephin therapy. Kidney ultrasound was done which showed no hydronephrosis. Wade catheter was placed and patient did have 175 cc of urine output overnight. When I saw the patient he complained of nausea and right upper and epigastric abdominal pain. He complained of dry heaves. He complained of poor appetite hewas not eating for couple of days. Denied any diarrhea. His right groin area pain got better. Denied any shortness of breath any chest pain any palpitationsany dizziness. Patient does not have underlying history of kidney problems. Evaluation at [facility] showed February 05, 2022 Sodium 133, potassium 4.5, chloride 101, bicarbonate 23, BUN 39, creatinine 7.9,calcium 7.4 Kidney ultrasound did not show any hydronephrosis Review of Systems Review of Systems Review of systems: 10 systems are reviewed and are negative apart what is mentioned in H&P PMFSH Vaccinated for COVID-19?: Yes Medical History (Updated 02/05/22 @ 17:20 by Edith Og MD) Colostomy in place pt states he has had it since 2005 Diabetes Hyperlipidemia Surgical History (Updated 02/05/22 @ 17:10 by Marti Craig, LISA) Hx of cholecystectomy Family History (Updated 02/05/22 @ 17:07 by Marti Craig RN) Mother Stroke Meds Medications and Allergies Allergies No Known Allergies Allergy (Verified 02/05/22 16:45) Home Medications clindamycin HCl 150 mg capsule 300 mg PO TID 02/05/22 [History Confirmed 02/05/22] glipizide 10 mg tablet 20 mg PO BID 02/05/22 [History Confirmed 02/05/22] lisinopril 10 mg tablet 10 mg PO DAILY 02/05/22 [History Confirmed 02/05/22] metformin 500 mg tablet,extended release 24 hr 1,000 mg PO BID.WITH.MEALS 02/05/22 [History Confirmed 02/05/22] oxycodone-acetaminophen 5 mg-325 mg tablet 1 tab PO Q6H PRN Pain 02/05/22 [History Confirmed 02/05/22] pioglitazone 45 mg tablet 45 mg PO DAILY 02/05/22 [History Confirmed 02/05/22] pravastatin 40 mg tablet 40 mg PO DAILY 02/05/22 [History Confirmed 02/05/22] Exam Physical Exam Vital Signs: Temp Pulse Resp BP Pulse Ox O2 Del Method 36.9 C 98 H 18 169/79 H 92 L Room Air 02/05/22 16:25 02/05/22 16:58 02/05/22 16:58 02/05/22 16:58 02/05/22 16:58 02/05/22 16:58 Narrative: General -patient is awake alert oriented ?3, does not appear to be in distress HEENT -dry oropharyngeal mucosa without any ulcers or exudates Cardiovascular -S1 plus S2, with regular rate, without any murmurs, gallops, rubs Pulmonary -clear to auscultation bilaterally Gastrointestinal -abdomen is soft, nondistended, slightly tender in the right upper quadrant epigastric area r, bowel sounds positive, no rigidity, no rebound Genitourinary -no flank tenderness Musculoskeletal -no back tenderness, no significant joint swelling, full range of motion Right groin incision site was noted with packing, induration around, no significant drainage, no extension to perineal area Neurological -no focal Skin -no significant ulcers, no rash noted Extremities - no edema in bilateral lower extremities noted Psychiatry - appropriate affect Laboratory work up, imaging studies reviewed Previous records in the computer system reviewed A&P - Hospitalist Assessment/Plan (1) DUONG (acute kidney injury): Plan 1. Acute kidney injury, suspect ATN Ultrasound at [facility] did not reveal any hydronephrosis, he has Wade catheter with clear urine, draining 175 cc overnight Continue with strict input and output, check urinalysis and urine lites Continue to avoid nephrotoxic medications, he got vancomycin/Zosyn and Toradol while at [facility]. Also he was on lisinopril at home Consult nephrology Clinically he looks hypovolemic, start hydration. He does have very poor p.o. intake, and dry heaves, no edema noted Potassium 4.5, bicarbonate 23, no emergent indication for dialysis 2. Right groin abscess, status post incision and drainage while in the emergency room, at that time CT scan was done which showed recently drained abscess with diffuse inflammatory subcutaneous stranding skin thickening from the right groin to right upper medial thigh and right medial knee findings are flat diffuse cellulitis, no necrotizing dissecting here On physical exam no signs of necrotizing fasciitis Cultures revealed MSSA, blood cultures remained negative Consult wound care, for now continue with antibiotics with MRSA 3. Hypertension, blood pressure at the higher range could be due to underlying kidney dysfunction, start hydralazine and Norvasc, continue to hold lisinopril 4. Diabetes mellitus type 2, add sliding scale 5. DVT prophylaxis Heparin 6. Abdominal pain/nausea/vomiting, could be due to uremia. However his BUN is only 39. I will check x-ray of the abdomen, add liver enzymes and pancreatic enzymes. Patient status post cholecystic Stat bmp ordered, results pending Documented By: Edith Og MD 02/05/22 1700 Signed By: <Electronically signed by Edith Og MD> 02/05/22 1729 [facility] Work Phone: 1(106) 849-675408-28-2022 Evaluation note* Encounter Date Diagnosis Assessment Notes Treatment Notes Treatment Clinical Notes Dec, Poison jasmyn dermatitis (ICD-10 - L23.7) Kenalog IM given in office today due to moderate nature of discomfort. Take medications as directed and start tomorrow. Complete all doses. Wash all belongings that came in contact with plant oils in diluted dishwashing liquid. May try to use Calamine lotion and OTC Zyrtec for symptom relief. Follow up with primary care provider or dermatology if symptoms do not improve or worsen with treatment [facility] Other 04-15-2022 NoteMR#: [id number] I [facility] Pt. Name: Lobo Stoner Admitted: 08/20/2021 Discharged: 08/29/2021 Date of : 1960 Physician: Ray Davis MD DISCHARGE SUMMARY PRINCIPAL DIAGNOSIS: Gallstone pancreatitis. SECONDARY DIAGNOSES: Diabetes, hypertension. PROCEDURES PERFORMED: During this hospital stay: He had an ERCP on 08/23/2021 by GI. He also had an open cholecystectomy on 08/26/[address] Brooke Davis. HOSPITAL COURSE: The patient is a 60-year-old male who presented to [facility] and was transferred to the [facility] for CT findings of gallstone pancreatitis. GI was consulted due to acute pancreatitis due to gallstones. He had MRCP and then followed by ERCP on August 23, which they were retrieved a gallstone. No stents were placed. He went to the OR on August 26 for an open cholecystectomy by Dr. Davis. He was progressed to a low-fat diet and was discharged tolerating diet on the . Liver functions returned to normal. Pain was controlled. He was discharged with [place] take every 6 hours as needed for pain. He was instructed to be off work for 1 month. No heavy lifting greater than 15 pounds. He also was instructed to follow up with Dr. Davis in 1-2 weeks. The patient understood all discharge instructions and was discharged in stable condition. Electronically Signed by: Ray Davis MD 09/05/2021 09:26 A Ray Davis MD I have reviewed this discharge summary and confirmed the resident's documentation. Please note that there may be additional documentation from me. Date Dict: 08/29/2021/05:56 P/Lynnette Starks CNP Date Trans: 08/30/2021 04:59 A/mmo [id number] cc: Jigar Powell M.D. [address] [facility] [place] [address]* Diagnosis Onset Date Resolution Status DUONG (acute kidney injury) ac paimiut Colostomy in place acute Diabetes acute Groin abscess acute Hyperlipidemia acute Hypertension acute Metabolic acidosis acute [facility] Work Phone: Evaluation noteNo InformationNortCommunity Health Systems [facility] Other Evaluation note* Diagnosis Onset Date Resolution Status DUONG (acute kidney injury) ac paimiut Colostomy in place acute Diabetes acute Elevated serum immunoglobulin free light chains acute Groin abscess acute Hyperlipidemia acute Hypertension acute Metabolic acidosis acute [facility] Work Phone: Evaluation noteNo assessment information available [facility] Work Phone: Evaluation note* Diagnosis Benign prostatic hyperplasia with lower urinary tract symptoms, symptom details unspecified- Primary [facility] Diagnosis Erectile dysfunction, unspecified erectile dysfunction type- Primary [facility]* Diagnosis Onset Date Resolution Status Bence Small proteinuria acut e Chronic kidney disease, stage 2 (mild) acute Diabetic nephropathy acute [id number] [facility] Work Phone: Hisghxo general Narrative - Reported* Type Description Date Medical History Type II DM Medical History colostomy bag in place Medical History diverticulitis Surgical History ruptured stomach-child Surgical History intestinal blockage 1985 Surgical History Rt ankle/foot FX Surgical History diverticulitis Surgical History cholecystectomy Hospitalization History see above [facility] Other Hisvhbj general Narrative - Reported* Type Description Date Medical History Type II DM Medical History colostomy bag in place Medical History diverticulitis Surgical History ruptured stomach-child Surgical History intestinal blockage 1985 Surgical History Rt ankle/foot FX Surgical History diverticulitis Surgical History cholecystectomy Surgical History CATH IN NECK FOR DIALYSIS Hospitalization History see above Hospitalization History SEPSIS [facility] Other Hospital Discharge instructions Additional Instructions Maintain and routine care to Colostomy. Maintain and routine care to Hemodialysis Cath. Please weigh yourself daily. Keep a record of these to take to your Dr. appointments. Wound care daily to right inner thigh/groin site to be done at Infusion Center: *Flush with vashe and allow vashe to remain in wound for 1 min,. then flush with normal saline, *fill wound with 1/4 inch packing gauze coated with silvasorb gel, top with abd pad ( just packed with 7 feet of packing gauze)[facility] Work Phone: InstructionsNot on filedocumented in this encounter [facility] SystemInstructionsNot on filedocumented in this encounter [facility] SystemInstructions* Attachments The following attachments cannot be sent through Care Everywhere. * Benign prostatic hyperplasia (enlarged prostate) (Romanian) [facility] Summary Purpose Family History Relationship Condition Age at Onset Recorded Date/T dale Not Specified Cerebrovascular accident (CVA) Unknown Relationship Condition Age at Onset Recorded Date/T dale Not Specified Cerebrovascular accident (CVA) Unknown father Unknown Not Specified History of stroke Unknown Unknown Advance Directives Advance Directive Response Recorded Date/ Time Advance Directives No January 1:55pm Advance Directive Response Recorded Date/ Time Advance Directives No January 12:55pm Chief Complaint and Reason for Visit Chief Complaint Acute Kidney Injury Reason for Visit DUONG (acute kidney in jury) Colostomy in place Diabetes Groin abscess Hyperlipidemia Hypertension Metabolic acidosis Chief Complaint Acute Kidney Injury R thigh wound. Reason for Visit DUONG (acute kidney in jury) Colostomy in place Diabetes Elevated serum immunoglobulin free light chains Groin abscess Hyperlipidemia Hypertension Metabolic acidosis Chief Complaint n17.9 Chief Complaint N18.2 RENAL 6 MONTH F/U Reason for Visit Willie Small proteinu dee dee Chronic kidney disease, stage 2 (mild) Diabetic nephropathy [id number] Reason for Referral Reason Removal of HD cathet er Diagnosis 1 DUONG (acute kidney in jury) (N17.9) Referral Organization [facility] Referring Provider First Name Juan Jose Referring Provider Last Name Bi Referring Provider Specialty Nephrology Referred Organization [facility] Referred Provider Jose Guadalupe Andrews Referred Address [address],[place], [place],[address] Referred Provider Specialty Vascular Dave sushila Referral Priority Routine Additional Source Comments (unrecognized sect ion and content) No Status Records FoundNo Status Records FoundNo Status Records FoundNo Status Records FoundNo Status Records Found INFORMATION SOURCE (unrecogn ized section and content) DATE CREATED AUTHOR 09/06/2021 [facility] DATE CREATED AUTHOR AUTHOR'S ORGANIZ ATION 02/16/2022 [facility] DATE CREATED AUTHOR AUTHOR'S ORGANIZ ATION 08/22/2022 [facility] DATE CREATED AUTHOR AUTHOR'S ORGANIZ ATION 04/30/2023 [facility] EPIC DATE CREATED AUTHOR AUTHOR'S ORGANIZ ATION 09/14/2023 [facility] REASON FOR VISIT (unrecogniz ed section and content) Reason Comments Follow-up Care Teams (unrecognized sec tion and content) Team Status: Inactive Member Role Status Dates Jigar Powell MD Primary Care Provider Active Edith Og MD Admit Provider Active Addy Carlisle MD Other Provider Active Jihan Manuel MD Attending Provider Active Liana Ugalde LPN Other Provider Active Betzaida Bernal LPN Other Provider Active Jose Guadalupe Andrews MD Other Provider Active Robyn Acosta , LIFE SUPPORT TECHNICIAN-C Other Provider Active Gaudencio Park MD Other Provider Active Mao Fernandez MD Other Provider Active Shea Pabon MD Other Provider Active Team Status: Active Member Role Status Dates Jigar Powell MD Primary Care Provider Active Team Status: Inactive Member Role Status Dates Jigar Powell MD Primary Care Provider Active Edith gO MD Attending Provider Active Team Status: Inactive Member Role Status Dates Jigar Powell MD Primary Care Provider Active Juan Jose Pat MD Attending Provider Active Line Cleaner Relationship Specialty Start Date End Date Jigar Powell MD [address] [place] [address] PCP - General Family Medicine 03/19/21 Line Cleaner Relationship Specialty Start Date End Date Jigar Powell MD [address] [place] [address] PCP - General Family Medicine 03/19/21 Line Cleaner Relationship Specialty Start Date End Date Jigar Powell MD [address] [place] [address] PCP - General Family Medicine 03/19/21 Team Status: Inactive Member Role Status Dates Jigar Powell MD Primary Care Provider Active S tart: September 12, 2023 End: September 12, 2023 Juan Jose Pat MD Attending Provider Active Star t: September 12, 2023 End: September 12, 2023 Team Status: Inactive Member Role Status Dates Jigar Powell MD Primary Care Provider Active S tart: September 22, 2023 End: September 22, 2023 Juan Jose Pat MD Attending Provider Active Star t: September 22, 2023 End: September 22, 2023 Goals (unrecognized section and content) Goals may be documented in a n alternate section FOR RECORDS PERTAINING TO PATIENTS WHO ARE OR HAVE BEEN ENROLLED IN A CHEMICAL DEPENDENCY/SUBSTANCEABUSE PROGRAM, SOME INFORMATION MAY BE OMITTED. This clinical summary was aggregated from multiple sources. Caution should be exercised in using it in the provision of clinical care. This summary normalizes information from multiple sources, and as a consequence, information in this document may materially change the coding, format and clinical context of patient data. In addition, data may be omitted in some cases. CLINICAL DECISIONS SHOULD BE BASED ON THE PRIMARY CLINICAL RECORDS. [facility] [employer] [facility]. provides no warranty or guarantee of the accuracy or completeness of information in this document.
[2024-02-25 15:10] LABS: Estimated Average Glucose 120 mg/dL; Glycohemoglobin A1C 5.8 % (4.5-6.2)
== END 2024-02-25 14:38 | disposition home or self-care (01) ==
LOC: LAB 14:40
PROVIDERS: PCP Family Medicine; Visit Provider Family Medicine
DX: E11.65 Type 2 diabetes mellitus with hyperglycemia (principal); Z79.4 Long term (current) use of insulin
CPT/HCPCS: 36415; 83036

== ENCOUNTER 2024-09-12 12:19 | Outpatient (OUT) | payer OTHER, SELFPAY ==
[2024-09-12 13:37] LABS: Estimated Average Glucose 137 mg/dL; Glycohemoglobin A1C 6.4 % (4.5-6.2)
== END 2024-09-12 12:20 | disposition home or self-care (01) ==
LOC: LAB 12:24
PROVIDERS: PCP Family Medicine; Visit Provider Family Medicine
DX: E11.65 Type 2 diabetes mellitus with hyperglycemia (principal); Z79.4 Long term (current) use of insulin
CPT/HCPCS: 36415; 83036